=== PATIENT | male | born 1935 | race Hispanic/Latino ===

== ENCOUNTER → 2017-08-08 | Day surgery (SDC) | payer MEDICARE ==
[2017-08-07 17:55] LABS: BASOPHILS # (AUTO) 0.1 (0.0-0.1); EOSINOPHILS # (AUTO) 0.1 (0.0-0.4); EOSINOPHILS % 2.4 % (0.0-6.0); HEMATOCRIT 35.9 % (38.2-49.6); LYMPHOCYTES # (AUTO) 1.1 (1.0-3.2); LYMPHOCYTES % 21.8 % (18.0-39.1); MEAN CORPUSCULAR HEMOGLOBIN 28.9 pg (28-32); MEAN CORPUSCULAR HGB CONC 30.6 g/dL (31-35); MEAN CORPUSCULAR VOLUME 94.5 fL (81-99); MONOCYTES # (AUTO) 0.4 (0.2-0.8); MONOCYTES % 8.2 % (4.4-11.3); NEUTROPHILS # (AUTO) 3.3 (2.1-6.9); NEUTROPHILS % 66.2 % (38.7-80.0); PLATELET COUNT 190 x10e3/uL (140-360); RED CELL DISTRIBUTION WIDTH 15.2 % (11.7-14.4)
[~2017-08-08] MED LIST: CEFAZOLIN SOD 1 GM VIAL ONE; DEXAMETHASONE SOD PHOS INJ 4 MG/ML VIAL ONE; ENBREL50 MG/1 ML SQ; FENTANYL CITRATE/PF 100MCG/2 ML INJ ONE; FERROUS SULFAT325 MG PO; FOLIC ACID1 MG PO; GLYCOPYRROLATE INJ 1MG/ 5 ML SYR ONE; LIDOCAINE HCL 2% LOCAL INJ 5 ML SDV VIAL INJ ONE; ONDANSETRON HCL INJ 2 MG/ML VIAL ONE; PREDNISONE5 M1 PO; PROPOFOL IV EMULSION 10 MG/ML 20 ML VIAL ONE; SEVOFLURANE INHAL SOLN 250 ML PEN BTL ONE; ULTRACET TABLE1 EACH PO; VITAMIN B-121000 MCG PO; VITAMIN D31000 UNIT PO
--- NOTE | 2017-08-08 08:57 | Diagnostic Imaging Report ---
PROCEDURE: Frontal and lateral views of the chest. COMPARISON: Patients [facility], , CHEST 2 VIEWS, 03/17/2010, 16:30. INDICATIONS: PRE OP THUMB SURGERY FINDINGS: Lines/tubes: None. Lungs: Patchy density in the lung bases suggestive of subsegmental atelectasis. And/or senescent fibrosis. There is no evidence of pneumonia or pulmonary edema. Pleura: There is no pleural effusion or pneumothorax. Blunting of the posterior sulci suggestive of pleural scarring. Heart and mediastinum: The cardiac silhouette is mildly enlarged. Tortuous thoracic aorta. Bones: No acute bony abnormality. Remote healed right sided rib fractures. Degenerative changes of the thoracic spine. IMPRESSION: 1. No acute cardiopulmonary disease. Bibasilar subsegmental atelectasis and/or scarring. Michael Ruelas M.D. Dictated by: Michael Ruelas M.D. on 08/07/2017 at 18:14 Electronically approved by: Michael Ruelas M.D. on 08/07/2017 at 18:14
--- NOTE | 2017-08-08 14:26 | Operative Report ---
DATE OF PROCEDURE: August 08, 2017 BEESWAX BLEACHER: Iftikhar Grant PA-C The patient was brought to the operating room for induction of anesthesia. Throughout this case, my PA's assistance was necessary for retraction of soft tissue and positioning of the extremity. This allows for efficient and technically successful execution of the operation and is considered medically necessary. PREOPERATIVE DIAGNOSIS: Right thumb bony mallet finger. POSTOPERATIVE DIAGNOSIS: Right thumb bony mallet finger. PROCEDURE: Closed reduction and percutaneous pinning, right thumb. INDICATIONS: The patient is an 82-year-old gentleman who injured his right thumb. He has a bony mallet finger with a large dorsal fragment of bone at the extensor attachment. The findings and options have been discussed. We have recommended closed reduction and percutaneous pin fixation. Alternatives of care have been discussed. The patient states he understands and wishes to proceed with pinning. The risks and benefits were explained. The importance of cleaning the pin site with hydrogen peroxide was explained. He stated he understood and wished to proceed. DESCRIPTION OF PROCEDURE: The patient was brought to the operating room. He was placed under a brief general anesthetic. His right upper extremity was prepped and draped in a sterile manner. A preoperative time out was performed. Using a C-arm image intensifier, a 0.062 K-wire was placed on the tip of the thumb through the distal phalanx and across the IP joint. A nice reduction was obtained. The pin was cut short and capped. A sterile bandage was applied. The patient was transported to the recovery room in stable condition. There was no blood loss, and all needle and sponge counts were correct. Job#: [id number]
== END | disposition home or self-care (01) ==
LOC: OR 07:48
PROVIDERS: ATTEND Specialist
DX: M20.011 Mallet finger of right finger(s) (principal); Z01.810 Encounter for preprocedural cardiovascular examination; Z01.812 Encounter for preprocedural laboratory examination; Z01.818 Encounter for other preprocedural examination; Z96.653 Presence of artificial knee joint, bilateral; I10 Essential (primary) hypertension
CPT/HCPCS: 26432; 36415; 71046; 76000; 85025; 93005; J0690; J1100; J2001; J2405

== ENCOUNTER → 2017-12-26 | Day surgery (SDC) | payer MEDICARE ==
[2017-12-25 14:15] LABS: BASOPHILS % 0.6 % (0.0-1.0); EOSINOPHILS # (AUTO) 0.2 (0.0-0.4); EOSINOPHILS % 2.4 % (0.0-6.0); HEMATOCRIT 33.4 % (38.2-49.6); HEMOGLOBIN 10.1 g/dL (14.0-18.0); LYMPHOCYTES # (AUTO) 1.1 (1.0-3.2); LYMPHOCYTES % 17.9 % (18.0-39.1); MEAN CORPUSCULAR HEMOGLOBIN 28.9 pg (28-32); MEAN CORPUSCULAR HGB CONC 30.2 g/dL (31-35); MEAN CORPUSCULAR VOLUME 95.7 fL (81-99); MONOCYTES # (AUTO) 0.5 (0.2-0.8); MONOCYTES % 8.1 % (4.4-11.3); NEUTROPHILS # (AUTO) 4.5 (2.1-6.9); NEUTROPHILS % 70.5 % (38.7-80.0); PLATELET COUNT 187 x10e3/uL (140-360); RED BLOOD COUNT 3.49 x10e6/uL (4.3-5.7); RED CELL DISTRIBUTION WIDTH 15.6 % (11.7-14.4)
--- NOTE | 2017-12-25 15:15 | Diagnostic Imaging Report ---
EXAMINATION: PA and lateral views of the chest. COMPARISON: None CLINICAL HISTORY: Preadmission for urologic surgery DISCUSSION: Lines/tubes: None. Lungs: Atelectasis in the middle lobe and lingula. Lungs otherwise clear. Pleura: No pleural effusion or pneumothorax. Heart and mediastinum: The cardiomediastinal silhouette is normal. Bones and soft tissues: No acute bony abnormalities. Remote healed right-sided rib fractures. IMPRESSION: No acute cardiopulmonary abnormalities. Signed by: Dr. Braden Araujo M.D. on 12/25/2017 3:10 PM
[~2017-12-26] MED LIST changes: -DEXAMETHASONE SOD PHOS INJ 4 MG/ML VIAL ONE; +DOXAZOSIN MESYLA8 MG PO; +FLOMAX0.4 MG PO; -GLYCOPYRROLATE INJ 1MG/ 5 ML SYR ONE; +IOPAMIDOL 300MG/ML 50ML INFUS..BTL IV ONE; +LEVAQUIN500 MG PO; +MORPHINE SULFATE 2 MG/ML SYR ONE; +NITROFURANTOIN100 MG PO
[2017-12-26 15:00] VITALS: BP 131/74
--- NOTE | 2017-12-26 16:59 | Operative Report ---
DATE OF PROCEDURE: December 26, 2017 SERVICE: Urology. PREOPERATIVE DIAGNOSES 1. Benign prostatic hypertrophy with obstruction. 2. Urinary tract infection. 3. Microhematuria. POSTOPERATIVE DIAGNOSES 1. Benign prostatic hypertrophy with obstruction. 2. Urinary tract infection. 3. Microhematuria. OPERATIONS PERFORMED 1. Cystoscopy and bilateral retrograde pyelograms under fluoroscopic control. 2. Interpretation of x-ray, radiologist not present. 3. Supervision of fluoroscopy, radiologist not present. 4. Plasma surgery of the prostate. STONE OPERATOR: None. ANESTHESIA: General. CLINICAL INDICATION NOTE: This is an 82-year-old patient that has BPH with obstruction. He does have a Lamb catheter in place. He did fail several voiding trials. Patient was brought for cystoscopy, retrograde, and removal of the obstructing prostate. Procedure was discussed with him. Potential benefit and complication discussed, explained, and accepted. DESCRIPTION OF PROCEDURE AND FINDINGS: After the proper level of anesthesia was achieved, the patient was placed in lithotomy position, prepped and draped in usual sterile fashion. Urethra inspected is unremarkable, that is obstructed by large prostate composed of 3 lobes, a medial and 2 lateral. Bladder itself is significantly trabeculated. A cone-tip catheter was used and bilateral retrograde pyelograms were done. No intrinsic lesions were identified on both sides, no hydronephrosis, no stones. Following this, the scope was removed. A resectoscope was inserted and plasma treatment of the prostate was done. The mid lobe was treated first and then the 2 lateral lobes. Care was taken not to do distal to the verumontanum. After completing removal of the prostatic tissue, any visible bleeding points were coagulated. A 22-Mohawk, 30 mL, 3-way Lamb catheter was inserted. The patient tolerated the procedure well, was transferred in satisfactory condition to recovery room. Postop instruction given. Job#: [id number] YAEL
== END | disposition home or self-care (01) ==
LOC: OR 09:23
PROVIDERS: ATTEND Urology
DX: N40.1 Benign prostatic hyperplasia with lower urinary tract symptoms (principal); N13.8 Other obstructive and reflux uropathy; N39.0 Urinary tract infection, site not specified; N32.89 Other specified disorders of bladder; D64.9 Anemia, unspecified; M19.90 Unspecified osteoarthritis, unspecified site; Z01.810 Encounter for preprocedural cardiovascular examination; Z01.812 Encounter for preprocedural laboratory examination; Z01.818 Encounter for other preprocedural examination; Z87.891 Personal history of nicotine dependence
CPT/HCPCS: 36415; 52005; 52601; 71046; 74420; 85025; 93005; C1758; J0690; J2001; J2270; J2405; Q9967

== ENCOUNTER 2019-05-04 12:56 | Inpatient (IN) | payer MEDICARE ==
[~2019-05-04] VITALS: Ht 177.8 cm; Wt 104.0 kg
[~2019-05-04 12:56] MED LIST changes: +ASPIRIN EC81 MG PO; -CEFAZOLIN SOD 1 GM VIAL ONE; +COLACE100 MG/10 NG; +DIOVAN80 MG PO; +EFFIENT10 MG PO; +FAMOTIDINE20 MG PO; -FENTANYL CITRATE/PF 100MCG/2 ML INJ ONE; -IOPAMIDOL 300MG/ML 50ML INFUS..BTL IV ONE; -LIDOCAINE HCL 2% LOCAL INJ 5 ML SDV VIAL INJ ONE; +LIPITOR20 MG PO; +LOPRESSOR25 MG PO; -MORPHINE SULFATE 2 MG/ML SYR ONE; -ONDANSETRON HCL INJ 2 MG/ML VIAL ONE; -PROPOFOL IV EMULSION 10 MG/ML 20 ML VIAL ONE; -SEVOFLURANE INHAL SOLN 250 ML PEN BTL ONE
--- NOTE | 2019-05-04 14:35 | NUR ---
BLADDER SCAN PERFORMED RESULTS GREATER THAN 429 MD AWARE
--- NOTE | 2019-05-04 14:52 | NUR ---
BLADDER SCAN PERFORMED POST VOID OF 100 ML OF URINE RESULTS GREAT THAN 261
--- NOTE | 2019-05-04 14:53 | Diagnostic Imaging Report ---
EXAMINATION: CHEST SINGLE (PORTABLE) INDICATION: Shortness of breath. COMPARISON: 04/18/19. FINDINGS: AP view TUBES and LINES: None. LUNGS and pleura: Lungs are well inflated. There is mild prominence of the central pulmonary vasculature, consistent with pulmonary venous congestion. Bilateral small pleural effusions. No pneumothorax. HEART AND MEDIASTINUM: The cardiomediastinal silhouette is moderately enlarged. Enlarged tiki bilaterally suggestive of enlarged pulmonary arteries. BONES AND SOFT TISSUES: No acute osseous lesion. Old right-sided rib fracture deformities are again seen. Soft tissues are unremarkable. UPPER ABDOMEN: No free air under the diaphragm. IMPRESSION: Decompensated CHF with bilateral pulmonary venous congestion and interstitial edema. Signed by: Dr. Michael Ruelas M.D. on 05/04/2019 2:51 PM
[2019-05-04 15:14] LABS: BASOPHILS # (AUTO) 0.1 (0.0-0.1); BASOPHILS % 1.3 % (0.0-1.0); EOSINOPHILS # (AUTO) 0.8 (0.0-0.4); EOSINOPHILS % 14.6 % (0.0-6.0); HEMATOCRIT 24.8 % (38.2-49.6); HEMOGLOBIN 7.6 g/dL (14.0-18.0); LYMPHOCYTES # (AUTO) 0.9 (1.0-3.2); MEAN CORPUSCULAR HEMOGLOBIN 26.8 pg (28-32); MEAN CORPUSCULAR HGB CONC 30.6 g/dL (31-35); MEAN CORPUSCULAR VOLUME 87.3 fL (81-99); MONOCYTES # (AUTO) 0.5 (0.2-0.8); MONOCYTES % 9.5 % (4.4-11.3); NEUTROPHILS # (AUTO) 3.1 (2.1-6.9); NEUTROPHILS % 57.1 % (38.7-80.0); PLATELET COUNT 301 x10e3/uL (140-360); RED BLOOD COUNT 2.84 x10e6/uL (4.3-5.7); RED CELL DISTRIBUTION WIDTH 14.1 % (11.7-14.4)
[2019-05-04 15:19] LABS: INR 1.1; PROTHROMBIN TIME 14.7 seconds (11.9-14.5)
[2019-05-04 15:31] LABS: ALBUMIN 2.9 g/dL (3.5-5.0); ALBUMIN/GLOBULIN RATIO 0.7 (0.8-2.0); ANION GAP 14.9 mmol/L (8-16); CALCIUM 8.5 mg/dL (8.4-10.2); CREATININE, SERUM 2.13 mg/dL (0.72-1.25); MAGNESIUM 1.8 MG/DL (1.3-2.1); POTASSIUM 4.9 mmol/L (3.5-5.1)
--- NOTE | 2019-05-04 15:37 | NUR ---
coude catheter inserted with initial output of 200 mL
[2019-05-04 15:39] LABS: CREATINE KINASE MB 2.4 ng/mL (0-5.0)
[2019-05-04 15:56] LABS: CLARITY,URINE SL CLOUDY (CLEAR); COLOR,URINE YELLOW (YELLOW)
[2019-05-04 15:57] LABS: BILIRUBIN,URINE NEGATIVE (NEGATIVE); KETONES,URINE NEGATIVE (NEGATIVE); LEUKOCYTE ESTERASE ,URINE SMALL (NEGATIVE); NITRITE,URINE NEGATIVE (NEGATIVE); PROTEIN,URINE DIPSTICK NEGATIVE (NEGATIVE); URINE UROBILINOGEN 0.2 mg/dL (0.2 - 1)
[2019-05-04 15:58] LABS: BACTERIA,URINE RARE /HPF; EPITHELIAL CELLS,URINE FEW /LPF; RBC,URINE 0-5 /HPF (0-5)
[2019-05-04] MEDS: PANTOPRAZOLE 40 MG 10ML VIAL IV NR ×2 (15:59→16:43)
--- NOTE | 2019-05-04 16:15 | Diagnostic Imaging Report ---
Exam: Head CT without contrast History: Trauma, fall, unsteady gait Comparison studies: None Technique: Axial images were obtained from the skull base to the vertex. Coronal and sagittal images reconstructed from the axial data. Dose modulation, iterative reconstruction, and/or weight based adjustment of the mA/kV was utilized to reduce the radiation dose to as low as reasonably achievable. Radiation dose: Total DLP: 1275.77 mGy*cm. Estimated effective dose: DLP x 0.015 Intravenous contrast: None Findings: Scalp: No abnormalities. Bones: No fractures, blastic or lytic lesions. Brain sulci: Mildly prom. Ventricles: Mild compensatory dilatation. No hydrocephalus. Extra-axial spaces: No masses, no fluid collection. Parenchyma: No mass, acute hemorrhage or acute or chronic cortical insults. Ill-defined and mildly confluent hypodensities in the supratentorial white matter are nonspecific but are most compatible with chronic microvascular ischemic changes. Sellar/suprasellar region: No abnormalities. Craniocervical junction: Patent foramen magnum. No Chiari one malformation. Incidental findings: Atherosclerotic calcifications in the carotid siphons and intradural vertebral arteries. IMPRESSION: No acute abnormalities. Chronic findings: 1. Mild generalized brain volume loss. 2. Mild to moderate microvascular ischemic changes. Signed by: Dr. Lowell Lemus M.D. on 05/04/2019 4:13 PM
--- NOTE | 2019-05-04 16:24 | Diagnostic Imaging Report ---
History: Trauma, fall, unsteady gait Comparison studies: None Technique: Axial images were obtained through the cervical region. Coronal and sagittal images reconstructed from the axial data. Dose modulation, iterative reconstruction, and/or weight based adjustment of the mA/kV was utilized to reduce the radiation dose to as low as reasonably achievable. Intravenous contrast: None Findings: Atlantoaxial articulation: Intact. Alignment: Normal cervical lordotic curvature. Minimal anterolisthesis of C6 on C7 and C7 on T1 are most likely degenerative in etiology. Cervicomedullary junction: No abnormalities. The foramen magnum is patent. Soft tissues: No gross acute abnormalities. Vertebrae: No fracture, infection or neoplasm. Incidental congenital atlantooccipital assimilation. Degenerative changes: Multilevel disc degeneration, worse/moderate from C3 to C6. Prominent anterior marginal osteophytes indent the prevertebral soft tissues from C3 to T1. Disc osteophyte complexes at C3-C4 and C4-C5 result in at least moderate canal stenosis. Mild canal stenosis at C5-C6 due to disc osteophyte complex. Advanced multilevel facet arthrosis. Varying degrees of moderate to severe bilateral degenerative foraminal stenosis from C2 through C6. Incidental findings: Scattered calcified atherosclerosis. Anatomical variant retropharyngeal course of the right common carotid and proximal cervical internal carotid artery. IMPRESSION: 1. No cervical spine fracture or subluxation. 2. Advanced multilevel degenerative changes with at least moderate canal stenosis and multilevel moderate to severe foraminal stenosis. Cervical spine MRI may further evaluate as warranted. Ligament, spinal cord and or vascular abnormalities cannot be excluded on the basis of this examination Signed by: Dr. Lowell Lemus M.D. on 05/04/2019 4:22 PM
[2019-05-04] MEDS ORDERED: ONDANSETRON HCL INJ 2MG/ML 2ML 2 MG/ML VIAL IV PRN (17:00)
[2019-05-04 17:46] VITALS: BP 119/63
[2019-05-04 18:27] VITALS: BP 119/63
[2019-05-04 18:34] VITALS: BP 119/63
--- NOTE | 2019-05-04 19:33 | NUR ---
Received report from day nurse. patient is resting comfortably in the bed. bed is in the lowest position and call pinto is within reach. will continue to monitor patient
[2019-05-04 19:40] VITALS: BP 127/62
[2019-05-04] MEDS: MEROPENEM 500MG 500 MG in SODIUM CHLORIDE 0.9% 50ML 50 ML IV SCH (20:00)
[2019-05-04 20:30] VITALS: BP 127/62
[2019-05-04] MEDS ORDERED: MEROPENEM 500MG/ NS 50ML 100 ML ONE (20:52)
[2019-05-04] MEDS ORDERED: SODIUM CHLORIDE 0.9% 250ML 250 ML ONE (20:58)
[2019-05-05] VITALS (8 sets, daily range): BP systolic 104–139; BP diastolic 54–62
[2019-05-05 04:52] LABS: BASOPHILS # (AUTO) 0.1 (0.0-0.1); BASOPHILS % 1.1 % (0.0-1.0); EOSINOPHILS # (AUTO) 0.6 (0.0-0.4); EOSINOPHILS % 12.7 % (0.0-6.0); HEMATOCRIT 23.8 % (38.2-49.6); HEMOGLOBIN 7.3 g/dL (14.0-18.0); LYMPHOCYTES # (AUTO) 0.6 (1.0-3.2); MEAN CORPUSCULAR HEMOGLOBIN 26.5 pg (28-32); MEAN CORPUSCULAR HGB CONC 30.7 g/dL (31-35); MEAN CORPUSCULAR VOLUME 86.5 fL (81-99); MONOCYTES # (AUTO) 0.5 (0.2-0.8); NEUTROPHILS # (AUTO) 2.9 (2.1-6.9); NEUTROPHILS % 61.8 % (38.7-80.0); PLATELET COUNT 292 x10e3/uL (140-360); RED BLOOD COUNT 2.75 x10e6/uL (4.3-5.7); RED CELL DISTRIBUTION WIDTH 13.9 % (11.7-14.4)
[2019-05-05] MEDS: MEROPENEM 500MG 500 MG in SODIUM CHLORIDE 0.9% 50ML 50 ML IV SCH (05:00)
[2019-05-05 05:12] LABS: ALBUMIN 2.5 g/dL (3.5-5.0); ALBUMIN/GLOBULIN RATIO 0.7 (0.8-2.0); ANION GAP 14.5 mmol/L (8-16); CALCIUM 8.4 mg/dL (8.4-10.2); CHOL/HDL RATIO 3.8 (3.9-4.7); CREATININE, SERUM 1.77 mg/dL (0.72-1.25); POTASSIUM 4.5 mmol/L (3.5-5.1)
[2019-05-05 05:18] LABS: CREATINE KINASE MB 1.8 ng/mL (0-5.0)
--- NOTE | 2019-05-05 07:15 | NUR ---
report given to day nurse. patient is resting comfortably in bed. bed is in lowest position and call light is within reach.
--- NOTE | 2019-05-05 07:36 | NUR ---
H&P cc: chest pain HPI: 83yoM, PCP , developed urinary retention for 2 days. Lamb placed, urology consulted; PMH: RA, BPH, CKD3, peripheral edema, hearing deficits, STEMI 04/2019, hyponatremia, Bradyarrhythmia PShx: B/L TKR, hernia repair Allergies; see emr fh/SH; ; no cigs meds; see MAR ROS: no f/c/s/N/V/D/dizziness/skin rash/back pain/confusion/leg pain v/s; revd PE tired appearing anicteric ns1s2 mod bs soft nt nd Lamb in place no e/t; thickening and yellowing of toenails skin dry n. affect Reduced hearing labs/meds revd A/P 83yoM Urinary retention Hyponatremia UTI PRISCA in CKD3 Moderate anemia CAD with recent ACS and stent placed in 04/2019 BPH RA Onychomycosis of toenails HEaring deficits PLAN Lamb; IVF; urology eval; flomax Restatrt home meds SCD Qamar Olson MD, PhD.
[2019-05-05 08:55] LABS: FERRITIN 799.26 ng/mL (21.81-274.66)
[2019-05-05] MEDS ORDERED: DOCUSATE SODIUM LIQD 100 MG/10 ML UDC NG SCH (09:00)
[2019-05-05] MEDS ORDERED: ASPIRIN 81 MG ENTERIC COATED PO SCH (09:00)
[2019-05-05] MEDS: FERROUS SULFATE 325 MG TAB PO SCH ×2 (09:12→16:20)
[2019-05-05] MEDS: TAMSULOSIN HCL 0.4 MG CAP PO SCH (09:12)
[2019-05-05] MEDS: DOCUSATE SODIUM 100 MG CAP PO SCH ×2 (09:12→16:20)
[2019-05-05] MEDS: METOPROLOL TARTRATE 25 MG TAB PO SCH ×2 (09:12→20:03)
[2019-05-05] MEDS: TRAMADOL/APAP 37.5MG-325MG TAB PO PRN (09:12)
[2019-05-05] MEDS: FAMOTIDINE 20 MG TAB PO SCH ×2 (09:13→20:03)
[2019-05-05 10:38] LABS: EOSINOPHILS % (MANUAL) 10 % (0-7); LYMPHOCYTES % (MANUAL) 10 % (19-48); MONOCYTES % (MANUAL) 8 % (3.4-9.0); NEUTROPHILS % (MANUAL) 72 % (40-74)
[2019-05-05] MEDS: PRASUGREL 10 MG TAB PO SCH (11:23)
[2019-05-05 14:21] LABS: CREATINE KINASE MB 1.3 ng/mL (0-5.0)
[2019-05-05] MEDS: MEROPENEM 500MG/ NS 50ML 50 ML IV SCH (16:20)
[2019-05-05] MEDS: VALSARTAN 80 MG TAB PO SCH (16:20)
--- NOTE | 2019-05-05 19:05 | NUR ---
received report from day nurse. patient is resting comfortably in the bed. bed is in the lowest position and call pinto is within reach. will continue to monitor patient.
--- NOTE | 2019-05-05 19:20 | NUR ---
Report given to oncoming nurse of patient status. Resting in bed. No s/s of acute distress noted. Side rails upx2, Call light within reach, bed alarm on
[2019-05-05] MEDS: ATORVASTATIN 20 MG TAB PO SCH (20:03)
[2019-05-06] VITALS (7 sets, daily range): BP systolic 105–130; BP diastolic 44–67
[2019-05-06] MEDS: MEROPENEM 500MG/ NS 50ML 50 ML IV SCH ×2 (05:23→16:15)
[2019-05-06 05:26] LABS: BASOPHILS # (AUTO) 0.1 (0.0-0.1); BASOPHILS % 0.9 % (0.0-1.0); EOSINOPHILS # (AUTO) 0.8 (0.0-0.4); EOSINOPHILS % 13.4 % (0.0-6.0); HEMATOCRIT 25.9 % (38.2-49.6); HEMOGLOBIN 7.8 g/dL (14.0-18.0); LYMPHOCYTES # (AUTO) 1.1 (1.0-3.2); MEAN CORPUSCULAR HEMOGLOBIN 26.9 pg (28-32); MEAN CORPUSCULAR HGB CONC 30.1 g/dL (31-35); MEAN CORPUSCULAR VOLUME 89.3 fL (81-99); MONOCYTES # (AUTO) 0.5 (0.2-0.8); MONOCYTES % 9.1 % (4.4-11.3); NEUTROPHILS # (AUTO) 3.2 (2.1-6.9); NEUTROPHILS % 56.1 % (38.7-80.0); PLATELET COUNT 328 x10e3/uL (140-360)
[2019-05-06 05:39] LABS: ANION GAP 15.5 mmol/L (8-16); CALCIUM 8.6 mg/dL (8.4-10.2); CREATININE, SERUM 1.94 mg/dL (0.72-1.25); POTASSIUM 4.5 mmol/L (3.5-5.1)
--- NOTE | 2019-05-06 06:37 | NUR ---
IM- progress O/N see below ROS: no f/c/s/N/V/D/dizziness/skin rash/back pain/confusion/leg pain v/s; revd PE tired appearing anicteric ns1s2 mod bs soft nt nd Lamb in place no e/t; thickening and yellowing of toenails skin dry n. affect Reduced hearing labs/meds revd A/P 83yoM Urinary retention Hyponatremia UTI PRISCA in CKD3 Moderate anemia CAD with recent ACS and stent placed in 04/2019 BPH RA Onychomycosis of toenails HEaring deficits PLAN Lamb; IVF; urology eval; flomax Restatrt home meds SCD 1-27 Hyponatremia- use salt tabs; Metabolic acidosis- use bicarbs; cont IVF; f/u urine culture; AAA on U/S critical size- tranfer to med ctr; control BP with BB Qamar Olson MD, PhD.
--- NOTE | 2019-05-06 07:00 | NUR ---
BEDSIDE SHIFT REPORT RECEIVED FROM THE WALLPAPER HANGER HELPER RN. EDUCATED PT ABOUT FALL PRECAUTIONS. CALL LIGHT WITH IN EASY REACH. INSTRUCTED PT TO USE CALL LIGHT FOR ALL THE NEEDS. PT VERBALIZED UNDERSTANDING. BED IS LOW AND LOCKED. SIDE RAILS X2. BED ALARM IS ON. PT DENIES NEEDS AT THIS TIME.
--- NOTE | 2019-05-06 07:22 | NUR ---
report given to day nurse. patient is resting comfortably in bed. bed is in lowest position and call light is within reach.
[2019-05-06] MEDS: SODIUM BICARBONATE 650 MG TAB PO SCH ×2 (08:00→16:35)
[2019-05-06] MEDS: SODIUM CHLORIDE 1 GM TAB PO SCH ×3 (08:00→21:05)
[2019-05-06] MEDS: FAMOTIDINE 20 MG TAB PO SCH ×2 (08:39→21:05)
[2019-05-06] MEDS: TAMSULOSIN HCL 0.4 MG CAP PO SCH (08:39)
[2019-05-06] MEDS: FERROUS SULFATE 325 MG TAB PO SCH ×2 (08:39→16:35)
[2019-05-06] MEDS: DOCUSATE SODIUM 100 MG CAP PO SCH ×2 (08:39→16:35)
[2019-05-06] MEDS: PRASUGREL 10 MG TAB PO SCH (08:49)
[2019-05-06] MEDS: METOPROLOL TARTRATE 25 MG TAB PO SCH ×2 (08:49→21:00)
[2019-05-06] MEDS: VALSARTAN 80 MG TAB PO SCH (08:49)
--- NOTE | 2019-05-06 09:15 | NUR ---
CALL RECEIVED FROM LAB. ESBL IN URINE. PAGED DR. SAAVEDRA AND REPORTED THE SAME.
--- NOTE | 2019-05-06 10:53 | NUR ---
Left message for Dr. Olson regarding dc plan. Pt with ESBL in urine. PT to eval. SNF vs. home with HH and IV abx. Awaiting response.
--- NOTE | 2019-05-06 11:14 | NUR ---
DAUGHTER IS ANGEL [phone]
--- NOTE | 2019-05-06 11:14 | NUR ---
ATTEMPTED TO PREFORM DPA BUT UNABLE DUE TO PT BEING ASLEEP, WILL RETURN AT LATER TIME
[2019-05-06] MEDS ORDERED: ONDANSETRON HCL 4 MG ORAL DISINTEGRATING TAB PO PRN (12:00)
--- NOTE | 2019-05-06 15:00 | NUR ---
PT REFUSED TO WEAR IRVING HOSE.
--- NOTE | 2019-05-06 15:30 | NUR ---
SPOKE WITH PT AND WAS ABLE TO COMPLETE DPA ALSO SPOKE WITH HIM ABOUT THE SNF ORDER, HE DEFERRED ME TO HIS DAUGHTER ANGEL, STATES PT IS AT [facility]. SHE STATES SHE WILL CHECK WITH HER MOTHER TO SEE IF SHE WANTS HIM AT THE SAME BUILDING, AND HER SIBLINGS TO SEE IF ABLE TO GET HIM TO GO TO A FACILITY, EDUCATED HE WILL NEED [facility] ABX AND PT. GAVE ALL OPTIONS FOR SNFS IN AREA, SHE WILL CALL BACK AND LET ME KNOW WHAT THE FAMILY DECISION IS.
--- NOTE | 2019-05-06 16:00 | NUR ---
STAT CONSULT DR. DURANT CALLED PER DR. DELGADO AND DR. DELA CRUZ. CHARGE NURSE NOTIFIED. CASE MANAGEMENT NOTIFIED.
--- NOTE | 2019-05-06 16:03 | Diagnostic Imaging Report ---
EXAM: Renal Ultrasound INDICATION: ^lizzette COMPARISON: None TECHNIQUE: Transverse and longitudinal images of the kidneys and bladder were obtained. FINDINGS: Right Kidney: Length: 9.6 cm Appearance: Normal echogenicity. Collecting system: No hydronephrosis Stones: None Cyst/Mass: 5 mm simple anechoic exophytic cyst. Left Kidney: Length: 10.9 cm Appearance: Normal echogenicity. Collecting system: No hydronephrosis Stones: None Cyst/Mass: Multiple simple cysts, the largest measuring up to 2.3 cm. Bladder: Lamb catheter in the decompressed bladder. Incidental note is made of infrarenal abdominal aortic aneurysm measuring up to 6.3 cm maximum diameter. IMPRESSION: No renal calculi or hydronephrosis. Bilateral simple renal cysts as above. Infrarenal abdominal aortic aneurysm measuring up to 6.3 cm maximum diameter. RECOMMENDATIONS: Urgent vascular surgery consultation for management of large abdominal aortic aneurysm. The above findings were discussed with Dr. Guillaume on 05/06/2019 3:55 PM, who responded indicating that the communication was understood. Signed by: Louis Billings MD on 05/06/2019 4:00 PM
--- NOTE | 2019-05-06 16:07 | NUR ---
ADDENDUM- d/w ; Extra time spent- >35mins IM- progress O/N see below ROS: no f/c/s/N/V/D/dizziness/skin rash/back pain/confusion/leg pain v/s; revd PE tired appearing anicteric ns1s2 mod bs soft nt nd Lamb in place no e/t; thickening and yellowing of toenails skin dry n. 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 Qamar Olson MD, PhD.
--- NOTE | 2019-05-06 16:08 | NUR ---
D/C summary Principal Dx: Critical size AAA Urinary retention Hyponatremia ESBL E.coli UTI PRISCA in CKD3 Moderate anemia CAD with recent ACS and stent placed in 04/2019 BPH RA Onychomycosis of toenails HEaring deficits PLAN Lamb; IVF; urology eval; flomax Restatrt home meds SCD 05-06 Hyponatremia- use salt tabs; Metabolic acidosis- use bicarbs; cont IVF; f/u urine culture; AAA on U/S critical size- tranfer to med ctr; control BP with BB; D/W ; ESBL E.coli UTI- merrem. d/c to med ctr stable at this time d/c>35mins f/u medical team in med ctr. Qamar Olson MD, PhD.
--- NOTE | 2019-05-06 16:50 | NUR ---
Received order to transfer pt to [facility]. CM spoke to pt. He gave choice for 1. [facility] and 2. [facility]. Choice letter signed and placed in chart. Copy to pt. Pt asked that CM call his daughter Shakira to update her. CM called [facility] [phone] and spoke to Jaclyn to initiate transfer process. Facesheet and clinicals faxed to [phone]. CM called Shakira Clark [phone] and updated her on dc plan. She agrees with plan to transfer to [facility]. MOT initiated and given to health unit clerk to place with pt's packet for transfer.
[2019-05-06] MEDS: IRON SUCROSE 100 MG in SODIUM CHLORIDE 0.9% 100 ML 100 ML IV SCH (17:00)
--- NOTE | 2019-05-06 19:00 | NUR ---
BEDSIDE SHIFT REPORT GIVEN TO THE MARINE ENGINEERING CONSULTANT RN. PT DENIED FURTHER NEEDS.
--- NOTE | 2019-05-06 19:25 | NUR ---
received report from day nurse. patient is resting comfortably in the bed. bed is in the lowest position and call light is within reach. will continue to monitor patient.
[2019-05-06] MEDS: ATORVASTATIN 20 MG TAB PO SCH (21:05)
--- NOTE | 2019-05-06 21:44 | Consultation ---
DATE OF CONSULTATION: 05/06/2019 HISTORY OF PRESENT ILLNESS: This 83-year-old gentleman, poor historian, hard of hearing. I had a religion instructor with me has been admitted with urinary tract obstruction, acute kidney injury and renal has been consulted for before management of kidney failure. His most recent labs show sodium 126, potassium 4.5, bicarbonate 21, creatinine 1.9. His transferrin sat is 9 and his albumin level is 3.8. His CK is 111. He has been seen by Urology, Dr. Lamb has an indwelling Lamb catheter. Recent urinalysis shows specific gravity 1.010, pH 5.5 with a 0-5 RBC, 6-10 WBC. Hematology shows white count 5.6, hemoglobin 7.8. Chest x-ray please see official report, shows decompensated CHF with bilateral pulmonary venous congestion, interstitial edema. ALLERGIES: NO APPARENT DRUG ALLERGIES. CURRENT MEDICATIONS: The patient is on Flomax 0.4 mg daily. He is on valsartan 40 mg daily, which I am going to stop for the moment. He is on sodium chloride 2 g p.o. t.i.d., sodium bicarbonate tablet 1300 mg p.o. b.i.d., ferrous sulfate, atorvastatin, docusate, famotidine, metoprolol 12.5 p.o. b.i.d., Effient 10 mg daily, atorvastatin 20 mg at bedtime, meropenem 500 mg IV q.12 had urine culture positive ESBL. The patient currently comfortable resting, no apparent distress. He has a history of hypertension, bilateral knee replacement. He does not smoke or drink. History of inferior ST elevated myocardial infarction status post PCI and stenting right coronary artery. This was done recently on April 20, 2019. His serum creatinine has been ranging between 1.74-2.33, most recent 1.94. PHYSICAL EXAMINATION: GENERAL: Awake, alert, oriented x3, lying supine, in no apparent distress. VITAL SIGNS: Blood pressure 106/58, pulse 59, afebrile. HEAD AND NECK: Cornea clear. Oral mucosa moist. Neck veins flat. LUNGS: Occasional bibasilar rales. HEART: S1, S2 audible. Soft 2 to 3/6 ejection murmur heard over left sternal border. ABDOMEN: Otherwise soft, nontender. No apparent visceromegaly. LOWER EXTREMITY: No edema. IMPRESSION AND PLAN: Compensated CHF, acute on chronic kidney failure, iron deficiency anemia. Strongly recommend obtaining stool guaiacs. I will start IV Venofer. Hyponatremia appears multifactorial, underlying CKD three most likely until proven otherwise, evidence of distal renal tubular acidosis. Agree with bicarbonate tablets. Renal workup ordered. Clinic records have been requested. MD OSORIO Teixeira/MODL /[id number]
[2019-05-07] VITALS (7 sets, daily range): BP systolic 94–123; BP diastolic 41–63
[2019-05-07] MEDS: MEROPENEM 500MG/ NS 50ML 50 ML IV SCH ×3 (05:20→21:35)
[2019-05-07 05:37] LABS: ALBUMIN 2.5 g/dL (3.5-5.0); ALBUMIN/GLOBULIN RATIO 0.7 (0.8-2.0); ANION GAP 11.8 mmol/L (8-16); CALCIUM 8.4 mg/dL (8.4-10.2); CREATININE, SERUM 1.63 mg/dL (0.72-1.25); POTASSIUM 4.8 mmol/L (3.5-5.1)
--- NOTE | 2019-05-07 06:34 | NUR ---
IM- progress O/N see below ROS: no f/c/s/N/V/D/dizziness/skin rash/back pain/confusion/leg pain v/s; revd PE tired appearing anicteric ns1s2 mod bs soft nt nd Lamb in place no e/t; thickening and yellowing of toenails skin dry n. 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 05-07 d/c planning to med ctr for CV Sx mgmt of AAA. cont renal care and merrem. Surgical team notes that patient is a poor surgical candidate, but reque sted various consults, consultations made; Transfer to [facility] when accepted; d/w - PCP and - glass cut off tender; I also discussed with and updated daughter Shakira at [phone]. Continue medical tx. Qamar Olson MD, PhD.
--- NOTE | 2019-05-07 06:45 | NUR ---
patient is resting in bed. bed is in lowest position and call pinto is within reach.
--- NOTE | 2019-05-07 07:00 | NUR ---
BEDSIDE SHIFT REPORT RECEIVED FROM THE ARTIST SUSPECT RN. EDUCATED PT ABOUT FALL PRECAUTIONS. CALL LIGHT WITH IN EASY REACH. INSTRUCTED PT TO USE CALL LIGHT FOR ALL THE NEEDS. PT VERBALIZED UNDERSTANDING. BED IS LOW AND LOCKED. SIDE RAILS X2. BED ALARM IS ON. PT DENIES NEEDS AT THIS TIME.
--- NOTE | 2019-05-07 08:30 | NUR ---
DR. DURANT AT BEDSIDE.
--- NOTE | 2019-05-07 09:00 | NUR ---
DR. SAAVEDRA AT BEDSIDE. PER THE , PT NEED PICC LINE.
[2019-05-07] MEDS: DOCUSATE SODIUM 100 MG CAP PO SCH ×2 (09:08→17:53)
[2019-05-07] MEDS: SODIUM BICARBONATE 650 MG TAB PO SCH ×2 (09:08→17:53)
[2019-05-07] MEDS: FERROUS SULFATE 325 MG TAB PO SCH ×2 (09:08→17:53)
[2019-05-07] MEDS: SODIUM CHLORIDE 1 GM TAB PO SCH ×3 (09:08→21:35)
[2019-05-07] MEDS: FAMOTIDINE 20 MG TAB PO SCH ×2 (09:08→21:35)
[2019-05-07] MEDS: PRASUGREL 10 MG TAB PO SCH (09:08)
[2019-05-07] MEDS: METOPROLOL TARTRATE 25 MG TAB PO SCH ×2 (09:08→21:00)
[2019-05-07] MEDS: TAMSULOSIN HCL 0.4 MG CAP PO SCH (09:08)
--- NOTE | 2019-05-07 10:00 | NUR ---
PAGED DR. DELGADO AND UPDATED THE PROGRESS NOTES FROM DR. DURANT AND DR. SAAVEDRA. WAITING FOR THE CALL BACK.
--- NOTE | 2019-05-07 10:30 | NUR ---
CALL RECEIVED FROM DR. DELGADO. NEW ORDERS RECEIVED.
--- NOTE | 2019-05-07 10:30 | NUR ---
NEW ORDER CENTRAL LINE IJ TUNNELED PER DR. DELGADO
--- NOTE | 2019-05-07 11:30 | NUR ---
HOLD CENTRAL LINE TILL DR. RABAGO SEE THE PT PER DR. DELGADO. INFORMED THE SAME TO RADIOLOGY.
[2019-05-07] MEDS ORDERED: SODIUM CHLORIDE 0.9% 1000ML 1,000 ML IV ONE (12:30)
--- NOTE | 2019-05-07 14:32 | Diagnostic Imaging Report ---
EXAMINATION: CHEST 2 VIEWS INDICATION: Shortness of breath COMPARISON: Chest radiograph 05/04/2019 FINDINGS: LINES/TUBES:EKG leads overlie the chest. LUNGS:The lungs are mildly hyperinflated. There is perihilar fullness and indistinctness of the pulmonary vasculature. Mild bibasilar right greater than left opacities. PLEURA:No pleural effusion or pneumothorax. MEDIASTINUM:Cardiomediastinal silhouette is stably enlarged. Atherosclerotic calcifications of the thoracic aorta. BONES/SOFT TISSUES:Old healed right rib fractures. No acute osseous injury. Severe right glenohumeral joint degenerative changes. ABDOMEN:No free air under the diaphragm. IMPRESSION: Cardiomegaly and worsening pulmonary edema. Signed by: Louis Billings MD on 05/07/2019 2:29 PM
--- NOTE | 2019-05-07 16:12 | NUR ---
Spoke with Dr. Olson regarding transfer to [facility]. He states pt has a large aortic aneurysm that could spontaneously rupture at any time. Pt needs to transfer to the medical center as soon as possible. YONG spoke with Bunny at [facility] [phone]. States he will update the notes and they may have a bed for pt. Will call CM, nurses station, or household appliance installer once bed is available. DULCE MARIA Okeefe updated.
[2019-05-07] MEDS: IRON SUCROSE 100 MG in SODIUM CHLORIDE 0.9% 100 ML 100 ML IV SCH (17:00)
--- NOTE | 2019-05-07 17:15 | NUR ---
CALL RECEIVED FROM [facility] TRANSFER MEDORA. PER RACHEL, SHE CALLED DR. DURANT OFFICE REGARDING PT TRANSFER BUT PER DR. DURANT, PT IS NOT A CANDIDATE FOR SURGERY AT THIS TIME. SO UNABLE TO TRANSFER TO [facility] AT THIS TIME. MS. RAMOS REQUESTED TO CONTACT DR. DELGADO. PAGED DR. DELGADO AND INFORMED THE SAME.
--- NOTE | 2019-05-07 17:30 | NUR ---
PT OFF UNIT FOR PROCEDURE IN SAFE CONDITION.
--- NOTE | 2019-05-07 17:40 | NUR ---
CALL RECEIVED FROM DELL BALLESTEROS. PER THE CALLER, [facility] DECLINING THE TRANSFER DUE TO NO PHYSICIAN ACCEPTING THE PT. INFORMED THE SAME TO DR. DELGADO.
--- NOTE | 2019-05-07 17:50 | NUR ---
PT BACK TO UNIT AFTER PROCEDURE. DENIES NEEDS AT THIS TIME
[2019-05-07] MEDS ORDERED: SODIUM CHLORIDE 0.9% 250ML 250 ML IV NR (18:15)
[2019-05-07] MEDS ORDERED: FUROSEMIDE INJ 10 MG/ML 4 ML VIAL IV NR (18:30)
--- NOTE | 2019-05-07 18:41 | Diagnostic Imaging Report ---
Chest, Abdomen and Pelvis CTA WITH AND WITHOUT IV CONTRAST. INDICATION: Abdominal aortic aneurysm COMPARISON: Renal ultrasound of 05/06/2019 TECHNIQUE: The chest, abdomen and pelvis were scanned utilizing a multidetector helical scanner from the thoracic inlet to the pubic symphysis before and after administration of IV contrast. Coronal and sagittal reformations were obtained. 3D post-processing of the images was performed, and the post-processed images were used in interpretation. CTA protocol was performed. IV CONTRAST: 100mL of Isovue 370 ORAL CONTRAST: Water RADIATION DOSE: Total DLP: 1086.5 mGy*cm FINDINGS: VESSELS: There are moderate calcified and noncalcified atherosclerotic plaques in the aorta and its major branches. No aortic dissection. Infrarenal abdominal aortic aneurysm measures up to 6.5 x 6.4 cm at its widest point with mural thrombus. The common iliac arteries measure up to 1.5 cm on the left and 1.4 cm on the right. 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 The celiac artery, superior mesenteric artery, and inferior mesenteric artery are patent. There is a single right and and 2 left renal arteries, all of which are patent. NON-VASCULAR: LINES/ TUBES: None. LUNGS AND AIRWAYS: Small amount of dependent debris in the upper thoracic trachea. The central airways are otherwise patent. No focal consolidation or pulmonary edema. Mild subsegmental atelectasis at the dependent right lower lobe. Scattered 3 mm right upper and right middle lobe nodules. PLEURA: The pleural spaces are clear. HEART AND MEDIASTINUM: The thyroid gland is normal. No supraclavicular, mediastinal, or hilar lymphadenopathy. Prominent left axillary lymph node measures up to 1.3 cm short axis. Mild multichamber cardiomegaly. No pericardial effusion. Atherosclerotic calcifications involve the coronary arteries and proximal great vessels.. No central pulmonary embolism. The main pulmonary artery is enlarged, measuring up to 4.2 cm. HEPATOBILIARY: No focal hepatic lesions. No biliary ductal dilatation. The gallbladder appears unremarkable. SPLEEN: No splenomegaly. PANCREAS: No focal masses or ductal dilatation. ADRENALS: No adrenal nodules. KIDNEYS/URETERS: No hydronephrosis, stones, or solid mass lesions. Bilateral simple renal cysts. PELVIC ORGANS/BLADDER: Lamb catheter terminates in the decompressed bladder. PERITONEUM / RETROPERITONEUM: No free air or fluid. LYMPH NODES: No lymphadenopathy. GI TRACT: Severe sigmoid diverticulosis without CT evidence of diverticulitis. No abnormal bowel thickening. No bowel obstruction. Normal appendix. BONES AND SOFT TISSUES: No acute osseous injury. Old healed right and left rib fractures. Diffuse osteopenia. Moderate degenerative changes of the visualized spine. No suspicious lytic or blastic lesions. Severe right glenohumeral joint degenerative changes. IMPRESSION: Infrarenal abdominal aortic aneurysm measures up to 6.5 x 6.4 cm. Moderate calcified and noncalcified atherosclerosis. Recommend vascular surgical consult if not already obtained. 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 Severe sigmoid diverticulosis without CT evidence of diverticulitis. Scattered 3 mm right upper and middle lobe pulmonary nodules. If the patient is low risk, no further follow-up imaging is necessary. If the patient is high risk, follow-up chest CT is optional in 12 months. Signed by: Louis Billings MD on 05/08/2019 11:41 AM
[2019-05-07] MEDS ORDERED: SODIUM CHLORIDE 0.9% 100 ML ONE (18:42)
[2019-05-07] MEDS ORDERED: IOPAMIDOL 370 MG/ML 200 ML INFUS..BTL INJ ONE (18:43)
--- NOTE | 2019-05-07 19:00 | NUR ---
BEDSIDE SHIFT REPORT GIVEN TO THE DOORPERSON OR LUGGAGE PORTER RN. PT DENIED FURTHER NEEDS.
--- NOTE | 2019-05-07 20:44 | Consultation ---
DATE OF CONSULTATION: 05/07/2019 Pulmonary Consultation REASON FOR CONSULTATION: Pulmonary preop risk assessment optimization for possible infrarenal abdominal aortic aneurysm repair. HISTORY OF PRESENT ILLNESS: The patient is an 83-year-old Latin male, who has a past medical history of recent non ST-segment elevation AL back earlier this April with PCI and stent. He has a 40% to 45% systolic ejection fraction and chronic kidney disease. He presented to the ER secondary to generalized weakness following the urinary retention that has been going on for two days. He was found to have significant urinary retention, abnormal UA with ESBL E coli. During his workup, he was found to have infrarenal abdominal aortic aneurysm up to 6.3 cm in diameter. He denies any shortness of breath or chest pain at this time. He does have occasional cough. He does have occasional swelling of the lower extremities and dyspnea with exertion. He has no shortness of breath, cough, sputum, or chest pain currently. PAST MEDICAL HISTORY: Includes coronary artery disease, CHF, chronic kidney disease, BPH, hard of hearing, and rheumatoid arthritis. PAST SURGICAL HISTORY: Includes cardiac cath/PCI in April 2019, total knee replacement, and hernia repair. ALLERGIES: NONE. SOCIAL HISTORY: He smoked up until about 30 years ago or so, he was in his late 40s or 50s, he started as a teenager, so he probably smoked about 30 years. Denies alcohol or drugs. He is . REVIEW OF SYSTEMS: Otherwise unremarkable. MEDICATIONS: Current medications have been reviewed, including meropenem. PHYSICAL EXAMINATION: VITAL SIGNS: He is afebrile. Heart rate in the 50s. Blood pressure 112/51. Saturation is 96% to 97% on room air. GENERAL APPEARANCE: This is a pleasant, elderly man, who looks his stated age. He is awake, alert, conversant. HEENT: Head is normocephalic. Mucous membranes are moist. NECK: Supple. Trachea is midline. CHEST: Few scattered crackles clear. HEART: Regular rate and rhythm with soft systolic murmur. ABDOMEN: Soft, nontender. EXTREMITIES: Have no cyanosis or clubbing. There is some trace to 1+ edema. NEUROLOGIC: He is awake, alert, conversant. IMAGING DATA: Chest x-ray shows marked cardiomegaly with blunting of the costophrenic angles bilaterally, pulmonary vascular congestion, and CHF. LABORATORY DATA: White count 5, hemoglobin 7.8, hematocrit 26 with 328,000 platelets. He does have marked eosinophilia. Chemistry when he came in, sodium is 126 up to 130; creatinine is 1.9, is currently 1.6; and BUN is 26. Albumin is noted to be 2.5. He has a mildly prolonged Protime and PTT. Urinalysis shows cloudy urine with leukocyte esterase, white blood cells, rare bacteria. Influenza serology is negative, but that was back on April 18 and . ASSESSMENT: 1. Pulmonary edema. 2. History of tobacco use, 40 pack year. 3. Congestive heart failure. 4. Coronary artery disease with recent ST-segment elevation myocardial infarction. 5. Chronic kidney disease. 6. Abdominal aortic aneurysm, infrarenal 6.3 cm. 7. Urinary tract infection. With regard to pulmonary preop risk assessment, he is at high risk. His risk of perioperative pneumonia associated with noncardiac surgery is approximately 9%, which is well above average. For males, his risk of juliocesar/postoperative respiratory failure associated with noncardiac surgery is approximately 30%. RECOMMENDATIONS: We will get a two-view chest x-ray. Recommend that we will discuss with Renal, some gentle diuresis. He is currently on antibiotics and agree that he may be a better candidate for endovascular repair as well. Further recommendations pending clinical course, and also his Cardiology consultation given that he has had a recent AL. MD REILLY Curtis/BUSTER /[id number]
--- NOTE | 2019-05-07 20:54 | Consultation ---
DATE OF CONSULTATION: 05/07/2019 ID Consult REASON FOR CONSULTATION: ESBL in urine. Thank you, Dr. Olson, for asking me to see this patient. HISTORY OF PRESENT ILLNESS: The patient is an 83-year-old woman, who was referred for ESBL in the urine. He was admitted through the emergency department for urinary tract infection with cystitis. He presented to the emergency department on 05/04/2019 with generalized weakness, dysuria, frequency, and small volume urination, which progressed to dribbling. He has had chills, but denies fever, nausea, and vomiting. Also, he fell two days prior to arrival. In the emergency department, urinalysis was abnormal with pyuria. Urine culture later grew Escherichia coli, ESBL positive. Abdominal ultrasound showed no renal calculi or hydronephrosis, but there was 6.2 cm infrarenal abdominal aortic aneurysm. The patient has been evaluated by the Cardiovascular Service. PAST MEDICAL HISTORY: Hypertension, coronary artery disease, recent myocardial infarction status post stenting, coronary artery disease, BPH, and gout. PAST SURGICAL HISTORY: Hernia repair, transurethral resection of the prostate, and knee surgery. ALLERGIES: NO KNOWN DRUG ALLERGIES. CURRENT ANTIBIOTIC: Meropenem 500 mg IV piggyback q.12 hours. IMMUNIZATION: Influenza pneumococcal vaccination status cannot be verified at this time. FAMILY HISTORY: Significant for hypertension. SOCIAL HISTORY: No alcohol or tobacco use. REVIEW OF SYSTEMS: As per history of present illness. PHYSICAL EXAMINATION: VITAL SIGNS: T-max 99, pulse rate 65, respiratory rate 18, and blood pressure 120/60, and weight 236 pounds. GENERAL: There is no acute distress. HEENT: Normocephalic. There is no icterus or injection of conjunctiva. There is no ear or nasal discharge. Moist oral mucosa with poor dentition. No pharyngeal erythema or exudate. NECK: Supple. No meningismus. LUNGS: Good air entry bilaterally. HEART: With normal S1, S2. ABDOMEN: Soft, nontender. EXTREMITIES: Without edema, clubbing, or cyanosis. SKIN: Old ecchymoses and hyperpigmentation of the legs. CENTRAL NERVOUS SYSTEM: Awake, alert, oriented to person, place, and time. Nonfocal. LABORATORY AND DIAGNOSTICS: 05/06/2019, WBC 6690, hemoglobin 7.8, platelets 328,000, and neutrophils 56.1, lymphocytes 20, monocytes 9.1, eosinophils 13.4, and basophils 0.9. BUN 26 and creatinine 1.63. Blood culture, no growth. IMPRESSION: Urinary tract infection, cystitis due to Escherichia coli ESBL positive, urinary retention. PLAN: 1. Change meropenem to 500 mg IV piggyback q.8 hours for three more days. 2. Verify influenza and pneumococcal vaccination status. 3. Monitor closely for drug eruption in view of a rising eosinophils. MD JOVANY Raphael/MODL /[id number]
[2019-05-07] MEDS: ATORVASTATIN 20 MG TAB PO SCH (21:35)
--- NOTE | 2019-05-07 22:15 | NUR ---
Called physician to verify whether patient was to have Lasix before each unit of blood transfusion. Physician upset he was called to verify Lasix orders. Explained to physician there was no Lasix order on the patient profile. Physician continues to be belligerent on phone. Physician states do not call me back again and cuts the line. No orders given.
--- NOTE | 2019-05-07 22:45 | NUR ---
1 unit of blood is transfusing. no adverse reaction noted. vital signs are stable. will continue to monitor patient through transfusion process.
[2019-05-07] MEDS ORDERED: SODIUM CHLORIDE 0.9% 250ML 250 ML ONE (22:55)
[2019-05-08] VITALS (7 sets, daily range): BP systolic 110–126; BP diastolic 53–70
--- NOTE | 2019-05-08 00:29 | Consultation ---
DATE OF CONSULTATION: 05/07/2019 Cardiology Consult Note REASON FOR CONSULT: Abdominal aortic aneurysm. CHIEF COMPLAINT: Weakness. HISTORY OF PRESENT ILLNESS: The patient is an 83-year-old, who presented with urinary retention and ESBL UTI. Renal ultrasound was ordered, which showed abdominal aortic aneurysm measuring 6.3 cm. The patient reports some suprapubic abdominal discomfort, but denies any chest pain or shortness of breath otherwise. He reports some generalized fullness in the abdomen, but no severe pain or tearing sensation. Lower extremities show signs of chronic venous stasis and chronic PAD, otherwise warm without evidence of acute ischemia. PAST MEDICAL HISTORY: CAD status post IN, PAD, hypertension, hyperlipidemia, and CKD. SOCIAL HISTORY: Former smoker. Does not drink or abuse drugs. FAMILY HISTORY: Noncontributory. OUTPATIENT MEDICATIONS: Reviewed. ALLERGIES: REVIEWED. OBJECTIVE: VITAL SIGNS: Temperature afebrile, pulse 62, respiratory rate 20, blood pressure 121/63, and saturating 96% on room air. GENERAL: Well developed, well nourished, no acute distress. CARDIOVASCULAR: Regular rate and rhythm. No murmurs, rubs, or gallops. LUNGS: Clear to auscultation anteriorly. ABDOMEN: Obese, soft, nontender, nondistended. No rebound or guarding. NEUROLOGIC AND PSYCH: Oriented to person, place, and time. LOWER EXTREMITIES: Warm. The pulses are poor. 1+ edema to the sling. LABORATORY DATA: Reviewed. Sodium was 126, now improved to 130. Creatinine 1.9, improved to 1.6 and troponin negative. IMAGING DATA: Reviewed. Chest x-ray shows cardiomegaly with pulmonary edema. Abdominal ultrasound shows infrarenal abdominal aortic aneurysm measuring 6.3 cm. TELEMETRY DATA: Reviewed, shows normal sinus rhythm. ASSESSMENT AND PLAN: 1. Abdominal aortic aneurysm 6.3 cm in largest diameter on ultrasound. 2. Coronary artery disease status post myocardial infarction. 3. Acute on chronic systolic heart failure. PLAN: Recommend a CT angiogram of the chest, abdomen, pelvis to evaluate the aorta for any evidence of any acute pathology like infection or pseudoaneurysm or any signs of potential rupture. There is no acute evidence of vascular issues, the abdominal aortic aneurysm can be addressed. Once acute infectious issues are treated and urinary tract infection resolves, recommend consulting Vascular Surgery with Dr. Lim, who is following further recommendations once CTA chest, abdomen, pelvis is completed, otherwise stable from a cardiac standpoint currently. We will obtain an echocardiogram in case the patient needs prior urgent vascular surgery. Thank you for this consult. We will continue to follow. MD LATESHA Read/BUSTER /[id number]
[2019-05-08] MEDS ORDERED: SODIUM CHLORIDE 0.9% 250ML 250 ML ONE (02:45)
--- NOTE | 2019-05-08 02:50 | NUR ---
Second Unit of blood has begun to transfuse. No adverse reaction noted. patient is tolerating procedure well. will continue to monitor infusion process.
--- NOTE | 2019-05-08 05:10 | NUR ---
second unit of blood is done transfusing. no adverse reactions noted. patients vital signs are within normal limits.
--- NOTE | 2019-05-08 06:31 | NUR ---
IM- progress O/N see below ROS: no f/c/s/N/V/D/dizziness/skin rash/back pain/confusion/leg pain v/s; revd PE tired appearing anicteric ns1s2 mod bs soft nt nd Lamb in place no e/t; thickening and yellowing of toenails skin dry n. 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 05-07 d/c planning to med ctr for CV Sx mgmt of AAA. cont renal care and merrem. Surgical team notes that patient is a poor surgical candidate, but reque sted various consults, consultations made; Transfer to [facility] when accepted; d/w - PCP and - filemaker developer; I also discussed with and updated daughter Shakira at [phone]. Continue medical tx. 05/08 cont care; check labs; Infrarenal AAA on CTA = 6.9cm. Qamar Olson MD, PhD.
--- NOTE | 2019-05-08 06:31 | NUR ---
patient is resting in the bed, bed is in lowest position and call pinto is within reach.
[2019-05-08] MEDS: MEROPENEM 500MG/ NS 50ML 50 ML IV SCH ×3 (06:45→22:00)
--- NOTE | 2019-05-08 07:00 | NUR ---
BEDSIDE SHIFT REPORT RECEIVED FROM THE OCEANOGRAPHER PHYSICAL RN. EDUCATED PT ABOUT FALL PRECAUTIONS. CALL LIGHT WITH IN EASY REACH. INSTRUCTED PT TO USE CALL LIGHT FOR ALL THE NEEDS. PT VERBALIZED UNDERSTANDING. BED IS LOW AND LOCKED. SIDE RAILS X2. BED ALARM IS ON. PT DENIES NEEDS AT THIS TIME.
[2019-05-08 07:27] LABS: BASOPHILS # (AUTO) 0.1 (0.0-0.1); EOSINOPHILS # (AUTO) 0.5 (0.0-0.4); EOSINOPHILS % 9.4 % (0.0-6.0); HEMATOCRIT 27.6 % (38.2-49.6); HEMOGLOBIN 8.4 g/dL (14.0-18.0); LYMPHOCYTES # (AUTO) 0.8 (1.0-3.2); LYMPHOCYTES % 15.8 % (18.0-39.1); MEAN CORPUSCULAR HEMOGLOBIN 26.8 pg (28-32); MEAN CORPUSCULAR HGB CONC 30.4 g/dL (31-35); MEAN CORPUSCULAR VOLUME 88.2 fL (81-99); MONOCYTES # (AUTO) 0.5 (0.2-0.8); MONOCYTES % 10.4 % (4.4-11.3); NEUTROPHILS # (AUTO) 3.2 (2.1-6.9); PLATELET COUNT 279 x10e3/uL (140-360); RED BLOOD COUNT 3.13 x10e6/uL (4.3-5.7); RED CELL DISTRIBUTION WIDTH 14.4 % (11.7-14.4)
[2019-05-08 07:45] LABS: ANION GAP 12.8 mmol/L (8-16); CALCIUM 8.4 mg/dL (8.4-10.2); CREATININE, SERUM 1.5 mg/dL (0.72-1.25); POTASSIUM 4.8 mmol/L (3.5-5.1)
[2019-05-08] MEDS: METOPROLOL TARTRATE 25 MG TAB PO SCH ×2 (09:00→21:33)
[2019-05-08] MEDS: SODIUM CHLORIDE 1 GM TAB PO SCH ×3 (09:16→21:33)
[2019-05-08] MEDS: SODIUM BICARBONATE 650 MG TAB PO SCH ×2 (09:16→17:19)
[2019-05-08] MEDS: FERROUS SULFATE 325 MG TAB PO SCH ×2 (09:16→17:19)
[2019-05-08] MEDS: FAMOTIDINE 20 MG TAB PO SCH ×2 (09:16→21:33)
[2019-05-08] MEDS: PRASUGREL 10 MG TAB PO SCH (09:16)
[2019-05-08] MEDS: TAMSULOSIN HCL 0.4 MG CAP PO SCH (09:16)
[2019-05-08] MEDS: DOCUSATE SODIUM 100 MG CAP PO SCH ×2 (09:16→17:19)
[2019-05-08] MEDS: ALLOPURINOL 100 MG TAB PO SCH (09:16)
--- NOTE | 2019-05-08 11:21 | NUR ---
Left message for Dr. Olson regarding DC plan. [facility] declined since Dr. Lim is not accepting pt. Per nursing, pt will need 3 more days of IV abx. PT has discharged pt from their services. Awaiting response.
--- NOTE | 2019-05-08 13:57 | NUR ---
Per Dr. Olson, plan is "home soon". Gave order to set up home health.
--- NOTE | 2019-05-08 15:15 | NUR ---
Spoke to pt at bedside regarding home health. He asked that CM call his daughter Shakira Clark [phone]. CM placed call to Shakira. She states she spoke with MD last night. Was informed pt does not need surgery at this time, and transfer to [facility] was declined. Informed her on current POC. She is agreeable to home health. CM gave her list of in network companies - [facility], [facility], [employer], [facility]. She states that she's familiar with [facility] and would like for us to use them. Signed choice letter placed in front of chart. Copy to pt's bedside. Referral was faxed to [facility] at [phone] / P [phone].
[2019-05-08] MEDS: IRON SUCROSE 100 MG in SODIUM CHLORIDE 0.9% 100 ML 100 ML IV SCH (17:00)
--- NOTE | 2019-05-08 19:00 | NUR ---
BEDSIDE SHIFT REPORT GIVEN TO THE MS SQL DBA RN. PT DENIED FURTHER NEEDS.
--- NOTE | 2019-05-08 19:20 | NUR ---
Patient received lying in bed. AAO x 3. Patient had no complaints of pain. Respirations even and non-labored. Lamb catheter draining dark jacqui urine. Telemetry box in place. Fall precautions implemented. Patient instructed to call for assistance when needed. Call light within teach.
--- NOTE | 2019-05-08 21:19 | Progress Note ---
DATE: 05/08/2019 Cardiology Progress Note SUBJECTIVE: The patient denies chest pain or shortness of breath. OBJECTIVE: VITAL SIGNS: Temperature 98.3 degrees, pulse 80, respiratory rate 20, blood pressure 116/52, and oxygen saturation 98% on room air. GENERAL: Awake, alert, in no acute distress. LUNGS: Clear to auscultation bilaterally. No wheezes or crackles. CARDIOVASCULAR: Normal rate, regular rhythm. No murmur. Normal S1, S2. ABDOMEN: Soft, nontender. EXTREMITIES: No edema. CARDIAC MEDICATIONS: 1. Prasugrel 10 mg p.o. daily. 2. Metoprolol tartrate 12.5 mg p.o. q.12 hours. 3. Atorvastatin 20 mg p.o. at bedtime. LABORATORY DATA: WBC 5, hemoglobin 8.4, hematocrit 27.6, and platelets 279. Sodium 133, potassium 4.8, chloride 102, CO2 of 23, BUN 21, and creatinine 1.5. CTA of the abdomen and pelvis infrarenal abdominal aortic aneurysm, measured up to 6.5 x 6.4 cm. Moderate calcified and noncalcified atherosclerosis. Recommend vascular surgical consult if not already obtained. 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 Severe sigmoid diverticulosis without CT evidence of diverticulitis. Scattered 3 mm right upper and middle lobe pulmonary nodules. If the patient is at low risk, no further followup imaging is necessary. If the patient is at high-risk, followup CT chest is optional in 12 months. Telemetry was reviewed, interpreted, revealing normal sinus rhythm. IMPRESSION: 1. Abdominal aortic aneurysm, measuring 6.5 x 6.4 cm at its widest point with mural thrombus. 2. Coronary artery disease, status post myocardial infarction. 3. Zylle-ok-[id number] systolic heart failure. 4. Peripheral arterial disease. 5. Hypertension. 6. Hyperlipidemia. 7. Chronic kidney disease. RECOMMENDATIONS: Abdominal aortic aneurysm is noted. Vascular Surgery consultation with Dr. Lim has already been requested. Echocardiogram has been ordered and we will obtain echocardiogram in case the patient needs Vascular Surgery. Continue home cardiac medications. Monitor the patient closely on Telemetry. Antibiotics per Infectious Disease. Thank you for this consult. We will continue to follow. Hawa Mata MD ABS/MODL /[id number]
[2019-05-08] MEDS: ATORVASTATIN 20 MG TAB PO SCH (21:33)
[2019-05-09] VITALS (8 sets, daily range): BP systolic 117–136; BP diastolic 54–64
[2019-05-09] MEDS ORDERED: SODIUM CHLORIDE 0.9% 250ML 250 ML ONE (05:41)
[2019-05-09] MEDS: MEROPENEM 500MG/ NS 50ML 50 ML IV SCH ×3 (06:00→22:00)
--- NOTE | 2019-05-09 06:50 | NUR ---
IM- progress O/N see below ROS: no f/c/s/N/V/D/dizziness/skin rash/back pain/confusion/leg pain v/s; revd PE tired appearing anicteric ns1s2 mod bs soft nt nd Lamb in place no e/t; thickening and yellowing of toenails skin dry n. 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 05-07 d/c planning to med ctr for CV Sx mgmt of AAA. cont renal care and merrem. Surgical team notes that patient is a poor surgical candidate, but reque sted various consults, consultations made; Transfer to [facility] when accepted; d/w - PCP and - programming coordinator; I also discussed with and updated daughter Shakira at [phone]. Continue medical tx. 05/08 cont care; check labs; Infrarenal AAA on CTA = 6.9cm. 05/09 D/C planning; cont care; Qamar Olson MD, PhD.
--- NOTE | 2019-05-09 07:00 | NUR ---
Walking rounds/BSSR conducted.
--- NOTE | 2019-05-09 07:10 | NUR ---
RCD PT AT BED PT IS ALERT AND ORIENTED PT RESTING ON BED NO SIGNS OF ANY DISTRESS NOTED IV PATENT BY SALINE FLUSH WILKINSON DRAINING BY GRAVITY GOYO COLOR URINE BED LOW AND LOCKED CALL LIGHT IN REACH
[2019-05-09] MEDS: METOPROLOL TARTRATE 25 MG TAB PO SCH ×2 (09:00→21:57)
[2019-05-09] MEDS: FAMOTIDINE 20 MG TAB PO SCH ×2 (09:00→21:57)
[2019-05-09] MEDS: SODIUM BICARBONATE 650 MG TAB PO SCH ×2 (09:00→17:00)
[2019-05-09] MEDS: SODIUM CHLORIDE 1 GM TAB PO SCH ×3 (09:00→21:57)
[2019-05-09] MEDS: DOCUSATE SODIUM 100 MG CAP PO SCH ×2 (09:00→17:00)
[2019-05-09] MEDS: ALLOPURINOL 100 MG TAB PO SCH (09:00)
[2019-05-09] MEDS: TAMSULOSIN HCL 0.4 MG CAP PO SCH (09:00)
[2019-05-09] MEDS: PRASUGREL 10 MG TAB PO SCH (09:00)
[2019-05-09] MEDS: FERROUS SULFATE 325 MG TAB PO SCH ×2 (09:00→17:00)
--- NOTE | 2019-05-09 11:50 | NUR ---
Spoke with Joseline at [facility] They have received new referral. Joseline states they were on service on 04/24 and the rn came out and the patient refused services. Also refused PT on 04/25. Joseline states auth will not be a problem, they are network with insurance. Spoke to Amado, son at bedside, he would still like someone to come out to see his dad. Notified Joseline at [facility]. [phone]
--- NOTE | 2019-05-09 11:55 | NUR ---
Spoke with Chanel العراقي about need for IV abx. She pulls chart - Dr Molina documented on 05/08 2 more days of abx. So anticipated DC date is 05/10. Dr. Lamb's note states DC with ann and f/u for urodynamics. Nursing to ensure ann education and follow up with Dr. Lamb upon DC
--- NOTE | 2019-05-09 11:58 | NUR ---
HOME HEALTH DISCHARGE NOTE PATIENT ADDRESS WHERE SERV[facility] WILL BE RECEIVED[facility] [address] [facility] [address] PATIENT CONTACT NUMBER: [phone] NAME OF HOME HEALTH COMPANY: [facility] TELEPHONE/FAX NUMBER OF COMPANY: [phone] ADDRESS OF COMPANY: [id number], [facility] [address] SERVICES TO RECEIVE: [facility] ANTICIPATED DATE SERVICES WILL BEGIN: 05/13 Please call the company above if you have not received a call to schedule a home visit within 24 hours of discharge. Gave this to patient, chioied Joseline at [facility] patient will be d/cing with seth
--- NOTE | 2019-05-09 14:00 | NUR ---
TALKED ANGEL HIS DAUGHTER SHE SAID PT HAVE AN APPT WITH CARDIOLOGY ON THIS MONDAY THEN ONLY THEY WILL DECIDE THE SURGERY NOW HE NEED DISCHARGE FROM TO HOME
[2019-05-09] MEDS ORDERED: MONUROL3 GM PO (15:34)
[2019-05-09] MEDS: IRON SUCROSE 100 MG in SODIUM CHLORIDE 0.9% 100 ML 100 ML IV SCH (16:00)
--- NOTE | 2019-05-09 16:54 | Consultation ---
DATE OF CONSULTATION: 05/07/[address] Qamar Olson. HISTORY OF PRESENT ILLNESS: Mr. Clark is an 83-year-old male, who was referred to me for evaluation of anemia. No history of hematochezia, melena, hematuria, hematemesis, or hemoptysis. The patient had presented with abdominal pain, was found to have an aortic aneurysm Dr. James Lim, a cardiothoracic surgeon was consulted. SOCIAL HISTORY: Noncontributory. FAMILY HISTORY: Noncontributory. ALLERGIES: NONE. MEDICATIONS: At this time: 1. Iron sucrose. 2. Meropenem. 3. Sodium chloride. 4. Atorvastatin. 5. Docusate. 6. Pepcid. 7. Ferrous sulfate. 8. Metoprolol. 9. Prasugrel. 10. Flomax. 11. Tramadol. 12. Sodium bicarbonate. 13. Ondansetron. 14. Allopurinol. REVIEW OF SYSTEMS: HEENT: Normal. CARDIAC: History of hypertension, hyperlipidemia, and abdominal aortic aneurysm. RESPIRATORY: Normal. GI: Normal. : History of benign prostatic hypertrophy. MUSCULOSKELETAL: Normal. SKIN AND BREASTS: Normal. NEUROENDOCRINE: Essentially normal. PHYSICAL EXAMINATION: GENERAL: A rather large built male, very anemic. NECK: No adenopathy. HEART: Within normal limits. LUNGS: Clear. ABDOMEN: Soft, the pulsating aneurysm is felt. RECTAL: Deferred. CENTRAL NERVOUS SYSTEM: Essentially normal. EXTREMITIES: Essentially normal. LABORATORY DATA: Shows a hemoglobin of 7.8, hematocrit of 25.9, white count of 5690, platelets of 328,000. Sodium 130, potassium 4.8, chloride 100, CO2 23, BUN 26, creatinine 1.83. INR 1.1. Bilirubin 0.3, SGOT 16, SGPT 7, alkaline phosphatase 46. The CT scan of the abdomen is showing an abdominal aortic aneurysm of 6.13 cm, bilateral renal cysts, degenerative disk disease. A chest x-ray shows congestive heart failure. The patient's electrolytes also showed initially a sodium of 123. Albumin is also low at 2.9 with a globulin slightly high at 4.2. IMPRESSION: 1. Abdominal aortic aneurysm. 2. Renal cysts, bilateral. 3. Degenerative cervical disk disease. 4. Congestive heart failure by chest x-ray. 5. Iron deficiency anemia by the indices. 6. Hyponatremia. 7. Chronic renal failure. 8. Hypoalbuminemia. 9. Hyperglobulinemia. PLAN, COMMENTS AND SUGGESTIONS: I will confine myself to Hematology only. Dr. Guillaume has started the iron infusion. However, a fair kinetics is such that it will be 12 days before the patient will have any improvement in retic response if he is not losing blood. I also noted in Dr. Guillaume's note stool for occult blood is being done. I will give him blood transfusion 2 units of packed RBCs to bring the hemoglobin up at least above 9 g so that he could undergo any intervention as far as the aortic aneurysm is concerned. Renal cysts are of no concern, however, probably contributing to the chronic renal failure. Degenerative cervical disk again is of no concern at this time, I cannot force to receive any NSAID. Congestive heart failure is of concern. However, a bending shed worker is involved. However, I will use 40 mg of Lasix before each transfusion to make sure that I do not push the patient in pulmonary edema. The iron-deficiency anemia has been addressed by Dr. Guillaume by keeping the patient on the iron infusion. Hyponatremia also has been addressed by Dr. Guillaume. The sodium has come up from 123 to 130. The chronic renal failure is being addressed by Dr. Guillaume, the lung gun operator. Hypoalbuminemia of 2.9, definitely is of concern. Nutritional assessment should be done. Hyperglobulinemia of 4.2. At this age is of academic interest. Quantitation of immunoglobulins can be done. However, I will not intervene in an 83-year-old even if we find a remote possibility of multiple myeloma. The patient was transfused successfully without putting the patient in pulmonary edema with a hemoglobin today at the time of this dictation of 05/09/2019 is 8.4. I will be more than happy to follow this patient as outpatient if the attending would call and make an appointment for iron infusions as outpatient. Thank you very much for allowing me to participate in management of this patient. MD TATIANNA Wells/BUSTER /[id number] cc: MD Earl Deutsch MD Michael S Sweeney, MD Karan S Bhalla, MD Maurice E Akuchie, MD Vijay K Koka, MD
--- NOTE | 2019-05-09 18:35 | Progress Note ---
DATE: 05/09/2019 Cardiology Progress Note SUBJECTIVE: The patient denies chest pain or shortness of breath. OBJECTIVE: VITAL SIGNS: Temperature 97 degrees, pulse 69, respiratory rate 20, blood pressure 125/56, and oxygen saturation 95% on room air. GENERAL: Awake, alert, in no acute distress. LUNGS: Clear to auscultation bilaterally. No wheezes or crackles. CARDIOVASCULAR: Normal rate, regular rhythm. No murmur. Normal S1, S2. ABDOMEN: Soft, nontender. EXTREMITIES: No edema. CARDIAC MEDICATIONS: 1. Prasugrel 10 mg p.o. daily. 2. Atorvastatin 20 mg p.o. at bedtime. LABORATORY DATA: None today. Telemetry, was personally reviewed and interpreted as normal sinus rhythm. IMPRESSION: 1. Abdominal aortic aneurysm, measuring 6.5 x 6.4 cm at its widest point with mural thrombus. 2. Coronary artery disease, status post myocardial infarction. 3. Wrynl-os-hmejsva systolic heart failure. 4. Peripheral artery disease. 5. Hypertension. 6. Hyperlipidemia. 7. Chronic kidney disease. RECOMMENDATIONS: Vascular Surgery consultation with Dr. Lim has been requested. Echocardiogram was done on previous admission, which demonstrated mildly reduced systolic function with LVEF between 40% and 45%. Continue current cardiac medications including dual antiplatelet therapy. Continue statin, blood pressure control. Thank you for this consult. We will continue to follow. Hawa Mata MD ABS/MODL /[id number]
--- NOTE | 2019-05-09 18:39 | NUR ---
PT RESTING ON BED BED SIDE REPORT GIVEN TO ONCOMING NURSE
--- NOTE | 2019-05-09 19:15 | NUR ---
Patient received sitting up in bed. Family at bedside. AAO x 4. No acute distress noted. Bed alarm activated. Call light within reach.
[2019-05-09] MEDS: ATORVASTATIN 20 MG TAB PO SCH (21:56)
[2019-05-10] VITALS (9 sets, daily range): BP systolic 93–137; BP diastolic 50–76
--- NOTE | 2019-05-10 01:00 | NUR ---
Perineal care given. Lamb catheter draining dark jacqui clear urine. Lamb bag properly re-positione
[2019-05-10] MEDS: MEROPENEM 500MG/ NS 50ML 50 ML IV SCH ×3 (06:15→22:03)
--- NOTE | 2019-05-10 06:28 | NUR ---
Urine specimen sent to lab for analysis.
--- NOTE | 2019-05-10 07:00 | NUR ---
Patient resting comfortably. Walking rounds done. Bed-side report given to oncoming nurse regarding patient's status.
--- NOTE | 2019-05-10 07:10 | NUR ---
RCD PT AT BED PT IS ALERT AND ORIENTED PT RESTING ON BED NO SIGNS OF ANY DISTRESS NOTED IV PATENT BY SALINE FLUSH WILKINSON DRAINING BY GRAVITY BED LOW AND LOCKED CALL LIGHT IN REACH
--- NOTE | 2019-05-10 07:54 | NUR ---
IM- progress O/N see below ROS: no f/c/s/N/V/D/dizziness/skin rash/back pain/confusion/leg pain v/s; revd PE tired appearing anicteric ns1s2 mod bs soft nt nd Lamb in place no e/t; thickening and yellowing of toenails skin dry n. 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 05-07 d/c planning to med ctr for CV Sx mgmt of AAA. cont renal care and merrem. Surgical team notes that patient is a poor surgical candidate, but reque sted various consults, consultations made; Transfer to [facility] when [facility]; d/w - PCP and - superintendent local; I also discussed with and updated daughter Shakira at [phone]. Continue medical tx. 05/08 cont care; check labs; Infrarenal AAA on CTA = 6.9cm. 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 Continue current therapy; CV surgery and Cardiology on service; pt has appt outpt with Reliability Manager on Monday? I will keep pt under close monitoring until Monday am. He can then go directly to appt at that time if that is what family desire. Check labs this am. Qamar Olson MD, PhD.
[2019-05-10 08:15] LABS: BASOPHILS # (AUTO) 0.1 (0.0-0.1); BASOPHILS % 1.4 % (0.0-1.0); EOSINOPHILS # (AUTO) 0.7 (0.0-0.4); EOSINOPHILS % 11.4 % (0.0-6.0); HEMOGLOBIN 8.5 g/dL (14.0-18.0); LYMPHOCYTES # (AUTO) 0.9 (1.0-3.2); LYMPHOCYTES % 16.2 % (18.0-39.1); MEAN CORPUSCULAR HEMOGLOBIN 27.2 pg (28-32); MEAN CORPUSCULAR HGB CONC 30.4 g/dL (31-35); MEAN CORPUSCULAR VOLUME 89.7 fL (81-99); MONOCYTES # (AUTO) 0.6 (0.2-0.8); NEUTROPHILS # (AUTO) 3.5 (2.1-6.9); NEUTROPHILS % 60.5 % (38.7-80.0); PLATELET COUNT 271 x10e3/uL (140-360); RED BLOOD COUNT 3.12 x10e6/uL (4.3-5.7); RED CELL DISTRIBUTION WIDTH 14.4 % (11.7-14.4)
[2019-05-10 08:33] LABS: CREATININE,URINE RANDOM 57.95 mg/dL (63-166)
[2019-05-10 08:35] LABS: TOTAL PROTEIN, URINE < 6.8 mg/dL (1-14)
[2019-05-10 08:41] LABS: ANION GAP 13.7 mmol/L (8-16); CALCIUM 8.6 mg/dL (8.4-10.2); CREATININE, SERUM 1.38 mg/dL (0.72-1.25); POTASSIUM 4.7 mmol/L (3.5-5.1)
[2019-05-10 08:54] LABS: MAGNESIUM 1.9 MG/DL (1.3-2.1)
[2019-05-10] MEDS: PRASUGREL 10 MG TAB PO SCH (08:58)
[2019-05-10] MEDS: DOCUSATE SODIUM 100 MG CAP PO SCH ×2 (08:58→17:00)
[2019-05-10] MEDS: FERROUS SULFATE 325 MG TAB PO SCH ×2 (08:58→17:00)
[2019-05-10] MEDS: TAMSULOSIN HCL 0.4 MG CAP PO SCH (08:59)
[2019-05-10] MEDS: SODIUM BICARBONATE 650 MG TAB PO SCH ×2 (08:59→17:00)
[2019-05-10] MEDS: METOPROLOL TARTRATE 25 MG TAB PO SCH ×2 (08:59→22:04)
[2019-05-10] MEDS: FAMOTIDINE 20 MG TAB PO SCH ×2 (08:59→22:03)
[2019-05-10] MEDS: ALLOPURINOL 100 MG TAB PO SCH (09:00)
[2019-05-10] MEDS: SODIUM CHLORIDE 1 GM TAB PO SCH ×3 (09:00→22:03)
[2019-05-10] MEDS: IRON SUCROSE 100 MG in SODIUM CHLORIDE 0.9% 100 ML 100 ML IV SCH (16:00)
--- NOTE | 2019-05-10 16:44 | NUR ---
PTS DAUGHTER SAID HIS CARDIOLOGY APPT MONDAY AT 0900
--- NOTE | 2019-05-10 17:15 | NUR ---
Nutrition Screen Note RD Recommendation for Physician: -Recommend to continue cardiac diet Plan of Care: RD following, monitoring for tolerance and adequacy Nutrition reason for involvement: Length of stay Primary Diagnose(s): hyponatremia, urinary retention, UTI, and weakness PMH: RA, BPH, CKD stage 3, peripheral edema, hearing deficits, STEMI, hyponatremia, bradyarrhythmia Ht: 70 in Wt:229 lb BMI: 32.9 kg/m2 IBW:[address] Assessment: (05/10/2019) Chart reviewed. Labs and meds reviewed. Pt is an 83 year old male admitted with hyponatremia, urinary retention, UTI, and weakness. Pt was hard of hearing; therefore, information was mainly obtained from family member. Pt has been eating at least half of his meals per family member. It is documented that pt is eating 100% of meals. No N/V or chewing/swallowing issues. Weight status is unknown. Will continue to monitor. Current Diet: cardiac diet Malnutrition Evaluation (05/10/2019) The patient does not meet criteria for a specified degree of malnutrition at this time. Will re-evaluate at follow-up as appropriate. Diet Education Needs Assessment: Provided pt with diet education materials regarding heart healthy diet. Written materials were placed at the bedside since pt was not available when RD attempted to provide the education. Nutrition Care Level: low Signed: Jyotsna Covington, RD, LD
--- NOTE | 2019-05-10 19:19 | NUR ---
PT RESTING ON BED BED SIDE REPORT GIVEN TO ONCOMING NURSE
[2019-05-10] MEDS: ATORVASTATIN 20 MG TAB PO SCH (22:03)
--- NOTE | 2019-05-10 23:12 | Progress Note ---
DATE: 05/10/2019 Cardiology Progress Note SUBJECTIVE: The patient denies chest pain or shortness of breath. OBJECTIVE: VITAL SIGNS: Temperature is 97.9 degrees, pulse is 61, respiratory rate is 20, blood pressure is 93/51, and oxygen saturation is 98% on room air. GENERAL: Awake, alert, in no acute distress. LUNGS: Clear to auscultation bilaterally. No wheezes or crackles. CARDIOVASCULAR: Normal rate, regular rhythm. No murmur. Normal S1, S2. ABDOMEN: Soft, nontender. EXTREMITIES: No edema. CARDIAC MEDICATIONS: Metoprolol tartrate 12.5 mg p.o. q.12 hours, Prasugrel 10 mg p.o. daily, atorvastatin 20 mg p.o. at bedtime. LABORATORY DATA: WBC 5.8, hemoglobin 8.5, hematocrit 28, platelets 271. Sodium 139, potassium 4.7, chloride 106, CO2 of 24, BUN 20, creatinine 1.38. TELEMETRY: Atrial fibrillation. IMPRESSION: 1. Abdominal aortic aneurysm measuring 6.5 x 6.4 cm at its widest point with mural thrombus. 2. Coronary artery disease status post myocardial infarction. 3. Ellci-aa-loufmjl systolic heart failure. 4. Peripheral arterial disease. 5. Hypertension. 6. Hyperlipidemia. 7. Chronic kidney disease. RECOMMENDATIONS: Vascular consultation with Dr. Lim has been requested. Echocardiogram was done during prior admission, which demonstrated mildly reduced systolic function with LVEF between 40% and 45%. Continue current cardiac medications including dual antiplatelet therapy. Continue statin. Monitor blood pressure closely. Currently for the most part acceptable. Thank you for this consult. We will continue to follow. Hawa Mata MD ABS/MODL /[id number]
[2019-05-11] VITALS (8 sets, daily range): BP systolic 103–140; BP diastolic 54–72
--- NOTE | 2019-05-11 02:26 | NUR ---
IM- progress O/N see below ROS: no f/c/s/N/V/D/dizziness/skin rash/back pain/confusion/leg pain v/s; revd PE tired appearing anicteric ns1s2 mod bs soft nt nd Lamb in place no e/t; thickening and yellowing of toenails skin dry n. 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 05-07 d/c planning to med ctr for CV Sx mgmt of AAA. cont renal care and merrem. Surgical team notes that patient is a poor surgical candidate, but reque sted various consults, consultations made; [facility]; d/w - PCP and - dry chain puller; I also discussed with and updated daughter Shakira at [phone]. Continue medical tx. 05/08 cont care; check labs; Infrarenal AAA on CTA = 6.9cm. 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 Continue current therapy; CV surgery and Cardiology on service; pt has appt outpt with Plastics And Composites Inspector on Monday? I will keep pt under close monitoring until Monday am. He can then go directly to appt at that time if that is what family desire. Check labs this am. 05/11 labs revd from yesterday. Qamar Olson MD, PhD.
[2019-05-11] MEDS: MEROPENEM 500MG/ NS 50ML 50 ML IV SCH ×3 (05:09→20:58)
--- NOTE | 2019-05-11 07:18 | NUR ---
report given to day nurse. patient is resting comfortably in bed. bed is in lowest position and call pinto is within reach.
[2019-05-11] MEDS: SODIUM CHLORIDE 1 GM TAB PO SCH ×3 (09:00→20:58)
[2019-05-11] MEDS: ALLOPURINOL 100 MG TAB PO SCH (09:00)
[2019-05-11] MEDS: FAMOTIDINE 20 MG TAB PO SCH ×2 (09:00→20:58)
[2019-05-11] MEDS: METOPROLOL TARTRATE 25 MG TAB PO SCH ×2 (09:00→21:42)
[2019-05-11] MEDS: DOCUSATE SODIUM 100 MG CAP PO SCH ×2 (09:00→17:00)
[2019-05-11] MEDS: PRASUGREL 10 MG TAB PO SCH (09:00)
[2019-05-11] MEDS: FERROUS SULFATE 325 MG TAB PO SCH ×2 (09:00→17:00)
[2019-05-11] MEDS: TAMSULOSIN HCL 0.4 MG CAP PO SCH (09:00)
[2019-05-11] MEDS: SODIUM BICARBONATE 650 MG TAB PO SCH ×2 (09:00→17:00)
--- NOTE | 2019-05-11 12:58 | Progress Note ---
DATE: 05/11/2019 Cardiology Progress Note SUBJECTIVE: The patient states he feels fine. His abdominal discomfort has improved. Denies any chest pain or shortness of breath. He is quite hard of hearing. OBJECTIVE: VITAL SIGNS: Temperature 98.4, pulse 64, respiratory rate 18, blood pressure 133/72, oxygen saturation 97% on room air. GENERAL: Alert and oriented x3. Resting comfortably in bed. NECK: Supple. No JVD noted. LUNGS: Clear to auscultation. No wheezing. No rhonchi. CARDIOVASCULAR: Normal rate and rhythm. No murmurs. Normal S1, S2. ABDOMEN: Soft, nontender. EXTREMITIES: Lower extremity discoloration noted, trace edema, and abnormal pedal pulses. CARDIOVASCULAR MEDICATIONS: Effient 10 mg p.o. daily, metoprolol 12.5 mg p.o. q.12 hours, atorvastatin 20 p.o. at bedtime. LABORATORY DATA: No new labs today. TELEMETRY: Normal sinus rhythm. IMPRESSION: 1. Abdominal aortic aneurysm measuring 6.5 x 6.4 cm with a mural thrombus. 2. Coronary artery disease, status post myocardial infarction. 3. Qazsn-lr-xejlgwh systolic heart failure. 4. Peripheral arterial disease. 5. Hypertension. 6. Hyperlipidemia. 7. Chronic kidney disease. RECOMMENDATIONS: Vascular consultation has been done by Dr. Lim. The patient reports the surgery scheduled for Monday. Echocardiogram was done during a prior admission, which demonstrated mildly reduced systolic function with left ventricular ejection fraction of 40% to 45%. Continue the above-listed cardiac medications. Continue to monitor patient closely. Maintain on telemetry at all times. Dictated by Hayley Easley NP MD BRIAN GuidoV/MODL /[id number]
--- NOTE | 2019-05-11 15:45 | NUR ---
Called pt's daughter Shakira Clark [phone] to update her on dc plan for Monday. She states that pt has an appointment at 9:15am Monday with vascular surgeon. Her brother Amado Clark [phone] will be here Monday to take pt to his appointment. IMM letter discussed. She verbalized understanding. Signed copy placed in chart. Copy to pt's transition of care folder. Informed Dr. Olson of appointment time. States he will dc pt on Monday at 6am. He asked that pt get copy of CT scan to take to his appointment. YONG called radiology and requested that images be put on CD for pt. They will take CD up to pt's chart once completed. YONG called pt's daughter Shakira back and informed her that radiology images were being burned to a disk and to make sure she or her brother take that with them for appt. She states she will pick it up tomorrow when she gets to the hospital. DULCE MARIA Buchanan was also updated.
[2019-05-11] MEDS: IRON SUCROSE 100 MG in SODIUM CHLORIDE 0.9% 100 ML 100 ML IV SCH (16:00)
--- NOTE | 2019-05-11 16:05 | NUR ---
YONG called [facility] and spoke to Carine. Informed her that pt will be discharging Monday. Gave her pt's daughter Shakira's information for them to call to schedule time/date for admit.
--- NOTE | 2019-05-11 18:53 | NUR ---
PT RESTING ON BED BED SIDE REPORT GIVEN TO ONCOMING NURSE
--- NOTE | 2019-05-11 19:04 | NUR ---
CD AND REPORTS FROM THE RADIOLOGY FOR THE PATIENT KEPT IT ON THE CHART AND HANDED OVER TO THE NIGHT NURSE
[2019-05-11] MEDS: ATORVASTATIN 20 MG TAB PO SCH (20:58)
[2019-05-12] VITALS (11 sets, daily range): BP systolic 103–138; BP diastolic 53–81
[2019-05-12] MEDS: TRAMADOL/APAP 37.5MG-325MG TAB PO PRN (02:32)
[2019-05-12] MEDS: MEROPENEM 500MG/ NS 50ML 50 ML IV SCH ×3 (05:33→21:16)
--- NOTE | 2019-05-12 06:33 | NUR ---
patient is resting comfortably in bed, bed is in lowest position and call pinto is within reach.
--- NOTE | 2019-05-12 08:07 | NUR ---
IM- progress O/N see below ROS: no f/c/s/N/V/D/dizziness/skin rash/back pain/confusion/leg pain v/s; revd PE tired appearing anicteric ns1s2 mod bs soft nt nd Lamb in place no e/t; thickening and yellowing of toenails skin dry n. 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 05-07 d/c planning to med ctr for CV Sx mgmt of AAA. cont renal care and merrem. Surgical team notes that patient is a poor surgical candidate, but reque sted various consults, consultations made; Transfer to [facility] when accepted; d/w - PCP and - emissions inspector; I also discussed with and updated daughter Shakira at [phone]. Continue medical tx. 05/08 cont care; check labs; Infrarenal AAA on CTA = 6.9cm. 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 Continue current therapy; CV surgery and Cardiology on service; pt has appt outpt with Sap Mobility Architect on Monday? I will keep pt under close monitoring until Monday am. He can then go directly to appt at that time if that is what family desire. Check labs this am. 05/11 labs revd from yesterday. 05/12 check labs; plan for d/c at 6am on Monday; appt is for 9am. Family will take CD with images to appt. Qamar Olson MD, PhD.
[2019-05-12] MEDS: TAMSULOSIN HCL 0.4 MG CAP PO SCH (08:42)
[2019-05-12] MEDS: FERROUS SULFATE 325 MG TAB PO SCH ×2 (08:42→16:39)
[2019-05-12] MEDS: DOCUSATE SODIUM 100 MG CAP PO SCH ×2 (08:42→16:39)
[2019-05-12] MEDS: PRASUGREL 10 MG TAB PO SCH (08:42)
[2019-05-12] MEDS: SODIUM BICARBONATE 650 MG TAB PO SCH ×2 (08:43→16:39)
[2019-05-12] MEDS: METOPROLOL TARTRATE 25 MG TAB PO SCH ×2 (08:43→21:16)
[2019-05-12] MEDS: FAMOTIDINE 20 MG TAB PO SCH ×2 (08:43→21:16)
[2019-05-12] MEDS: ALLOPURINOL 100 MG TAB PO SCH (08:44)
[2019-05-12] MEDS: SODIUM CHLORIDE 1 GM TAB PO SCH ×3 (08:44→21:16)
[2019-05-12 09:19] LABS: BASOPHILS # (AUTO) 0.1 (0.0-0.1); BASOPHILS % 1.2 % (0.0-1.0); EOSINOPHILS # (AUTO) 0.8 (0.0-0.4); EOSINOPHILS % 11.7 % (0.0-6.0); HEMATOCRIT 29.8 % (38.2-49.6); HEMOGLOBIN 8.8 g/dL (14.0-18.0); LYMPHOCYTES % 15.6 % (18.0-39.1); MEAN CORPUSCULAR HEMOGLOBIN 26.8 pg (28-32); MEAN CORPUSCULAR HGB CONC 29.5 g/dL (31-35); MEAN CORPUSCULAR VOLUME 90.9 fL (81-99); MONOCYTES # (AUTO) 0.6 (0.2-0.8); MONOCYTES % 8.5 % (4.4-11.3); NEUTROPHILS # (AUTO) 4.1 (2.1-6.9); NEUTROPHILS % 62.5 % (38.7-80.0); PLATELET COUNT 329 x10e3/uL (140-360); RED BLOOD COUNT 3.28 x10e6/uL (4.3-5.7); RED CELL DISTRIBUTION WIDTH 14.3 % (11.7-14.4)
--- NOTE | 2019-05-12 09:27 | NUR ---
ADDENDUM- Systolic CHF LVEF 40-45%; chr IM- progress O/N see below ROS: no f/c/s/N/V/D/dizziness/skin rash/back pain/confusion/leg pain v/s; revd PE tired appearing anicteric ns1s2 mod bs soft nt nd Lamb in place no e/t; thickening and yellowing of toenails skin dry n. affect Reduced hearing labs/meds revd A/P 83yoM Urinary retention Hyponatremia UTI PRISCA in CKD3 Chr Systolic CHF LVEF 40-45% Moderate anemia CAD with recent ACS and stent placed in 04/2019 BPH RA Onychomycosis of toenails HEaring deficits PLAN Lamb; IVF; urology eval; flomax Restatrt home meds SCD 05-06 Hyponatremia- use salt tabs; Metabolic acidosis- use bicarbs; cont IVF; f/u urine culture; AAA on U/S critical size- tranfer to med ctr; control BP with BB; D/W ; ESBL E.coli UTI- merrem. 05-07 d/c planning to med ctr for CV Sx mgmt of AAA. cont renal care and merrem. Surgical team notes that patient is a poor surgical candidate, but reque sted various consults, consultations made; [facility] to [facility] when [facility]; d/w - PCP and - parliamentary archivist; I also discussed with and updated daughter Shakira at [phone]. Continue medical tx. 05/08 cont care; check labs; Infrarenal AAA on CTA = 6.9cm. 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 Continue current therapy; CV surgery and Cardiology on service; pt has appt outpt with Nail Making Machine Setter on Monday? I will keep pt under close monitoring until Monday am. He can then go directly to appt at that time if that is what family desire. Check labs this am. 05/11 labs revd from yesterday. 05/12 check labs; plan for d/c at 6am on Monday; appt is for 9am. Family will take CD with images to appt. Qamar Olson MD, PhD.
[2019-05-12 09:41] LABS: ANION GAP 15.3 mmol/L (8-16); CALCIUM 8.8 mg/dL (8.4-10.2); CREATININE, SERUM 1.48 mg/dL (0.72-1.25); POTASSIUM 4.3 mmol/L (3.5-5.1)
[2019-05-12 10:01] LABS: MAGNESIUM 1.8 MG/DL (1.3-2.1); PHOSPHORUS 3.7 MG/DL (2.3-4.7)
--- NOTE | 2019-05-12 12:37 | Progress Note ---
DATE: 05/12/2019 Cardiology Progress Note SUBJECTIVE: The patient reports some pain surrounding on old IV site on the right arm. Otherwise, he has no any other complaints. He denies any chest pain or shortness of breath. OBJECTIVE: VITAL SIGNS: Temperature 98.1, pulse 62, respiratory rate 18, blood pressure 116/68, and oxygen saturation 95% on room air. CARDIOVASCULAR MEDICATIONS: 1. Metoprolol 12.5 mg p.o. q.12 hours. 2. Effient 10 mg p.o. daily. 3. Atorvastatin 20 p.o. at bedtime. LABORATORY DATA: WBC 6.59, hemoglobin 8.8, hematocrit 29.9, and platelets 329. Sodium 136, potassium 4.3, BUN 20, and creatinine 1.48. TELEMETRY: Sinus rhythm. PHYSICAL EXAMINATION: GENERAL: Alert and oriented x3, resting comfortably in bed. Hard of hearing. NECK: Supple. No JVD noted. LUNGS: Clear to auscultation throughout. No wheezing. No rhonchi or crackles. CARDIOVASCULAR: Normal rate and rhythm. No murmurs. Normal S1 and S2. ABDOMEN: Soft and nontender. EXTREMITIES: Lower extremity, discoloration noted. EXTREMITIES: Trace edema bilaterally. Absent pedal pulses. IMPRESSION: 1. Abdominal aortic aneurysm measuring 6.5 x 6.4 cm with a mural thrombus. 2. Coronary artery disease, status post myocardial infarction. 3. Acute on chronic systolic heart failure. 4. Peripheral arterial disease. 5. Hypertension. 6. Hyperlipidemia. 7. Chronic kidney disease. RECOMMENDATIONS: Continue with medical therapy and management of the above. Vascular consultation has been done by Dr. Lim and the patient reports surgery supposed to be tomorrow. Echocardiogram was done on a prior admission, which demonstrated mild reduced systolic function with left ventricular ejection fraction 40%-45%. Maintain this patient on telemetry at all times. Dictated by Hayley Easley, MASHA MD BRIAN GuidoV/RUBYL /[id number]
[2019-05-12] MEDS: IRON SUCROSE 100 MG in SODIUM CHLORIDE 0.9% 100 ML 100 ML IV SCH (16:38)
--- NOTE | 2019-05-12 17:38 | Progress Note ---
DATE: 05/12/[address] Quinones reporting the progress note on behalf of Dr. Mayo. SUBJECTIVE: The patient is feeling better less complaint more stable. OBJECTIVE: VITAL SIGNS: He is afebrile, 162, blood pressure 116/68, oxygen saturation 95%, and respiratory rate 18. HEENT: Atraumatic. NECK: No tenderness. LUNGS: Clear. CARDIAC: No heart murmurs. ABDOMEN: Soft. EXTREMITIES: Some pedal edema. LABORATORY DATA: Sodium 139, potassium 4.7, chloride 106, CO2 24, BUN 20, and creatinine 1.38. Sugar 89. WBC 6.59, hemoglobin 8.8, and platelets 329. Total bilirubin 0.3. AST 16 and ALT 7. Alkaline phosphatase 46. ASSESSMENT AND PLAN: Urinary tract infection due to E coli extended spectrum beta-lactamase AAA chronically maybe since coronary artery disease. The recommendations are to continue with current medications. He is on meropenem IV q.8 besides that he is on Flomax 0.4 daily, allopurinol 200 a day, atorvastatin 20 at bedtime and metoprolol 12.5 q.12 hours and his among other medication. Look out for any additional recommendation. MD YOMAIRA Toribio/BUSTER /[id number]
--- NOTE | 2019-05-12 20:14 | Progress Note ---
DATE: 05/12/2019 Hematology/Oncology progress note This covers for Dr. Dulce Stevenson. SUBJECTIVE: Mr. Clark was seen and examined at bedside. He is on room air FiO2. Receiving another dose of IV iron. Cardiovascular arrangements have tentatively been made. His aortic aneurysm will be outsourced to clinical specialist in [facility]. The patient is otherwise feeling okay and eating well. REVIEW OF SYSTEMS: No bleeding, no double vision. OBJECTIVE: VITAL SIGNS: Afebrile, vital signs noted and reviewed per the chart record. GENERAL: In no acute distress. Alert and calm in bed. HEENT: Normocephalic, atraumatic. NECK: Supple. Throat midline. LUNGS: Bilateral air entry is clear, no wheezes. CARDIOVASCULAR: S1, S2. No murmurs, rubs, or gallops. ABDOMEN: Soft nontender. EXTREMITIES: No clubbing. No cyanosis. There is trace edema. INTEGUMENT: No rash. No purpura. LABORATORY DATA: 7 white count, 8.8 hemoglobin, 29.8 hematocrit, and platelets 229. BUN 20, creatinine 1.48. Previous indices from May 05 include iron 16, TIBC 125, 9% iron saturation, ferritin 799. MCV 91 currently, RDW 14, MCHC was 29.5, slightly low. IMPRESSION AND PLAN: 1. Anemia, multifactorial. 2. Iron deficiency. 3. Admit with urinary retention. 4. Admit with hyponatremia, metabolic acidosis. 5. Extended-spectrum beta-lactamases urinary tract infection, Escherichia coli. 6. 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 7. Rheumatoid arthritis. 8. Chronic kidney disease, stage 3. Finish iron infusion. The patient possibly for discharge tomorrow and coordination with [facility] Vascular specialist. No acute indication for blood transfusion now. Recent coagulation x2, mostly acceptable. Of note, currently patient is on prasugrel which can be continued. MD KEILY Granados/MODL /[id number]
--- NOTE | 2019-05-12 20:17 | NUR ---
received report from day nurse. bedside rounding complete. patient is resting in bed. bed is in lowest position and call pinto is within reach. will continue to monitor patient.
[2019-05-12] MEDS: ATORVASTATIN 20 MG TAB PO SCH (21:16)
--- NOTE | 2019-05-12 22:00 | NUR ---
Spoke with Dr Lamb. Patient is to be discharged home with Lamb Catheter.
[2019-05-13] VITALS: BP 129/56
[2019-05-13 04:00] VITALS: BP 132/60
[2019-05-13] MEDS: MEROPENEM 500MG/ NS 50ML 50 ML IV SCH (05:03)
[2019-05-13] MEDS ORDERED: SODIUM BICARBO650 MG PO (06:00)
[2019-05-13] MEDS ORDERED: SODIUM CHLORIDE1 GM PO (06:00)
[2019-05-13] MEDS ORDERED: ALLOPURINOL100 MG PO (06:00)
--- NOTE | 2019-05-13 06:04 | NUR ---
D/C summary Principal Dx: Urinary retention Hyponatremia ESBL E.coli UTI PRISCA in CKD3 Chr Systolic CHF LVEF 40-45% Onychomycosis of toenails Moderate anemia CAD with recent ACS and stent placed in 04/2019 BPH RA HEaring deficits PLAN Lamb; IVF; urology eval; flomax Restatrt home meds SCD 05-06 Hyponatremia- use salt tabs; Metabolic acidosis- use bicarbs; cont IVF; f/u urine culture; AAA on U/S critical size- tranfer to med ctr; control BP with BB; D/W ; ESBL E.coli UTI- merrem. 05-07 d/c planning to med ctr for CV Sx mgmt of AAA. cont renal care and merrem. Surgical team notes that patient is a poor surgical candidate, but reque sted various consults, consultations made; Transfer to [facility] ctr when accepted; d/w - PCP and - netezza architect; I also discussed with and updated daughter Shakira at [phone]. Continue medical tx. 05/08 cont care; check labs; Infrarenal AAA on CTA = 6.9cm. 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 Continue current therapy; CV surgery and Cardiology on service; pt has appt outpt with Brake Press Operator on Monday? I will keep pt under close monitoring until Monday am. He can then go directly to appt at that time if that is what family desire. Check labs this am. 05/11 labs revd from yesterday. 05/12 check labs; plan for d/c at 6am on Monday; appt is for 9am. Family will take CD with images to appt. d/c directly to appt with security systems specialist at 9am appt F/U PCP 2 days, nephrology 1 week, cardiology as directed, cardiovascular surgery 1 week Stable at this time d/c>35mins Qamar Olson MD, PhD.
--- NOTE | 2019-05-13 07:09 | NUR ---
report given to day nurse. patient is resting comfortably in bed. bed is in lowest position and call pinto is within reach.
[2019-05-13 07:54] VITALS: BP 148/76
[2019-05-13 08:25] VITALS: BP 148/76
--- NOTE | 2019-05-13 08:26 | Progress Note ---
DATE: 05/11/2019 SUBJECTIVE: The patient is an 83-year-old male status post postoperative respiratory failure from which he recovered, coronary artery disease, ESBL urinary tract infection, AAA, and chronic kidney disease. OBJECTIVE: VITAL SIGNS: He is afebrile, pulse 58, blood pressure 153/72, O2 saturation 97%, respiratory rate 16. HEENT: Atraumatic. NECK: No tenderness. LUNGS: Some rhonchi. HEART: No murmurs. ABDOMEN: Soft. EXTREMITIES: No pedal edema. LABORATORY DATA: BUN 20, creatinine 1.38, rest of the chemistry was unremarkable. Hemoglobin 8.5, the rest of the CBC was unremarkable. IMPRESSION: 1. Extended-spectrum beta-lactamases urinary tract infection. 2. Cerebrovascular accident. 3. Coronary artery disease. 4. Chronic kidney disease. The patient is currently on the Pepcid 20 mg q.12 hours and Flomax 0.4 daily, atorvastatin 20 mg at bedtime, metoprolol 12.5 q.12. My recommendation is to continue with the same medication and continue with been given. MD YOMAIRA Toribio/BUSTER /[id number]
== END 2019-05-13 08:23 | disposition home or self-care (01) | DRG 682 ==
LOC: ER 12:56 → ERHOLD 17:10 → MED/SURG2 17:55
PROVIDERS: ADMIT Internal Medicine; ATTEND Internal Medicine
PROC: 30233N1 Transfusion of Nonautologous Red Blood Cells into Peripheral Vein, Percutaneous Approach (ICD-10-PCS; principal; 2019-05-07)
DX: N17.9 Acute kidney failure, unspecified (principal); I50.23 Acute on chronic systolic (congestive) heart failure; I13.0 Hypertensive heart and chronic kidney disease with heart failure and stage 1 through stage 4 chronic kidney disease, or unspecified chronic kidney disease; Z16.12 Extended spectrum beta lactamase (ESBL) resistance; E87.1 Hypo-osmolality and hyponatremia; E87.2 Acidosis; D68.9 Coagulation defect, unspecified; N40.1 Benign prostatic hyperplasia with lower urinary tract symptoms; N30.90 Cystitis, unspecified without hematuria; R33.9 Retention of urine, unspecified; N18.3 Chronic kidney disease, stage 3 (moderate); B35.1 Tinea unguium; B96.20 Unspecified Escherichia coli [E. coli] as the cause of diseases classified elsewhere; H91.90 Unspecified hearing loss, unspecified ear; I25.10 Atherosclerotic heart disease of native coronary artery without angina pectoris; Z95.5 Presence of coronary angioplasty implant and graft; M06.9 Rheumatoid arthritis, unspecified; I71.4 Abdominal aortic aneurysm, without rupture; R33.8 Other retention of urine; D64.9 Anemia, unspecified; N28.1 Cyst of kidney, acquired; E88.09 Other disorders of plasma-protein metabolism, not elsewhere classified; M50.30 Other cervical disc degeneration, unspecified cervical region; D50.9 Iron deficiency anemia, unspecified; Z87.891 Personal history of nicotine dependence; I25.2 Old myocardial infarction; I73.9 Peripheral vascular disease, unspecified
CPT/HCPCS: 36415; 70450; 71045; 71046; 71275; 72125; 74174; 76770; 80048; 80053; 80061; 81001; 82550; 82553; 82570; 82728; 83540; 83735; 83880; 84100; 84156; 84466; 84484; 84550; 85025; 85610; 85730; 86850; 86900; 86920; 87040; 87086; 87186; 93005; 99284; J1756; J2185; J7030; J7050; P9016; Q9967

== ENCOUNTER 2019-08-21 04:50 | Inpatient (IN) | payer MEDICARE, OTHER ==
[~2019-08-21] VITALS: Ht 177.8 cm; Wt 103.9 kg
[~2019-08-21 04:50] MED LIST changes: +ALLOPURINOL100 MG PO; +MONUROL3 GM PO; +SODIUM BICARBO650 MG PO; +SODIUM CHLORIDE1 GM PO
--- OUTSIDE RECORDS SUMMARY | 2019-08-21 04:55 | XMS REPORT ---
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
--- OUTSIDE RECORDS SUMMARY | 2019-08-21 04:55 | XMS REPORT ---
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
--- OUTSIDE RECORDS SUMMARY | 2019-08-21 04:55 | XMS REPORT | Summary of Care ---
Author Organization Unknown Address Unknown Phone Unavailable Encounter HQ Yadirar_whitney([facility]) [id number] Date(s): 05/01/14 - 05/01/14 [facility] [address] Outpatient Imaging [address] [address]- [place] Discharge Disposition: Home Physician Attending: Guerrero Berman MD Reason for Visit 786.5 - CHEST PAIN Problem List No data available for this section Allergies, Adverse Reactions, Alerts No data available for this section Medications No data available for this section Medications Administered During Your Visit No data available for this section Immunizations No data available for this section
--- OUTSIDE RECORDS SUMMARY | 2019-08-21 04:55 | XMS REPORT | Summary of Care ---
Author Author [facility] - [facility] Organization [facility] Address Unknown Phone Unavailable Encounter HQ Encntr_alias(FIN) [id number] Date(s): 02/25/15 - 02/25/15 [facility] Outpatient Imaging - [address] [address] [phone] Discharge Disposition: Home Attending Physician: Guerrero Berman MD Vital Signs No data available for this section Problem List No data available for this section Allergies, Adverse Reactions, Alerts No data available for this section Medications No data available for this section Results No data available for this section Immunizations No data available for this section Procedures No data available for this section Social History No data available for this section Assessment and Plan No data available for this section
--- OUTSIDE RECORDS SUMMARY | 2019-08-21 04:55 | XMS REPORT | Summary of Care ---
Author Author [facility] Outpatient Imaging - [facility] Organization [facility] Outpatient Imaging - [facility] Address Unknown Phone Unavailable Encounter HQ Encntr_alias(FIN) [id number] Date(s): 09/15/16 - 09/15/16 [facility] Outpatient Imaging - [place] [address] [place] [phone] Discharge Disposition: Home or Self Care Attending Physician: Calixto Berger MD Vital Signs No data available for [...]
--- OUTSIDE RECORDS SUMMARY | 2019-08-21 04:55 | XMS REPORT ---
Author Author AG Arora Organization [employer] Address Unknown Phone Unavailable Care Team Providers Care Orthopedic Radiologic Technologist Name Role Phone Ayo Arora CP Unavailable [...] Instructions Start Date End Date Status Dosage Hydroxychloroquine Sulfate [facility] [id number] 200 MG Orally bid Feb 06, 2017 Active 1 tablet with food or milk Results No Known Results Summary Purpose [employer] Submission
--- OUTSIDE RECORDS SUMMARY | 2019-08-21 04:55 | XMS REPORT | Summary of Care ---
Author Author [facility] Outpatient Imaging - [facility] Organization [facility] Outpatient Imaging - [facility] Address Unknown Phone Unavailable Encounter HQ Encntr_alias(FIN) [id number] Date(s): 03/21/16 - 03/21/16 [facility] Outpatient Imaging - [place] [address] [place] [phone] Discharge Disposition: Home or Self Care Attending [...]
--- OUTSIDE RECORDS SUMMARY | 2019-08-21 04:55 | XMS REPORT | Summary of Care ---
Author Author [facility] ospital Organization [facility] Address Unknown Phone Unavailable Encounter RM Chinchilla(TIM) [id number] Date(s): 05/22/19 - 05/23/19 [facility] [address] [place] [address]- [phone] Encounter Diagnosis Abdominal aortic aneurysm, without rupture (Final) - Discharge Disposition: Home or Self Care Vital Signs 1 2 3 Most recent to oldest [Reference Range]: 177.8 cm (05/22/19 2:08 PM) 177.8 cm (05/20/19 9:02 AM) Height 114.4 kg (05/23/19 5:19 AM) Current Weight 97.4 DegF (05/20/19 9:49 AM) Temperature Oral [96.4-99.1 DegF] 125/59 mmHg (05/23/19 4:00 PM) 111/52 mmHg (05/23/19 3:00 PM) 119/57 mmHg (05/23/19 2:00 PM) Blood Pressure [90-140/60-90 mmHg] 0 BRMIN *LOW* (05/23/19 2:00 PM) 21 BRMIN *HI* (05/23/19 1:00 PM) 15 BRMIN (05/23/19 12:00 PM) Respiratory Rate [14-20 BRMIN] 58 bpm *LOW* (05/22/19 8:09 AM) 55 bpm *LOW* (05/20/19 9:49 AM) Peripheral Pulse Rate [60-100 bpm] 107.27 kg (05/22/19 2:08 PM) 107.273 kg (05/20/19 9:02 AM) Weight 33.93 m2 (05/22/19 2:08 PM) 33.93 m2 (05/20/19 9:02 AM) Body Mass Index Problem List Condition Effective Dates Status Health Status Informan t BPH (benign Active prostatic hyperplasia)(Confirm ed) Constipation(Confirm Active ed) [place] (hard of Active hearing)(Confirmed) HTN Active (hypertension)(Confi rmed) Mobility Active impaired(Confirmed)1 [place] (myocardial Resolved infarction)(Confirme d)2 Weakness of both Active lower extremities(Confirme d) Poor circulation of Active extremity(Confirmed) 3 RA (rheumatoid Active arthritis)(Confirmed ) Stented coronary Active artery(Confirmed)4 Lamb catheter Active present(Confirmed) 1uses walker 2Jan 2019 3RLE 4x 1 after [place] 04/2019 Allergies, Adverse Reactions, Alerts No Known Allergies Medications acetylcysteine oral solution (mg) 1,200 mg, 6 mL, Route: PO, Drug form: SOLN, BID, kg, Start date: 05/22/19 6:00:0 0 WAFER SLICER, Duration: 30 day, Stop date: 06/20/19 17:00:00 CDT, 0 Notes: TUBE TO PRE-OP STATTUBE TO PRE-OP STATTUBE TO PRE-OP STAT* Start Date: 05/22/19 Stop Date: 05/23/19 Status: Discontinued allopurinol 200 mg, 2 tab, Route: PO, Drug form: TAB, Daily, Dosing Weight 107.273, kg, Star t date: 05/23/19 9:00:00 WAFER SLICER, Duration: 30 day, Stop date: 06/21/19 9:00:00 CDT, 0 Notes: (Same as: Zyloprim) Start Date: 05/23/19 Stop Date: 05/23/19 Status: Discontinued allopurinol 100 mg oral tablet 200 mg = 2 tab, PO, Daily, # 90 tab, 1 Refill(s) Start Date: 05/20/19 Status: Ordered aspirin 81 mg tablet, enteric coated 81 mg, 1 tab, Route: PO, Drug form: ECTAB, Daily, Dosing Weight 107.273, kg, Sta rt date: 05/23/19 9:00:00 WAFER SLICER, Duration: 30 day, Stop date: 06/21/19 9:00:00 CDT , 0 Notes: Do not crush or chew.(Same As: Ecotrin) Start Date: 05/23/19 Stop Date: 05/23/19 Status: Discontinued aspirin 81 mg tablet, enteric coated 81 mg = 1 tab, PO, Daily, # 90 tab, 3 Refill(s) Start Date: 05/20/19 Status: Ordered atorvastatin 20 mg, 2 tab, Route: PO, Drug form: TAB, Bedtime, Dosing Weight 107.273, kg, Sta rt date: 05/22/19 21:00:00 WAFER SLICER, Duration: 30 day, Stop date: 06/20/19 21:00:00 C DT, 0 Notes: (Same As: Lipitor) Start Date: 05/22/19 Stop Date: 05/23/19 Status: Discontinued atorvastatin 20 mg oral tablet 20 mg = 1 tab, PO, Bedtime, # 90 tab, 1 Refill(s) Start Date: 05/20/19 Status: Ordered ceFAZolin 2 gm, Route: IVP, ONCALL, Dosing Weight 107.273, kg, (Patients weighing < 120 kg), Start date: 05/22/19 9:00:00 WAFER SLICER, Duration: 1 doses or times, ABX Dayami cation: Surgical Prophylaxis Start Date: 05/22/19 Stop Date: 05/22/19 Status: Discontinued ceFAZolin (ANES) Route: IV, Drug form: INJ, ONCE, Stop date: 05/22/19 9:46:00 WAFER SLICER Start Date: 05/22/19 Stop Date: 05/22/19 Status: Completed ceFAZolin (SCIP) + sterile water 10 mL 1 gm, Route: IVP, Q8H, Dosing Weight 107.273, kg, Start date: 05/22/19 17:00:00 WAFER SLICER, Duration: 3 doses or times, Stop date: 05/23/19 9:00:00 WAFER SLICER, ABX Indication : Surgical Prophylaxis, 0 Notes: (Same As: Angélica Taylor) MEDICATION WASTE Product Size: 1000 mgP roduct Wasted: ___ mg Start Date: 05/22/19 Stop Date: 05/23/19 Status: Completed clopidogrel 37.5 mg, 0.5 tab, Route: PO, Drug form: TAB, Daily, Dosing Weight 107.273, kg, S tart date: 05/23/19 9:00:00 WAFER SLICER, Duration: 30 day, Stop date: 06/21/19 9:00:00 C DT Start Date: 05/23/19 Stop Date: 05/22/19 Status: Canceled clopidogrel 75 mg oral tablet 37.5 mg = 0.5 tab, PO, Daily, # 90 tab, 3 Refill(s) Start Date: 05/20/19 Status: Ordered dexamethasone (ANES) Route: IV, Drug form: INJ, ONCE, Stop date: 05/22/19 10:26:00 WAFER SLICER Start Date: 05/22/19 Stop Date: 05/22/19 Status: Completed docusate sodium 100 mg oral capsule 100 mg, 1 cap, Route: PO, Drug form: CAP, BID, Dosing Weight 107.273, kg, Start date: 05/22/19 17:00:00 WAFER SLICER, Duration: 30 day, Stop date: 06/21/19 9:00:00 CDT, 0 Notes: (Same as: Colace) (Do Not Crush) Start Date: 05/22/19 Stop Date: 05/23/19 Status: Discontinued docusate sodium 100 mg oral capsule 100 mg = 1 cap, PO, BID, # 60 cap, 3 Refill(s) Start Date: 05/20/19 Status: Ordered famotidine 20 mg oral tablet 20 mg, 1 tab, Route: PO, Drug form: TAB, Daily, Dosing Weight 107.273, kg, Start date: 05/22/19 17:00:00 WAFER SLICER, Duration: 30 day, Stop date: 06/20/19 17:00:00 CDT, 0 Notes: (Same as: Pepcid) Start Date: 05/22/19 Stop Date: 05/23/19 Status: Discontinued famotidine 20 mg oral tablet 20 mg = 1 tab, PO, BID, # 180 tab, 0 Refill(s) Start Date: 05/20/19 Status: Ordered fentaNYL (ANES) Route: IV, Drug form: INJ, ONCE, Stop date: 05/22/19 9:51:00 WAFER SLICER Start Date: 05/22/19 Stop Date: 05/22/19 Status: Completed ferrous sulfate 325 mg, 1 tab, Route: PO, Drug form: ECTAB, BID, Dosing Weight 107.273, kg, Star t date: 05/22/19 17:00:00 WAFER SLICER, Duration: 30 day, Stop date: 06/21/19 9:00:00 CDT , 0 Notes: Give with food. "Do Not Crush" Start Date: 05/22/19 Stop Date: 05/23/19 Status: Discontinued ferrous sulfate 325 mg oral enteric coated tablet 325 mg = 1 tab, PO, BID, # 90 tab, 0 Refill(s) Start Date: 05/20/19 Status: Ordered glycopyrrolate (ANES) Route: IV, Drug form: INJ, ONCE, Stop date: 05/22/19 10:27:00 WAFER SLICER Start Date: 05/22/19 Stop Date: 05/22/19 Status: Completed heparin (ANES) Route: IV, Drug form: INJ, ONCE, Stop date: 05/22/19 10:11:00 WAFER SLICER Start Date: 05/22/19 Stop Date: 05/22/19 Status: Completed hydrALAZINE 20 mg, 1 mL, Route: IVP, Drug form: INJ, Q4H, Dosing Weight 107.273, kg, PRN, St art date: 05/22/19 12:54:00 WAFER SLICER, Duration: 30 day, Stop date: 06/21/19 12:53:00 CDT, SBP > 150, 0 Notes: (Same as: Apresoline)Push over 5 minutes Start Date: 05/22/19 Stop Date: 05/23/19 Status: Discontinued hydroxychloroquine sulfate 200 mg oral tablet 200 mg, 1 tab, Route: PO, Drug form: TAB, Daily, Dosing Weight 107.273, kg, Star t date: 05/23/19 9:00:00 WAFER SLICER, Duration: 30 day, Stop date: 06/21/19 9:00:00 CDT, 0 Notes: (Same as: Plaquenil)Hydroxychloroquine sulfate 200 mg = 155 mg hydroxychl oroquine base. If treating malaria, verify dose as salt vs. base per CDC guideli ne Start Date: 05/23/19 Stop Date: 05/23/19 Status: Discontinued hydroxychloroquine sulfate 200 mg oral tablet 200 mg = 1 tab, PO, Daily, # 180 tab, 0 Refill(s) Start Date: 05/20/19 Status: Ordered Lactated Ringers Injection IV (ANES) 1000 mL Route: IV, Total Volume: 1,000, Start date: 05/22/19 9:17:00 WAFER SLICER, Stop date: 03/29 10:17:00 WAFER SLICER Start Date: 05/22/19 Stop Date: 05/22/19 Status: Completed Lasix 40 mg, 4 mL, Route: IV, Drug form: INJ, After Transfusion, Dosing Weight 107.273 , kg, PRN, Start date: 05/22/19 13:02:00 WAFER SLICER, Duration: 1 day, Stop date: 13:01:00 WAFER SLICER, once, 0 Notes: (Same as: Lasix) MEDICATION WASTE Product Size: 40 mgProduct Was mejia: ___ mg Start Date: 05/22/19 Stop Date: 05/23/19 Status: Completed lidocaine (ANES) Route: IV, Drug form: INJ, ONCE, Stop date: 05/22/19 9:51:00 WAFER SLICER Start Date: 05/22/19 Stop Date: 05/22/19 Status: Completed metoprolol tartrate 12.5 mg, 0.5 tab, Route: PO, Drug form: TAB, BID, Dosing Weight 107.273, kg, Sta rt date: 05/22/19 17:00:00 WAFER SLICER, Duration: 30 day, Stop date: 06/21/19 9:00:00 CD T, 0 Notes: (Same as: Lopressor) Start Date: 05/22/19 Stop Date: 05/23/19 Status: Discontinued metoprolol tartrate 25 mg oral tablet 12.5 mg = 0.5 tab, PO, BID, # 60 tab, 0 Refill(s) Start Date: 05/20/19 Status: Ordered morphine Sulfate 2 mg, Route: IVP, ONCE, Dosing Weight 107.273, kg, Start date: 05/22/19 12:20:00 WAFER SLICER, Stop date: 05/22/19 12:20:00 WAFER SLICER Start Date: 05/22/19 Stop Date: 05/22/19 Status: Completed morphine Sulfate 2 mg, 1 mL, Route: IVP, Drug form: INJ, Q2H, Dosing Weight 107.273, kg, PRN, Sta rt date: 05/22/19 12:20:00 WAFER SLICER, Duration: 30 day, Stop date: 06/21/19 12:19:00 C DT, pain 1-5, 0 Notes: (Same as:MORPhine Sulfate) Start Date: 05/22/19 Stop Date: 05/23/19 Status: Discontinued morphine Sulfate 4 mg, 1 mL, Route: IVP, Drug form: SOLN, Q4H, Dosing Weight 107.273, kg, PRN, St art date: 05/22/19 12:20:00 WAFER SLICER, Duration: 30 day, Stop date: 06/21/19 12:19:00 CDT, pain 6-10, 0 Notes: (Same as:MORPhine Sulfate) Start Date: 05/22/19 Stop Date: 05/23/19 Status: Discontinued neostigmine (ANES) Route: IV, Drug form: INJ, ONCE, Stop date: 05/22/19 11:33:00 WAFER SLICER Start Date: 05/22/19 Stop Date: 05/22/19 Status: Completed [place] 5/325 oral tablet 1 tab, Route: PO, Drug Form: TAB, Dosing Weight 107.27, kg, Q4H, PRN Pain Score 1-3, Start date: 05/22/19 17:58:00 WAFER SLICER, Duration: 30 day, Stop date: 06/21/19 17 :57:00 CDT, 0 Notes: (Same as: [place] 325/5) Do not exceed 4gm/day of acetaminophen. Start Date: 05/22/19 Stop Date: 05/23/19 Status: Discontinued [place] 5/325 oral tablet 2 tab, Route: PO, Drug Form: TAB, Dosing Weight 107.27, kg, Q4H, PRN Pain Score 4-6, Start date: 05/22/19 17:58:00 WAFER SLICER, Duration: 30 day, Stop date: 06/21/19 17 :57:00 CDT, 0 Notes: (Same as: [place] 325/5) Do not exceed 4gm/day of acetaminophen. Start Date: 05/22/19 Stop Date: 05/23/19 Status: Discontinued ondansetron (ANES) Route: IV, Drug form: INJ, ONCE, Stop date: 05/22/19 10:26:00 WAFER SLICER Start Date: 05/22/19 Stop Date: 05/22/19 Status: Completed phenylephrine (ANES) Route: IV, Drug form: INJ, ONCE, Stop date: 05/22/19 10:27:00 WAFER SLICER Start Date: 05/22/19 Stop Date: 05/22/19 Status: Completed Plavix 75 mg, 1 tab, Route: PO, Drug form: TAB, Daily, Dosing Weight 107.273, kg, Start date: 05/23/19 9:50:00 WAFER SLICER, Duration: 30 day, Stop date: 06/22/19 9:00:00 CDT, 0 Notes: (Same As: Plavix) Start Date: 05/23/19 Stop Date: 05/23/19 Status: Discontinued propofol (ANES) Route: IV, Drug form: INJ, ONCE, Stop date: 05/22/19 9:51:00 WAFER SLICER Start Date: 05/22/19 Stop Date: 05/22/19 Status: Completed protamine (ANES) Route: IV, Drug form: INJ, ONCE, Stop date: 05/22/19 11:33:00 WAFER SLICER Start Date: 05/22/19 Stop Date: 05/22/19 Status: Completed rocuronium (ANES) Route: IV, Drug form: INJ, ONCE, Stop date: 05/22/19 9:51:00 WAFER SLICER Start Date: 05/22/19 Stop Date: 05/22/19 Status: Completed sodium bicarbonate 650 mg oral tablet 1,300 mg, 2 tab, Route: PO, Drug form: TAB, Daily, Dosing Weight 107.273, kg, St art date: 05/23/19 9:00:00 WAFER SLICER, Duration: 30 day, Stop date: 06/21/19 9:00:00 CD T, 0 Notes: "Dissolve tablet in a glass of water prior to oral administration. STOMA CH WARNING: To avoid serious injury, do not take until tablet is completely diss olved. It is very important not to take this product when overly full from food or drink." Start Date: 05/23/19 Stop Date: 05/23/19 Status: Discontinued sodium bicarbonate 650 mg oral tablet 1,300 mg = 2 tab, PO, Daily, 0 Refill(s) Start Date: 05/20/19 Status: Ordered sodium bicarbonate 8.4% additive 100 mEq + 1/2 NS 1,000 mL 1,000 mL, Rate: 100 ml/hr, Infuse over: 11 hr, Route: IV, Total Volume: 1,100, S tart date: 05/22/19 6:00:00 WAFER SLICER, Duration: 30 day, Stop date: 06/21/19 5:59:00 C DT, 0 Notes: TUBE TO PRE-OP STATTUBE TO PRE-OP STATTUBE TO PRE-OP STAT* Start Date: 05/22/19 Stop Date: 05/23/19 Status: Discontinued Sodium Chloride 0.9% (titrate) 250 mL 250 mL, Rate: To prime line and flush remaining blood products., Dosing Weight 1 07.273, kg, Route: IV, Total Volume: 250, Start Date: 05/22/19 11:53:00 WAFER SLICER, Dur ation: 1 day, Stop date: 05/23/19 11:52:00 WAFER SLICER, Replace Every: 24 hr, 0 Start Date: 05/22/19 Stop Date: 05/23/19 Status: Completed Sodium Chloride 0.9% IV (ANES) 1000 mL Route: IV, Total Volume: 1,000, Start date: 05/22/19 9:17:00 WAFER SLICER, Stop date: 03/29 10:17:00 WAFER SLICER Start Date: 05/22/19 Stop Date: 05/22/19 Status: Completed tamsulosin 0.4 mg, 1 cap, Route: PO, Drug form: CAP, Daily, Dosing Weight 107.273, kg, Star t date: 05/23/19 9:00:00 WAFER SLICER, Duration: 30 day, Stop date: 06/21/19 9:00:00 CDT, 0 Notes: (Same As: Flomax) "Do Not Crush" Start Date: 05/23/19 Stop Date: 05/23/19 Status: Discontinued tamsulosin 0.4 mg oral capsule 0.4 mg = 1 cap, PO, Daily, # 90 cap, 0 Refill(s) Start Date: 05/20/19 Status: Ordered Results 1 2 3 Most recent to oldest [Reference Range]: 3.0 K/CMM (05/20/19 10:28 AM) Neutrophils # [1.5-8.1 K/CMM] 1.0 K/CMM (05/20/19 10:28 AM) Lymphocytes # [1.0-5.5 K/CMM] 0.4 K/CMM (05/20/19 10:28 AM) Monocytes # [0.0-0.8 K/CMM] 0.5 K/CMM (05/20/19 10:28 AM) Eosinophils # [0.0-0.5 K/CMM] 0.1 K/CMM (05/20/19 10:28 AM) Basophils # [0.0-0.2 K/CMM] 46 mL/min/1.73m2 1 *NA* (05/23/19 4:55 AM) 47 mL/min/1.73m2 2 *NA* (05/22/19 11:10 AM) 41 mL/min/1.73m2 3 *NA* (05/20/19 10:28 AM) eGFR Product available 4 (05/22/19 11:53 AM) Product available (05/20/19 9:42 AM) RBC product A POS *Unknown* (05/20/19 10:28 AM) ABO/Rh Negative (05/20/19 10:28 AM) Antibody Scrn 11.1 mEq/L (05/23/19 4:55 AM) 10.2 mEq/L (05/22/19 11:10 AM) 11.2 mEq/L (05/20/19 10:28 AM) AGAP [10.0-20.0 mEq/L] 2.4 % *HI* (05/20/19 10:28 AM) Basophils [0.0-1.0 %] 17 mg/dL (05/23/19 4:55 AM) 15 mg/dL (05/22/19 11:10 AM) 19 mg/dL (05/20/19 10:28 AM) BUN [7-22 mg/dL] 8.0 mg/dL *LOW* (05/23/19 4:55 AM) 7.7 mg/dL *LOW* (05/22/19 11:10 AM) 8.7 mg/dL (05/20/19 10:28 AM) Calcium Lvl [8.5-10.5 mg/dL] 104 mEq/L (05/23/19 4:55 AM) 105 mEq/L (05/22/19 11:10 AM) 103 mEq/L (05/20/19 10:28 AM) Chloride Lvl [95-109 mEq/L] 28 mEq/L (05/23/19 4:55 AM) 27 mEq/L (05/22/19 11:10 AM) 25 mEq/L (05/20/19 10:28 AM) CO2 [24-32 mEq/L] 1.41 mg/dL *HI* (05/23/19 4:55 AM) 1.40 mg/dL (05/22/19 11:10 AM) 1.55 mg/dL *HI* (05/20/19 10:28 AM) Creatinine Lvl [0.50-1.40 mg/dL] 10.2 % *HI* (05/20/19 10:28 AM) Eosinophils [0.0-4.0 %] 83 mg/dL (05/23/19 4:55 AM) 90 mg/dL (05/22/19 11:10 AM) 69 mg/dL *LOW* (05/20/19 10:28 AM) Glucose Lvl [70-99 mg/dL] 27.8 % *LOW* (05/23/19 4:55 AM) 21.7 % *LOW* (05/22/19 11:10 AM) 27.7 % *LOW* (05/20/19 10:28 AM) Hct [42.0-54.0 %] 9.0 g/dL *LOW* (05/23/19 4:55 AM) 7.0 g/dL 5 *CRIT* (05/22/19 11:10 AM) 8.9 g/dL *LOW* (05/20/19 10:28 AM) Hgb [14.0-18.0 g/dL] 5.5 % (05/20/19 10:28 AM) Hgb A1C [<=5.6 %] 1.17 (05/20/19 10:28 AM) INR [0.85-1.17] 4.1 mEq/L (05/23/19 4:55 AM) 4.2 mEq/L (05/22/19 11:10 AM) 4.2 mEq/L (05/20/19 10:28 AM) Potassium Lvl [3.5-5.1 mEq/L] 19.3 % *LOW* (05/20/19 10:28 AM) Lymphocytes [20.0-40.0 %] 28.4 pg (05/23/19 4:55 AM) 27.9 pg (05/22/19 11:10 AM) 28.1 pg (05/20/19 10:28 AM) MCH [27.0-31.0 pg] 32.4 g/dL (05/23/19 4:55 AM) 32.3 g/dL (05/22/19 11:10 AM) 32.0 g/dL (05/20/19 10:28 AM) MCHC [32.0-36.0 g/dL] 87.6 fL (05/23/19 4:55 AM) 86.5 fL (05/22/19 11:10 AM) 87.9 fL (05/20/19 10:28 AM) MCV [80.0-94.0 fL] 1.7 mg/dL *LOW* (05/22/19 11:10 AM) Magnesium Lvl [1.8-2.4 mg/dL] 7.1 % (05/20/19 10:28 AM) Monocytes [2.0-12.0 %] 7.5 fL (05/23/19 4:55 AM) 7.4 fL (05/22/19 11:10 AM) 7.8 fL (05/20/19 10:28 AM) MPV [7.4-10.4 fL] 139 mEq/L (05/23/19 4:55 AM) 138 mEq/L (05/22/19 11:10 AM) 135 mEq/L (05/20/19:28 AM) Sodium Lvl [135-145 mEq/L] 299 K/CMM (05/23/19 4:55 AM) 206 K/CMM (05/22/19 11:10 AM) 281 K/CMM (05/20/19:28 AM) Platelet [133-450 K/CMM] 61.0 % (05/20/19 10:28 AM) Segs [45.0-75.0 %] 15.0 seconds *HI* (05/20/19 10:28 AM) PT [12.0-14.7 seconds] 40.0 seconds *HI* (05/20/19 10:28 AM) PTT [22.9-35.8 seconds] 3.17 M/CMM *LOW* (05/23/19 4:55 AM) 2.51 M/CMM *LOW* (05/22/19 11:10 AM) 3.16 M/CMM *LOW* (05/20/19 10:28 AM) RBC [4.70-6.10 M/CMM] 16.2 % *HI* (05/23/19 4:55 AM) 15.7 % *HI* (05/22/19 11:10 AM) 16.1 % *HI* (05/20/19 10:28 AM) RDW [11.5-14.5 %] Occasional /HPF *NA* (05/20/19 10:28 AM) UA Bacteria [None Seen /HPF] Negative *NA* (05/20/19: AM) UA Bili [Negative] Moderate *ABN* (05/20/19:28 AM) UA Blood [Negative] Ltyellow *NA* (05/20/19:28 AM) UA Color Negative mg/dL *NA* (05/20/19: AM) UA Glucose [Negative mg/dL] Trace mg/dL *ABN* (05/20/19 10:28 AM) UA Ketones [Negative mg/dL] Negative (05/20/19 10:28 AM) UA Leuk Est [Negative] Negative (05/20/19: AM) UA Nitrite [Negative] 6.0 (05/20/19 10:28 AM) UA pH [5.0-8.0] Negative mg/dL (05/20/19 10:28 AM) UA Protein [Negative mg/dL] 1 /HPF (05/20/19:28 AM) UA RBC [0-2 /HPF] 1.004 (05/20/19 10:28 AM) UA Spec Grav [<=1.030] None Seen *NA* (05/20/19 10:28 AM) UA Sq Epi Clear (05/20/19: AM) UA Turbidity [Clear] <=1.0 mg/dL *NA* (05/20/19 10:28 AM) UA Urobilinogen [0.1-1.0 mg/dL] <1 /HPF (05/20/19 10:28 AM) UA WBC [0-5 /HPF] 5.0 K/CMM (05/23/19 4:55 AM) 3.3 K/CMM *LOW* (05/22/19 11:10 AM) 4.9 K/CMM (05/20/19 10:28 AM) WBC [3.7-10.4 K/CMM] 1Result Comment: The eGFR is calculated using the CKD-EPI formula. In most young, healthy individuals the eGFR will be >90 mL/min/1.73m2. The eGFR declines with age. An eGFR of 60-89 may be normal in some populations, particularly the elderly, for whom the CKD-EPI formula has not been extensively validated. Use of the eGFR is not recommended in the following populations: Individuals with unstable creatinine concentrations, including patients and those with serious co-morbid conditions. Patients with extremes in muscle mass or diet. The data above are obtained from the National Kidney Disease Education Program ( NKDEP) which additionally recommends that when the eGFR is used in patients with extremes of body mass index for purposes of drug dosing, the eGFR should be mul tiplied by the estimated BMI. 2Result Comment: The eGFR is calculated using the CKD-EPI formula. In most young, healthy individuals the eGFR will be >90 mL/min/1.73m2. The eGFR declines with age. An eGFR of 60-89 may be normal in some populations, particularly the elderly, for whom the CKD-EPI formula has not been extensively validated. Use of the eGFR is not recommended in the following populations: Individuals with unstable creatinine concentrations, including patients and those with serious co-morbid conditions. Patients with extremes in muscle mass or diet. The data above are obtained from the National Kidney Disease Education Program ( NKDEP) which additionally recommends that when the eGFR is used in patients with extremes of body mass index for purposes of drug dosing, the eGFR should be mul tiplied by the estimated BMI. 3Result Comment: The eGFR is calculated using the CKD-EPI formula. In most young, healthy individuals the eGFR will be >90 mL/min/1.73m2. The eGFR declines with age. An eGFR of 60-89 may be normal in some populations, particularly the elderly, for whom the CKD-EPI formula has not been extensively validated. Use of the eGFR is not recommended in the following populations: Individuals with unstable creatinine concentrations, including patients and those with serious co-morbid conditions. Patients with extremes in muscle mass or diet. The data above are obtained from the National Kidney Disease Education Program ( NKDEP) which additionally recommends that when the eGFR is used in patients with extremes of body mass index for purposes of drug dosing, the eGFR should be mul tiplied by the estimated BMI. 4Result Comment: 05/22/2019 12:06 [id number] KLS notified Haylie 05/22/2019 12:00 5Result Comment: Critical Result(s) called to Burton Puentes at 05/22/2019 11:49 by ALVARO. Read back OK. 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 He had no issues postoperatively. His creatinine appears to be baseline and he was discharged home with recommendation to follow-up in 2 weeks. Extracted from: Title: Clinical Document Author: Theodore Barker MD Date: 03/29 OPERATIVE REPORT Date: May 22, 2019 Surgeon: Theodore Barker MD Business Rules Analyst: Ze Shipley MD Preoperative diagnosis: Abdominal aortic aneurysm Postoperative diagnosis: Same Procedure: Percutaneous endovascular repair of an infrarenal abdominal aortic aneurysm with the [place] excluder device. Indication: Asymptomatic infrarenal abdominal aortic aneurysm In detail: The patient was taken the operating room and was given general anesthesia with endotracheal intubation. The abdomen and both groins were prepped and draped in usual sterile manner. Bilateral femoral access was achieved using micropuncture technique and ultrasound guidance and 5 [place] sheaths were inserted. Patient was systemically heparinized. 2 Proglides were partially deployed at 90 angles. An 16 [place] sheath was placed on the right and a 12 [place] sheath from the left. Abdominal angiogram was performed and the anatomy was noted. The main device [id number] was then advanced from the right side and positioned just distal to the left renal artery and partially deployed. We had difficulty cannulating the gate and the device had to be rotated. The gate was cannulated from the left side. After the device rotated that had migrated distally. The left limb PLC [id number] was then deployed landing just proximal to the left hypogastric artery. The right side was then completely deployed. A right bellybutton extension the PLC [id number] was then deployed. It appears to be about 1 cm short of the hypogastric. A 26 cuff was then deployed landing just distal to the left renal artery. LOGAN [id number]. All areas of the grafts were ballooned with a Q50 balloon. A completion angiogram was performed. 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 The sheaths were then removed and the pro glides were deployed. Additional manual pressure was needed on the left side to achieve hemostasis. Heparin was then reversed with protamine. Patient was then taken to the recovery room and stable condition. Please send a copy of this to Dr. Rey Sandy
--- OUTSIDE RECORDS SUMMARY | 2019-08-21 04:55 | XMS REPORT | Summary of Care ---
Author Author [facility] Outpatient Imaging - [facility] Outpatient Imaging - [facility] Address Unknown Phone Unavailable Encounter HQ Dione_whitney(FIN) [id number] Date(s): 08/07/17 - 08/07/17 [facility] Outpatient Imaging [facility] [address] [place] [phone] Encounter Diagnosis Pain in right finger(s) (Final) - History of falling (Final) - Displaced fracture of distal phalanx of right index finger, initial encounter fo r closed fracture (Final) - Discharge Disposition: Home or Self Care Attending [...]
--- OUTSIDE RECORDS SUMMARY | 2019-08-21 04:55 | XMS REPORT ---
Author Author AG Arora Organization [employer] Address Unknown Phone Unavailable Care Team Providers Care Acidizer Water Well Name Role Phone yAo Arora CP Unavailable Allergies No Known Allergies [...]
--- OUTSIDE RECORDS SUMMARY | 2019-08-21 04:55 | XMS REPORT ---
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 Assessment Long-term use of high-risk medication Z79.899 Active Assessment Bilateral hearing loss, unspecified hearing loss type H91.93 Active Problem Long-term use of high-risk medication Z79.899 Active Assessment Rheumatoid arthritis M06.9 Active Medications Medication Code System Code Instructions Start Date End Date Status Dosage Enbrel [facility] 31555509186 50 MG/ML Subcutaneous once a week Active 1 ml Leflunomide [facility] 42515145664 20 MG Orally Once a day Mar 30, 2017 July 28, 2017 Active 1 tablet Pantoprazole Sodium [facility] 50013794095 40 MG Orally Once a day Active 1 tablet Ferrous Sulfate [facility] 35941578776 325 (65 Fe) MG Orally Twice a day Active 1 tablet Hydroxychloroquine Sulfate [facility] 75948563891 200 MG Orally bid Feb 06, 2017 Active 1 tablet with food or milk Vitamin D (Ergocalciferol) [facility] 44104996852 00397 UNIT Ora lly Once a week Jan 09, 2017 Active 1 capsule Folic Acid ND 79438826330 1 MG Orally Once a day Ac tive 2 tablets PredniSONE ND 83765850113 5MG Orally bid Active ta ke 2 tablets by mouth daily Tamsulosin HCl ND 50336691238 0.4 MG Orally Once a day Active 1 capsule Alive Mens Energy [facility] 13814231412 Orally Active a s directed Doxazosin Mesylate ND 59948780800 4 MG Orally Once a day Active 1 tablet Vital Signs Date/Time: Mar 30, 2017 BMI 35.87 Index Weight 250 lbs Height 70 in Temperature 97.9 F Cardiac Monitoring Heart Rate 60 /min Blood Pressure Diastolic 70 mm Hg Blood Pressure Systolic 136 mm Hg Results No Known Results Summary Purpose [employer] Submission
--- OUTSIDE RECORDS SUMMARY | 2019-08-21 04:55 | XMS REPORT | Summary of Care ---
Author Author [facility] Organization [facility] Address Unknown Phone Unavailable Encounter HQ Encntr_whitney(FIN) [id number] Date(s): 04/24/17 - 04/24/17 [facility]patient [facility] [address] [place] [address] [phone] Encounter Diagnosis Pain in right ankle and joints of right foot (Final) - 04/27/17 Primary osteoarthritis, right ankle and foot (Final) - Discharge Disposition: Home or Self [...]
--- OUTSIDE RECORDS SUMMARY | 2019-08-21 04:55 | XMS REPORT | Summary of Care ---
Author Author [facility] Organization [facility] Address Unknown Phone Unavailable Encounter HQ Encntr_alias(FIN) [id number] Date(s): 08/24/16 - 08/24/16 [facility] Outpatient Imaging - [place] [address] [place] [address] [phone] Discharge Disposition: Home or Self Care Attending [...]
--- OUTSIDE RECORDS SUMMARY | 2019-08-21 04:55 | XMS REPORT | Summary of Care ---
Author Author [facility] Organization [facility] Address Unknown Phone Unavailable Encounter RM Chinchilla(TIM) [id number] Date(s): 06/06/19 - 06/06/19 [facility] [address] [place] [address]- [phone] Discharge Disposition: Home or Self Care Attending Physician: Theodore Barker MD Referring Physician: Theodore Barker MD Vital Signs No data available for this section Problem List Condition Effective Dates Status Health Status Informan t BPH (benign Active prostatic hyperplasia)(Confirm ed) Constipation(Confirm Active ed) [place] (hard of Active hearing)(Confirmed) HTN Active (hypertension)(Confi rmed) Mobility Active impaired(Confirmed)1 [place] (myocardial Resolved infarction)(Confirme d)2 Weakness of both Active lower extremities(Confirme d) Poor circulation of Active extremity(Confirmed) 3 RA (rheumatoid Active arthritis)(Confirmed ) Stented coronary Active artery(Confirmed)4 Lamb catheter Active present(Confirmed) 1uses walker 2Jan 2019 3RLE 4x 1 after [place] 04/2019 Allergies, Adverse Reactions, Alerts No Known Allergies Medications No data available for this section Results Most recent to 1 oldest [Reference Range]: eGFR 37 mL/min/1.73m2 1 *NA* (06/06/19 9:56 AM) POC Creatinine 1.7 mg/dL [0.5-1.4 mg/dL] *HI* (06/06/19 9:56 AM) 1Result Comment: The eGFR is calculated using [...] be mul tiplied by the estimated BMI. Immunizations No data available for this section [...] No entered on: 05/22/19 Assessment and Plan No data available for this section
--- OUTSIDE RECORDS SUMMARY | 2019-08-21 04:55 | XMS REPORT | Continuity of Care Document ---
Author Author [employer] [facility] [place] [employer] Address Unknown Phone Unavailable Care Team Providers Care News Production Supervisor Name Role Phone [facility] Explorer Information Exchange Unavailable Un available Problems Problem Status Onset Date Classification Date Reported Comments Source DX: I71.4=ABDOMINAL AORTIC ANEURYSM, WIT Active 05/27/2019 [facility] UNK Active 0 05/14/2019 [facility] I71.4/ABD AORTIC ANEURYSM W/O RUP Active 05/14/2019 [facility] Pain in right ankle 04/28/2017 07/31/2017 [facility] M25.579 - PAIN IN UNSPECIFIED ANKLE AND Active 02/25/2015 [facility] Primary osteoarthritis, right ankle and foot 07/31/2017 [facility] Pain in right finger(s) 08/16/2017 [facility] History of falling 08/16/2017 [facility] Displaced fracture of distal phalanx of right index finger, initial encounter for closed fracture 08/16/2017 [facility] Abdominal aortic aneurysm, without rupture 05/25/2019 [facility] Benign prostatic hyperplasia (disorder) Active Problem 06/08/2019 [facility] Constipation (disorder) Active Problem 06/08/2019 [facility] Hearing loss (finding) Active Problem 06/08/2019 [facility] Hypertensive disorder, systemic arterial (disorder) Active Problem 06/08/2019 [facility] Impaired mobility (finding) Ac tive Problem uses walker [facility] Myocardial infarction (disorder) Resolved Problem Apr 2019 [facility] Paraparesis (disorder) Active Problem 06/08/2019 [facility] Peripheral vascular disease (disorder) Active Problem RLE [facility] Rheumatoid arthritis (disorder) Active Problem [facility] Stented coronary artery (finding) Active Problem x 1 after DE 04/[address] [facility] [address] Urinary catheter in situ (finding) Active Problem [facility] Bilateral hearing loss, unspecified hearing loss type Active Problem 11/29/2017 [facility] Rheumatoid arthritis Active Problem 11/29/2017 R[facility] Ar[facility] Primary osteoarthritis involving multiple joints Active Problem 11/29/2017 R[facility] Arora Long-term use of high-risk medication Active Problem [facility] Ar[facility] ABDOMINAL AORTIC ANEURYSM, WITHOUT RUPTU Active [facility] Medications Medication Details Route Status Patient Instructions Ordering Provider Order Date Source Plavix Notes: (Same As: Plavix) Inactive 05/23/2019 [facility] Allopurinol Notes: (Same as: Z yloprim) Inactive 05/23/2019 [facility] Aspirin 81 MG Enteric Coated Tablet Notes: Do not crush or chew. (Same As: Ecotrin) Inactive 05/23/2019 [facility] clopidogrel 37.5 mg, 0.5 tab, Route: PO, Drug form: TAB, Daily, Dosing Weight 107.273, kg, Start date: 05/23/19 9:00:00 STONE SPREADER OPERATOR, Duration: 30 day, Stop date: 06/21/19 9:00:00 CDT No Longer Active 05/23/2019 [facility] Hydroxychloroquine Sulfate 200 MG Oral Tablet Notes: (Same as: Plaquenil) Hydroxychloroquine sulfate 200 mg = 155 mg hydroxychloroquine base. If treating malaria, verify dose as salt vs. base per CDC guideline Inactive 05/23/2019 [facility] Sodium Bicarbonate 650 MG Oral Tablet Notes: "Dissolve tablet in a glass of water prior to oral administration. STOMACH WARNING: To avoid serious injury, do not take until tablet is completely dissolved. It is very important not to take this product when overly full from food or drink." Inactive 05/23/2019 [facility] tamsulosin Notes: (Same As: Fl omax) "Do Not Crush" Inactive 05/23/2019 [facility] atorvastatin Notes: (Same As: Lipitor) No Longer Active 05/23/2019 [facility] Acetaminophen 325 MG / Hydrocodone [place] trate 5 MG Oral Tablet [Brisbin 5/325] Notes: (Same as: Brisbin 325/5) Do not ex ceed 4gm/day of acetaminophen. No Longer Activ e 05/22/2019 [facility] Docusate Sodium 100 MG Oral Capsule Notes: (Same as: Colace) (Do Not Crush) No Longer Active 05/22/2019 [facility] Famotidine 20 MG Oral Tablet N otes: (Same as: Pepcid) No Longer Active 05/22/2019 [facility] ferrous sulfate Notes: Give wi th food. "Do Not Crush" No Longer Active 05/22/2019 [facility] metoprolol tartrate Notes: (Sa me as: Lopressor) No Longer Active 05/22/2019 [facility] Cefazolin Notes: (Same As: Anc ef, Kefzol) MEDICATION WASTE Product Size: 1000 mg Product Wasted: ___ mg No Longer Active 05/22/2019 [facility] Lasix Notes: (Same as: Lasix) MEDICATION WASTE Product Size: 40 mg Product Wasted: ___ mg No Longer Active 05/22/2019 [facility] Hydralazine Notes: (Same as: A presoline) Push over 5 minutes No Longer Active 05/22/2019 [facility] Morphine 2 mg, Route: IVP, ONC E, Dosing Weight 107.273, kg, Start date: 05/22/19 12:20:00 STONE SPREADER OPERATOR, Stop date: 05/22/19 12:20:00 STONE SPREADER OPERATOR Inactive 05/22/2019 [facility] Sodium Chloride 0.9% (titrate) 250 mL 250 mL, Rate: To prime line and flush remaining blood products., Dosing Weight 107.273, kg, Route: IV, Total Volume: 250, Start Date: 05/22/19 11:53:00 STONE SPREADER OPERATOR, Duration: 1 day, Stop date: 05/23/19 11:52:00 STONE SPREADER OPERATOR, Replace Every: 24 hr, 0 No Longer Active 05/22/2019 [facility] neostigmine (ANES) Route: IV, Drug form: INJ, ONCE, Stop date: 05/22/19 11:33:00 STONE SPREADER OPERATOR Inactive 05/22/2019 [facility] protamine (ANES) Route: IV, Dr ug form: INJ, ONCE, Stop date: 05/22/19 11:33:00 STONE SPREADER OPERATOR Inactive 05/22/2019 [facility] glycopyrrolate (ANES) Route: I V, Drug form: INJ, ONCE, Stop date: 05/22/19 10:27:00 STONE SPREADER OPERATOR Inactive 05/22/2019 [facility] phenylephrine (ANES) Route: IV , Drug form: INJ, ONCE, Stop date: 05/22/19 10:27:00 STONE SPREADER OPERATOR Inactive 05/22/2019 [facility] ondansetron (ANES) Route: IV, Drug form: INJ, ONCE, Stop date: 05/22/19 10:26:00 STONE SPREADER OPERATOR Inactive 05/22/2019 [facility] dexamethasone (ANES) Route: IV , Drug form: INJ, ONCE, Stop date: 05/22/19 10:26:00 STONE SPREADER OPERATOR Inactive 05/22/2019 [facility] heparin (ANES) Route: IV, Drug form: INJ, ONCE, Stop date: 05/22/19 10:11:00 STONE SPREADER OPERATOR Inactive 05/22/2019 [facility] lidocaine (ANES) Route: IV, Dr ug form: INJ, ONCE, Stop date: 05/22/19 9:51:00 STONE SPREADER OPERATOR Inactive 05/22/2019 [facility] fentaNYL (ANES) Route: IV, Pranay g form: INJ, ONCE, Stop date: 05/22/19 9:51:00 STONE SPREADER OPERATOR Inactive 05/22/2019 [facility] propofol (ANES) Route: IV, Pranay g form: INJ, ONCE, Stop date: 05/22/19 9:51:00 STONE SPREADER OPERATOR Inactive 05/22/2019 [facility] rocuronium (ANES) Route: IV, D rug form: INJ, ONCE, Stop date: 05/22/19 9:51:00 STONE SPREADER OPERATOR Inactive 05/22/2019 [facility] ceFAZolin (ANES) Route: IV, Dr ug form: INJ, ONCE, Stop date: 05/22/19 9:46:00 STONE SPREADER OPERATOR Inactive 05/22/2019 [facility] Lactated Ringers Injection IV (ANES) 1000 mL Route: IV, Total Volume: 1,000, Start date: 05/22/19 9:17:00 STONE SPREADER OPERATOR, Stop date: 05/22/19 10:17:00 STONE SPREADER OPERATOR Inactive 05/22/2019 [facility] Sodium Chloride 0.9% IV (ANES) 1000 mL Route: IV, Total Volume: 1,000, Start date: 05/22/19 9:17:00 STONE SPREADER OPERATOR, Stop date: 05/22/19 10:17:00 STONE SPREADER OPERATOR Inactive 05/22/2019 [facility] Cefazolin 2 gm, Route: IVP, CAFE SITE ATTENDANT, Dosing Weight 107.273, kg, (Patients weighing < 120 kg), Start date: 05/22/19 9:00:00 STONE SPREADER OPERATOR, Duration: 1 doses or times, ABX Indication: Surgical Prophylaxis Inactive 05/22/2019 [facility] Acetylcysteine 200 MG/ML Inhalant Solution Notes: TUBE TO PRE-OP STAT TUBE TO PRE-OP STAT TUBE TO PRE-OP STAT No Longer Active 05/22/2019 [facility] sodium bicarbonate 8.4% additive 100 mEq + 1/2 NS 1,000 mL Notes: TUBE TO PRE-OP STAT TUBE TO PRE-OP STAT TUBE TO PRE-OP STAT No Longer Active 05/22/2019 [facility] Hydroxychloroquine Sulfate 200 MG Oral Tablet 200 mg = 1 tab, PO, Daily, # 180 tab, 0 Refill(s) Active 05/20/2019 [facility] allopurinol 100 mg oral tablet 200 mg = 2 tab, PO, Daily, # 90 tab, 1 Refill(s) Active 05/20/2019 [facility] Aspirin 81 MG Enteric Coated Tablet 81 mg = 1 tab, PO, Daily, # 90 tab, 3 Refill(s) Active 05/20/2019 [facility] clopidogrel 75 mg oral tablet 37.5 mg = 0.5 tab, PO, Daily, # 90 tab, 3 Refill(s) Active 05/20/2019 [facility] Famotidine 20 MG Oral Tablet 2 0 mg = 1 tab, PO, BID, # 180 tab, 0 Refill(s) Active 05/20/2019 [facility] Sodium Bicarbonate 650 MG Oral Tablet 1,300 mg = 2 tab, PO, Daily, 0 Refill(s) Active 05/20/2019 [facility] atorvastatin 20 mg oral tablet 20 mg = 1 tab, PO, Bedtime, # 90 tab, 1 Refill(s) Active 05/20/2019 [facility] tamsulosin 0.4 mg oral capsule 0.4 mg = 1 cap, PO, Daily, # 90 cap, 0 Refill(s) Active 05/20/2019 [facility] ferrous sulfate 325 mg oral enteric coated tablet 325 mg = 1 tab, PO, BID, # 90 tab, 0 Refill(s) Active 05/20/2019 [facility] metoprolol tartrate 25 mg oral tablet 12.5 mg = 0.5 tab, PO, BID, # 60 tab, 0 Refill(s) Active 05/20/2019 [facility] Docusate Sodium 100 MG Oral Capsule 100 mg = 1 cap, PO, BID, # 60 cap, 3 Refill(s) Active 05/20/2019 [facility] PredniSONE take 2 tablets by m outh daily Orally Active 5MG Orally bid [place] 04/05/2017 [facility] Leflunomide 1 tablet Orally Active 20 MG Orally Once a day [place] 03/30/2017 [facility] Ar[facility] Hydroxychloroquine Sulfate 1 t ablet with food or milk Orally Active 200 MG Orally bid [place] 02/06/2017 [facility] Ar[facility] Vitamin D (Ergocalciferol) 1 c apsule Orally Active 12500 UNIT Orally Once a week [place] 01/09/2017 Riaz Arora Vitamin D (Ergocalciferol) 1 c apsule Orally Active 21514 UNIT Orally Once a week [place] 01/09/2017 Riaz Ar[facility] Folic Acid 2 tablets Orally Active 1 MG Orally Once a day [place] Patrick Arora Doxazosin Mesylate 1 tablet Orally Active 4 MG Orally Once a day [place] Riaz Arora Alive [employer] Energy as directed Orally Active Orally [place] Patrick Arora Ferrous Sulfate 1 tablet Orally Active 325 (65 Fe) MG Orally Twice a day [place] Riaz Arora Pantoprazole Sodium 1 tablet Orally Active 40 MG Orally Once a day [place] Riaz Arora Tamsulosin HCl 1 capsule Orally Active 0.4 MG Orally Once a da y [place] Riaz Arora Vitamin D3 1 capsule Orally Active 1000 UNIT Orally Once a day [place] Riaz Arora Doxazosin Mesylate 1 tablet Orally Active 4 MG Orally Once a day [place] Riaz Arora Pantoprazole Sodium 1 tablet Orally Active 40 MG Orally Once a day [place] Riaz Arora Tamsulosin HCl 1 capsule Orally Active 0.4 MG Orally Once a da y [place] Riaz Arora Folic Acid 2 tablets Orally Active 1 MG Orally Once a day [place] Patrick Arora Enbrel 1 ml Subcutaneous Active 50 MG/ML Subcutaneous o nce a week [place] Riaz Arora PredniSONE take 2 tablets by m outh daily Orally Active 5MG Orally twice a day [place] Riaz Arora Ferrous Sulfate 1 tablet Orally Active 325 (65 Fe) MG Orally Twice a day [place] Riaz Arora [employer] as directed Orally Active Orally [place] Patrick Arora Allergies, Adverse Reactions, Alerts Substance Category Reaction Severity Reaction type Status Date Reported Comments Source Hydroxychloroquine Sulfate Adv erse Reaction dizziness/nausea Adverse Reaction Active 06/05/2017 [facility] Penicillin Adverse Reaction Info Not Available Adverse Reaction Active 06/05/2017 [facility] Immunizations No Data Provided for This Section Results Order Name Results Value Reference Range Date Interpretation Comments Source CHEM PANEL POC Creatinine 1.7 0.5 - 1.4 06/06/2019 [facility] CHEM PANEL eGFR 37 06/06/2019 Result Comment: The eGFR is calculated using the [...] from the National Kidney Disease Education Program (NKDEP) which additionally recommends that when the eGFR is used in patients with extremes of body mass index for purposes of drug dosing, the eGFR should be multiplied by the estimated BMI. [facility] CHEM PANEL Glucose Lvl 83 70 - 99 05/23/2019 [facility] CHEM PANEL BUN 17 7 - 22 05/23/2019 [facility] CHEM PANEL Creatinine Lvl 1.41 0.50 - 1.40 05/23/2019 [facility] CHEM PANEL Sodium Lvl 139 135 - 145 05/23/2019 [facility] CHEM PANEL Potassium Lvl 4.1 3.5 - 5.1 05/23/2019 [facility] CHEM PANEL Chloride Lvl 104 95 - 109 05/23/2019 [facility] CHEM PANEL CO2 28 24 - 32 05/23/2019 [facility] CHEM PANEL Calcium Lvl 8.0 8.5 - 10.5 05/23/2019 [facility] CHEM PANEL AGAP 11.1 10.0 - 20.0 05/23/2019 [facility] CHEM PANEL eGFR 46 05/23/2019 Result Comment: The eGFR is calculated using the [...] from the National Kidney Disease Education Program (NKDEP) which additionally recommends that when the eGFR is used in patients with extremes of body mass index for purposes of drug dosing, the eGFR should be multiplied by the estimated BMI. [facility] HEMATOLOGY WBC 5.0 3.7 - 10.4 05/23/2019 [facility] HEMATOLOGY RBC 3.17 4.70 - 6.10 05/23/2019 [facility] HEMATOLOGY Hgb 9.0 14.0 - 18.0 05/23/2019 [facility] HEMATOLOGY Hct 27.8 42.0 - 54.0 05/23/2019 [facility] MCV 87.6 80.0 - 94.0 05/23/2019 [facility] HEMATOLOGY MCH 28.4 27.0 - 31.0 05/23/2019 [facility] MCHC 32.4 32.0 - 36.0 05/23/2019 [facility] HEMATOLOGY RDW 16.2 11.5 - 14.5 05/23/2019 [facility] Platelet 299 133 - 450 05/23/2019 [facility] MPV 7.5 7.4 - 10.4 05/23/2019 [facility] BLOOD BANK RESULTS RBC product Product available 4 (05/22/19 11:53 AM) 05/22/2019 Result Comment: 05/22/2019 1 2:06 [id number]
KLS notified Haylie 05/22/2019 12:00 [facility] CHEM PANEL Glucose Lvl 90 70 - 99 05/22/2019 [facility] CHEM PANEL BUN 15 7 - 22 05/22/2019 [facility] CHEM PANEL Creatinine Lvl 1.40 0.50 - 1.40 05/22/2019 [facility] CHEM PANEL Sodium Lvl 138 135 - 145 05/22/2019 [facility] CHEM PANEL Potassium Lvl 4.2 3.5 - 5.1 05/22/2019 [facility] CHEM PANEL Chloride Lvl 105 95 - 109 05/22/2019 [facility] CHEM PANEL CO2 27 24 - 32 05/22/2019 [facility] CHEM PANEL Calcium Lvl 7.7 8.5 - 10.5 05/22/2019 [facility] CHEM PANEL AGAP 10.2 10.0 - 20.0 05/22/2019 [facility] CHEM PANEL eGFR 47 05/22/2019 Result Comment: The eGFR is calculated using the [...] from the National Kidney Disease Education Program (NKDEP) which additionally recommends that when the eGFR is used in patients with extremes of body mass index for purposes of drug dosing, the eGFR should be multiplied by the estimated BMI. [facility] CHEM PANEL Magnesium Lvl 1.7 1.8 - 2.4 05/22/2019 [facility] HEMATOLOGY WBC 3.3 3.7 - 10.4 05/22/2019 [facility] RBC 2.51 4.70 - 6.10 05/22/2019 [facility] Hgb 7.0 14.0 - 18.0 05/22/2019 Result Comment: Critical Result(s) [email or web address] Puentes at 05/22/2019 11:49 by ALVARO. Read back OK. [facility] HEMATOLOGY Hct 21.7 42.0 - 54.0 05/22/2019 [facility] MCV 86.5 80.0 - 94.0 05/22/2019 [facility] MCH 27.9 27.0 - 31.0 05/22/2019 [facility] MCHC 32.3 32.0 - 36.0 05/22/2019 [facility] RDW 15.7 11.5 - 14.5 05/22/2019 [facility] Platelet 206 133 - 450 05/22/2019 [facility] MPV 7.4 7.4 - 10.4 05/22/2019 [facility] BLOOD BANK RESULTS ABO/Rh A POS 05/20/2019 [facility] BLOOD BANK RESULTS Antibody Scrn Negative (05/20/19 10:28 AM) 05/20/2019 [facility] CHEM PANEL Glucose Lvl 69 70 - 99 05/20/2019 [facility] CHEM PANEL BUN 19 7 - 22 05/20/2019 [facility] CHEM PANEL Creatinine Lvl 1.55 0.50 - 1.40 05/20/2019 [facility] CHEM PANEL Sodium Lvl 135 135 - 145 05/20/2019 [facility] CHEM PANEL Potassium Lvl 4.2 3.5 - 5.1 05/20/2019 [facility] CHEM PANEL Chloride Lvl 103 95 - 109 05/20/2019 [facility] CHEM PANEL CO2 25 24 - 32 05/20/2019 [facility] CHEM PANEL Calcium Lvl 8.7 8.5 - 10.5 05/20/2019 [facility] CHEM PANEL AGAP 11.2 10.0 - 20.0 05/20/2019 [facility] CHEM PANEL eGFR 41 05/20/2019 Result Comment: The eGFR is calculated using the [...] from the National Kidney Disease Education Program (NKDEP) which additionally recommends that when the eGFR is used in patients with extremes of body mass index for purposes of drug dosing, the eGFR should be multiplied by the estimated BMI. [facility] HEMATOLOGY WBC 4.9 3.7 - 10.4 05/20/2019 [facility] HEMATOLOGY RBC 3.16 4.70 - 6.10 05/20/2019 [facility] HEMATOLOGY Hgb 8.9 14.0 - 18.0 05/20/2019 [facility] HEMATOLOGY Hct 27.7 42.0 - 54.0 05/20/2019 [facility] HEMATOLOGY MCV 87.9 80.0 - 94.0 05/20/2019 [facility] HEMATOLOGY MCH 28.1 27.0 - 31.0 05/20/2019 [facility] MCHC 32.0 32.0 - 36.0 05/20/2019 [facility] HEMATOLOGY RDW 16.1 11.5 - 14.5 05/20/2019 [facility] HEMATOLOGY Platelet 281 133 - 450 05/20/2019 [facility] HEMATOLOGY MPV 7.8 7.4 - 10.4 05/20/2019 [facility] HEMATOLOGY PT 15.0 12.0 - 14.7 05/20/2019 [facility] HEMATOLOGY INR 1.17 0.85 - 1.17 05/20/2019 [facility] HEMATOLOGY PTT 40.0 22.9 - 35.8 05/20/2019 [facility] HEMATOLOGY Segs 61.0 45.0 - 75.0 05/20/2019 [facility] HEMATOLOGY Lymphocytes 19.3 20.0 - 40.0 05/20/2019 [facility] HEMATOLOGY Monocytes 7.1 2.0 - 12.0 05/20/2019 [facility] HEMATOLOGY Eosinophils 10.2 0.0 - 4.0 05/20/2019 [facility] HEMATOLOGY Basophils 2.4 0.0 - 1.0 05/20/2019 [facility] HEMATOLOGY Neutrophils # 3.0 1.5 - 8.1 05/20/2019 [facility] HEMATOLOGY Lymphocytes # 1.0 1.0 - 5.5 05/20/2019 [facility] HEMATOLOGY Monocytes # 0.4 0.0 - 0.8 05/20/2019 [facility] HEMATOLOGY Eosinophils # 0.5 0.0 - 0.5 05/20/2019 [facility] HEMATOLOGY Basophils # 0.1 0.0 - 0.2 05/20/2019 [facility] SPECIAL CHEMISTRY Hgb A1C 5.5 <=5.6 % 05/20/2019 [facility] URINE AND STOOL UA Turbidity Clear (05/20/19 10:28 AM) Clear 05/20/2019 [facility] URINE AND STOOL UA Spec Grav 1.004 <=1.030 05/20/2019 [facility] URINE AND STOOL UA pH 6.0 5.0 - 8.0 05/20/2019 [facility] URINE AND STOOL UA Protein Negative mg/dL Negative mg/dL 05/20/[address] [facility] [address] URINE AND STOOL UA Glucose Negative mg/dL Negative mg/dL 05/20/[address] [facility] [address] URINE AND STOOL UA Ketones Trace mg/dL Negative mg/dL 05/20/2019 [facility] URINE AND STOOL UA Bili Negative *NA* (05/20/19 10:28 AM) Negative 05/20/2019 [facility] URINE AND STOOL UA Blood Moderate *ABN* (05/20/19 10:28 AM) Negative 05/20/2019 [facility] URINE AND STOOL UA Nitrite Negative (05/20/19 10:28 AM) Negative 05/20/2019 [facility] URINE AND STOOL UA Leuk Est Negative (05/20/19 10:28 AM) Negative 05/20/2019 [facility] URINE AND STOOL UA WBC <1 0 - 5 05/20/2019 [facility] URINE AND STOOL UA RBC 1 0 - 2 05/20/2019 [facility] URINE AND STOOL UA Bacteria Occasional /HPF None Seen /HPF 05/20/2019 [facility] URINE AND STOOL UA Sq Epi None Seen 05/20/2019 [facility] URINE AND STOOL UA Color Ltyellow 05/20/2019 [facility] URINE AND STOOL UA Urobilinogen <=1.0 mg/dL 0.1 - 1.0 05/20/2019 [facility] BLOOD BANK RESULTS RBC product Product available (05/20/19 9:42 AM) 05/20/2019 [facility] Pathology Reports No Data Provided for This Section Diagnostic Reports Report Value Date Source Abdomen/Pelvis CTA Radiation D ose CTDIVOL = 0 (mGy): DLP = 3207 (mGy-cm) PROCEDURE INFORMATION: Exam: CT Angiography Abdomen and Pelvis With Contrast Exam date and time: 06/06/2019 10:06 AM Age: 83 years old Clinical indication: Abdominal aortic aneurysm, without rupture; Additional info: /i71.4 TECHNIQUE: Imaging protocol: Computed tomographic angiography of the abdomen and pelvis with intravenous contrast material. 3D rendering: MIP and/or 3D reconstructe d images were created by the technologist. Total DLP: 3207 mGy-cm Radiation optimization: All CT scans at this facility use at least one of these dose optimization techniques: automated exposure control; mA and/or kV adjustment per patient size (includes targeted exams where dose is matched to clinical indication); or iterative reconstruction. Contrast material: OMNI; Contrast volume: 100 ml; Contrast route: IV; COMPARISON: No relevant prior studies available. FINDINGS: Tubes, catheters and devices: Lamb catheter decompresses the bladder. Aorta: Aorto bi-iliac stent grafts are patent; question of trace endoleak adjacent to the anterior margin of the aorta component of the right iliac stent, series 11, image [id number] and adjacent to the posterior margin of the aortic component of the left iliac stent, images [id number]. The infrarenal aneurysm measures approximately 6.8 cm AP x 6.2 cm transverse. Liver: Question mild cirrhotic change of the liver. Gallbladder and bile ducts: No calcified stones. No ductal dilation. Pancreas: Moderate atrophy of the pancreas. Spleen: Unremarkable. Adrenals: Unremarkable. Kidneys and ureters: Moderate scarring of the kidneys. Cysts in both kidneys. Question of a 0.9 cm enhancing lesion at the cortex of the right mid kidney, series 6, image 81. Stomach and bowel: No obstruction. Appendix: No evidence of appendicitis. Intraperitoneal space: No free air. No free fluid. Lymph nodes: Several retroperitoneal lymph nodes in the abdomen and pelvis, the largest node measures 2.6 cm greatest dimension. Bladder: Unremarkable as visualized. Reproductive: Unremarkable as visualized. Bones/joints: Spondylosis thoracic and lumbar spine. Soft tissues: Fat containing inguinal hernia on the right and predominantly fat containing inguinal hernia with trace fluid on the left. IMPRESSION: 1. 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 2. Aneurysm infrarenal aorta measures 6. 8 cm. 3. Question of a small enhancing lesion right kidney, renal cell carcinoma is not excluded. An MRI renal protocol is advised. 4. Possible mild liver cirrhosis. 5. Several mildly enlarged retroperitone al lymph nodes in the abdomen and pelvis are indeterminate for reactive nodes versus neoplasm. Follow-up CT in 12 months. 6. Partially loculated small pleural eff usion on the right. 7. Mild bronchiectasis, bronchial wall t hickening in the visualized lungs. Mild airspace disease may reflect interstitial pulmonary edema. 8. Mild cardiomegaly, coronary artery ca lcifications. Correlate for heart failure. Alex Goncalves MD On 06/06/2019 15:25:41; [id number] 06/06/2019 [facility] 1 v for Placement DX PRO CEDURE INFORMATION: Exam: XR Chest, 1 View Exam date and time: 05/22/2019 11:48 AM Age: 83 years old Clinical indication: Device placement; Additional info: S/P evar/on arrival TECHNIQUE: Imaging protocol: XR of the chest Views: 1 view. COMPARISON: CR CHEST 2 VIEWS DX 05/20/2019 10:57 AM FINDINGS: Lungs: Prominence of the central pulmonary vasculature. Pleural space: Stable right lateral pleural thickening. No pneumothorax. Heart/Mediastinum: The cardiac silhouette is mildly enlarged. Vasculature: Tortuous thoracic aorta with atherosclerotic calcifications. Bones/joints: Degenerative changes of the spine and shoulders. Multiple remote right-sided rib fractures. IMPRESSION: 1. Mild cardiomegaly with pulmonary veno us congestion. 2. Tortuous thoracic aorta with atherosc lerotic calcifications. Manuel Olmstead MD On 05/22/2019 12:33:40; [id number] 05/22/2019 [facility] Chest 2 views DX PROCEDURE INF ORMATION: Exam: XR Chest, 2 Views Exam date and time: 05/20/2019 10:44 AM Age: 83 years old Clinical indication: Pre-operative exam; Cardiovascular screening and respiratory screening exam; Additional info: Coughing/preop TECHNIQUE: Imaging protocol: XR of the chest Views: 2 views. PA and Lateral COMPARISON: CR CHEST 2 VIEWS DX 07/17/2015 3:36 PM FINDINGS: The lungs are clear. Pleural thickening is developed in the right costophrenic angle since prior study in 2015. The heart and mediastinal contours are stable. Mild degenerative disc disease lower thoracic spine IMPRESSION: No acute abnormality Jose Luis Carlton MD On 05/20/2019 11:00:35; [id number] 05/20/2019 [facility] Finger 3 views DX Exam: Finger 3 views DX, right Reason for Exam: - M79.644 Pain in right finger(s) Comparison Exam: X-ray 01/13/2012 Discussion: 3 views of the 1st digit of the right alvarez nd were submitted for interpretation. Chronic appearing subcentimeter foreign body is seen within the soft tissues at the level of the proximal phalanx. A comminuted slightly displaced fracture is seen within the base of the distal phalanx of the 1st digit. The fracture lines appear to extend into the articulating surface. No suspicious osteoblastic or osteolytic lesions seen to suggest pathologic involvement. Findings discussed with nurse practitioner Lance on 08/07/2017 at 1107 hours. Impression: 1. A comminuted slightly displaced frac ture is seen within the base of the distal phalanx of the 1st digit. The fracture lines appear to extend into the articulating surface. 08/07/2017 DOYLE Gagnon Ankle 3 views DX Exam: Right ankle x-ray, 3 views Reason for Exam: - right ankle pain Comparison Exam: X-ray 02/25/2015 Discussion: No acute fracture lines are identified. Moderate osteoarthritis seen within the ankle mortise. Soft tissue swelling seen overlying the lateral and medial malleoli. Moderate osteoarthritis also seen at the talonavicular joint. Impression: 1. Multifocal osteoarthritis as detailed above. If further characterization is warranted, consider dedicated MRI exam. 04/24/2017 CIARA Gagnon Ext Lower Arterial Doppler bilat US EXAM: US BILATERAL LOWER EXTREMITY ARTERIAL DOPPLER DATE: 09/15/2016 1:36 PM CDT INDICATION: - I73.9 Peripheral vascular disease, unspecified ADDITIONAL INFORMATION: None. COMPARISON: None. TECHNIQUE: Multiplanar grayscale, color Doppler and spectral Doppler ultrasound images of the bilateral lower extremity arteries. Segmental pressures were obtained and ankle/brachial indices were calculated. FINDINGS: There is scattered atherosclerotic plaque without focally elevated velocity to suggest hemodynamically significant stenosis. Right Extremity Waveforms: Common Femoral Artery: 152cm/s Triphasic Superficial Femoral Artery: 131cm/s Triphasic Popliteal Artery: 71cm/s Triphasic Posterior Tibialis Artery: 80cm/s Triphasic Anterior Tibialis Artery: 82cm/s . Monophasic Dorsalis Pedis Artery: 47cm/s . Monophasic Left Extremity Waveforms: Common Femoral Artery: 123cm/s Triphasic Superficial Femoral Artery: 127cm/s Triphasic Popliteal Artery: 60cm/s Triphasic Posterior Tibialis Artery: 100cm/s . Monophasic Anterior Tibialis Artery: 74cm/s . Monophasic Dorsalis Pedis Artery: 85cm/s . Monophasic Ankle Brachial Indices: Right GENNA: 1.1 Left GENNA: 1.0 IMPRESSION: Mild lower extremity peripheral vascular disease without hemodynamically significant stenosis identified. SL: [id number] 09/15/2016 DOYLE [place] Ext Lower Venous Doppler Unilat US Exam: Right lower extremity Doppler venous ultrasound. Reason for Exam: - R60.0 Localized edema Comparison Exam: Ultrasound 03/21/2016 Discussion: Real-time grayscale, color Doppler imaging, and spectral waveform analysis was performed of the right lower extremity deep venous system. There are no filling defects or lack of compressibility seen within the deep venous system to suggest DVT. The waveforms are within normal limits and respond appropriately to augmentation. Impression: 1. Negative right lower extremity Doppl er venous ultrasound for DVT. 08/24/2016 DOYLE Gagnon Knee 3 views DX EXAM: Knee 3 v iews DX HISTORY: M25.562 Pain in left knee COMPARISON: None 3 views of the left knee. There is a mod erate joint effusion. Tricompartmental arthroplasty components projecting at the position without evidence of loosening. No fracture is seen. Alignment is normal. There are small calcific densities projecting in the infrapatellar joint space. IMPRESSION: Effusion. Arthroplasty components project in expected positions. 03/21/2016 DOYLE Gagnon Ext Lower Venous Doppler Bilat US Nurse Estefania confirmed receipt of the report at 15:18 on 03/21/2016 EXAMINATION: Bilateral lower extremity ultrasound CLINICAL INDICATION: Localized edema COMPARISON: No comparison is available. COMMENT: There is partially occlusive heterogeneous thrombus in the left femoral vein midportion extending to the popliteal vein. 4.1 x 1.1 x 1.2 cm complex Salazar's cyst is noted in the left popliteal fossa. 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 Normal compressibility and flow and the absence of intraluminal echoes is exhibited within the right common femoral, s uperficial femoral, visualized profunda femoral and popliteal veins. IMPRESSION: Partially occlusive heterogeneous thrombus within the left femoral vein to popliteal vein. No right lower extremity deep thrombus. Complex left Salazar's cyst. A message was left for Dr. Berger at the time of this dictation. 03/21/2016 DOYLE Gagnon Chest 2 views DX Chest x-ray 2 views Comparison: [<None available.>] Findings: Cardiac silhouette is upper limits of normal in size with mild pulmonary vascular congestion. Stable bibasilar streaky opacities probably due to subsegmental atelectasis without matt consolidation, pleural effusion, or nodularity. There are old right-sided rib fractures. Diffuse idiopathic skeletal hyperostosis is noted in the upper to mid thoracic spine. No evidence of acute osseus pathology. Impression: Bibasilar subsegmental atelectasis stable. No acute abnormality. 07/17/2015 DOYLE Gagnon Foot series DX EXAM: Foot seri es HISTORY: pain COMPARISON: None Three views of the right foot. FINDINGS: There is advanced degenerative change at the great toe MTP joint with joint space narrowing and osteophyte formation. There is irregularity of the medial aspect of the distal great toe metatarsal with overlying soft tissue swelling. Small erosions suggest gout. Hammertoe deformity is noted throughout the right foot. No fracture is seen. Dorsal enthesophytes are noted at the midfoot. Small calcaneal enthesophytes are present as well. IMPRESSION: Degenerative change at the great toe MTP joint. Consider gout. 02/25/2015 DOYLE Gagnon Ankle 3 views DX EXAM: Ankle 3 views HISTORY: right ankle pain COMPARISON: None There is talonavicular and talocalcaneal osteophyte formation. Small calcaneal spur noted. Alignment is overall normal and no fracture is seen. There is mild circumferential soft tissue swelling. IMPRESSION: Degenerative change as above. 02/25/2015 DOYLE Gagnon Consultation Notes No Data Provided for This Section Discharge Summaries No Data Provided for This Section History and Physicals No Data Provided for This Section Vital Signs Vital Sign Value Date Comments Source Systolic (mm Hg) 125 05/23/2019 [facility] Diastolic (mm Hg) 59 05/23/2019 [facility] Systolic (mm Hg) 111 05/23/2019 [facility] Diastolic (mm Hg) 52 05/23/2019 [facility] Respitory Rate 0 05/23/2019 [facility] Systolic (mm Hg) 119 05/23/2019 [facility] Diastolic (mm Hg) 57 05/23/2019 [facility] Respitory Rate 21 05/23/2019 [facility] Respitory Rate 15 05/23/2019 [facility] Height 177.8 cm 05/22/2019 [facility] Weight 107.27 05/22/2019 [facility] BMI Calculated 33.93 05/22/2019 [facility] Heart Rate 58 05/22/2019 [facility] Temperature Oral (F) 97.4 F 05/20/2019 [facility] Heart Rate 55 05/20/2019 [facility] Height 177.8 cm 05/20/2019 [facility] Weight 107.273 05/20/2019 [facility] BMI Calculated 33.93 05/20/2019 [facility] Weight 244 06/05/2017 Riaz Arora Height 70 0 06/05/2017 Riaz Arora Temperature Oral (F) 97.2 F 06/05/2017 Riaz Arora Heart Rate 64 06/05/2017 Riaz Marinellier Diastolic (mm Hg) 70 06/05/2017 Riaz Marinellier Systolic (mm Hg) 124 06/05/2017 Riaz Arora Weight 250 03/30/2017 Riaz Arora Height 70 1 05/31/2016 Riaz Arora Temperature Oral (F) 97.9 F 03/30/2017 Riaz Arora Heart Rate 60 03/30/2017 Riaz Arora Diastolic (mm Hg) 70 03/30/2017 Riaz Arora Systolic (mm Hg) 136 03/30/2017 Riaz Arora Weight 245 01/05/2017 Riaz Arora Height 70 0 01/05/2017 Riaz Arora Temperature Oral (F) 97.0 F 01/05/2017 Riaz Arora Heart Rate 76 01/05/2017 Riaz Arora Diastolic (mm Hg) 78 01/05/2017 Riaz Arora Systolic (mm Hg) 132 01/05/2017 Riaz Arora Encounters Location Location Details Encounter Type Encounter Number Reason For Visit Attending Provider ADM Date DC Date Status Source [facility] [place] [facility] [id number] Guerrero Berman 05/01/2014 05/02/2014 MH [facility] [place] [facility] [place] [facility] [id number] Guerrero Berman 05/30/2014 05/31/2014 [facility] [place] [facility] [place] [facility] [id number] 07 Guerrero Berman 02/25/2015 02/26/2015 [facility] [place] [facility] [place] [facility] [id number] Eyad Salvady 07/17/2015 07/18/2015 [facility] [place] [facility] [place] [facility] [id number] 09 Calixto Orahood 03/21/2016 03/22/2016 [facility] [place] [facility] [place] [facility] [id number] 10 Calixto Orahood 08/24/2016 08/25/2016 MH [facility] [place] [facility] [place] [facility] [id number] 11 Calixto Orahood 09/15/2016 09/16/2016 MH [facility] [place] [facility] [place] [facility] [id number] 12 Calixto Orahood 04/24/2017 04/25/2017 MH [facility] [place] [facility] [place] [facility] [id number] 13 Calixto Orahood 08/07/2017 08/08/[address] [facility] Inpatient [id number] 05/22/2019 05/24/2019 [facility] Outpatient [id number] Theodore Barker 06/06/2019 06/07/2019 [facility] Procedures Procedure Code Date Perfomer Comments Source Cardiac catheterisation 137239 [facility] Hernia repair [id number] [address] TKR -Total prosthetic replacement of kne e joint using cement [id number] [facility] Assessment and Plan Assessment and Plan Date Source Extracted from:Title: Clinical Document Author: Theodore Barker MD Date: 05/23/19 83-year-old with multiple medical proble ms including cardiac and renal who underwent yesterday and uncomplicated percutaneous endovascular repair of fairly large abdominal aortic aneurysm. He had no issues postoperatively. His creatinine appears to be baseline and he was discharged home with recommendation to follow-up in 2 weeks. Extracted from:Title: Clinical Document Author: Theodore Barker MD Date: 05/22/19 OPERATIVE REPORT Date: May 22, 2019 Surgeon: Theodore Barker MD Japanese Professor: Ze Shipley MD Preoperative diagnosis: Abdominal aortic aneurysm Postoperative diagnosis: Same Procedure: Percutaneous endovascular repair of an infrarenal abdominal aortic aneurysm with the [place] excluder device. Indication: Asymptomatic infrarenal abdominal aortic [...] 2 Proglides were partially deployed at 90 angle s. An 16 Zimbabwean sheath was placed on the right and a 12 [place]an sheath from the left. Abdominal angiogram was performed and the anatomy was noted. The main device [id number] was then advanced from the right side and positioned just distal to the left renal artery and partially deployed. We had difficulty cannulating the gate and the device had to be rotated. The gate was cannulated from the left side. After the device rotated that had migrated distally. The left limb PLC [id number] was then deployed landing just proximal to the left hypogastric artery. The right side was then completely deployed. A right bellybutton extension the PLC [id number] was then deployed. It appears to be about 1 cm short of the hypogastric. A 26 cuff was then deployed landing just distal to the left renal artery. LOGAN [id number]. All areas of the grafts were ballooned [...] copy of this to Dr. Rey Sandy 05/24/2019 [facility] Plan of Care No Data Provided for This Section Social History Social History Date Source Social History TypeResponse Alcohol Past Smoking Status Former smoker; Ready to change: No; Concerns about tobacco use in household: No; Exposure to Tobacco Smoke None; Cigarette Smoking Last 365 Days No; Reg Smoking Cessation Counseling No entered on: 05/22/19 05/20/2019 [facility] No data available for this section 08/08/2017 DOYLE Gagnon Family History No Data Provided for This Section Advance Directives No Data Provided for This Section Functional Status No Data Provided for This Section
--- OUTSIDE RECORDS SUMMARY | 2019-08-21 04:55 | XMS REPORT ---
Author Author AG Arora Organization [employer] Address Unknown Phone Unavailable Care Team Providers Care Dielectric Testing Machine Operator Name Role Phone Ayo Arora CP Unavailable [...]
--- OUTSIDE RECORDS SUMMARY | 2019-08-21 04:55 | XMS REPORT | Summary of Care ---
Author Author [facility] Organization [facility] Address Unknown Phone Unavailable Encounter HQ Encntr_alias(FIN) [id number] Date(s): 07/17/15 - 07/17/15 [facility] [place] [address] [place] [id number] [phone] Discharge Disposition: Home Attending Physician: Eyad Klein MD Vital Signs No data available for [...]
--- OUTSIDE RECORDS SUMMARY | 2019-08-21 04:56 | XMS REPORT | Summary of Care ---
Author Author JOHNNIE Hairston, AG LARA Organization Unknown Address Unknown Phone Unavailable Care Team Providers Care Senior Director Of Strategy Name Role Phone [facility], DR BLAIR Unavailable Unavailable HOLLY FARLEY MD Unavailable Unavailable MIRA RICHARD, DERRICK Moya Unavailable Unavailable JOHNNIE RICHARD MI, JANE Unavailable Unavailable Unavailable Unavailable Functional Status Name Dates Details Functional status health issues are not documented Status: Name Dates Details Cognitive status health issues are not d ocumented Status: Problems Name Dates Details Chronic renal impairment, unspecified CK D stage (585.9, N18.9) Status: Active 3-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, I25.10) Status: Active History of endovascular stent graft for abdominal aortic aneurysm (V43.4, Z95.828) Status: Active Abdominal aortic aneurysm (AAA) (441.4, I71.4) Status: Active AAA (abdominal aortic aneurysm) without rupture (441.4, I71.4) Status: Active Medications Name Dates Details Lipitor 20 MG Oral Tablet Active Flomax 0.4 MG Oral Capsule * Refills: 0 Active Effient 10 MG Oral Tablet * Refills: 0 Active Lopressor TABS * Refills: 0 Active Pepcid 20 MG Oral Tablet * Refills: 0 Active Allopurinol 100 MG Oral Tablet * Refills: 0 Active Allergies and Adverse Reactions Name Dates Details No Known Allergies (Allergy) Status: Act rowan Procedures Procedure Dates Details Procedures not documented Immunization Name Dates Details Immunizations not documented Social History Name Dates Details - Status: Name Dates Details Ex-smoker (finding) Vital Signs Date Test Result Details :56 Weight 235 lb Status: Results Date Description Value Details :45 CTA Abdomen/Pelvis 01833 Abdomen/Pelvis CTA SEE NOTES Comments: Rad iation Dose CTDIVOL = 0 (mGy): DLP = 3207 (mGy-cm)PROCEDURE INFORMATION:Exam: CT Angiography Abdomen and Pelvis With ContrastExam date and time: 06/06/2019 10:06 AMAge: 83 years oldClinical indication: Abdominal aortic aneurysm, without rupture; Additionalinfo: /i71.4TECHNIQUE:Imaging protocol: Computed tomographic angiography of the abdomen and pelviswith intravenous contrast material.3D rendering: MIP and/or 3D reconstructed images were created by thetechnologist.Total DLP: 3207 mGy- cmRadiation optimization: All CT scans at this facility use at least one of thesedose optimization techniques: automated exposure control; mA and/or kVadjustment per patient size (includes targeted exams where dose is matched toclinical indication); or iterative reconstruction.Contrast material: OMNI; Contrast volume: 100 ml; Contrast route: IV; COMPARISON:No relevant prior studies available.FINDINGS:Tubes, catheters and devices: Lamb catheter decompresses the bladder.Aorta: Aorto bi-iliac stent grafts are patent; question of trace endoleakadjacent to the anterior margin of the aorta component of the right iliacstent, series 11, image 97-101 and adjacent to the posterior margin of theaortic component of the left iliac stent, images 114-117. The infrarenalaneurysm measures approximately 6.8 cm AP x 6.2 cm transverse.Liver: Question mild cirrhotic change of the liver.Gallbladder and bile ducts: No calcified stones. No ductal dilation.Pancreas: Moderate atrophy of the pancreas.Spleen: Unremarkable.Adrenals: Unremarkable. Kidneys and ureters: Moderate scarring of the kidneys. Cysts in both kidneys.Question of a 0.9 cm enhancing lesion at the cortex of the right mid kidney,series 6, image 81.Stomach and bowel: No obstruction. Appendix: No evidence of appendicitis.Intraperitoneal space: No free air. No free fluid.Lymph nodes: Several retroperitoneal lymph nodes in the abdomen and pelvis, thelargest node measures 2.6 cm greatest dimension.Bladder: Unremarkable as visualized.Reproductive: Unremarkable as visualized.Bones/joints: Spondylosis thoracic and lumbar spine.Soft tissues: Fat containing inguinal hernia on the right and predominantly fatcontaining inguinal hernia with trace fluid on the left.IMPRESSION:1. Endovascular repair of infrarenal aortic aneurysm with possible tinyendoleaks adjacent to the aortic component of the grafts.2. Aneurysm infrarenal aorta measures 6.8 cm.3. Question of a small enhancing lesion right kidney, renal cell carcinoma isnot excluded. An MRI renal protocol is advised.4. Possible mild liver cirrhosis.5. Several mildly enlarged retroperitoneal lymph nodes in the abdomen andpelvis are indeterminate for reactive nodes versus neoplasm. Follow-up CT in 12months.6. Partially loculated small pleural effusion on the right.7. Mild bronchiectasis, bronchial wall thickening in the visualized lungs. Mildairspace disease may reflect interstitial pulmonary edema.8. Mild cardiomegaly, coronary artery calcifications. Correlate for heartfailure.Alex Goncalves MD On 06/06/2019 15:25:41; [id number] by: Alex Goncalves MDDictated Date/time: 06/06/19 15:25Electronically Signed by: Alex Goncalves MD 06/06/2014:25FINAL REPORT 12-Jun-20197:15 [[facility]] BASIC METABOLIC PANEL W/EGFR Glucose Lvl 96 mg/dl Range: 70-99 Comments: Adult reference range values reflect the clinical guidelinesof the [place] [employer]. Blood Urea Nitrogen 17 mg/dl Range: 7-22 Creatinine Lvl 1.70 mg/dl (Above high threshol d) Range: 0.50-1.40 Sodium Level 133 {mEq/l} (Below low threshol d) Range: 135-145 Potassium Level 3.9 {mEq/l} Range: 3.5-5.1 Chloride Level 101 {mEq/l} Range: 95-109 Carbon Dioxide 27 {mEq/l} Range: 24-32 AGAP 8.9 {mEq/l} (Below low threshol d) Range: 10.0-20.0 Calcium Level Total 8.4 mg/dl (Below low thresh old) Range: 8.5-10.5 eGFR 37 {ML/MIN/1.7} Comments: The e GFR is calculated using the CKD-EPI formula. In most young, healthyindividuals the eGFR will be >90 mL/min/1.73m2. The eGFR declines with age. AneGFR of 60-89 may be normal in some populations, particularly the elderly, forwhom the CKD-EPI formula has not been extensively validated. Use of the eGFR isnot recommended in the following populations:Individuals with unstable creatinine concentrations, including patients and those with serious co-morbid conditions.Patients with extremes in muscle mass or diet.The data above are obtained from the National Kidney Disease Education Program(NKDEP) which additionally recommends that when the eGFR is used in patientswith extremes of body mass index for purposes of drug dosing, the eGFR shouldbe multiplied by the estimated BMI. Plan of Care Name Dates Details Planned Observations Planned Goals not documented Interventions Provided Labs/Procedures/Imaging* [[facility]] BASIC METABOLIC PANEL W/EGFR; Done: 12 Jun 2019 * CVRAD - Abdominal Duplex Comp - 35383; Done: 05 Jun 2019 Instructions Name Dates Details Instructions not documented Encounters Appointment; JANE BLAIR M.D. Encounter Diagnosis: Problem not documented On: 13-May-2019 11:45 Appointment; JANE BLAIR M.D. Encounter Diagnosis: Problem not documented On: 22-May-2019 6:30 [facility] En[facility] Diagnosis: Problem not documented On: 05-Jun-2019 8:00
--- OUTSIDE RECORDS SUMMARY | 2019-08-21 04:56 | XMS REPORT | Summary of Care ---
Author Author JOHNNIE Hairston, AG LARA Organization Unknown Address Unknown Phone Unavailable Care Team Providers Care Port Warden Name Role Phone JANE BLAIR M.D. 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 Blood Urea Nitrogen 22 mg/dl Range: 7-22 Creatinine Lvl 1.50 mg/dl (Above high threshol d) Range: 0.50-1.40 Sodium Level 137 {mEq/l} Range: 135-145 Potassium Level 4.9 {mEq/l} Range: 3.5-5.1 Chloride Level 102 {mEq/l} Range: 95-109 Carbon Dioxide 24 {mEq/l} Range: 24-32 AGAP 15.9 {mEq/l} Range: 10.0-20.0 Calcium Level Total 8.9 mg/dl Range: 8.5-1 0.5 eGFR 43 {ML/MIN/1.7} Comments: The e GFR is calculated [...] Details Planned Observations Planned Goals not documented Planned Encounters Appointment; JANE BLAIR M.D. On: 22-May-2019 5:30 Interventions Provided Labs/Procedures/Imaging* [[facility]] BASIC METABOLIC PANEL W/EGFR; Done: 13 May 2019 * Tobacco Use Screening; Done: 13 May 2019 Plan* We will proceed with an endovascular repair of his abdominal aortic aneurysm after checking his renal status and switching Effient to Plavix Instructions Name Dates Details Instructions not documented Encounters Appointment; JANE BLAIR M.D. Encounter Diagnosis: Problem not documented On: 13-May-2019 11:45
--- OUTSIDE RECORDS SUMMARY | 2019-08-21 04:56 | XMS REPORT ---
Author Author AG Arora [facility] [employer] Address Unknown Phone Unavailable Care Team Providers Care Global Analytics Head Name Role Phone Ayo Arora Unavailable Allergies, Adverse Reactions, Alerts Substance Reaction Event Type Hydroxychloroquine Sulfate dizziness/nausea Drug Allergy Penicillin Info Not Available Non Drug Allergy Problems Problem Type Condition Code Onset Dates Condition Statu s Problem Bilateral hearing loss, unspecified hearing loss type H91.93 Active Problem Rheumatoid arthritis M06.9 Active Problem Primary osteoarthritis involving multiple joints M15.0 Active Assessment Long-term use of high-risk medication Z79.899 Active Problem Long-term use of high-risk medication Z79.899 Active Assessment Rheumatoid arthritis M06.9 Active Medications Medication Code System Code Instructions Start Date End Date Status Dosage Doxazosin Mesylate ND 56789681480 4 MG Orally Once a day Active 1 tablet Pantoprazole Sodium ND 58353944085 40 MG Orally Once a day Active 1 tablet Hydroxychloroquine Sulfate ND 09591611668 200 MG Orally bid Feb 06, 2017 Active 1 tablet with food or milk Leflunomide ND 12226972471 20 MG Orally Once a day Mar 30, 2017 Active 1 tablet Tamsulosin HCl ND 14260657472 0.4 MG Orally Once a day Active 1 capsule Folic Acid ND 29757147061 1 MG Orally Once a day Ac tive 2 tablets Vitamin D (Ergocalciferol) ND 18811487477 54849 UNIT Ora lly Once a week Jan 09, 2017 Active 1 capsule Enbrel ND 46449950097 50 MG/ML Subcutaneous once a week Active 1 ml PredniSONE ND 25058785119 5MG Orally twice a day Ac tive take 2 tablets by mouth daily Ferrous Sulfate ND 92302572649 325 (65 Fe) MG Orally Twice a day Active 1 tablet Vital Signs Date/Time: Jun 05, 2017 BMI 35.01 Index Weight 244 lbs Height 70 in Temperature 97.2 F Cardiac Monitoring Heart Rate 64 /min Blood Pressure Diastolic 70 mm Hg Blood Pressure Systolic 124 mm Hg Results No Known Results Summary Purpose eClinicalWorks Submission
--- OUTSIDE RECORDS SUMMARY | 2019-08-21 04:56 | XMS REPORT | Summary of Care ---
Author Author AG LR APRN NICOLASA Organization Unknown Address Unknown Phone Unavailable Care Team Providers Care Security Intelligence Analyst Name Role Phone JOHNNIE Hairston, JANE Unavailable Unavailable HOLLY FARLEY MD Unavailable Unavailable MIRA RICHARD, DERRICK Moya Unavailable Unavailable JOHNNIE RICHARD [place], JANE Unavailable Unavailable Unavailable Unavailable Functional Status [...] aortic aneurysm (AAA) (441.4, I71.4) Status: Active Medications Name Dates [...] lb Status: Results Date Description Value Details :50 [[facility]] BASIC METABOLIC PANEL W/EGFR Glucose Lvl 88 mg/dl Range: 70-99 Comments: Adult reference range values reflect the clinical guidelinesof the [place] [employer]. Blood Urea Nitrogen 22 mg/dl [...] Details Planned Observations Planned Goals not documented Instructions Name Dates Details Instructions not documented Encounters Appointment; JANE BLAIR M.D. Encounter Diagnosis: Problem not documented On: 13-May-2019 11:45 Appointment; JANE BLAIR M.D. Encounter Diagnosis: Problem not documented On: 22-May-2019 6:30 [facility] Encounter Diagnosis: Problem not documented On: 05-Jun-2019 8:00 Appointment; JANE BLAIR M.D. Encounter Diagnosis: Problem not documented On: 10-Jun-2019 12:30
--- OUTSIDE RECORDS SUMMARY | 2019-08-21 04:56 | XMS REPORT | Summary of Care ---
Author Author RILEY TejedaAVIANO Krishan Organization Unknown Address Unknown Phone Unavailable Care Team Providers Care Public Affairs Specialist Name Role Phone [place], DR BLAIR Unavailable Unavailable MIGUELITO RICHARD, HOLLY NOGUERA Unavailable Unavailable DERRICK MEYERS MD Unavailable Unavailable JOHNNIE RICHARD [place], JANE Unavailable [...] Status: Act rowan Procedures Procedure Dates Details CTA Abdomen/Pelvis 52965 Date: 24-May-2019 Immunization Name Dates Details Immunizations not documented Social History Name Dates Details - Status: Name Dates Details Ex-smoker (finding) Vital Signs Date Test Result Details No Known Vitals to report Results Date Description Value Details [id number] [[facility]] BASIC METABOLIC PANEL W/EGFR Glucose Lvl 88 mg/dl Range: 70-99 Comments: Adult reference range values reflect the clinical guidelinesof the [place] [employer]. Blood Urea Nitrogen 22 mg/dl [...] Planned Goals not documented Planned Encounters Appointment; DR JOHNNIE CUMMINGS On: 05-Jun-2019 8:00 Appointment; JANE BLAIR M.D. On: 10-Jun-2019 10:00 Interventions Provided Labs/Procedures/Imaging* CVRAD - Abdominal Duplex Comp - 73963; Done: 05 Jun 2019 Instructions Name Dates Details Instructions not documented Encounters Appointment; JANE BLAIR M.D. Encounter Diagnosis: Problem not documented On: 13-May-2019 11:45 Appointment; JANE BLAIR M.D. Encounter Diagnosis: Problem not documented On: 22-May-2019 6:30 Appointment; DR JOHNNIE CUMMINGS Encounter Diagnosis: Problem not documented On: 05-Jun-2019 8:00
--- OUTSIDE RECORDS SUMMARY | 2019-08-21 04:56 | XMS REPORT | Summary of Care ---
Author Author SalinasAG Organization Unknown Address Unknown Phone Unavailable Care Team Providers Care Wall Taper Helper Name Role Phone Jyotsna Salinas Unavailable Unavailable MIGUELITO RICHARD, HOLLY NOGUERA Unavailable Unavailable MIRA RICHARD, DERRICK Moya Unavailable Unavailable JOHNNIE RICHARD [place], JANE Unavailable Unavailable Unavailable Unavailable Functional Status [...] rowan Procedures Procedure Dates Details CTA Abdomen/Pelvis 35806 Date: 24-May-2019 Immunization Name Dates Details Immunizations not documented Social History Name Dates Details - Status: Name Dates Details Former smoker Vital Signs Date Test Result Details No Known Vitals to report Results Date Description Value Details [id number] [[facility]] BASIC METABOLIC PANEL W/EGFR Glucose Lvl 88 mg/dl Range: 70-99 Comments: Adult reference range values reflect the clinical guidelinesof the [place] [employer]. Blood Urea Nitrogen 22 mg/dl [...] M.D. On: 10-Jun-2019 10:00 Interventions Provided Labs/Procedures/Imaging* CTA Abdomen/Pelvis 02895; To Be Done: 24 May 2019 Instructions Name Dates Details Instructions not documented Encounters Appointment; JANE BLAIR M.D. Encounter Diagnosis: Problem not documented On: 13-May-2019 11:45 Appointment; JANE BLAIR M.D. Encounter Diagnosis: Problem not documented On: 22-May-2019 6:30
--- OUTSIDE RECORDS SUMMARY | 2019-08-21 04:56 | XMS REPORT | Summary of Care ---
Author Author JOHNNIE Hairston, AG LARA Organization Unknown Address Unknown Phone Unavailable Care Team Providers Care Director Of Campus Recreation Name Role Phone JANE BLAIR M.D. Unavailable Unavailable HOLLY FARLEY MD Unavailable Unavailable MIRA RICHARD, DERRICK Moya Unavailable Unavailable Unavailable Unavailable Functional Status Name [...] Status: Act rowan Procedures Procedure Dates Details [[facility]] BASIC METABOLIC PANEL W/EGFR Date: 13-May-2019 Immunization Name Dates Details Immunizations not documented Social History Name Dates Details - Status: Name Dates Details Former smoker Vital Signs Date Test Result Details No Known Vitals to report Results Date Description Value Details Results not documented Plan of Care Name Dates Details Planned Observations Planned Goals not documented Interventions Provided Labs/Procedures/Imaging* [[facility]] BASIC METABOLIC PANEL W/EGFR; To Be Done: 13 May 2019 * Tobacco Use Screening; Done: 13 May 2019 Plan* We will proceed with an endovascular repair of his abdominal aortic aneurysm after checking his renal status and switching Effient to Plavix Instructions Name Dates Details Instructions not documented Encounters Appointment; JANE BLAIR M.D. Encounter Diagnosis: Problem not documented On: 13-May-2019 11:45
--- OUTSIDE RECORDS SUMMARY | 2019-08-21 04:56 | XMS REPORT | Summary of Care ---
Author Author SalinasAG Organization Unknown Address Unknown Phone Unavailable Care Team Providers Care Cider Maker Name Role Phone Jyotsna Salinas Unavailable Unavailable MIGUELITO RICHARD, HOLLY NOGUERA Unavailable Unavailable MIRA RICHARD, DERRICK Moya Unavailable Unavailable JOHNNIE RICHARD [place], JANE Unavailable Unavailable Unavailable Unavailable Functional Status [...] to report Results Date Description Value Details [id number] [facility] BASIC METABOLIC PANEL W/EGFR Glucose Lvl 88 mg/dl Range: 70-99 Comments: Adult reference range values reflect the clinical guidelinesof the [place] [employer]. Blood Urea Nitrogen 22 mg/dl [...] Planned Encounters Appointment; JANE BLAIR M.D. On: 10-Jun-2019 10:00 Instructions Name Dates Details Instructions not documented Encounters Appointment; JANE BLAIR M.D. Encounter Diagnosis: Problem not documented On: 13-May-2019 11:45 Appointment; JANE BLAIR M.D. Encounter Diagnosis: Problem not documented On: 22-May-2019 6:30 Appointment; DR JOHNNIE CUMMINGS Encounter Diagnosis: Problem not documented On: 05-Jun-2019 8:00
--- OUTSIDE RECORDS SUMMARY | 2019-08-21 04:56 | XMS REPORT | Summary of Care ---
Author Author JOHNNIE Hairston, AG LARA Organization Unknown Address Unknown Phone Unavailable Care Team Providers Care Logger Driving Horses Name Role Phone RitaJyotsna Unavailable Unavailable MIGUELITO RICHARD, HOLLY NOGUERA Unavailable Unavailable MIRA RICHARD, DERRICK Moya Unavailable Unavailable JOHNNIE SANCHEZ, JANE Unavailable Unavailable Unavailable Unavailable Functional Status [...] rowan Procedures Procedure Dates Details CTA Abdomen/Pelvis 29045 Date: 24-May-2019 Immunization Name Dates Details Immunizations not documented Social History Name Dates Details - Status: Name Dates Details Former smoker Vital Signs Date Test Result Details No Known Vitals to report Results Date Description Value Details [id number] [[facility]] BASIC METABOLIC PANEL W/EGFR Glucose Lvl 88 mg/dl Range: 70-99 Comments: Adult reference range values reflect the clinical guidelinesof the [place] [employer]. Blood Urea Nitrogen 22 mg/dl [...] 10-Jun-2019 10:00 Interventions Provided Labs/Procedures/Imaging* CTA Abdomen/Pelvis 55207; To Be Done: 24 May 2019 Instructions Name Dates Details Instructions not documented Encounters Appointment; JANE BLAIR M.D. Encounter Diagnosis: Problem not documented On: 13-May-2019 11:45 Appointment; JANE BLAIR M.D. Encounter Diagnosis: Problem not documented On: 22-May-2019 6:30
--- OUTSIDE RECORDS SUMMARY | 2019-08-21 04:56 | XMS REPORT ---
Author Author [facility] t Organization [facility] Address [address] [facility] [facility] [address] [place] [address] Phone Unavailable Care Team Providers Care Nuclear Officer Name Role Phone HOLLY BERGER MD PCP THEODORE BARKER M.D. Attphys Unavailable Theodore Barker Attphys [facility] BARKER Attphys Unavailable QAMAR DELGADO Attphys Unavailable KERI NEHEMDARLING Attphys Unavailable KATIE MOREAU Attphys Unavailable Zander Berger Attphys Eyad Klein Attphys Maulik Berman Attphys QAMAR DELGADO Admmikayla Unavailable Payers Payer Name Policy Type Policy Number Effective Date Expiration Date Griffin brandt [id number] 2019 00:00:00 [email or web address] [id number] 2019 00:00:00 [facility] Problems Condition Name Condition Details Condition Category Status Onset Date Resolution Date Last Treatment Date Treating Clinician Comments Source AAA (abdominal aortic aneurysm) without rupture AAA (a bdominal aortic aneurysm) without rupture Problem Active [facility] Chronic renal impairment, unspecified CKD stage Chroni c renal impairment, unspecified CKD stage Problem Active [facility] 3-vessel CAD 3-vessel CAD Problem Active [facility] History of endovascular stent graft for abdominal aort ic aneurysm History of endovascular stent graft for abdominal aortic aneurysm Problem Active [facility] Abdominal aortic aneurysm (AAA) Abdominal aortic aneurysm (AAA) Pro blem Active [facility] ex Physicians ST elevation myocardial infarction (STEMI) STEMI (ST e levation myocardial infarction) Problem Active [facility] Hyponatremia Hyponatremia Problem Active [facility] Urinary tract infection UTI (urinary tract infection) Problem Active [facility] Retention of urine Urinary retention Problem Active [facility] Weakness Weakness Problem Active [facility] Allergies, Adverse Reactions, Alerts This patient has no known allergies or adverse reactions. Social History Smoking Status Start Date Stop Date Source Ex-smoker (finding) [facility] Medications Ordered Medication Name Filled Medication Name Start Date Stop Da te Current Medication? Ordering Clinician Indication Dosage Frequency Signature (SIG) Comments Components Source Allopurinol 100 Mg Tablet Allopurinol 100 Mg Tablet 2019-05-13 00:00: 00 Yes Qamar Delgado Md 200 Daily [facility] Sodium Bicarbonate 650 Mg Tablet Sodium Bicarbonate 650 Mg T ablet 2019-05-13 00:00:00 Yes Qamar Delgado Md 1300 Twice A Day [facility] Sodium Chloride 1 Gm Tab Sodium Chloride 1 Gm Tab 2019-05-13 00:00:00 Yes Qamar Delgado Md 2 Three Times A Day [facility] Fosfomycin Tromethamine (Monurol) 3 Gm Packet Fosfomyc in Tromethamine (Monurol) 3 Gm Packet 2019-05-09 00:00:00 Yes Richard Molina Md 3 Once [facility] Atorvastatin Calcium (Lipitor) 20 Mg Tablet Atorvastat in Calcium (Lipitor) 20 Mg Tablet 2019-04-21 00:00:00 Yes Qamar Delgado Md 20 Bedtime [facility] Docusate Sodium (Colace) 100 Mg/10 Ml Liqd Docusate So dium (Colace) 100 Mg/10 Ml Liqd 2019-04-21 00:00:00 Yes Qamar Delgado Md 100 Every 12 Hours [facility] Famotidine 20 Mg Tab Famotidine 20 Mg Tab 2019-04-21 00:00:00 Yes Qamar Delgado Md 20 Every 12 Hours [facility] Metoprolol Tartrate (Lopressor) 25 Mg Tab Metoprolol T artrate (Lopressor) 25 Mg Tab 2019-04-21 00:00:00 Yes Qamar Delgado Md 12.5 Every 12 Hours [facility] Prasugrel Hcl (Effient) 10 Mg Tablet Prasugrel Hcl (Effient) 10 Mg Tablet 2019-04-21 00:00:00 Yes Qamar Delgado Md 10 Daily [facility] Aspirin (Aspirin Ec) 81 Mg Tablet., 81 Mg Oral Aspir in (Aspirin Ec) 81 Mg Tablet.dr, 81 Mg Oral 2019-04-21 00:00:00 2019-05-13 00:00:00 No Qamar Delgado Md 81 Every Morning [facility] Valsartan (Diovan) 80 Mg Tab, 20 Mg Oral Valsartan (Di ovan) 80 Mg Tab, 20 Mg Oral 2019-04-21 00:00:2019-05-13 00:00:00 No Qamar Delgado Md 20 Daily [facility] Lipitor 20 MG Oral Tablet Lipitor 20 MG Oral Tablet Yes [facility] Flomax 0.4 MG Oral Capsule Flomax 0.4 MG Oral Capsule Yes [facility] Effient 10 MG Oral Tablet Effient 10 MG Oral Tablet Yes [facility] Lopressor TABS Lopressor TABS Yes [facility] Pepcid 20 MG Oral Tablet Pepcid 20 MG Oral Tablet Yes [facility] Allopurinol 100 MG Oral Tablet Allopurinol 100 MG Oral Tablet Yes [facility] Physicia ns Cholecalciferol (Vitamin D3) (Vitamin D3) 1,000 Unit C apsule Cholecalciferol (Vitamin D3) (Vitamin D3) 1,000 Unit Capsule Yes 1000 Daily [facility] Cyanocobalamin (Vitamin B-12) 1,000 Mcg Tab Cyanocobal ramos (Vitamin B-12) 1,000 Mcg Tab Yes 1000 Daily [facility] Ferrous Sulfate 325 Mg Tablet Ferrous Sulfate 325 Mg Tablet Yes 325 Twice A Day [facility] Tamsulosin Hcl (Flomax*) 0.4 Mg Cap Tamsulosin Hcl (Flomax*) 0.4 Mg C ap Yes .4 Daily [facility] Folic Acid 1 Mg Tablet, 1 Mg Oral Folic Acid 1 Mg Tablet, 1 Mg O ral 2019-05-13 00:00:00 No 1 Daily [facility] Tramadol Hcl/Acetaminophen (Ultracet Tablet) 1 Each Ta blet, 1 Tab Oral Tramadol Hcl/Acetaminophen (Ultracet Tablet) 1 Each Tablet, 1 Tab Oral 2019-05-13 00:00:00 No 1 As Needed as needed for Pain [facility] Doxazosin Mesylate 8 Mg Tablet, 8 Mg Oral Doxazosin Me sylate 8 Mg Tablet, 8 Mg Oral 2019-04-21 00:00:00 No 8 Bedtime [facility] Levofloxacin (Levaquin) 500 Mg Tablet, 500 Mg Oral Lev ofloxacin (Levaquin) 500 Mg Tablet, 500 Mg Oral 2019-04-21 00:00:00 No 500 D aily [facility] Nitrofurantoin Macrocrystal (Nitrofurantoin) 100 Mg Ca psule, 100 Mg Oral Nitrofurantoin Macrocrystal (Nitrofurantoin) 100 Mg Capsule, 100 Mg Oral 2019-04-21 00:00:00 No 100 Twice A Day [facility] Prednisone 5 Mg Tab.ds.pk, 5 Mg Oral Prednisone 5 Mg Tab.ds.pk, 5 Mg Oral 2019-04-21 00:00:00 No 5 Twice A Day [facility] Etanercept (Enbrel) 50 Mg/1 Ml Disp.syrin, Unknown Dos e Sub-Q Etanercept (Enbrel) 50 Mg/1 Ml Disp.syrin, Unknown Dose Sub-Q 2017-12-25 00:0 0:00 No Weekly [facility] Vital Signs Vital Name Observation Time Observation Value Comments Source Weight 2019-06-10 12:56:00 235 [lb_av] [facility] Procedures Procedure Date / Time Performed Performing Clinician Sourc e [QL] BASIC METABOLIC PANEL W/EGFR 2019-06-10 00:00:00 [facility] CVRAD - Abdominal Duplex Comp - [id number] 2019-06-05 00:00:00 [facility] CTA Abdomen/Pelvis [id number] 2019-05-24 00:00:00 [facility] [[facility]] BASIC METABOLIC PANEL W/EGFR 2019-05-13 00:00:00 [facility] X-ray of chest, two views 2019-05-07 00:00:00 CHELSEA ROCK CH, I [facility] Computed tomography angiography of abdomen and pelvis without then withcontrast 2019-05-07 00:00:00 CONSTANTINE LR [facility] angiography of chest 2019-05-07 00:00:00 CONSTANTINE LR V [facility] Ultrasound, renal 2019-05-06 00:00:00 MARIPOSA GUILLAUME [facility] Computed tomography of brain without radiopaque contrast 00:00:00 MARTINA SKELTON [facility] Computed tomography of cervical spine without contrast 05-04 00:00:00 MARTINA SKELTON [facility] DILATION OF 1 COR ART WITH DRUG-ELUT INTRA, PERC APPROACH 20 29-04-07 00:00:00 [facility] DERRICK [facility] EXTIRPATION OF MATTER FROM 1 COR ART, PERC APPROACH 00:00:00 MIRA DERRICK [facility] INTRODUCE PLATELET INHIBITOR IN CORONARY ART, PERC 8 00:00:00 [facility] MEASURE OF CARDIAC SAMPL & PRESSURE, L HEART, PERC APPROACH 2019-04-17 00:00:00 DERRICK MEYERS [facility] FLUOROSCOPY OF MULT COR ART USING L OSM CONTRAST 2019-04-17 00:00:00 DERRICK MEYERS [facility] Plan of Care Planned Activity Planned Date Details Comments Source Future Scheduled Test [code = ] Encounters Start Date/Time End Date/Time Encounter Type Admission Type Attendi [facility] Care Department Encounter ID Source 2019-05-22 07:15:00 Inpatient MHSE MHSE [id number] SE 2019-06-10 12:30:00 2019-06-10 12:30:00 Appointment; THEODORE BARKER M.D. NAHAS, CESAR, M.D. [facility] Cardiothoracic & Vascular Surgery [facility] [id number] [facility] 2019-06-06 09:22:00 2019-06-06 23:59:00 Outpatient Theodore Barker MHSEH MHSEH [id number] [facility] 2019-06-06 09:22:00 2019-06-06 09:22:00 Outpatient MHSE MHSE [id number] [facility] 2019-06-05 08:00:00 2019-06-05 08:00:00 [facility] BARKER [facility] Cardiothoracic & Vascular Surgery [facility] [id number] [facility] 2019-05-22 07:15:00 2019-05-23 18:20:00 Outpatient MHSEH MHSEH [id number] [facility] 2019-05-22 06:30:00 2019-05-22 06:30:00 Appointment; THEODORE BARKER M.D. NAHAS, CESAR, M.D. [facility] [id number] [facility] 2019-05-13 11:45:00 2019-05-13 11:45:00 Appointment; THEODORE BARKER M.D. NAHAS, CESAR, M.D. [facility] Cardiothoracic & Vascular Surgery [facility] [id number] [facility] 2019-05-04 17:10:00 2019-05-13 08:23:00 Discharged Inpatient 1 QAMAR DELGADO [facility] [id number] [facility] 2019-04-17 18:31:00 2019-04-21 11:40:00 Discharged Inpatient 1 QAMAR DELGADO [facility] [id number] [facility] 2017-11-28 09:12:00 2017-11-28 09:12:00 Outpatient Ayo SHOEMAKER [id number] Ayo Arora MD 2017-08-07 10:17:00 2017-08-07 23:59:00 [id number] [place] 2017-08-07 10:17:00 2017-08-07 23:59:00 [facility] [id number] [facility] [place] 2017-06-05 10:15:00 2017-06-05 10:15:00 Outpatient Ayo Arora MD [place] [id number] Ayo Arora MD 2017-06-01 15:04:00 2017-06-01 15:04:00 Outpatient Ayo Arora MD [place] [id number] Ayo Arora MD 2017-05-11 16:32:00 2017-05-11 16:32:00 Outpatient Ayo Arora MD PA [id number] Ayo Arora MD 2017-05-11 09:18:00 2017-05-11 09:18:00 Outpatient Ayo Arora MD [place] [id number] Ayo Arora MD 2017-04-24 12:40:00 2017-04-24 23:59:00 Outpatient Holly Berger [facility] [id number] [facility] [place] 2017-03-30 14:45:00 2017-03-30 14:45:00 Outpatient Ayo Arora MD [place] [id number] Ayo Arora MD 2017-02-06 15:19:00 2017-02-06 15:19:00 Outpatient Ayo Arora MD [place] [id number] Ayo Arora MD 2017-01-09 08:15:00 2017-01-09 08:15:00 Outpatient Ayo Arora MD [place] [id number] Ayo Arora MD 2017-01-05 10:15:00 2017-01-05 10:15:00 Outpatient Ayo Arora MD PA [id number] Ayo Arora MD 2016-09-15 13:22:00 2016-09-15 23:59:00 Outpatient Holly Berger [facility] [id number] [facility] [place] 2016-08-24 11:54:00 2016-08-24 23:59:00 Outpatient Holly Berger [facility] [id number] [facility] [place] 2016-03-21 11:59:00 2016-03-21 23:59:00 Outpatient Holly Berger [facility] [id number] [facility] [place] 2015-07-17 15:27:00 2015-07-17 23:59:00 Outpatient Ernie Eyad [facility] [id number] [facility] [place] 2015-02-25 14:51:00 2015-02-25 23:59:00 Outpatient BermanCecilio [facility]IP HOIP [id number] [facility] [place] 2014-05-30 11:43:00 2014-05-30 23:59:00 Outpatient Cullen Guerrero Maulik IEALT IEALT [id number] 2014-05-01 12:16:00 2014-05-01 23:59:00 Outpatient BermanGuerrero IEALT IEALT [id number] Results Test Description Test Time Test Comments Results Result Comments Source [[facility]] BASIC METABOLIC PANEL W/EGFR 2019-06-12 07:15:01 Test Item Glucose Lvl (test code = 2345-7) 96 mg/dl 70-99 Adult reference range values reflect the clinical guidelinesof the [place] [employer]. Blood Urea Nitrogen (test code = 3094-0) 17 mg/dl 7-22 Creatinine Lvl; Above High Threshold (test code = 2160-0) 1.70 m g/dl 0.50-1.40 Sodium Level; Below Low Threshold (test code = 2951-2) 133 {mEq/l} 135-145 Potassium Level (test code = 2823-3) 3.9 {mEq/l} 3.5-5.1 Chloride Level (test code = 2075-0) 101 {mEq/l} 95-109 Carbon Dioxide (test code = 2027-9) 27 {mEq/l} 24-32 AGAP; Below Low Threshold (test code = 64627-9) 8.9 {mEq/l} 10.0-2 0.0 Calcium Level Total; Below Low Threshold (test code = 87971- 6) 8.4 mg/dl 8.5-10.5 eGFR (test code = 58661-0) 37 {ML/MIN/1.7} The eGFR is calculated using the CKD-EPI [...] eGFR shouldbe multiplied by the estimated BMI. [facility] Abdomen/Pelvis [id number] 09:45:00 Radiation Dose CTDIVOL = 0 (mGy): DLP = 3207 (mGy-cm)PROCEDURE INFORMATION:Exam: CT Angiography Abdomen and Pelvis With ContrastExam date and time: 06/06/2019 10 :06 AMAge: 83 years oldClinical indication: Abdominal aortic aneurysm, without r upture; Additionalinfo: /[id number]:Imaging protocol: Computed tomographic a ngiography of the abdomen and pelviswith intravenous contrast material.3D render ing: MIP and/or 3D reconstructed images were created by thetechnologist.Total DL P: 3207 mGy-cmRadiation optimization: All CT scans at this facility use at least one of thesedose optimization techniques: automated exposure control; mA and/or kVadjustment per patient size (includes targeted exams where dose is matched to clinical indication); or iterative reconstruction.Contrast material: OMNI; Contr ast volume: 100 ml; Contrast route: IV; COMPARISON:No relevant prior studies kyle ilable.FINDINGS:Tubes, catheters and devices: Lamb catheter decompresses the bl adder.Aorta: Aorto bi-iliac stent grafts are patent; question of trace endoleaka djacent to the anterior margin of the aorta component of the right iliacstent, s eries 11, image 97-101 and adjacent to the posterior margin of theaortic compone nt of the left iliac stent, images 114-117. The infrarenalaneurysm measures appr oximately 6.8 cm AP x 6.2 cm transverse.Liver: Question mild cirrhotic change of the liver.Gallbladder and bile ducts: No calcified stones. No ductal dilation.P ancreas: Moderate atrophy of the pancreas.Spleen: Unremarkable.Adrenals: Unremar kable. Kidneys and ureters: Moderate scarring of the kidneys. Cysts in both kidn eys.Question of a 0.9 cm enhancing lesion at the cortex of the right mid kidney, series 6, image 81.Stomach and bowel: No obstruction. Appendix: No evidence of appendicitis.Intraperitoneal space: No free air. No free fluid.Lymph nodes: Pamela ral retroperitoneal lymph nodes in the abdomen and pelvis, thelargest node measu res 2.6 cm greatest dimension.Bladder: Unremarkable as visualized.Reproductive: Unremarkable as visualized.Bones/joints: Spondylosis thoracic and lumbar spine.S oft tissues: Fat containing inguinal hernia on the right and predominantly fatco ntaining inguinal hernia with trace fluid on the left.IMPRESSION:1. Endovascular repair of infrarenal aortic aneurysm with possible tinyendoleaks adjacent to th e aortic component of the grafts.2. Aneurysm infrarenal aorta measures 6.8 cm.3. Question of a small enhancing lesion right kidney, renal cell carcinoma isnot e xcluded. An MRI renal protocol is advised.4. Possible mild liver cirrhosis.5. Se veral mildly enlarged retroperitoneal lymph nodes in the abdomen andpelvis are i ndeterminate for reactive nodes versus neoplasm. Follow-up CT in 12months.6. Par tially loculated small pleural effusion on the right.7. Mild bronchiectasis, bro nchial wall thickening in the visualized lungs. Mildairspace disease may reflect interstitial pulmonary edema.8. Mild cardiomegaly, coronary artery calcificatio ns. Correlate for heartfailure.Alex Goncalves MD On 06/06/2019 15:25:41; [id number]--Read by: Alex Goncalves MDDictated Date/time: 06/06/19 15:25Electronical ly Signed by: Alex Goncalves MD 06/06/2014:25FINAL [facility]PO [facility]] BASIC METABOLIC PANEL W/[id number] 13:50:01* Test Item Value Reference Range Interpretation Comments Glucose Lvl (test code = 2345-7) 88 mg/dl 70-99 Adult reference range values reflect the clinical guidelinesof the [place] [employer]. Blood Urea Nitrogen (test code = 3094-0) 22 mg/dl 7-22 Creatinine Lvl; Above High Threshold (test code = 2160-0) 1.50 m g/dl 0.50-1.40 Sodium Level (test code = 2951-2) 137 {mEq/l} 135-145 Potassium Level (test code = 2823-3) 4.9 {mEq/l} 3.5-5.1 Chloride Level (test code = 2075-0) 102 {mEq/l} 95-109 Carbon Dioxide (test code = 2027-9) 24 {mEq/l} 24-32 AGAP (test code = 30741-2) 15.9 {mEq/l} 10.0-20.0 Calcium Level Total (test code = 87928-5) 8.9 mg/dl 8.5-10.5 eGFR (test code = 68717-8) 43 {ML/MIN/1.7} The eGFR is calculated using the CKD-EPI [...] eGFR shouldbe multiplied by the estimated BMI. [facility] PhysiciansPhosphorus [id number] 10:03:00* Test Item Value Reference Range Interpretation Comments Phosphorus Level (test code = MNG2482) 3.7 2.3-4.7 [facility] [id number] 10:03:00* Test Item Value Reference Range Interpretation Comments Magnesium Level (test code = 35250-5) 1.8 1.3-2.1 [facility] [id number] 09:47:00* Test Item Value Reference Range Interpretation Comments Sodium Level (test code = 2951-2) 136 136-145 [facility]Potassium [id number] 09:47:00* Test Item Value Reference Range Interpretation Comments Potassium Level (test code = 2823-3) 4.3 3.5-5.1 [facility] HospitalChloride [id number] 09:47:00* Test Item Value Reference Range Interpretation Comments Chloride Level (test code = 2075-0) 103 98-107 [facility] HospitalCarbon Dioxide [id number] 09:47:00* Test Item Value Reference Range Interpretation Comments Carbon Dioxide Level (test code = 2028-9) 22 22-29 [facility] HospitalAnion [id number] 09:47:00* Test Item Value Reference Range Interpretation Comments Anion Gap (test code = 09843-4) 15.3 8-16 [facility] HospitalBlood Urea [id number] 09:47:00* Test Item Value Reference Range Interpretation Comments Blood Urea Nitrogen (test code = 3094-0) 20 7-26 [facility] HospitalCreatinine2020-02-02 09:47:00* Test Item Value Reference Range Interpretation Comments Creatinine (test code = 2160-0) 1.48 0.72-1.25 [facility] HospitalBUN/Creatinine [id number] 09:47:00* Test Item Value Reference Range Interpretation Comments BUN/Creatinine Ratio (test code = 3097-3) 14 6-25 [facility] HospitalEstimat Glomerular Filtration Rate 2019-05-12 09:47:00* Test Item Value Reference Range Interpretation Comments Estimat Glomerular Filtration Rate (test code = 629682599) 46 >60 Ranges were taken from the National Kidney Disease Education Program and the [facility] Foundation literature.Reference ranges:60 or greater: Yidhvc47-64 ( for 3 consecutive months): Chronic kidney disease 15 or less: Kidney failureKell West Regional HospitalGlucose [id number] 09:47:00* Test Item Value Reference Range Interpretation Comments Glucose Level (test code = VYL0709) 94 74-118 [facility] HospitalCalcium [id number] 09:47:00* Test Item Value Reference Range Interpretation Comments Calcium Level (test code = 25510-9) 8.8 8.4-10.2 [facility] HospitalWhite Blood [id number] 09:21:00* Test Item Value Reference Range Interpretation Comments White Blood Count (test code = 6690-2) 6.59 4.8-10.8 [facility] HospitalRed Blood [id number] 09:21:00* Test Item Value Reference Range Interpretation Comments Red Blood Count (test code = 789-8) 3.28 4.3-5.7 [facility] HospitalHemoglobin2020-02-02 09:21:00* Test Item Value Reference Range Interpretation Comments Hemoglobin (test code = 46346-8) 8.8 14.0-18.0 [facility] HospitalHematocrit2020-02-02 09:21:00* Test Item Value Reference Range Interpretation Comments Hematocrit (test code = 4544-3) 29.8 38.2-49.6 [facility] HospitalMean Corpuscular [id number] 09:21:00* Test Item Value Reference Range Interpretation Comments Mean Corpuscular Volume (test code = 787-2) 90.9 81-99 [facility] HospitalMean Corpuscular Wjljmxvocb8731-98-22 09:21:00* Test Item Value Reference Range Interpretation Comments Mean Corpuscular Hemoglobin (test code = 785-6) 26.8 28-32 [facility] HospitalMean Corpuscular Hemoglobin Concent 2019-05-12 09:21:00* Test Item Value Reference Range Interpretation Comments Mean Corpuscular Hemoglobin Concent (test code = 786-4) 29.5 31-35 [facility] HospitalRed Cell Distribution [id number] 09:21:00* Test Item Value Reference Range Interpretation Comments Red Cell Distribution Width (test code = 77629-5) 14.3 11.7 -14.4 [facility] HospitalPlatelet [id number] 09:21:00* Test Item Value Reference Range Interpretation Comments Platelet Count (test code = 777-3) 329 140-360 [facility] HospitalNeutrophils (%) (Auto)2019-05-12 09:21:00 * Test Item Value Reference Range Interpretation Comments Neutrophils (%) (Auto) (test code = 00146-7) 62.5 38.7-80.0 [facility] HospitalLymphocytes (%) (Auto)2019-05-12 09:21:00 * Test Item Value Reference Range Interpretation Comments Lymphocytes (%) (Auto) (test code = 736-9) 15.6 18.0-39.1 [facility] HospitalMonocytes (%) (Auto)2019-05-12 09:21:00* Test Item Value Reference Range Interpretation Comments Monocytes (%) (Auto) (test code = 5905-5) 8.5 4.4-11.3 [facility] HospitalEosinophils (%) (Auto)2019-05-12 09:21:00 * Test Item Value Reference Range Interpretation Comments Eosinophils (%) (Auto) (test code = 713-8) 11.7 0.0-6.0 [facility] HospitalBasophils (%) (Auto)2019-05-12 09:21:00* Test Item Value Reference Range Interpretation Comments Basophils (%) (Auto) (test code = 706-2) 1.2 0.0-1.0 [facility] HospitalIM GRANULOCYTES %2019-05-12 09:21:00* Test Item Value Reference Range Interpretation Comments IM GRANULOCYTES % (test code = IM GRANULOCYTES %) 0.5 0.0- 1.0 [facility] HospitalNeutrophils # (Auto)2019-05-12 09:21:00* Test Item Value Reference Range Interpretation Comments Neutrophils # (Auto) (test code = 751-8) 4.1 2.1-6.9 [facility] HospitalLymphocytes # (Auto)2019-05-12 09:21:00* Test Item Value Reference Range Interpretation Comments Lymphocytes # (Auto) (test code = 28424-7) 1.0 1.0-3.2 [facility] HospitalMonocytes # (Auto)2019-05-12 09:21:00* Test Item Value Reference Range Interpretation Comments Monocytes # (Auto) (test code = 742-7) 0.6 0.2-0.8 [facility] HospitalEosinophils # (Auto)2019-05-12 09:21:00* Test Item Value Reference Range Interpretation Comments Eosinophils # (Auto) (test code = 711-2) 0.8 0.0-0.4 [facility] HospitalBasophils # (Auto)2019-05-12 09:21:00* Test Item Value Reference Range Interpretation Comments Basophils # (Auto) (test code = 704-7) 0.1 0.0-0.1 [facility] Granul[facility] (auto 2019-05-12 09:21:00* Test Item Value Reference Range Interpretation Comments Absolute Immature Granulocyte (auto (rosario t code = Absolute Immature Granulocyte (auto) 0.03 0-0.1 [facility] Random Total Yugcfew5001-00-64 08:35:00* Test Item Value Reference Range Interpretation Comments Urine Random Total Protein (test code = 2888-6) < 6.8 1-14 [facility] Gfocsrajog4026-15-40 08:35:00* Test Item Value Reference Range Interpretation Comments Urine Creatinine (test code = 2161-8) 57.95 63-166 [facility] Protein/Creatinine Wbxbz1911-92-42 08:35:00* Test Item Value Reference Range Interpretation Comments Urine Protein/Creatinine Ratio (test code = 93167-0) 0.00 [facility]Blood Snmnjzu7932-94-64 15:07:00* Test Item Value Reference Range Interpretation Comments Blood Culture (test code = 63685809) NO GROWTH AFTER 5 DAYS, FINAL REPORT [facility] HospitalCT[facility] ABD/MVGIDZ2034-05-32 09:43:00 [place] [address] Patient Name: AG CATALAN MR #: [id number] : 1935 Age/Sex: 83/M Req #: [id number] Adm Physician: QAMAR DELGADO MD Ordered by: CONSTANTINE LR MD Report #: [id number] Location: [facility]/SURG Room/Bed: [facility] Procedure: [id number] CT/CTA ABD/PELVIS Exam Date: 05/07/19 Exam Time: 17 50 REPORT STATUS: Signed Chest, Abdomen and Pelvis CTA WITH AND WITHOUT IV CONTRAST. INDICATION: Abdomina l aortic aneurysm COMPARISON: Renal ultrasound of 05/06/2019 TECHNIQUE: The chest, abdomen and pelvis were scanned utilizing a multidetector helical scanner from the thoracic inlet to the pubic symphysis before and after admini stration of IV contrast. Coronal and sagittal reformations were obtained. 3D p ost-processing of the images was performed, and the post-processed images were used in interpretation. CTA protocol was performed. IV CONTRAST: 100 mL of Isovue 370 ORAL CONTRAST: Water RADIATION DOSE: Total DLP: 1086. 5 mGy*cm FINDINGS: VESSELS: There are moderate calcified and noncalc ified atherosclerotic plaques in the aorta and its major branches. No aortic dissection. Infrarenal abdominal aortic aneurysm measures up to 6.5 x 6.4 c m at its widest point with mural thrombus. The common iliac arteries measure u p to 1.5 cm on the left and 1.4 cm on the right. 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 Th e celiac artery, superior mesenteric artery, and inferior mesenteric artery ar e patent. There is a single right and and 2 left renal arteries, all of which are patent. NON-VASCULAR: LINES/ TUBES: None. LUNGS AND AIRWAYS: Small amount of dependent debris in the upper thoracic trachea. The central a irways are otherwise patent. No focal consolidation or pulmonary edema. Mild s ubsegmental atelectasis at the dependent right lower lobe. Scattered 3 mm rig ht upper and right middle lobe nodules. PLEURA: The pleural spaces are franklin r. HEART AND MEDIASTINUM: The thyroid gland is normal. No supraclavicular, mediastinal, or hilar lymphadenopathy. Prominent left axillary lymph node m easures up to 1.3 cm short axis. Mild multichamber cardiomegaly. No pericardi al effusion. Atherosclerotic calcifications involve the coronary arteries and proximal great vessels.. No central pulmonary embolism. The main pulmonary art arianna is enlarged, measuring up to 4.2 cm. HEPATOBILIARY: No focal hepatic le sions. No biliary ductal dilatation. The gallbladder appears unremarkable. SPLEEN: No splenomegaly. PANCREAS: No focal masses or ductal dilatation. ADRENALS: No adrenal nodules. KIDNEYS/URETERS: No hydronephrosis, stones , or solid mass lesions. Bilateral simple renal cysts. PELVIC ORGANS/BLADDER : Lamb catheter terminates in the decompressed bladder. PERITONEUM / RETRO PERITONEUM: No free air or fluid. LYMPH NODES: No lymphadenopathy. GI TRA CT: Severe sigmoid diverticulosis without CT evidence of diverticulitis. No ab normal bowel thickening. No bowel obstruction. Normal appendix. BONES AND S OFT TISSUES: No acute osseous injury. Old healed right and left rib fractures. Diffuse osteopenia. Moderate degenerative changes of the visualized spine. No suspicious lytic or blastic lesions. Severe right glenohumeral joint degenera tive changes. IMPRESSION: Infrarenal abdominal aortic aneurysm measures u p to 6.5 x 6.4 cm. Moderate calcified and noncalcified atherosclerosis. Recomm end vascular surgical consult if not already obtained. Small focal dissec tion of the right common iliac artery. Severe sigmoid diverticulosis withou t CT evidence of diverticulitis. Scattered 3 mm right upper and middle lobe pulmonary nodules. If the patient is low risk, no further follow-up imaging i s necessary. If the patient is high risk, follow-up chest CT is optional in 12 months. Signed by: Aaliyah Gonzales MD on 05/08/2019 11:41 AM Dictated By : AALIYAH GONZALES MD 1141 Trans cribed By: KAIT on 05/08/19 1141 COPY TO: CONSTANTINE LR MD CTA [id number] 09:43:00 [place] [address] Patient Name: AG CATALAN MR #: [id number] : 1935 Age/Sex: 83/M Req #: [id number] Adm Physician: QAMAR DELGADO MD Ordered by: CONSTANTINE LR MD Report #: [id number] Location: MED/SURG2 Room/Bed: [facility] Procedure: [id number] CT/CTA CHEST Exam Date: 05/07/19 Exam Time: 1750 REPORT STATUS: Signed Chest, Abdom en and Pelvis CTA WITH AND WITHOUT IV CONTRAST. INDICATION: Abdominal aor tic aneurysm COMPARISON: Renal ultrasound of 05/06/2019 TECHNIQUE: The chest, abdomen and pelvis were scanned utilizing a multidetector helical scann from the thoracic inlet to the pubic symphysis before and after administrat ion of IV contrast. Coronal and sagittal reformations were obtained. 3D post-p rocessing of the images was performed, and the post-processed images were used in interpretation. CTA protocol was performed. IV CONTRAST: 100mL of Isovue 370 ORAL CONTRAST: Water RADIATION DOSE: Total DLP: 1086.5 mGy *cm FINDINGS: VESSELS: There are moderate calcified and noncalcified atherosclerotic plaques in the aorta and its major branches. No aortic disse ction. Infrarenal abdominal aortic aneurysm measures up to 6.5 x 6.4 cm at its widest point with mural thrombus. The common iliac arteries measure up to 1.5 cm on the left and 1.4 cm on the right. 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 The trudy iac artery, superior mesenteric artery, and inferior mesenteric artery are pat ent. There is a single right and and 2 left renal arteries, all of which are p atent. NON-VASCULAR: LINES/ TUBES: None. LUNGS AND AIRWAYS: Smal l amount of dependent debris in the upper thoracic trachea. The central airway s are otherwise patent. No focal consolidation or pulmonary edema. Mild subseg mental atelectasis at the dependent right lower lobe. Scattered 3 mm right up per and right middle lobe nodules. PLEURA: The pleural spaces are clear. HEART AND MEDIASTINUM: The thyroid gland is normal. No supraclavicular, me diastinal, or hilar lymphadenopathy. Prominent left axillary lymph node measur es up to 1.3 cm short axis. Mild multichamber cardiomegaly. No pericardial ef fusion. Atherosclerotic calcifications involve the coronary arteries and proxi mal great vessels.. No central pulmonary embolism. The main pulmonary artery i s enlarged, measuring up to 4.2 cm. HEPATOBILIARY: No focal hepatic lesions . No biliary ductal dilatation. The gallbladder appears unremarkable. SP JOHNNA: No splenomegaly. PANCREAS: No focal masses or ductal dilatation. ADRENALS: No adrenal nodules. KIDNEYS/URETERS: No hydronephrosis, stones, or solid mass lesions. Bilateral simple renal cysts. PELVIC ORGANS/BLADDER: Fol ey catheter terminates in the decompressed bladder. PERITONEUM / RETROPERIT ONEUM: No free air or fluid. LYMPH NODES: No lymphadenopathy. GI TRACT: S evere sigmoid diverticulosis without CT evidence of diverticulitis. No abnorma l bowel thickening. No bowel obstruction. Normal appendix. BONES AND SOFT T ISSUES: No acute osseous injury. Old healed right and left rib fractures. Diff use osteopenia. Moderate degenerative changes of the visualized spine. No susp icious lytic or blastic lesions. Severe right glenohumeral joint degenerative changes. IMPRESSION: Infrarenal abdominal aortic aneurysm measures up to 6.5 x 6.4 cm. Moderate calcified and noncalcified atherosclerosis. Recommend v ascular surgical consult if not already obtained. 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 Severe sigmoid diverticulosis without CT evidence of diverticulitis. Scattered 3 mm right upper and middle lobe pulm onary nodules. If the patient is low risk, no further follow-up imaging is nec essary. If the patient is high risk, follow-up chest CT is optional in [address] [place] [address] hs. Signed by: Aaliyah Gonzales MD on 05/08/2019 11:41 AM Dictated By: DENNY GONZALES MD 1141 Transcribe d By: KAIT on 05/08/19 1141 COPY TO: CONSTANTINE LR MD CHEST 2 [id number] 14:28:00 [place] [address] Patient Name: AG CATALAN MR #: [id number] : 1935 Age/Sex: 83/M Req #: [id number] Adm Physician: QAMAR DELGADO MD Ordered by: CHELSEA ROCK MD Report #: [id number] Location: MED/SURG2 Room/Bed: [facility] Procedure: [id number] D X/CHEST 2 VIEWS Exam Date: 05/07/19 Exam Time: 1400 REPORT STATUS: Signed EXAMINATIO N: CHEST 2 VIEWS INDICATION: Shortness of breath COMPARISON: Ches t radiograph 05/04/2019 FINDINGS: LINES/TUBES:EKG leads overlie th e chest. LUNGS:The lungs are mildly hyperinflated. There is perihilar fulln ess and indistinctness of the pulmonary vasculature. Mild bibasilar right grea ter than left opacities. PLEURA:No pleural effusion or pneumothorax. MEDIASTINUM:Cardiomediastinal silhouette is stably enlarged. Atherosclerotic calcifications of the thoracic aorta. BONES/SOFT TISSUES:Old healed right rib fractures. No acute osseous injury. Severe right glenohumeral joint degene rative changes. ABDOMEN:No free air under the diaphragm. IMPRESSION : Cardiomegaly and worsening pulmonary edema. Signed by: Aaliyah Gonzales MD on 05/07/2019 2:29 PM Dictated By: AALIYAH GONZALES MD 1429 Transcribed By: AKIT on 05/07/19 1429 COPY TO: CHELSEA ROCK MD Total Ylgqcnnkd9944-63-55 05:38:00* Test Item Value Reference Range Interpretation Comments Total Bilirubin (test code = 1975-2) 0.3 0.2-1.2 [facility] HospitalAspartate Amino Transf (AST/SGOT) 2019-05-07 05:38:00* Test Item Value Reference Range Interpretation Comments Aspartate Amino Transf (AST/SGOT) (test code = Aspartate Amino Transf (AST/SGOT)) 16 5-34 [facility] HospitalAlanine Aminotransferase (ALT/SGPT) 2019-05-07 05:38:00* Test Item Value Reference Range Interpretation Comments Alanine Aminotransferase (ALT/SGPT) (test code = 1742-6) 7 0-55 [facility] HospitalTotal Bhwznez3050-76-34 05:38:00* Test Item Value Reference Range Interpretation Comments Total Protein (test code = 2885-2) 6.1 6.5-8.1 [facility] HospitalAlbumin2020-01-28 05:38:00* Test Item Value Reference Range Interpretation Comments Albumin (test code = 1751-7) 2.5 3.5-5.0 [facility] HospitalGlobulin2020-01-28 05:38:00* Test Item Value Reference Range Interpretation Comments Globulin (test code = 24959-6) 3.6 2.3-3.5 [facility] HospitalAlbumin/Globulin Rfccc1425-88-52 05:38:00 * Test Item Value Reference Range Interpretation Comments Albumin/Globulin Ratio (test code = 1759-0) 0.7 0.8-2.0 [facility] HospitalAlkaline Blziovohsdj1622-04-70 05:38:00* Test Item Value Reference Range Interpretation Comments Alkaline Phosphatase (test code = 6768-6) 46 40-150 [facility] HospitalUS RENAL RETROPERITONEAL [id number] 15:55:00 [facility] [address] [place] [address] Patient Name: AG CATALAN MR #: [id number] : 1935 Age/Sex: 83/M Req #: [id number] Adm Physician: QAMAR DELGADO MD Ordered by: LANIE RICHARD, MARIPOSA RICHARD Report #: [id number] Location: [facility] Room/Bed: [facility] Procedure: [id number] US/US RENAL RETROPERITONEAL COMP Exam Date: 05/06/19 Exam Time: 1459 REPORT STATUS: Sig randolph EXAM: Renal Ultrasound INDICATION: lizzette COMPARISON: None TECHNIQUE: Transverse and longitudinal images of the kidneys and bladder were obtained. FINDINGS: Right Kidney: Length: 9.6 cm Appear ance: Normal echogenicity. Collecting system: No hydronephrosis Stones: No ne Cyst/Mass: 5 mm simple anechoic exophytic cyst. Left Kidney: Length : 10.9 cm Appearance: Normal echogenicity. Collecting system: No hydroneph rosis Stones: None Cyst/Mass: Multiple simple cysts, the largest measuring u p to 2.3 cm. Bladder: Lamb catheter in the decompressed bladder. I ncidental note is made of infrarenal abdominal aortic aneurysm measuring up to 6.3 cm maximum diameter. IMPRESSION: No renal calculi or hydronephrosis. Bilateral simple renal cysts as above. Infrarenal abdominal aortic aneurys m measuring up to 6.3 cm maximum diameter. RECOMMENDATIONS: Urgent vascul ar surgery consultation for management of large abdominal aortic aneurysm. The above findings were discussed with Dr. Guillaume on 05/06/2019 3:55 PM, who re sponded indicating that the communication was understood. Signed by: Aristides Gonzales MD on 05/06/2019 4:00 PM Dictated By: AALIYAH GONZALES MD 1600 Transcribed By: KAIT on 05/06/19 1 600 COPY TO: MARIPOSA GUILLAUME B-Type Natriuretic Isonrso9670-96-64 15:27:00* Test Item Value Reference Range Interpretation Comments B-Type Natriuretic Peptide (test code = 46688-0) 507.9 0-100 [facility] HospitalUric Dnya2713-17-26 15:18:00* Test Item Value Reference Range Interpretation Comments Uric Acid (test code = 3084-1) 9.1 4.8-8.0 [facility] HospitalCreatine Buaavn2697-55-16 14:37:00* Test Item Value Reference Range Interpretation Comments Creatine Kinase (test code = 2157-6) 111 30-200 [facility] HospitalCreatine Kinase OO5743-02-10 14:37:00* Test Item Value Reference Range Interpretation Comments Creatine Kinase MB (test code = 52974-8) 1.30 0-5.0 [facility] HospitalTroponin X5597-08-23 14:37:00* Test Item Value Reference Range Interpretation Comments Troponin I (test code = IHM0863) 0.033 0-0.300 [facility] HospitalDifferential Total Cells Counted 2019-05-05 10:38:00* Test Item Value Reference Range Interpretation Comments Differential Total Cells Counted (test code = Luigi tial Total Cells Counted) 100 [facility] HospitalNeutrophils % (Manual)2019-05-05 10:38:00 * Test Item Value Reference Range Interpretation Comments Neutrophils % (Manual) (test code = 18546-9) 72 40-74 [facility] HospitalLymphocytes % (Manual)2019-05-05 10:38:00 * Test Item Value Reference Range Interpretation Comments Lymphocytes % (Manual) (test code = 737-7) 10 19-48 [facility] HospitalMonocytes % (Manual)2019-05-05 10:38:00* Test Item Value Reference Range Interpretation Comments Monocytes % (Manual) (test code = 744-3) 8 3.4-9.0 [facility] HospitalEosinophils % (Manual)2019-05-05 10:38:00 * Test Item Value Reference Range Interpretation Comments Eosinophils % (Manual) (test code = 714-6) 10 0-7 [facility] HospitalFerritin2020-01-26 09:33:00* Test Item Value Reference Range Interpretation Comments Ferritin (test code = 2276-4) 799.26 21.81-274.66 [facility] HospitalIron Wgdcg4383-31-63 08:39:00* Test Item Value Reference Range Interpretation Comments Iron Level (test code = 2498-4) 16 65-175 [facility] HospitalTotal Iron Binding Ysdwwudf4306-68-71 08:39:00* Test Item Value Reference Range Interpretation Comments Total Iron Binding Capacity (test code = 2500-7) 175 261-4 78 [facility] HospitalPercent Iron Byabkahwli4259-47-39 08:39:00* Test Item Value Reference Range Interpretation Comments Percent Iron Saturation (test code = 2502-3) 9 15-50 [facility] HospitalTransferrin2020-01-26 08:39:00* Test Item Value Reference Range Interpretation Comments Transferrin (test code = 3034-6) 125 174-364 [facility] HospitalTriglycerides Agcgd1054-52-47 05:29:00* Test Item Value Reference Range Interpretation Comments Triglycerides Level (test code = 2571-8) 63 0-149 [facility] HospitalCholesterol Qmzaw1588-83-69 05:29:00* Test Item Value Reference Range Interpretation Comments Cholesterol Level (test code = 2093-3) 99 0-199 Less than 200 mg/dL Low Tgbb242 - 239 mg/dL Borderline Osgc885 m g/dl and greater High Risk [facility] HospitalLDL Sbnvikrqrts3015-40-21 05:29:00* Test Item Value Reference Range Interpretation Comments LDL Cholesterol (test code = 2089-1) 60 60-130 [facility] HospitalHDL Fslbmdtvbmz1636-64-68 05:29:00* Test Item Value Reference Range Interpretation Comments HDL Cholesterol (test code = 2085-9) 26 40-60 [facility] HospitalCholesterol/HDL Fjljq2823-62-47 05:29:00 * Test Item Value Reference Range Interpretation Comments Cholesterol/HDL Ratio (test code = 9830-1) 3.8 3.9-4.7 [facility] HospitalCT CERVICAL SPINE SV1960-97-99 16:13:00 [facility] [address] [place] [address] Patient Name: AG CATALAN MR #: [id number] : 1935 Age/Sex: 83/M Req #: [id number] Adm Physician: Ordered by: MARTINA SKELTON MD Report #: [id number] Location: ER Room/Bed: Procedure: [id number] C T/CT CERVICAL SPINE WO Exam Date: Exam Time: REPORT STATUS: Signed History: Trauma , fall, unsteady gait Comparison studies: None Technique: Axial images were obtained through the cervical region. Coronal and sagittal images recons tructed from the axial data. Dose modulation, iterative reconstruction, and/or weight based adjustment of the mA/kV was utilized to reduce the radiation dos e to as low as reasonably achievable. Intravenous contrast: None Find ings: Atlantoaxial articulation: Intact. Alignment: Normal cervical lordo tic curvature. Minimal anterolisthesis of C6 on C7 and C7 on T1 are most likel y degenerative in etiology. Cervicomedullary junction: No abnormalities. Th e foramen magnum is patent. Soft tissues: No gross acute abnormalities. Vertebrae: No fracture, infection or neoplasm. Incidental congenital atlan tooccipital assimilation. Degenerative changes: Multilevel disc degenera tion, worse/moderate from C3 to C6. Prominent anterior marginal osteophytes in dent the prevertebral soft tissues from C3 to T1. Disc osteophyte complexes at C3-C4 and C4-C5 result in at least moderate canal stenosis. Mild canal stenos is at C5-C6 due to disc osteophyte complex. Advanced multilevel facet arthrosi s. Varying degrees of moderate to severe bilateral degenerative foraminal sten osis from C2 through C6. Incidental findings: Scattered calcified athero sclerosis. Anatomical variant retropharyngeal course of the right common matthews tid and proximal cervical internal carotid artery. IMPRESSION: 1. N o cervical spine fracture or subluxation. 2. Advanced multilevel degenerative changes with at least moderate canal stenosis and multilevel moderate to pamela re foraminal stenosis. Cervical spine MRI may further evaluate as warranted. Ligament, spinal cord and or vascular abnormalities cannot be excluded on the basis of this examination Signed by: César Howard on 05/04/2019 4:22 PM Dictated By: KATIE TAI MD Electronically Si gned By: KATIE TAI MD on 05/04/19 162 Transcribed By: KAIT on 0 1622 COPY TO: MARTINA SKELTON MD CT BRAIN [id number] 16:08:[facility] [address] [facility] Name: AG CATALAN MR #: [id number] : 1935 Age/Sex: 83/M Req #: [id number] Adm Physician: Ordered by: MARTINA SKELTON MD Report #: [id number] Location: ER Room/Bed: Procedure: [id number] C T/CT BRAIN WO Exam Date: Exam Time: REPORT STATUS: Signed Exam: Head CT without co ntrast History: Trauma, fall, unsteady gait Comparison studies: None Technique: Axial images were obtained from the skull base to the vertex. Cor onal and sagittal images reconstructed from the axial data. Dose modulation, iterative reconstruction, and/or weight based adjustment of the mA/kV was util ized to reduce the radiation dose to as low as reasonably achievable. R adiation dose: Total DLP: 1275.77 mGy*cm. Estimated effective dose: DLP x 0.015 Intravenous contrast: None Findings: Scalp: No abnormalities. Bones: No fractures, blastic or lytic lesions. Brain sulci: Mildly prom. Ventricles: Mild compensatory dilatation. No hydrocephalus. Extra-axial spa eliseo: No masses, no fluid collection. Parenchyma: No mass, acute hemorrh age or acute or chronic cortical insults. Ill-defined and mildly confluent hyp odensities in the supratentorial white matter are nonspecific but are most com patible with chronic microvascular ischemic changes. Sellar/suprasellar r egion: No abnormalities. Craniocervical junction: Patent foramen magnum. No Ch iari one malformation. Incidental findings: Atherosclerotic calcificatio ns in the carotid siphons and intradural vertebral arteries. IMPRESSION: No acute abnormalities. Chronic findings: 1. Mild generalized brai n volume loss. 2. Mild to moderate microvascular ischemic changes. Cristela d by: Dr. Katie Tai M.D. on 05/04/2019 4:13 PM Dictated By: KATIE DASILVA MD 12 Transc ribed By: KAIT on 05/04/191612 COPY TO: MARTINA SKELTON MD Urine Risci0725-01-84 15:58:00* Test Item Value Reference Range Interpretation Comments Urine Color (test code = 5778-6) YELLOW YELLOW [facility] HospitalUrine Uyhytpx9057-60-55 15:58:00* Test Item Value Reference Range Interpretation Comments Urine Clarity (test code = 72678-8) SL CLOUDY CLEAR [facility] HospitalUrine Specific Xepcypq9478-79-87 15:58:00 * Test Item Value Reference Range Interpretation Comments Urine Specific [place] (test code = 5811-5) 1.010 1.010-1.02 5 [facility] HospitalUrine nL1523-30-97 15:58:00* Test Item Value Reference Range Interpretation Comments Urine pH (test code = 72975-5) 5.5 5-7 [facility] HospitalU[facility] Leukocyte Ikruqjqc7851-31-33 15:58:00* Test Item Value Reference Range Interpretation Comments Urine Leukocyte Esterase (test code = 5799-2) SMALL NEGATIVE [facility] HospitalUrine Gmpwgos8814-54-03 15:58:00* Test Item Value Reference Range Interpretation Comments Urine Nitrite (test code = 58472-4) NEGATIVE NEGATIVE [facility] HospitalUrine Hlhuogh0100-11-34 15:58:00* Test Item Value Reference Range Interpretation Comments Urine Protein (test code = 5804-0) NEGATIVE NEGATIVE [facility] HospitalUrine Glucose (UA)2019-05-04 15:58:00* Test Item Value Reference Range Interpretation Comments Urine Glucose (UA) (test code = 2349-9) NEGATIVE NEGATIVE [facility] HospitalUrine Otidgtr3271-51-22 15:58:00* Test Item Value Reference Range Interpretation Comments Urine Ketones (test code = 29500-2) NEGATIVE NEGATIVE [facility] HospitalUrine Hzzwligjieka8607-59-85 15:58:00* Test Item Value Reference Range Interpretation Comments Urine Urobilinogen (test code = 97065-9) 0.2 0.2-1 [facility] HospitalU[facility] Ddtxshxvo8840-59-33 15:58:00* Test Item Value Reference Range Interpretation Comments Urine Bilirubin (test code = 1978-6) NEGATIVE NEGATIVE [facility] Kvmlu5959-36-18 15:58:00* Test Item Value Reference Range Interpretation Comments Urine Blood (test code = 38719-4) 1+ NEGATIVE [facility] HospitalU[facility] FPU4148-72-48 15:58:00* Test Item Value Reference Range Interpretation Comments Urine WBC (test code = 5821-4) 6-10 0-5 [facility] ZDJ8971-36-59 15:58:00* Test Item Value Reference Range Interpretation Comments Urine RBC (test code = 88773-0) 0-5 0-5 [facility] HospitalU[facility] Dckmjplz4285-28-89 15:58:00* Test Item Value Reference Range Interpretation Comments Urine Bacteria (test code = 11881-3) RARE NONE [facility] HospitalU[facility] Epithelial Btasz7984-98-78 15:58:00 * Test Item Value Reference Range Interpretation Comments Urine Epithelial Cells (test code = 70051-2) FEW NONE [facility] [id number] 15:26:00* Test Item Value Reference Range Interpretation Comments Prothrombin Time (test code = 5902-2) 14.7 11.9-14.5 [facility] International Ratio 2019-05-04 15:26:00* Test Item Value Reference Range Interpretation Comments Prothromb Time International Ratio (test code = 6301-6) 1.10 Oral Anticoagulant Therapy INR Values:1. Low Intensity Therapy 1.5 - 2.02 . Moderate Intensity Therapy 2.0 - 3.03. High Intensity Therapy(1) 2.5 - 3. 54. High Intensity Therapy(2) 3.0 - 4.05. Panic Value INR > 5.0 [facility] Thromboplast Time 2019-05-04 15:26:00* Test Item Value Reference Range Interpretation Comments Activated Partial Thromboplast Time (test code = 23544-9) 42.0 23.8-35.5 [facility] SINGLE (PORTABLE)2019-05-04 14:49:00 [facility] [address], [place] [address] Patient Name: AG CATALAN MR #: [id number] : 1935 Age/Sex: 83/M Req #: [id number] Adm Physician: Ordered by: MARTINA SKELTON MD Report #: [id number] Location: ER Room/Bed: Procedure: [id number] D X/CHEST SINGLE (PORTABLE) Exam Date: 05/04/19 Exam T mundo: 1410 REPORT STATUS: Signed EXAMINATION: CHEST SINGLE (PORTABLE) INDICATION: Shortness of breath. COMPARISON: 04/18/19. FINDINGS: AP view TUBES and LINES: None. LUNGS and pleura: Lungs are well inflated. There is mild prominenc e of the central pulmonary vasculature, consistent with pulmonary venous conge stion. Bilateral small pleural effusions. No pneumothorax. HEART AND MEDIASTINUM: The cardiomediastinal silhouette is moderately enlarged. Enlarge d tiki bilaterally suggestive of enlarged pulmonary arteries. BONES AND SOFT TISSUES: No acute osseous lesion. Old right-sided rib fracture deformit ies are again seen. Soft tissues are unremarkable. UPPER ABDOMEN: No free a ir under the diaphragm. IMPRESSION: Decompensated CHF with bilateral pulmonary venous congestion and interstitial edema. Signed by: Dr. Michael Meier M.D. on 05/04/2019 2:51 PM Dictated By: SUSIE PAYTON MD, MD 50 Transcribe d By: KAIT on 05/04/191450 COPY TO: MARTINA SKELTON MD Influenza Virus Types A,B [id number] 20:04:00* Test Item Value Reference Range Interpretation Comments Influenza Virus Types A,B Antigen (test code = 51107-5) NEGATIVE NEGATIVE [facility] SINGLE (PORTABLE)2019-04-18 06:37:00 [place] [address] Patient Name: AG CATALAN MR #: [id number] : 1935 Age/Sex: 83/M Req #: [id number] Adm Physician: QAMAR DELGADO MD Ordered by: GERARD CORTES MD Report #: [id number] Location: ICU Room/Bed: [place] [address] Procedure: [id number] D X/CHEST SINGLE (PORTABLE) Exam Date: Exam Time: REPORT STATUS: Signed Examination: Single AP view of the chest. COMPARISON: 04/17/2019 INDICATION: Pleural effusion DISCUSSION: See impression IMPRESSION: Stabl e enlargement of the cardiac silhouette with interval worsening interstitial e redd. No new consolidations. No acute osseous abnormality. 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 Signed by: Dr. Katie Alvarado M.D. on 04/18/2019 6:40 AM Dic tated By: KATIE ALVARADO MD 9 COPY TO: GERARD CORTES MD CHEST SINGLE (PORTABLE)2019-04-17 18:31:00 [place] [address] Patient Name: AG CATALAN MR #: [id number] : 1935 Age/Sex: 83/M Req #: [id number] Adm Physician: Ordered by: MARTINA SKELTON MD Report #: [id number] Location: ER Room/Bed: Procedure: [id number] D X/CHEST SINGLE (PORTABLE) Exam Date: 04/17/19 Exam T mundo: 182 REPORT STATUS: Signed EXAMINATION: CHEST SINGLE (PORTABLE) INDICATION: STEMI 202 [id number] 182 COMPARISON: 12/25/2017 FINDINGS: AP view T UBES and LINES: None. LUNGS and pleura: Lungs are well inflated. Pulmona ry vascular congestion on mild posterior ligament. Bibasilar segmental atelect asis and suspected trace pleural effusions. No pneumothorax. HEART AND ME DIASTINUM: The cardiomediastinal silhouette is enlarged. BONES AND SOF T TISSUES: No acute osseous lesion. Old right-sided rib fracture deformities are again seen. Soft tissues are unremarkable. UPPER ABDOMEN: No free air under the diaphragm. IMPRESSION: Enlarged cardiomediastinal silhouet te, mild central vascular congestion, and interstitial edema. Bibasilar atel ectasis and suspected trace pleural effusions. Underlying pneumonia cannot be excluded in the appropriate clinical context. Signed by: Dr. Edy moscoso MD on 04/17/2019 6:33 PM Dictated By: EDY JUAREZ MD 32 Transcribed By: KAIT on 0 1833 COPY TO: MARTINA SKELTON MD CHEST 2 [id number] 15:09:00 [place] [address] Patient Name: AG CATALAN MR #: [id number] : 1935 Age/Sex: 82/M Req #: [id number] Adm Physician: Ordered by: NORBERT SAAVEDRA MD Report #: [id number] Location: OR Room/Bed: Procedure: [id number] DX/CHEST 2 VIEWS Exam Date : 12/25/17 Exam Time: 1450 REPORT STATUS: Cristela d EXAMINATION: PA and lateral views of the chest. COMPARISON: None CLINICAL HISTORY: Preadmission for urologic surgery DISCUSSION: Lines/tubes: None. Lungs: Atelectasis in the middle lobe and lingula. Lungs otherwise clear. Pleura: No pleural effusion or pneumothorax. H eart and mediastinum: The cardiomediastinal silhouette is normal. Bones an d soft tissues: No acute bony abnormalities. Remote healed right-sided rib f ractures. IMPRESSION: No acute cardiopulmonary abnormalities. Signed by: Dr. Cee Whyte M.D. on 12/25/2017 3:10 PM Dictated By: CEE WHYTE MD 1510 COPY TO: VALERIA SAAVEDRA MD CHEST 2 VIEWS [place] [address] Patient Name: AG CATALAN MR #: [id number] : 1935 Age/Sex: 82/M Req #: [id number] Adm Physician: Ordered by: KATIE MOREAU MD Report #: [id number] Location: OR Room/Bed: Procedure: [id number] DX/CHEST 2 VIEWS Exam Date: 08/07/17 Exam Time: 1732 REPORT STATUS: Signed PROCEDURE: Frontal and lateral views of the chest. COMPARISON: [facility], DX, CHEST 2 VIEWS, 03/17/2010, 16:30. INDICATIONS: PRE OP THUMB SURGERY FINDINGS: Lines/tubes: None. Lungs: P atchy density in the lung bases suggestive of subsegmental atelectasis. And/o r senescent fibrosis. There is no evidence of pneumonia or pulmonary edema. Pleura: There is no pleural effusion or pneumothorax. Blunting of the p osterior sulci suggestive of pleural scarring. Heart and mediastinum: The cardiac silhouette is mildly enlarged. Tortuous thoracic aorta. Bones: No acute bony abnormality. Remote healed right sided rib fractures. Degener ative changes of the thoracic spine. IMPRESSION: 1. No acute cardi opulmonary disease. Bibasilar subsegmental atelectasis and/or scarring. Michael Payton M.D. Dictated by: Michael Payton M.D. on 08/07/2017 at 18:14 Electronically approved by: Edgar Moore on 08/07/2017 at 18:14 Dictated By: SUSIE PAYTON MD, MD El ectronically Signed By: SUSIE PAYTON MD, MD on 08/07/171813 Transcribed By: Shawn MCDANIELS on 08/07/171813 COPY TO: KATIE MOREAU MD
--- OUTSIDE RECORDS SUMMARY | 2019-08-21 04:56 | XMS REPORT ---
Author Author AG Arora Organization [employer] Address Unknown Phone Unavailable Care Team Providers Care Short Order Fry Cook Name Role Phone Ayo Arora CP Unavailable [...]
--- OUTSIDE RECORDS SUMMARY | 2019-08-21 04:56 | XMS REPORT | Summary of Care ---
Author Author AG Tejeda Krishan Organization Unknown Address Unknown Phone Unavailable Care Team Providers Care Professor Of Radiology Name Role Phone [facility], DR BLAIR Unavailable Unavailable MIGUELITO RICHARD, HOLLY NOGUERA Unavailable Unavailable DERRICK MEYERS MD Unavailable Unavailable JOHNNIE SANCHEZ, JANE Unavailable Unavailable [...] rowan Procedures Procedure Dates Details CTA Abdomen/Pelvis 34949 Date: 24-May-2019 CVRAD - Abdominal Duplex Comp - 41537 Date: 05-Jun-2019 Immunization Name Dates Details Immunizations not documented Social History Name Dates Details - Status: Name Dates Details Ex-smoker (finding) Vital Signs Date Test Result Details No Known Vitals to report Results Date Description Value Details 8-Mto-[id number]:50 [[facility]] BASIC METABOLIC PANEL W/EGFR Glucose Lvl 88 mg/dl Range: 70-99 Comments: Adult reference range values reflect the clinical guidelinesof the [place] [employer]. Blood Urea Nitrogen 22 mg/dl [...] Labs/Procedures/Imaging* CVRAD - Abdominal Duplex Comp - 60526; To Be Done: 05 Jun 2019 Instructions Name Dates Details Instructions not documented Encounters Appointment; JANE BLAIR M.D. Encounter Diagnosis: Problem not documented On: 13-May-2019 11:45 Appointment; JANE BLAIR M.D. Encounter Diagnosis: Problem not documented On: 22-May-2019 6:30 Appointment; DR JOHNNIE CUMMINGS Encounter Diagnosis: Problem not documented On: 05-Jun-2019 8:00
--- OUTSIDE RECORDS SUMMARY | 2019-08-21 04:56 | XMS REPORT | Summary of Care ---
Author Author JOHNNIE Hairston, AG LARA Organization Unknown Address Unknown Phone Unavailable Care Team Providers Care Salvage Cutter Name Role Phone JANE BLAIR M.D. Unavailable Unavailable HOLLY FARLEY MD Unavailable Unavailable DERRICK MEYERS MD Unavailable Unavailable JANE STAPLES MD Unavailable Unavailable Unavailable Unavailable Functional Status [...] Status: Act rowan Procedures Procedure Dates Details [QL] BASIC METABOLIC PANEL W/EGFR Date: 10-Jun-2019 Immunization Name Dates Details Immunizations not documented Social History Name Dates Details - Status: Name Dates Details Ex-smoker (finding) Vital Signs Date Test Result Details 9-Rva-[id number]:56 Weight 235 lb Status: Results Date Description Value Details 7-Nwa-346196:50 [[facility]] BASIC METABOLIC PANEL W/EGFR Glucose Lvl 88 mg/dl Range: 70-99 Comments: Adult reference range values reflect the clinical guidelinesof the [place] [employer]. Blood Urea Nitrogen 22 mg/dl [...] of Care Name Dates Details Planned Observations [[facility]H] BASIC METABOLIC PANEL W/EGFR On: 11-Jun-2019 Intent Planned Goals not documented Interventions Provided Plan* I will see him again in 6 months for repeat aortic ultrasound. Instructions Name Dates Details Instructions not documented Encounters Appointment; JANE BLAIR M.D. Encounter Diagnosis: Problem not documented On: 13-May-2019 11:45 Appointment; JANE BLAIR M.D. Encounter Diagnosis: Problem not documented On: 22-May-2019 6:30 Appointment; DR JOHNNIE CUMMINGS Encounter Diagnosis: Problem not documented On: 05-Jun-2019 8:00 Appointment; JANE BLAIR M.D. Encounter Diagnosis: Problem not documented On: 10-Jun-2019 12:30
[2019-08-21] MEDS ORDERED: SODIUM CHLORIDE 0.9% 1000ML 1,000 ML IV STA (05:00)
--- NOTE | 2019-08-21 05:10 | Emergency Department Note ---
History of Present Illnes History of Present Illness Chief Complaint: Abdominal Complaints Stated Complaint: FALL ABD PAIN History of Present Illness This is a 84 year old male who fell at 1500 the previous day with resultant abd pain. Patient with prior h/o of R inguinal surgical repair. . Historian: Patient History limited by: language barrier Butcher Fish Required: Yes Onset (how long ago): hour(s) (12) Radiation: non-radiation Onset quality: sudden Duration (how long): hour(s) (12) Timing of current episode: constant Progression: worsening Chronicity: new Relieving factors: none Exacerbating factors: none Associated symptoms: denies other symptoms Treatments prior to arrival: none Past Medical/Family History Physician Review I have reviewed the patient's past medical and family history. Any updates have been documented here. 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 OBESITY Past Surgical History: PCI, Knee Replacement, Hernia Repair Other Surgery: BILATERAL KNEE REPLACEMENT Social History Smoking Cessation: Never Smoker Alcohol Use: None Any Illegal Drug Use: No Other Last Tetanus: UNKNOWN Review of Systems Review of Systems Constitutional: no symptoms EENTM: no symptoms Cardiovascular: no symptoms Respiratory: no symptoms Gastrointestinal: abdominal pain Genitourinary: no symptoms Musculoskeletal: no symptoms Integumentary: no symptoms Neurological: no symptoms Psychological: no symptoms Endocrine: no symptoms Hematological/Lymphatic: no symptoms Review of other systems All other systems reviewed and negative. Physical Exam Related Data Allergies: Coded Allergies: No Known Allergies (Verified , 08/21/19) Physical Exam CONSTITUTIONAL Constitutional: cachectic HENT HENT: normocephalic, atraumatic, oropharynx clear/moist, nose normal HENT - Ear: left ext ear normal, right ext ear normal EYES Eyes: PERRL, conjunctivae normal NECK Neck: ROM normal PULMONARY Pulmonary: effort normal, breath sounds normal CARDIOVASCULAR Cardiovascular: regular rhythm, heart sounds normal, capillary refill normal, normal rate GASTROINTESTINAL Abdominal: tender, hernia (LLQ inguinal ) GENITOURINARY Genitourinary: exam deferred SKIN Skin: pale MUSCULOSKELETAL Musculoskeletal: ROM normal NEUROLOGICAL Neurological: alert, oriented x 3, no gross motor or sensory deficits PSYCHOLOGICAL Psychiatric/behavioral: mood/affect normal, judgement normal Results Laboratory Lab results reviewed: Yes [address] Imp[address], [place], [place] [address] Patient Name: AG CATALAN MR #: [id number] : 1935 Age/Sex: 84/M Req #: [id number] Adm Physician: RADHA DELGADO MD Ordered by: SENTHIL MCNAIR DO Report #: [id number] Location: [facility] Room/Bed: [place] [address] Procedure: [id number] CT/CT ABDOMEN/PELVIS WO Exam Date: 08/21/19 Exam Time: 0800 REPORT STATUS: Signed EXAM: CT Abdomen and Pelvis WITHOUT intravenous contrast INDICATION: Abdominal pain COMPARISON: CT abdomen and pelvis of 05/07/2019 TECHNIQUE: Abdomen and pelvis were scanned utilizing a multidetector helical scanner from the lung base to the pubic symphysis without administration of IV contrast. Coronal and sagittal reformations were obtained. IV CONTRAST: None ORAL CONTRAST: Gastrografin COMPLICATIONS: None RADIATION DOSE: Total DLP: 600 mGy*cm Dose modulation, iterative reconstruction, and/or weight based adjustment of the mA/kV was utilized to reduce the radiation dose to as low as reasonably achievable. FINDINGS: LOWER THORAX: Trace right pleural effusion. Mild bibasilar dependent subsegmental atelectasis. Mild interlobular septal thickening and bladder wall with mild interstitial pulmonary edema. HEPATOBILIARY: No focal liver lesion. Unremarkable gallbladder. SPLEEN: No splenomegaly. PANCREAS: No focal masses or ductal dilatation. ADRENALS: No adrenal nodules. KIDNEYS/URETERS: No hydronephrosis or renal calculi. Unchanged bilateral renal cysts. PELVIC ORGANS/BLADDER: Unremarkable. PERITONEUM / RETROPERITONEUM: No free air or fluid. LYMPH NODES: No lymphadenopathy. VESSELS: Status post interval stent graft repair of infrarenal abdominal aortic aneurysm. The aneurysm sac is essentially unchanged in size compared to 05/07/2019. GI TRACT: Multiple loops of fluid-filled distended small bowel in the mid and lower abdomen with transition point at an incarcerated loop of small bowel in the left inguinal hernia. Severe diverticulosis. No CT evidence of diverticulitis. Normal appendix. BONES AND SOFT TISSUES: Diffuse osteopenia. No acute osseous injury. No suspicious lytic or blastic lesions. IMPRESSION: Incarcerated small bowel loops associated with left internal hernia resulting in small bowel obstruction. Interval stent graft repair of infrarenal abdominal aortic aneurysm with unchanged aneurysm sac size compared to 05/07/2019. The above findings were discussed with Dr. To on 08/21/2019 9:40 AM, who responded indicating that the communication was understood. Signed by: Aaliyah Gonzales MD on 08/21/2019 10:06 AM Dictated By: AALIYAH GONZALES MD 100 Transcribed By: KAIT on 08/21/191005 COPY TO: SENTHIL MCNAIR DO~ Procedures 12 Lead ECG Interpretation Butcher Fish: Interpreted by ED physician Date: August 21, 2019 Time: 05:09 Prior STRIPPER COLOR tracings: reviewed Rhythm: sinus rhythm Rate: normal BMP: 66 QRS axis: normal ST Segments Normal: Yes T Wave Flattening: all Other findings: no other findings Clinical Impression: abnormal ECG Assessment & Plan Assessment & Plan Problems: (1) Incarcerated left inguinal hernia Assessment & Plan Patient with obvious Left inguinal hernia which is unable to be reduced at bedside. Case d/w with Dr To at 0700 who will see the patient as an in-patient Depart Disposition: ADMITTED Home Meds Reported Medications Tamsulosin Hcl* (FLOMAX*) 0.4 Mg Cap, 0.4 MG PO DAILY, #30 CAP 08/21/19 Aspirin (ASPIR 81) 81 Mg Tablet.dr 81 MG PO DAILY 08/21/19 Clopidogrel Bisulfate* (PLAVIX) 75 Mg Tablet, 75 MG PO DAILY, #30 TAB 08/21/19 Acetaminophen With Codeine (TYLENOL WITH CODEINE #3 TABLET) 1 Each Tablet, 300 M G PO BID PRN for Mild Pain (1-3) or Fever>100.8, TAB 08/21/19 Hydroxychloroquine Sulfate (PLAQUENIL) 200 Mg Tab, 200 MG PO DAILY, #30 TAB 08/21/19 Docusate Sodium (DOCUSATE SODIUM) 100 Mg Capsule, 100 MG PO BID PRN for CONSTIPATION, CAP 08/21/19 Lisinopril (LISINOPRIL) 10 Mg Tablet, 10 MG PO DAILY, #30 TAB 08/21/19 Ferrous Sulfate (FERROUS SULFATE) 325 Mg Tablet, 325 MG PO BID 08/08/17 Discontinued Reported Medications Tamsulosin Hcl* (FLOMAX*) 0.4 Mg Cap, 0.4 MG PO DAILY, #30 CAP 12/25/17 Cyanocobalamin (VITAMIN B-12) 1,000 Mcg Tab, 1000 MCG PO DAILY, #30 TAB 08/08/17 Cholecalciferol (Vitamin D3) (VITAMIN D3) 1,000 Unit Capsule, 1000 INTLU PO DAILY 08/08/17 Discontinued Scripts Sodium Bicarbonate (SODIUM BICARBONATE) 650 Mg Tablet, 1300 MG PO BID for 30 Days Prov:RADHA DELGADO MD 05/13/19 Sodium Chloride (SODIUM CHLORIDE) 1 Gm Tab, 2 GM PO TID for 5 Days, TAB Prov:RADHA DELGADO MD 05/13/19 Allopurinol (ALLOPURINOL) 100 Mg Tablet, 200 MG PO DAILY for 30 Days Prov:RADHA DELGADO MD 05/13/19 Fosfomycin Tromethamine (MONUROL) 3 Gm Packet, 3 GM PO ONCE for 1 Day Prov:AUSTIN RABAGO MD 05/09/19 Prasugrel Hcl (EFFIENT) 10 Mg Tablet, 10 MG PO DAILY for 30 Days Prov:RADHA DELGADO MD 04/21/19 Metoprolol Tartrate (LOPRESSOR) 25 Mg Tab, 12.5 MG PO Q12HR for 30 Days, TAB Prov:RADHA DELGADO MD 04/21/19 Famotidine (FAMOTIDINE) 20 Mg Tab, 20 MG PO Q12HR for 30 Days, TAB Prov:RADHA DELGADO MD 04/21/19 Docusate Sodium (COLACE) 100 Mg/10 Ml Liqd, 100 MG NG Q12HR for 30 Days Prov:RADHA DELGADO MD 04/21/19 Atorvastatin Calcium (LIPITOR) 20 Mg Tablet, 20 MG PO HS for 30 Days Prov:RADHA DELGADO MD 04/21/19 Medications in the ED Sodium Chloride 1,000 ml @ 0 mls/hr Q0M STAT IV ; Start 08/21/19 at 05:00; Stop 08/21/19 at 05:01 SENTHIL MCNAIR DO August 21, 2019 05:10
[2019-08-21] MEDS ORDERED: MORPHINE SULFATE INJ 4 MG/ML INJ 1ML IV STA (05:26)
[2019-08-21 05:29] LABS: BASOPHILS # (AUTO) 0.1 (0.0-0.1); BASOPHILS % 1.1 % (0.0-1.0); EOSINOPHILS # (AUTO) 0.1 (0.0-0.4); EOSINOPHILS % 1.8 % (0.0-6.0); HEMATOCRIT 34.6 % (38.2-49.6); HEMOGLOBIN 10.3 g/dL (14.0-18.0); LYMPHOCYTES # (AUTO) 1.1 (1.0-3.2); MEAN CORPUSCULAR HGB CONC 29.8 g/dL (31-35); MEAN CORPUSCULAR VOLUME 97.5 fL (81-99); MONOCYTES # (AUTO) 0.4 (0.2-0.8); MONOCYTES % 7.7 % (4.4-11.3); NEUTROPHILS # (AUTO) 3.9 (2.1-6.9); PLATELET COUNT 213 x10e3/uL (140-360); RED BLOOD COUNT 3.55 x10e6/uL (4.3-5.7); RED CELL DISTRIBUTION WIDTH 15.4 % (11.7-14.4)
[2019-08-21 05:45] LABS: ALBUMIN 3.4 g/dL (3.5-5.0); ALBUMIN/GLOBULIN RATIO 0.7 (0.8-2.0); CALCIUM 8.7 mg/dL (8.4-10.2); CLARITY,URINE CLEAR (CLEAR); COLOR,URINE YELLOW (YELLOW); CREATININE, SERUM 1.92 mg/dL (0.72-1.25); LEUKOCYTE ESTERASE ,URINE NEGATIVE (NEGATIVE); NITRITE,URINE NEGATIVE (NEGATIVE); PROTEIN,URINE DIPSTICK TRACE (NEGATIVE)
[2019-08-21 05:46] LABS: BILIRUBIN,URINE NEGATIVE (NEGATIVE); KETONES,URINE NEGATIVE (NEGATIVE); URINE UROBILINOGEN 0.2 mg/dL (0.2 - 1)
[2019-08-21 05:50] LABS: BACTERIA,URINE RARE /HPF; EPITHELIAL CELLS,URINE RARE /LPF; RBC,URINE 0-5 /HPF (0-5); WBC,URINE (MAN) 0-5 /HPF (0-5)
[2019-08-21] MEDS ORDERED: DIATRIZOATE MEGL/DIATRIZOA SOD 30 ML BTL PO ONE (06:27)
--- OUTSIDE RECORDS SUMMARY | 2019-08-21 07:02 | XMS REPORT | Continuity of Care Document ---
Author Author [employer]andy [employer] [facility] [place] [employer] Address Unknown Phone Unavailable Care Team Providers Care Window Display Designer Name Role Phone [facility] [employer] Information [employer] Unavailable Un available Problems Problem Status Onset Date Classification Date Reported Comments Source DX: I71.4=ABDOMINAL AORTIC ANEURYSM, WIT Active 05/27/2019 [facility] UNK Active 0 05/14/2019 [facility] I71.4/ABD AORTIC ANEURYSM W/O RUP Active 05/14/2019 [facility] Pain in right ankle 04/28/2017 07/31/2017 [facility] [place] M25.579 - PAIN IN UNSPECIFIED ANKLE AND Active 02/25/2015 [facility] [place] Primary osteoarthritis, right ankle and foot 07/31/2017 [facility] [place] Pain in right finger(s) 08/16/2017 [facility] [place] History of falling 08/16/2017 [facility] [place] Displaced fracture of distal phalanx of right index finger, initial encounter for closed fracture 08/16/2017 [facility] [place] Abdominal aortic aneurysm, without rupture 05/25/2019 [facility] Benign prostatic hyperplasia (disorder) Active Problem 06/08/2019 [facility] Constipation (disorder) Active Problem 06/08/2019 [facility] Hearing loss (finding) Active Problem 06/08/2019 [facility] Hypertensive disorder, systemic arterial (disorder) Active Problem 06/08/2019 [facility] Impaired mobility (finding) Ac tive Problem uses walker [facility] Myocardial infarction (disorder) Resolved Problem Apr 2019 [facility] Paraparesis (disorder) Active Problem 06/08/2019 [facility] Peripheral vascular disease (disorder) Active Problem RLE [facility] Rheumatoid arthritis (disorder) Active Problem [facility] Stented coronary artery (finding) Active Problem x 1 after DC 04/2019 [facility] Urinary catheter in situ (finding) Active Problem [facility] Bilateral hearing loss, unspecified hearing loss type Active Problem 11/29/2017 [facility] Rheumatoid arthritis Active Problem 11/29/2017 [facility] Primary osteoarthritis involving multiple joints Active Problem 11/29/2017 [facility] Long-term use of high-risk medication Active Problem [facility] ABDOMINAL AORTIC ANEURYSM, WITHOUT RUPTU Active [facility] Medications Medication Details Route Status Patient Instructions Ordering Provider Order Date Source Plavix Notes: (Same As: Plavix) Inactive 05/23/2019 [facility] Allopurinol Notes: (Same as: Z yloprim) Inactive 05/23/2019 [facility] Aspirin 81 MG Enteric Coated Tablet Notes: Do not crush or chew. (Same As: Ecotrin) Inactive 05/23/2019 [facility] clopidogrel 37.5 mg, 0.5 tab, Route: PO, Drug form: TAB, Daily, Dosing Weight 107.273, kg, Start date: 05/23/19 9:00:00 ENVELOPE CUTTER, Duration: 30 day, Stop date: 06/21/19 9:00:00 CDT No Longer Active 05/23/2019 [facility] Hydroxychloroquine Sulfate 200 MG Oral Tablet Notes: (Same as: Plaquenil) Hydroxychloroquine sulfate 200 mg = 155 mg hydroxychloroquine base. If treating malaria, verify dose as salt vs. base per CDC guideline Inactive 05/23/2019 [facility] Sodium Bicarbonate 650 MG Oral Tablet Notes: "Dissolve tablet in a glass of water prior to oral administration. STOMACH WARNING: To avoid serious injury, do not take until tablet is completely dissolved. It is very important not to take this product when overly full from food or drink." Inactive 05/23/2019 [facility] tamsulosin Notes: (Same As: Fl omax) "Do Not Crush" Inactive 05/23/2019 [facility] atorvastatin Notes: (Same As: Lipitor) No Longer Active 05/23/2019 [facility] Acetaminophen 325 MG / Hydrocodone [place] trate 5 MG Oral Tablet [[place] 5/325] Notes: (Same as: [place] 325/5) Do not ex ceed 4gm/day of acetaminophen. No Longer Activ e 05/22/2019 [facility] Docusate Sodium 100 MG Oral Capsule Notes: (Same as: Colace) (Do Not Crush) No Longer Active 05/22/2019 [facility] Famotidine 20 MG Oral Tablet N otes: (Same as: Pepcid) No Longer Active 05/22/2019 [facility] ferrous sulfate Notes: Give wi th food. "Do Not Crush" No Longer Active 05/22/2019 [facility] metoprolol tartrate Notes: (Sa me as: Lopressor) No Longer Active 05/22/2019 [facility] Cefazolin Notes: (Same As: Anc ef, Kefzol) MEDICATION WASTE Product Size: 1000 mg Product Wasted: ___ mg No Longer Active 05/22/2019 [facility] Lasix Notes: (Same as: Lasix) MEDICATION WASTE Product Size: 40 mg Product Wasted: ___ mg No Longer Active 05/22/2019 [facility] Hydralazine Notes: (Same as: A presoline) Push over 5 minutes No Longer Active 05/22/2019 [facility] Morphine 2 mg, Route: IVP, ONC E, Dosing Weight 107.273, kg, Start date: 05/22/19 12:20:00 ENVELOPE CUTTER, Stop date: 05/22/19 12:20:00 ENVELOPE CUTTER Inactive 05/22/2019 [facility] Sodium Chloride 0.9% (titrate) 250 mL 250 mL, Rate: To prime line and flush remaining blood products., Dosing Weight 107.273, kg, Route: IV, Total Volume: 250, Start Date: 05/22/19 11:53:00 ENVELOPE CUTTER, Duration: 1 day, Stop date: 05/23/19 11:52:00 ENVELOPE CUTTER, Replace Every: 24 hr, 0 No Longer Active 05/22/2019 [facility] neostigmine (ANES) Route: IV, Drug form: INJ, ONCE, Stop date: 05/22/19 11:33:00 ENVELOPE CUTTER Inactive 05/22/2019 [facility] protamine (ANES) Route: IV, Dr ug form: INJ, ONCE, Stop date: 05/22/19 11:33:00 ENVELOPE CUTTER Inactive 05/22/2019 [facility] glycopyrrolate (ANES) Route: I V, Drug form: INJ, ONCE, Stop date: 05/22/19 10:27:00 ENVELOPE CUTTER Inactive 05/22/2019 [facility] phenylephrine (ANES) Route: IV , Drug form: INJ, ONCE, Stop date: 05/22/19 10:27:00 ENVELOPE CUTTER Inactive 05/22/2019 [facility] ondansetron (ANES) Route: IV, Drug form: INJ, ONCE, Stop date: 05/22/19 10:26:00 ENVELOPE CUTTER Inactive 05/22/2019 [facility] dexamethasone (ANES) Route: IV , Drug form: INJ, ONCE, Stop date: 05/22/19 10:26:00 ENVELOPE CUTTER Inactive 05/22/2019 [facility] heparin (ANES) Route: IV, Drug form: INJ, ONCE, Stop date: 05/22/19 10:11:00 ENVELOPE CUTTER Inactive 05/22/2019 [facility] lidocaine (ANES) Route: IV, Dr ug form: INJ, ONCE, Stop date: 05/22/19 9:51:00 ENVELOPE CUTTER Inactive 05/22/2019 [facility] fentaNYL (ANES) Route: IV, Pranay g form: INJ, ONCE, Stop date: 05/22/19 9:51:00 ENVELOPE CUTTER Inactive 05/22/2019 [facility] propofol (ANES) Route: IV, Pranay g form: INJ, ONCE, Stop date: 05/22/19 9:51:00 ENVELOPE CUTTER Inactive 05/22/2019 [facility] rocuronium (ANES) Route: IV, D rug form: INJ, ONCE, Stop date: 05/22/19 9:51:00 ENVELOPE CUTTER Inactive 05/22/2019 [facility] ceFAZolin (ANES) Route: IV, Dr ug form: INJ, ONCE, Stop date: 05/22/19 9:46:00 ENVELOPE CUTTER Inactive 05/22/2019 [facility] Lactated Ringers Injection IV (ANES) 1000 mL Route: IV, Total Volume: 1,000, Start date: 05/22/19 9:17:00 ENVELOPE CUTTER, Stop date: 05/22/19 10:17:00 ENVELOPE CUTTER Inactive 05/22/2019 [facility] Sodium Chloride 0.9% IV (ANES) 1000 mL Route: IV, Total Volume: 1,000, Start date: 05/22/19 9:17:00 ENVELOPE CUTTER, Stop date: 05/22/19 10:17:00 ENVELOPE CUTTER Inactive 05/22/2019 [facility] Cefazolin 2 gm, Route: IVP, [employer] ANALYST, Dosing Weight 107.273, kg, (Patients weighing < 120 kg), Start date: 05/22/19 9:00:00 ENVELOPE CUTTER, Duration: 1 doses or times, ABX Indication: Surgical Prophylaxis Inactive 05/22/2019 [facility] Acetylcysteine 200 MG/ML Inhalant Solution Notes: TUBE TO PRE-OP STAT TUBE TO PRE-OP STAT TUBE TO PRE-OP STAT No Longer Active 05/22/2019 [facility] sodium bicarbonate 8.4% additive 100 mEq + 1/2 NS 1,000 mL Notes: TUBE TO PRE-OP STAT TUBE TO PRE-OP STAT TUBE TO PRE-OP STAT No Longer Active 05/22/2019 [facility] Hydroxychloroquine Sulfate 200 MG Oral Tablet 200 mg = 1 tab, PO, Daily, # 180 tab, 0 Refill(s) Active 05/20/2019 [facility] allopurinol 100 mg oral tablet 200 mg = 2 tab, PO, Daily, # 90 tab, 1 Refill(s) Active 05/20/2019 [facility] Aspirin 81 MG Enteric Coated Tablet 81 mg = 1 tab, PO, Daily, # 90 tab, 3 Refill(s) Active 05/20/2019 [facility] clopidogrel 75 mg oral tablet 37.5 mg = 0.5 tab, PO, Daily, # 90 tab, 3 Refill(s) Active 05/20/2019 [facility] Famotidine 20 MG Oral Tablet 2 0 mg = 1 tab, PO, BID, # 180 tab, 0 Refill(s) Active 05/20/2019 [facility] Sodium Bicarbonate 650 MG Oral Tablet 1,300 mg = 2 tab, PO, Daily, 0 Refill(s) Active 05/20/2019 [facility] atorvastatin 20 mg oral tablet 20 mg = 1 tab, PO, Bedtime, # 90 tab, 1 Refill(s) Active 05/20/2019 [facility] tamsulosin 0.4 mg oral capsule 0.4 mg = 1 cap, PO, Daily, # 90 cap, 0 Refill(s) Active 05/20/2019 [facility] ferrous sulfate 325 mg oral enteric coated tablet 325 mg = 1 tab, PO, BID, # 90 tab, 0 Refill(s) Active 05/20/2019 [facility] metoprolol tartrate 25 mg oral tablet 12.5 mg = 0.5 tab, PO, BID, # 60 tab, 0 Refill(s) Active 05/20/2019 [facility] Docusate Sodium 100 MG Oral Capsule 100 mg = 1 cap, PO, BID, # 60 cap, 3 Refill(s) Active 05/20/2019 [facility] PredniSONE take 2 tablets by m outh daily Orally Active 5MG Orally bid [place] 04/05/2017 [facility] Leflunomide 1 tablet Orally Active 20 MG Orally Once a day [place] 03/30/2017 [facility] Hydroxychloroquine Sulfate 1 t ablet with food or milk Orally Active 200 MG Orally bid [place] 02/06/2017 [facility] Vitamin D (Ergocalciferol) 1 c apsule Orally Active 42894 UNIT Orally Once a week [place] 01/09/2017 [facility] Ar[facility] Vitamin D (Ergocalciferol) 1 c apsule Orally Active 03080 UNIT Orally Once a week [place] 01/09/2017 [facility] Folic Acid 2 tablets Orally Active 1 MG Orally Once a day [place] Patrick Arora Doxazosin Mesylate 1 tablet Orally Active 4 MG Orally Once a day [place] Riaz Arora [employer] as directed Orally Active Orally [place] Patrick Arora Ferrous Sulfate 1 tablet Orally Active 325 (65 Fe) MG Orally Twice a day [place] Riaz Arora Pantoprazole Sodium 1 tablet Orally Active 40 MG Orally Once a day [place] Riaz Arora Tamsulosin HCl 1 capsule Orally Active 0.4 MG Orally Once a da y [place] Riaz Arora Vitamin D3 1 capsule Orally Active 1000 UNIT Orally Once a day [place] Riaz Arora Doxazosin Mesylate 1 tablet Orally Active 4 MG Orally Once a day [place] Riaz Arora Pantoprazole Sodium 1 tablet Orally Active 40 MG Orally Once a day [place] Riaz Arora Tamsulosin HCl 1 capsule Orally Active 0.4 MG Orally Once a da y [place] Riaz Arora Folic Acid 2 tablets Orally Active 1 MG Orally Once a day [place] Patrick Arora Enbrel 1 ml Subcutaneous Active 50 MG/ML Subcutaneous o nce a week [place] Riaz Arora PredniSONE take 2 tablets by m outh daily Orally Active 5MG Orally twice a day [place] Riaz Arora Ferrous Sulfate 1 tablet Orally Active 325 (65 Fe) MG Orally Twice a day [place] Riaz Arora [employer] as directed [...] POC Creatinine 1.7 0.5 - 1.4 06/06/2019 [facility] CHEM PANEL eGFR 37 06/06/2019 Result Comment: [...] should be multiplied by the estimated BMI. [facility] CHEM PANEL Glucose Lvl 83 70 - 99 05/23/2019 [facility] CHEM PANEL BUN 17 7 - 22 05/23/2019 [facility] CHEM PANEL Creatinine Lvl 1.41 0.50 - 1.40 05/23/2019 [facility] CHEM PANEL Sodium Lvl 139 135 - 145 05/23/2019 [facility] CHEM PANEL Potassium Lvl 4.1 3.5 - 5.1 05/23/2019 [facility] CHEM PANEL Chloride Lvl 104 95 - 109 05/23/2019 [facility] CHEM PANEL CO2 28 24 - 32 05/23/2019 [facility] CHEM PANEL Calcium Lvl 8.0 8.5 - 10.5 05/23/2019 [facility] CHEM PANEL AGAP 11.1 10.0 - 20.0 05/23/2019 [facility] CHEM PANEL eGFR 46 05/23/2019 Result Comment: [...] should be multiplied by the estimated BMI. [facility] HEMATOLOGY WBC 5.0 3.7 - 10.4 05/23/2019 [facility] HEMATOLOGY RBC 3.17 4.70 - 6.10 05/23/2019 [facility] HEMATOLOGY Hgb 9.0 14.0 - 18.0 05/23/2019 [facility] HEMATOLOGY Hct 27.8 42.0 - 54.0 05/23/2019 [facility] MCV 87.6 80.0 - 94.0 05/23/2019 [facility] HEMATOLOGY MCH 28.4 27.0 - 31.0 05/23/2019 [facility] MCHC 32.4 32.0 - 36.0 05/23/2019 [facility] HEMATOLOGY RDW 16.2 11.5 - 14.5 05/23/2019 [facility] Platelet 299 133 - 450 05/23/2019 [facility] MPV 7.5 7.4 - 10.4 05/23/2019 [facility] BLOOD BANK RESULTS RBC product Product available 4 (05/22/19 11:53 AM) 05/22/2019 Result Comment: 05/22/2019 1 2:06 [id number]
KLS notified Haylie 05/22/2019 12:00 [facility] CHEM PANEL Glucose Lvl 90 70 - 99 05/22/2019 [facility] CHEM PANEL BUN 15 7 - 22 05/22/2019 [facility] CHEM PANEL Creatinine Lvl 1.40 0.50 - 1.40 05/22/2019 [facility] CHEM PANEL Sodium Lvl 138 135 - 145 05/22/2019 [facility] CHEM PANEL Potassium Lvl 4.2 3.5 - 5.1 05/22/2019 [facility] CHEM PANEL Chloride Lvl 105 95 - 109 05/22/2019 [facility] CHEM PANEL CO2 27 24 - 32 05/22/2019 [facility] CHEM PANEL Calcium Lvl 7.7 8.5 - 10.5 05/22/2019 [facility] CHEM PANEL AGAP 10.2 10.0 - 20.0 05/22/2019 [facility] CHEM PANEL eGFR 47 05/22/2019 Result Comment: [...] should be multiplied by the estimated BMI. [facility] CHEM PANEL Magnesium Lvl 1.7 1.8 - 2.4 05/22/2019 [facility] HEMATOLOGY WBC 3.3 3.7 - 10.4 05/22/2019 [facility] RBC 2.51 4.70 - 6.10 05/22/2019 [facility] Hgb 7.0 14.0 - 18.0 05/22/2019 Result Comment: Critical Result(s) [email or web address] Puentes at 05/22/2019 11:49 by ALVARO. Read back OK. [facility] HEMATOLOGY Hct 21.7 42.0 - 54.0 05/22/2019 [facility] MCV 86.5 80.0 - 94.0 05/22/2019 [facility] MCH 27.9 27.0 - 31.0 05/22/2019 [facility] MCHC 32.3 32.0 - 36.0 05/22/2019 [facility] RDW 15.7 11.5 - 14.5 05/22/2019 [facility] Platelet 206 133 - 450 05/22/2019 [facility] MPV 7.4 7.4 - 10.4 05/22/2019 [facility] BLOOD BANK RESULTS ABO/Rh A POS 05/20/2019 [facility] BLOOD BANK RESULTS Antibody Scrn Negative (05/20/19 10:28 AM) 05/20/2019 [facility] CHEM PANEL Glucose Lvl 69 70 - 99 05/20/2019 [facility] CHEM PANEL BUN 19 7 - 22 05/20/2019 [facility] CHEM PANEL Creatinine Lvl 1.55 0.50 - 1.40 05/20/2019 [facility] CHEM PANEL Sodium Lvl 135 135 - 145 05/20/2019 [facility] CHEM PANEL Potassium Lvl 4.2 3.5 - 5.1 05/20/2019 [facility] CHEM PANEL Chloride Lvl 103 95 - 109 05/20/2019 [facility] CHEM PANEL CO2 25 24 - 32 05/20/2019 [facility] CHEM PANEL Calcium Lvl 8.7 8.5 - 10.5 05/20/2019 [facility] CHEM PANEL AGAP 11.2 10.0 - 20.0 05/20/2019 [facility] CHEM PANEL eGFR 41 05/20/2019 Result Comment: [...] should be multiplied by the estimated BMI. [facility] HEMATOLOGY WBC 4.9 3.7 - 10.4 05/20/2019 [facility] HEMATOLOGY RBC 3.16 4.70 - 6.10 05/20/2019 [facility] HEMATOLOGY Hgb 8.9 14.0 - 18.0 05/20/2019 [facility] HEMATOLOGY Hct 27.7 42.0 - 54.0 05/20/2019 [facility] HEMATOLOGY MCV 87.9 80.0 - 94.0 05/20/2019 [facility] HEMATOLOGY MCH 28.1 27.0 - 31.0 05/20/2019 [facility] MCHC 32.0 32.0 - 36.0 05/20/2019 [facility] HEMATOLOGY RDW 16.1 11.5 - 14.5 05/20/2019 [facility] HEMATOLOGY Platelet 281 133 - 450 05/20/2019 [facility] HEMATOLOGY MPV 7.8 7.4 - 10.4 05/20/2019 [facility] HEMATOLOGY PT 15.0 12.0 - 14.7 05/20/2019 [facility] HEMATOLOGY INR 1.17 0.85 - 1.17 05/20/2019 [facility] HEMATOLOGY PTT 40.0 22.9 - 35.8 05/20/2019 [facility] HEMATOLOGY Segs 61.0 45.0 - 75.0 05/20/2019 [facility] HEMATOLOGY Lymphocytes 19.3 20.0 - 40.0 05/20/2019 [facility] HEMATOLOGY Monocytes 7.1 2.0 - 12.0 05/20/2019 [facility] HEMATOLOGY Eosinophils 10.2 0.0 - 4.0 05/20/2019 [facility] HEMATOLOGY Basophils 2.4 0.0 - 1.0 05/20/2019 [facility] HEMATOLOGY Neutrophils # 3.0 1.5 - 8.1 05/20/2019 [facility] HEMATOLOGY Lymphocytes # 1.0 1.0 - 5.5 05/20/2019 [facility] HEMATOLOGY Monocytes # 0.4 0.0 - 0.8 05/20/2019 [facility] HEMATOLOGY Eosinophils # 0.5 0.0 - 0.5 05/20/2019 [facility] HEMATOLOGY Basophils # 0.1 0.0 - 0.2 05/20/2019 [facility] SPECIAL CHEMISTRY Hgb A1C 5.5 <=5.6 % 05/20/2019 [facility] URINE AND STOOL UA Turbidity Clear (05/20/19 10:28 AM) Clear 05/20/2019 [facility] URINE AND STOOL UA Spec Grav 1.004 <=1.030 05/20/2019 [facility] URINE AND STOOL UA pH 6.0 5.0 - 8.0 05/20/2019 [facility] URINE AND STOOL UA Protein Negative mg/dL Negative mg/dL 05/20/2019 [facility] URINE AND STOOL UA Glucose Negative mg/dL Negative mg/dL 05/20/2019 [facility] URINE AND STOOL UA Ketones Trace mg/dL Negative mg/dL 05/20/2019 [facility] URINE AND STOOL UA Bili Negative *NA* (05/20/19 10:28 AM) Negative 05/20/2019 [facility] URINE AND STOOL UA Blood Moderate *ABN* (05/20/19 10:28 AM) Negative 05/20/2019 [facility] URINE AND STOOL UA Nitrite Negative (05/20/19 10:28 AM) Negative 05/20/2019 [facility] URINE AND STOOL UA Leuk Est Negative (05/20/19 10:28 AM) Negative 05/20/2019 [facility] URINE AND STOOL UA WBC <1 0 - 5 05/20/2019 [facility] URINE AND STOOL UA RBC 1 0 - 2 05/20/2019 [facility] URINE AND STOOL UA Bacteria Occasional /HPF None Seen /HPF 05/20/2019 [facility] URINE AND STOOL UA Sq Epi None Seen 05/20/2019 [facility] URINE AND STOOL UA Color Ltyellow 05/20/2019 [facility] URINE AND STOOL UA Urobilinogen <=1.0 mg/dL 0.1 - 1.0 05/20/2019 [facility] BLOOD BANK RESULTS RBC product Product available (05/20/19 9:42 AM) 05/20/2019 [facility] Pathology Reports No Data Provided for This [...] failure. Alex Goncalves MD On 06/06/2019 15:25:41; [id number] 06/06/2019 [facility] Chest 1 v for Placement [...] calcifications. Manuel Olmstead MD On 05/22/2019 12:33:40; [id number] 05/22/2019 [facility] Chest 2 views DX PROCEDURE INF ORMATION: [...] Jose Luis Carlton MD On 05/20/2019 11:00:35; [id number] 05/20/2019 [facility] Finger 3 views DX Exam: Finger 3 [...] disease without hemodynamically significant stenosis identified. SL: [id number] 09/15/2016 [facility] [place] Ext Lower Venous Doppler [...] Comments Source Systolic (mm Hg) 125 05/23/2019 [facility] Diastolic (mm Hg) 59 05/23/2019 [facility] Systolic (mm Hg) 111 05/23/2019 [facility] Diastolic (mm Hg) 52 05/23/2019 [facility] Respitory Rate 0 05/23/2019 [facility] Systolic (mm Hg) 119 05/23/2019 [facility] Diastolic (mm Hg) 57 05/23/2019 [facility] Respitory Rate 21 05/23/2019 [facility] Respitory Rate 15 05/23/2019 [facility] Height 177.8 cm 05/22/2019 [facility] Weight 107.27 05/22/2019 [facility] BMI Calculated 33.93 05/22/2019 [facility] Heart Rate 58 05/22/2019 [facility] Temperature Oral (F) 97.4 F 05/20/2019 [facility] Heart Rate 55 05/20/2019 [facility] Height 177.8 cm 05/20/2019 [facility] Weight 107.273 05/20/2019 [facility] BMI Calculated 33.93 05/20/2019 [facility] Weight 244 06/05/2017 [facility] Height 70 0 06/05/2017 [facility] Temperature Oral (F) 97.2 F 06/05/2017 [facility] Heart Rate 64 06/05/2017 [facility] [place] Diastolic (mm Hg) 70 06/05/2017 [facility] [place] Systolic (mm Hg) 124 06/05/2017 Riza Ar[facility] Weight 250 03/30/2017 [facility] Ar[facility] Height [...] Provider ADM Date DC Date Status Source [facility] [place] [facility] [id number] Guerrero Berman 05/01/2014 05/02/2014 [facility] [place] [facility] [place] [facility] [id number] Guerrero Berman 05/30/2014 05/31/2014 [facility] [place] [facility] [place] [facility] [id number] 07 Guerrero Berman 02/25/2015 02/26/2015 [facility] [place] [facility] [place] [facility] [id number] 08 Eyad Salvady 07/17/2015 07/18/2015 [facility] [place] [facility] [place] [facility] [id number] 09 Calixto Orahood 03/21/2016 03/22/2016 [facility] [place] [facility] [place] [facility] [id number] 10 Calixto Orahood 08/24/2016 08/25/2016 [facility] [place] [facility] [place] [facility] [id number] 11 Calixto Orahood 09/15/2016 09/16/2016 [facility] [place] [facility] [place] [facility] [id number] 12 Calixto Orahood 04/24/2017 04/25/2017 [facility] [place] [facility] [place] [facility] [id number] 13 Calixto Orahood 08/07/2017 08/08/2017 DO[facility] Inpatient [id number] 05/22/2019 05/24/2019 [facility] Outpatient [id number] Theodore Barker 06/06/2019 06/07/2019 [facility] Procedures Procedure Code Date Perfomer Comments Source Cardiac catheterisation [id number] [facility] Hernia repair [id number] [place] [facility] TKR -Total prosthetic replacement of kne e joint using cement [id number] [facility] Assessment and Plan Assessment and Plan Date [...] May 22, 2019 Surgeon: Theodore Barker MD Double Needle Stitcher: Ze Shipley MD Preoperative diagnosis: Abdominal aortic aneurysm Postoperative diagnosis: Same Procedure: Percutaneous endovascular repair of an infrarenal abdominal aortic aneurysm with the [place] excluder device. Indication: Asymptomatic infrarenal abdominal aortic aneurysm In detail: The patient was taken the operating room and was given general anesthesia with endotracheal intubation. The abdomen and both groins were prepped and draped in usual sterile manner. Bilateral femoral access was achieved using micropuncture technique and ultrasound guidance and 5 [place] sheaths were inserted. Patient was systemically heparinized. 2 Proglides were partially deployed at 90 angle s. An 16 [place] sheath was placed on the right and a 12 [place] sheath from the left. Abdominal angiogram was performed and the anatomy was noted. The main device [id number] was then advanced from the right side and positioned just distal to the left renal artery and partially deployed. We had difficulty cannulating the gate and the device had to be rotated. The gate was cannulated from the left side. After the device rotated that had migrated distally. The left limb PLC [id number] was then deployed landing just proximal to the left hypogastric artery. The right side was then completely deployed. A right bellybutton extension the PLC [id number] was then deployed. It appears to be about 1 cm short of the hypogastric. A 26 cuff was then deployed landing just distal to the left renal artery. LOGAN [id number]. All areas of the grafts were ballooned [...] of this to Dr. Rey Sandy 05/24/2019 [facility] Plan of Care No Data Provided for This Section Social History Social History Date Source Social History TypeResponse Alcohol Past Smoking Status Former smoker; Ready to change: No; Concerns about tobacco use in household: No; Exposure to Tobacco Smoke None; Cigarette Smoking Last 365 Days No; Reg Smoking Cessation Counseling No entered on: 05/22/19 05/20/2019 [facility] No data available for this section 08/08/2017 DOYLE Gagnon Family History No Data Provided for This Section Advance Directives No Data Provided for This Section Functional Status No Data Provided for This Section
--- OUTSIDE RECORDS SUMMARY | 2019-08-21 07:02 | XMS REPORT ---
Author Author [facility] t Organization [facility] Address [address] [facility] 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 Attphys Unavailable Theodore Barker Attphys [facility] BARKER Attphys Unavailable QAMAR DELGADO Attphys Unavailable KERI NEHEMDARLING Attphys Unavailable KATIE MOREAU Attphys Unavailable Zander Berger Attphys Eyad Klein Attphys Maulik Berman Attphys QAMAR DELGADO Admmikayla Unavailable Payers Payer Name Policy Type Policy Number Effective Date Expiration Date [email or web address] [id number] 2019 00:00:00 [facility] [id number] 2019 00:00:00 [facility] Problems Condition Name Condition Details Condition Category Status Onset Date Resolution Date Last Treatment Date Treating Clinician Comments Source AAA (abdominal aortic aneurysm) without rupture AAA (a bdominal aortic aneurysm) without rupture Problem Active [facility] Chronic renal impairment, unspecified CKD stage Chroni c renal impairment, unspecified CKD stage Problem Active [facility] 3-vessel CAD 3-vessel CAD Problem Active [facility] History of endovascular stent graft for abdominal aort ic aneurysm History of endovascular stent graft for abdominal aortic aneurysm Problem Active [facility] Abdominal aortic aneurysm (AAA) Abdominal aortic aneurysm (AAA) Pro blem Active [facility] ex Physicians ST elevation myocardial infarction (STEMI) STEMI (ST e levation myocardial infarction) Problem Active [facility] Hyponatremia Hyponatremia Problem Active [facility] Urinary tract infection UTI (urinary tract infection) Problem Active [facility] Retention of urine Urinary retention Problem Active [facility] Weakness Weakness Problem Active [facility] Allergies, Adverse Reactions, Alerts This patient has no known allergies or adverse reactions. Social History Smoking Status Start Date Stop Date Source Ex-smoker (finding) [facility] Medications Ordered Medication Name Filled Medication Name Start Date Stop Da te Current Medication? Ordering Clinician Indication Dosage Frequency Signature (SIG) Comments Components Source Allopurinol 100 Mg Tablet Allopurinol 100 Mg Tablet 2019-05-13 00:00: 00 Yes Qamar Delgado Md 200 Daily [facility] Sodium Bicarbonate 650 Mg Tablet Sodium Bicarbonate 650 Mg T ablet 2019-05-13 00:00:00 Yes Qamar Delgado Md 1300 Twice A Day [facility] Sodium Chloride 1 Gm Tab Sodium Chloride 1 Gm Tab 2019-05-13 00:00:00 Yes Qamar Delgado Md 2 Three Times A Day [facility] Fosfomycin Tromethamine (Monurol) 3 Gm Packet Fosfomyc in Tromethamine (Monurol) 3 Gm Packet 2019-05-09 00:00:00 Yes Richard Molina Md 3 Once [facility] Atorvastatin Calcium (Lipitor) 20 Mg Tablet Atorvastat in Calcium (Lipitor) 20 Mg Tablet 2019-04-21 00:00:00 Yes Qamar Delgado Md 20 Bedtime [facility] Docusate Sodium (Colace) 100 Mg/10 Ml Liqd Docusate So dium (Colace) 100 Mg/10 Ml Liqd 2019-04-21 00:00:00 Yes Qamar Delgado Md 100 Every 12 Hours [facility] Famotidine 20 Mg Tab Famotidine 20 Mg Tab 2019-04-21 00:00:00 Yes Qamar Delgado Md 20 Every 12 Hours [facility] Metoprolol Tartrate (Lopressor) 25 Mg Tab Metoprolol T artrate (Lopressor) 25 Mg Tab 2019-04-21 00:00:00 Yes Qamar Delgado Md 12.5 Every 12 Hours [facility] Prasugrel Hcl (Effient) 10 Mg Tablet Prasugrel Hcl (Effient) 10 Mg Tablet 2019-04-21 00:00:00 Yes Qamar Delgado Md 10 Daily [facility] Aspirin (Aspirin Ec) 81 Mg Tablet., 81 Mg Oral Aspir in (Aspirin Ec) 81 Mg Tablet.dr, 81 Mg Oral 2019-04-21 00:00:00 2019-05-13 00:00:00 No Qamar Delgado Md 81 Every Morning [facility] Valsartan (Diovan) 80 Mg Tab, 20 Mg Oral Valsartan (Di ovan) 80 Mg Tab, 20 Mg Oral 2019-04-21 00:00:2019-05-13 00:00:00 No Qamar Delgado Md 20 Daily [facility] Lipitor 20 MG Oral Tablet Lipitor 20 MG Oral Tablet Yes [facility] Flomax 0.4 MG Oral Capsule Flomax 0.4 MG Oral Capsule Yes [facility] Effient 10 MG Oral Tablet Effient 10 MG Oral Tablet Yes [facility] Lopressor TABS Lopressor TABS Yes [facility] Pepcid 20 MG Oral Tablet Pepcid 20 MG Oral Tablet Yes [facility] Allopurinol 100 MG Oral Tablet Allopurinol 100 MG Oral Tablet Yes [facility] Physicia ns Cholecalciferol (Vitamin D3) (Vitamin D3) 1,000 Unit C apsule Cholecalciferol (Vitamin D3) (Vitamin D3) 1,000 Unit Capsule Yes 1000 Daily [facility] Cyanocobalamin (Vitamin B-12) 1,000 Mcg Tab Cyanocobal ramos (Vitamin B-12) 1,000 Mcg Tab Yes 1000 Daily [facility] Ferrous Sulfate 325 Mg Tablet Ferrous Sulfate 325 Mg Tablet Yes 325 Twice A Day [facility] Tamsulosin Hcl (Flomax*) 0.4 Mg Cap Tamsulosin Hcl (Flomax*) 0.4 Mg C ap Yes .4 Daily [facility] Folic Acid 1 Mg Tablet, 1 Mg Oral Folic Acid 1 Mg Tablet, 1 Mg O ral 2019-05-13 00:00:00 No 1 Daily [facility] Tramadol Hcl/Acetaminophen (Ultracet Tablet) 1 Each Ta blet, 1 Tab Oral Tramadol Hcl/Acetaminophen (Ultracet Tablet) 1 Each Tablet, 1 Tab Oral 2019-05-13 00:00:00 No 1 As Needed as needed for Pain [facility] Doxazosin Mesylate 8 Mg Tablet, 8 Mg Oral Doxazosin Me sylate 8 Mg Tablet, 8 Mg Oral 2019-04-21 00:00:00 No 8 Bedtime [facility] Levofloxacin (Levaquin) 500 Mg Tablet, 500 Mg Oral Lev ofloxacin (Levaquin) 500 Mg Tablet, 500 Mg Oral 2019-04-21 00:00:00 No 500 D aily [facility] Nitrofurantoin Macrocrystal (Nitrofurantoin) 100 Mg Ca psule, 100 Mg Oral Nitrofurantoin Macrocrystal (Nitrofurantoin) 100 Mg Capsule, 100 Mg Oral 2019-04-21 00:00:00 No 100 Twice A Day [facility] Prednisone 5 Mg Tab.ds.pk, 5 Mg Oral Prednisone 5 Mg Tab.ds.pk, 5 Mg Oral 2019-04-21 00:00:00 No 5 Twice A Day [facility] Etanercept (Enbrel) 50 Mg/1 Ml Disp.syrin, Unknown Dos e Sub-Q Etanercept (Enbrel) 50 Mg/1 Ml Disp.syrin, Unknown Dose Sub-Q 2017-12-25 00:0 0:00 No Weekly [facility] Vital Signs Vital Name Observation Time Observation Value Comments Source Weight 2019-06-10 12:56:00 235 [lb_av] [facility] Procedures Procedure Date / Time Performed Performing Clinician Sourc e [QL] BASIC METABOLIC PANEL W/EGFR 2019-06-10 00:00:00 [facility] CVRAD - Abdominal Duplex Comp - [id number] 2019-06-05 00:00:00 [facility] CTA Abdomen/Pelvis [id number] 2019-05-24 00:00:00 [facility] [[facility]] BASIC METABOLIC PANEL W/EGFR 2019-05-13 00:00:00 [facility] X-ray of chest, two views 2019-05-07 00:00:00 CHELSEA ROCK CH, I [facility] Computed tomography angiography of abdomen and pelvis without then withcontrast 2019-05-07 00:00:00 CONSTANTINE LR V [facility] CT angiography of chest 2019-05-07 00:00:00 CONSTANTINE LR V [facility] Ultrasound, renal 2019-05-06 00:00:00 MARIPOSA GUILLAUME [facility] Computed tomography of brain without radiopaque contrast 00:00:00 MARTINA SKELTON [facility] Computed tomography of cervical spine without contrast 05-04 00:00:00 MARTINA SKELTON [facility] DILATION OF 1 COR ART WITH DRUG-ELUT INTRA, PERC APPROACH 20 29-04-07 00:00:00 [facility] DERRICK [facility] EXTIRPATION OF MATTER FROM 1 COR ART, PERC APPROACH 00:00:00 MIRA DERRICK [facility] INTRODUCE PLATELET INHIBITOR IN CORONARY ART, PERC 8 00:00:00 [facility] MEASURE OF CARDIAC SAMPL & PRESSURE, L HEART, PERC APPROACH 2019-04-17 00:00:00 DERRICK MEYERS [facility] FLUOROSCOPY OF MULT COR ART USING L OSM CONTRAST 2019-04-17 00:00:00 DERRICK MEYERS [facility] Plan of Care Planned Activity Planned Date Details Comments Source Future Scheduled Test [code = ] Encounters Start Date/Time End Date/Time Encounter Type Admission Type Attendi [facility] Care Department Encounter ID Source 2019-05-22 07:15:00 Inpatient MHSE MHSE [id number] SE 2019-06-10 12:30:00 2019-06-10 12:30:00 Appointment; THEODORE BARKER M.D. NAHAS, CESAR, M.D. [facility] Cardiothoracic & Vascular Surgery [facility] [id number] [facility] 2019-06-06 09:22:00 2019-06-06 23:59:00 Outpatient Theodore Barker MHSEH MHSEH [id number] [facility] 2019-06-06 09:22:00 2019-06-06 09:22:00 Outpatient MHSE MHSE [id number] [facility] 2019-06-05 08:00:00 2019-06-05 08:00:00 [facility] DR BARKER [facility] Cardiothoracic & Vascular Surgery [facility] [id number] [facility] 2019-05-22 07:15:00 2019-05-23 18:20:00 Outpatient MHSEH MHSEH [id number] [facility] 2019-05-22 06:30:00 2019-05-22 06:30:00 Appointment; THEODORE BARKER M.D. NAHAS, CESAR, M.D. [facility] [id number] [facility] 2019-05-13 11:45:00 2019-05-13 11:45:00 Appointment; THEODORE BARKER M.D. NAHAS, CESAR, M.D. [facility] Cardiothoracic & Vascular Surgery [facility] [id number] [facility] 2019-05-04 17:10:00 2019-05-13 08:23:00 Discharged Inpatient [address] [facility] [id number] [facility] 2019-04-17 18:31:00 2019-04-21 11:40:00 Discharged Inpatient [address] [facility] [id number] [facility] 2017-11-28 09:12:00 2017-11-28 09:12:00 Outpatient Ayo SHOEMAKER [id number] Ayo Arora MD 2017-08-07 10:17:00 2017-08-07 23:59:00 [id number] Out patient Imaging [place] 2017-08-07 10:17:00 2017-08-07 23:59:00 [facility] [id number] [facility] Out patient Imaging - [place] 2017-06-05 10:15:00 2017-06-05 10:15:00 Outpatient Ayo Arora MD [place] [id number] Ayo Arora MD 2017-06-01 15:04:00 2017-06-01 15:04:00 Outpatient Ayo Arora MD [place] [id number] Ayo Arora MD 2017-05-11 16:32:00 2017-05-11 16:32:00 Outpatient Ayo Arora MD [place] [id number] Ayo Arora MD 2017-05-11 09:18:00 2017-05-11 09:18:00 Outpatient Ayo Arora MD [place] [id number] Ayo Arora MD 2017-04-24 12:40:00 2017-04-24 23:59:00 Outpatient Holly Berger [facility] [id number] [facility] Out patient Imaging - [place] 2017-03-30 14:45:00 2017-03-30 14:45:00 Outpatient Ayo Arora MD [place] [id number] Ayo Arora MD 2017-02-06 15:19:00 2017-02-06 15:19:00 Outpatient Ayo Arora MD PA [id number] Aoy Arora MD 2017-01-09 08:15:00 2017-01-09 08:15:00 Outpatient Ayo Arora MD PA [id number] Ayo Arora MD 2017-01-05 10:15:00 2017-01-05 10:15:00 Outpatient Ayo Arora MD [place] [id number] Ayo Arora MD 2016-09-15 13:22:00 2016-09-15 23:59:00 Outpatient Holly Berger [facility] [id number] [facility] [place] 2016-08-24 11:54:00 2016-08-24 23:59:00 Outpatient Holly Berger HOIP HOIP [id number] [facility] [place] 2016-03-21 11:59:00 2016-03-21 23:59:00 Outpatient Holly Berger HOIP HOIP [id number] [facility] Out [facility] Imaging - [place] 2015-07-17 15:27:00 2015-07-17 23:59:00 Outpatient Ernie Eyad HOIP HOIP [id number] [facility] Outpatient Imaging - [place] 2015-02-25 14:51:00 2015-02-25 23:59:00 Outpatient BermanCecilio HOIP HOIP [id number] [facility] Outpatient Imaging - [place] 2014-05-30 11:43:00 2014-05-30 23:59:00 Outpatient Cullen Guerrero Maulik IEALT IEALT [id number] 2014-05-01 12:16:00 2014-05-01 23:59:00 Outpatient BermanGuerrero IEALT IEALT [id number] Results Test Description Test Time Test Comments Results Result Comments Source [[facility]] BASIC METABOLIC PANEL W/EGFR 2019-06-12 07:15:01 Test Item Glucose Lvl (test code = 2345-7) 96 mg/dl 70-99 Adult reference range values reflect the clinical guidelinesof the [place] Diabetes [employer]. Blood Urea Nitrogen (test code [...] AGAP; Below Low Threshold (test code = 55450-4) 8.9 {mEq/l} 10.0-2 0.0 Calcium Level Total; Below Low Threshold (test code = 44826- 6) 8.4 mg/dl 8.5-10.5 eGFR (test code = 21400-5) 37 {ML/MIN/1.7} The eGFR is calculated using [...] eGFR shouldbe multiplied by the estimated BMI. [facility] Abdomen/Pelvis [id number] 09:45:00 Radiation Dose CTDIVOL = 0 (mGy): [...] for heartfailure.Alex Goncalves MD On 06/06/2019 15:25:41; [id number]--Read by: Alex Goncalves MDDictated Date/time: 06/06/19 15:25Electronical ly Signed by: Alex Goncalves MD 06/06/2014:25FINAL REPO [facility]] BASIC METABOLIC PANEL W/[id number] 13:50:01* Test Item Value Reference Range Interpretation Comments Glucose Lvl (test code = 2345-7) 88 mg/dl 70-99 Adult reference range values reflect the clinical guidelinesof the [place] Diabetes [employer]. Blood Urea Nitrogen (test code [...] 24 {mEq/l} 24-32 AGAP (test code = 14700-8) 15.9 {mEq/l} 10.0-20.0 Calcium Level Total (test code = 91497-6) 8.9 mg/dl 8.5-10.5 eGFR (test code = 32917-8) 43 {ML/MIN/1.7} The eGFR is calculated using [...] eGFR shouldbe multiplied by the estimated BMI. [facility] PhysiciansPhosphorus Zbyis9199-26-19 10:03:00* Test Item Value Reference Range Interpretation Comments Phosphorus Level (test code = ZEK7752) 3.7 2.3-4.7 [facility] Myqpr6652-12-29 10:03:00* Test Item Value Reference Range Interpretation Comments Magnesium Level (test code = 55687-5) 1.8 1.3-2.1 [facility] Stnry5860-76-95 09:47:00* Test Item Value Reference Range Interpretation Comments Sodium Level (test code = 2951-2) 136 136-145 [facility]assium Zrtpe7269-84-37 09:47:00* Test Item Value Reference Range Interpretation Comments Potassium Level (test code = 2823-3) 4.3 3.5-5.1 [facility]loride Szbvp4922-20-19 09:47:00* Test Item Value Reference Range Interpretation Comments Chloride Level (test code = 2075-0) 103 98-107 [facility] MarshallCarbon Dioxide Dpssj5047-03-47 09:47:00* Test Item Value Reference Range Interpretation Comments Carbon Dioxide Level (test code = 2028-9) 22 22-29 [facility] MarshallAnion Hjk8951-36-06 09:47:00* Test Item Value Reference Range Interpretation Comments Anion Gap (test code = 85072-2) 15.3 8-16 [facility] Urea Rlwgrovb2433-58-37 09:47:00* Test Item Value Reference Range Interpretation Comments Blood Urea Nitrogen (test code = 3094-0) 20 7-26 [facility] Marshall[facility]inine2020-02-02 09:47:00* Test Item Value Reference Range Interpretation Comments Creatinine (test code = 2160-0) 1.48 0.72-1.25 [facility] Marshall[facility]UN/Creatinine Peasb1133-04-51 09:47:00* Test Item Value Reference Range Interpretation Comments BUN/Creatinine Ratio (test code = 3097-3) 14 6-25 [facility] MarshallEstimat Glomerular Filtration Rate 2019-05-12 09:47:00* Test Item Value Reference Range Interpretation Comments Estimat Glomerular Filtration Rate (test code = 631077356) 46 >60 Ranges were taken from the National Kidney Disease Education Program and the [facility] literature.Reference ranges:60 or greater: Uzgetd89-16 ( for 3 consecutive months): Chronic kidney disease 15 or less: Kidney failureCHRISTUS Good Shepherd Medical Center – MarshallGlucose Gpbfl1924-28-06 09:47:00* Test Item Value Reference Range Interpretation Comments Glucose Level (test code = BCY8412) 94 74-118 [facility] MarshallCalcium Ntybe9967-35-37 09:47:00* Test Item Value Reference Range Interpretation Comments Calcium Level (test code = 04035-4) 8.8 8.4-10.2 [facility] Marshall[facility] Blood Qwjda7307-82-35 09:21:00* Test Item Value Reference Range Interpretation Comments White Blood Count (test code = 6690-2) 6.59 4.8-10.8 [facility] Marshall[facility] Blood Dlfux0269-50-70 09:21:00* Test Item Value Reference Range Interpretation Comments Red Blood Count (test code = 789-8) 3.28 4.3-5.7 [facility] Marshall[facility]emoglobin2020-02-02 09:21:00* Test Item Value Reference Range Interpretation Comments Hemoglobin (test code = 06435-3) 8.8 14.0-18.0 [facility] MarshallHematocrit2020-02-02 09:21:00* Test Item Value Reference Range Interpretation Comments Hematocrit (test code = 4544-3) 29.8 38.2-49.6 [facility] MarshallMean Corpuscular Btsxyv2628-88-70 09:21:00* Test Item Value Reference Range Interpretation Comments Mean Corpuscular Volume (test code = 787-2) 90.9 81-99 [facility] MarshallMean Corpuscular Mzapwriopo1170-39-28 09:21:00* Test Item Value Reference Range Interpretation Comments Mean Corpuscular Hemoglobin (test code = 785-6) 26.8 28-32 [facility] MarshallMean Corpuscular Hemoglobin Concent 2019-05-12 09:21:00* Test Item Value Reference Range Interpretation Comments Mean Corpuscular Hemoglobin Concent (test code = 786-4) 29.5 31-35 [facility] Marshall[facility] Cell Distribution Evart7340-70-06 09:21:00* Test Item Value Reference Range Interpretation Comments Red Cell Distribution Width (test code = 18261-9) 14.3 11.7 -14.4 [facility] MarshallPlatelet Ayeqr1047-07-33 09:21:00* Test Item Value Reference Range Interpretation Comments Platelet Count (test code = 777-3) 329 140-360 [facility] MarshallNeutrophils (%) (Auto)2019-05-12 09:21:00 * Test Item Value Reference Range Interpretation Comments Neutrophils (%) (Auto) (test code = 48667-5) 62.5 38.7-80.0 [facility] MarshallLymphocytes (%) (Auto)2019-05-12 09:21:00 * Test Item Value Reference Range Interpretation Comments Lymphocytes (%) (Auto) (test code = 736-9) 15.6 18.0-39.1 [facility] Marshall[facility]ocytes (%) (Auto)2019-05-12 09:21:00* Test Item Value Reference Range Interpretation Comments Monocytes (%) (Auto) (test code = 5905-5) 8.5 4.4-11.3 [facility] Marshall[facility]osinophils (%) (Auto)2019-05-12 09:21:00 * Test Item Value Reference Range Interpretation Comments Eosinophils (%) (Auto) (test code = 713-8) 11.7 0.0-6.0 [facility]ophils (%) (Auto)2019-05-12 09:21:00* Test Item Value Reference Range Interpretation Comments Basophils (%) (Auto) (test code = 706-2) 1.2 0.0-1.0 [facility] MarshallIM GRANULOCYTES %2019-05-12 09:21:00* Test Item Value Reference Range Interpretation Comments IM GRANULOCYTES % (test code = IM GRANULOCYTES %) 0.5 0.0- 1.0 [facility] MarshallNeutrophils # (Auto)2019-05-12 09:21:00* Test Item Value Reference Range Interpretation Comments Neutrophils # (Auto) (test code = 751-8) 4.1 2.1-6.9 [facility] MarshallLymphocytes # (Auto)2019-05-12 09:21:00* Test Item Value Reference Range Interpretation Comments Lymphocytes # (Auto) (test code = 74269-5) 1.0 1.0-3.2 [facility] Marshall[facility]ocytes # (Auto)2019-05-12 09:21:00* Test Item Value Reference Range Interpretation Comments Monocytes # (Auto) (test code = 742-7) 0.6 0.2-0.8 [facility] Marshall[facility]osinophils # (Auto)2019-05-12 09:21:00* Test Item Value Reference Range Interpretation Comments Eosinophils # (Auto) (test code = 711-2) 0.8 0.0-0.4 [facility] Marshall[facility]ophils # (Auto)2019-05-12 09:21:00* Test Item Value Reference Range Interpretation Comments Basophils # (Auto) (test code = 704-7) 0.1 0.0-0.1 [facility] MarshallAbsolute Immature Granulocyte (auto 2019-05-12 09:21:00* Test Item Value Reference Range Interpretation Comments Absolute Immature Granulocyte (auto (rosario t code = Absolute Immature Granulocyte (auto) 0.03 0-0.1 [facility] MarshallUrine Random Total Lrztykz3621-03-04 08:35:00* Test Item Value Reference Range Interpretation Comments Urine Random Total Protein (test code = 2888-6) < 6.8 1-14 [facility] MarshallUrine Npxpvuzvkj6802-45-22 08:35:00* Test Item Value Reference Range Interpretation Comments Urine Creatinine (test code = 2161-8) 57.95 63-166 [facility] MarshallUrine Protein/Creatinine Pmkhn7428-71-12 08:35:00* Test Item Value Reference Range Interpretation Comments Urine Protein/Creatinine Ratio (test code = 43881-3) 0.00 [facility] MarshallBlood Fgjtdpi8425-29-05 15:07:00* Test Item Value Reference Range Interpretation Comments Blood Culture (test code = 10180983) NO GROWTH AFTER 5 DAYS, FINAL REPORT [facility] MarshallCTA ABD/QXDTUX2247-30-90 09:43:00 [place] [address] Patient Name: AG CATALAN MR #: [id number] : 1935 Age/Sex: 83/M Req #: [id number] Adm Physician: QAMAR DELGADO MD Ordered by: CONSTANTINE LR MD Report #: [id number] [facility] Room/Bed: [facility] Procedure: [id number] CT/CTA ABD/PELVIS Exam Date: 05/07/19 Exam Time: [...] 1141 COPY TO: CONSTANTINE LR MD CTA IOLEE2447-66-33 09:43:00 [place] [address] Patient Name: AG CATALAN MR #: [id number] : 1935 Age/Sex: 83/M Req #: [id number] Adm Physician: QAMAR DELGADO MD Ordered by: CONSTANTINE LR MD Report #: [id number] Location: MED/SURG2 Room/Bed: [facility] Procedure: [id number] CT/CTA CHEST Exam Date: 05/07/19 Exam Time: [...] risk, follow-up chest CT is optional in [address] [place] [address] hs. Signed by: Aaliyah Gonzales MD on 05/08/2019 11:41 AM Dictated By: DENNY GONZALES MD 1141 Transcribe d By: KAIT on 05/08/19 1141 COPY TO: CONSTANTINE LR MD CHEST 2 [id number] 14:28:00 [place] [address] Patient Name: AG CATALAN MR #: [id number] : 1935 Age/Sex: 83/M Req #: [id number] Adm Physician: QAMAR DELGADO MD Ordered by: CHELSEA ROCK MD Report #: [id number] Location: MED/SURG2 Room/Bed: [facility] Procedure: [id number] D X/CHEST 2 VIEWS Exam Date: 05/07/19 [...] By: AALIYAH GONZALES MD 1429 Transcribed By: KAIT on 05/07/19 1429 COPY TO: CHELSEA ROCK MD Total Pidanmpwz7872-46-39 05:38:00* Test Item Value Reference Range Interpretation Comments Total Bilirubin (test code = 1975-2) 0.3 0.2-1.2 [facility] Amino Transf (AST/SGOT) 2019-05-07 05:38:00* Test Item Value Reference Range Interpretation Comments Aspartate Amino Transf (AST/SGOT) (test code = Aspartate Amino Transf (AST/SGOT)) 16 5-34 [facility] MarshallAlanine Aminotransferase (ALT/SGPT) 2019-05-07 05:38:00* Test Item Value Reference Range Interpretation Comments Alanine Aminotransferase (ALT/SGPT) (test code = 1742-6) 7 0-55 [facility] MarshallTotal Jsqfkhl8767-35-88 05:38:00* Test Item Value Reference Range Interpretation Comments Total Protein (test code = 2885-2) 6.1 6.5-8.1 [facility] MarshallAlbumin2020-01-28 05:38:00* Test Item Value Reference Range Interpretation Comments Albumin (test code = 1751-7) 2.5 3.5-5.0 [facility] MarshallGlobulin2020-01-28 05:38:00* Test Item Value Reference Range Interpretation Comments Globulin (test code = 20392-6) 3.6 2.3-3.5 [facility] MarshallAlbumin/Globulin Rmbiv8993-10-86 05:38:00 * Test Item Value Reference Range Interpretation Comments Albumin/Globulin Ratio (test code = 1759-0) 0.7 0.8-2.0 [facility] MarshallAlkaline Xulkbjznxil7305-15-65 05:38:00* Test Item Value Reference Range Interpretation Comments Alkaline Phosphatase (test code = 6768-6) 46 40-150 [facility] MarshallUS RENAL RETROPERITONEAL BVJK5409-67-40 15:55:00 [facility] [address] [place] [address] Patient Name: AG CATALAN MR #: [id number] : 1935 Age/Sex: 83/M Req #: [id number] Adm Physician: QAMAR DELGADO MD Ordered by: LANIE RICHARD, MARIPOSA RICHARD Report #: [id number] [facility]: [facility] Room/Bed: [facility] Procedure: [id number] US/US RENAL RETROPERITONEAL COMP Exam Date: 05/06/19 [...] 600 COPY TO: MARIPOSA GUILLAUME B-Type Natriuretic Bklqrpy9424-84-58 15:27:00* Test Item Value Reference Range Interpretation Comments B-Type Natriuretic Peptide (test code = 89391-9) 507.9 0-100 [facility] MarshallUric Niex5333-61-99 15:18:00* Test Item Value Reference Range Interpretation Comments Uric Acid (test code = 3084-1) 9.1 4.8-8.0 [facility] MarshallCreatine Gikbmz0819-00-18 14:37:00* Test Item Value Reference Range Interpretation Comments Creatine Kinase (test code = 2157-6) 111 30-200 [facility] MarshallCreatine Kinase SD4404-22-89 14:37:00* Test Item Value Reference Range Interpretation Comments Creatine Kinase MB (test code = 20009-8) 1.30 0-5.0 [facility] MarshallTroponin B9645-60-30 14:37:00* Test Item Value Reference Range Interpretation Comments Troponin I (test code = DMF2615) 0.033 0-0.300 [facility] MarshallDifferential Total Cells Counted 2019-05-05 10:38:00* Test Item Value Reference Range Interpretation Comments Differential Total Cells Counted (test code = Luigi tial Total Cells Counted) 100 [facility] MarshallNeutrophils % (Manual)2019-05-05 10:38:00 * Test Item Value Reference Range Interpretation Comments Neutrophils % (Manual) (test code = 21404-9) 72 40-74 [facility] MarshallLymphocytes % (Manual)2019-05-05 10:38:00 * Test Item Value Reference Range Interpretation Comments Lymphocytes % (Manual) (test code = 737-7) 10 19-48 [facility] MarshallMonocytes % (Manual)2019-05-05 10:38:00* Test Item Value Reference Range Interpretation Comments Monocytes % (Manual) (test code = 744-3) 8 3.4-9.0 [facility] MarshallEosinophils % (Manual)2019-05-05 10:38:00 * Test Item Value Reference Range Interpretation Comments Eosinophils % (Manual) (test code = 714-6) 10 0-7 [facility] MarshallFerritin2020-01-26 09:33:00* Test Item Value Reference Range Interpretation Comments Ferritin (test code = 2276-4) 799.26 21.81-274.66 [facility] MarshallIron Gpkbk7874-54-62 08:39:00* Test Item Value Reference Range Interpretation Comments Iron Level (test code = 2498-4) 16 65-175 [facility] MarshallTotal Iron Binding Tgxzyhak3367-01-63 08:39:00* Test Item Value Reference Range Interpretation Comments Total Iron Binding Capacity (test code = 2500-7) 175 261-4 78 [facility] MarshallPercent Iron Pivxirtzni7979-40-78 08:39:00* Test Item Value Reference Range Interpretation Comments Percent Iron Saturation (test code = 2502-3) 9 15-50 [facility] MarshallTransferrin2020-01-26 08:39:00* Test Item Value Reference Range Interpretation Comments Transferrin (test code = 3034-6) 125 174-364 [facility] MarshallTriglycerides Qhtcy5071-32-23 05:29:00* Test Item Value Reference Range Interpretation Comments Triglycerides Level (test code = 2571-8) 63 0-149 [facility] MarshallCholesterol Wenat1633-73-23 05:29:00* Test Item Value Reference Range Interpretation Comments Cholesterol Level (test code = 2093-3) 99 0-199 Less than 200 mg/dL Low Slsa939 - 239 mg/dL Borderline Kqve243 m g/dl and greater High Risk [facility] MarshallLDL Znswectxdio9725-46-41 05:29:00* Test Item Value Reference Range Interpretation Comments LDL Cholesterol (test code = 2089-1) 60 60-130 [facility] MarshallHDL Nlnvibphfhb4061-46-06 05:29:00* Test Item Value Reference Range Interpretation Comments HDL Cholesterol (test code = 2085-9) 26 40-60 [facility] MarshallCholesterol/HDL Qaiva3922-00-07 05:29:00 * Test Item Value Reference Range Interpretation Comments Cholesterol/HDL Ratio (test code = 9830-1) 3.8 3.9-4.7 [facility] MarshallCT CERVICAL SPINE RY8882-71-15 16:13:00 [facility] [address] [place] [address] Patient Name: AG CATALAN MR #: [id number] : 1935 Age/Sex: 83/M Req #: [id number] Adm Physician: Ordered by: MARTINA SKELTON MD Report #: [id number] Location: ER Room/Bed: Procedure: [id number] C T/CT CERVICAL SPINE WO Exam Date: [...] COPY TO: MARTINA SKELTON MD CT BRAIN ND4235-17-84 16:08:[facility] [place] [address] [place] Name: AG CATALAN MR #: [id number] : 1935 Age/Sex: 83/M Req #: [id number] Adm Physician: Ordered by: MARTINA SKELTON MD Report #: [id number] Location: ER Room/Bed: Procedure: [id number] C T/CT BRAIN WO Exam Date: Exam [...] 05/04/191612 COPY TO: MARTINA SKELTON MD Urine Lohck6227-45-62 15:58:00* Test Item Value Reference Range Interpretation Comments Urine Color (test code = 5778-6) YELLOW YELLOW [facility] MarshallUrine Kbrrmcf0913-38-53 15:58:00* Test Item Value Reference Range Interpretation Comments Urine Clarity (test code = 39594-9) SL CLOUDY CLEAR [facility] MarshallUrine Specific Zpjapzv1356-14-60 15:58:00 * Test Item Value Reference Range Interpretation Comments Urine Specific [place] (test code = 5811-5) 1.010 1.010-1.02 5 [facility] MarshallUrine fT5124-30-02 15:58:00* Test Item Value Reference Range Interpretation Comments Urine pH (test code = 93851-6) 5.5 5-7 [facility] MarshallU[facility] Leukocyte Nrivroyf3880-76-66 15:58:00* Test Item Value Reference Range Interpretation Comments Urine Leukocyte Esterase (test code = 5799-2) SMALL NEGATIVE [facility] MarshallUrine Dtxizmt0821-60-23 15:58:00* Test Item Value Reference Range Interpretation Comments Urine Nitrite (test code = 37768-7) NEGATIVE NEGATIVE [facility] MarshallUrine Bgrolqt0920-94-27 15:58:00* Test Item Value Reference Range Interpretation Comments Urine Protein (test code = 5804-0) NEGATIVE NEGATIVE [facility] MarshallUrine Glucose (UA)2019-05-04 15:58:00* Test Item Value Reference Range Interpretation Comments Urine Glucose (UA) (test code = 2349-9) NEGATIVE NEGATIVE [facility] MarshallUrine Cwxlyuo5193-95-65 15:58:00* Test Item Value Reference Range Interpretation Comments Urine Ketones (test code = 45926-6) NEGATIVE NEGATIVE [facility] MarshallUrine Iowgemhdmcdr1986-18-71 15:58:00* Test Item Value Reference Range Interpretation Comments Urine Urobilinogen (test code = 92077-3) 0.2 0.2-1 [facility] MarshallU[facility] Kcntytpxz8875-29-05 15:58:00* Test Item Value Reference Range Interpretation Comments Urine Bilirubin (test code = 1978-6) NEGATIVE NEGATIVE [facility] Glmbe8261-78-12 15:58:00* Test Item Value Reference Range Interpretation Comments Urine Blood (test code = 26216-5) 1+ NEGATIVE [facility] MarshallU[facility] NXP4190-46-14 15:58:00* Test Item Value Reference Range Interpretation Comments Urine WBC (test code = 5821-4) 6-10 0-5 [facility] MarshallU[facility] QJG5069-98-34 15:58:00* Test Item Value Reference Range Interpretation Comments Urine RBC (test code = 06137-4) 0-5 0-5 [facility] MarshallU[facility] Kjcbtnyz2349-25-52 15:58:00* Test Item Value Reference Range Interpretation Comments Urine Bacteria (test code = 02740-2) RARE NONE [facility] MarshallU[facility] Epithelial Gkkhf1435-24-40 15:58:00 * Test Item Value Reference Range Interpretation Comments Urine Epithelial Cells (test code = 54723-4) FEW NONE [facility] MarshallProthrombin Nhzv3791-90-43 15:26:00* Test Item Value Reference Range Interpretation Comments Prothrombin Time (test code = 5902-2) 14.7 11.9-14.5 [facility] MarshallProthromb Time International Ratio 2019-05-04 15:26:00* Test Item Value Reference Range Interpretation Comments Prothromb Time International Ratio (test code = 6301-6) 1.10 Oral Anticoagulant Therapy INR Values:1. Low Intensity Therapy 1.5 - 2.02 . Moderate Intensity Therapy 2.0 - 3.03. High Intensity Therapy(1) 2.5 - 3. 54. High Intensity Therapy(2) 3.0 - 4.05. Panic Value INR > 5.0 [facility] MarshallActivated Partial Thromboplast Time 2019-05-04 15:26:00* Test Item Value Reference Range Interpretation Comments Activated Partial Thromboplast Time (test code = 81567-9) 42.0 23.8-35.5 [facility] SINGLE (PORTABLE)2019-05-04 14:49:00 [facility] [address] [place], [place] [address] Patient Name: AG CATALAN MR #: [id number] : 1935 Age/Sex: 83/M Req #: [id number] Adm Physician: Ordered by: MARTINA SKELTON MD Report #: [id number] Location: ER Room/Bed: Procedure: [id number] D X/CHEST SINGLE (PORTABLE) Exam Date: 05/04/19 [...] MARTINA SKELTON MD Influenza Virus Types A,B Rprmrsb4074-07-38 20:04:00* Test Item Value Reference Range Interpretation Comments Influenza Virus Types A,B Antigen (test code = 39103-0) NEGATIVE NEGATIVE [facility] SINGLE (PORTABLE)2019-04-18 06:37:00 [place] [address] Patient Name: AG CATALAN MR #: [id number] : 1935 Age/Sex: 83/M Req #: [id number] Adm Physician: QAMAR DELGADO MD Ordered by: GERARD CORTES MD Report #: [id number] Location: ICU Room/Bed: [place] [address] Procedure: [id number] D X/CHEST SINGLE (PORTABLE) Exam Date: Exam [...] GERARD CORTES MD CHEST SINGLE (PORTABLE)2019-04-17 18:31:00 [place] [address] Patient Name: AG CATALAN MR #: [id number] : 1935 Age/Sex: 83/M Req #: [id number] Adm Physician: Ordered by: MARTINA SKELTON MD Report #: [id number] Location: ER Room/Bed: Procedure: [id number] D X/CHEST SINGLE (PORTABLE) Exam Date: 04/17/19 Exam T mundo: 182 REPORT STATUS: Signed EXAMINATION: CHEST SINGLE (PORTABLE) INDICATION: STEMI 202 [id number] 182 COMPARISON: 12/25/2017 FINDINGS: AP view T [...] COPY TO: MARTINA SKELTON MD CHEST 2 LKWHZ9827-86-94 15:09:00 [place] [address] Patient Name: AG CATALAN MR #: [id number] : 1935 Age/Sex: 82/M Req #: [id number] Adm Physician: Ordered by: NORBERT SAAVEDRA MD Report #: [id number] Location: OR Room/Bed: Procedure: [id number] DX/CHEST 2 VIEWS Exam Date : 12/25/17 [...] TO: VALERIA SAAVEDRA MD CHEST 2 VIEWS [place] [address] Patient Name: AG CATALAN MR #: [id number] : 1935 Age/Sex: 82/M Req #: [id number] Adm Physician: Ordered by: KATIE MOREAU MD Report #: [id number] Location: OR Room/Bed: Procedure: [id number] DX/CHEST 2 VIEWS Exam Date: 08/07/17 Exam Time: 1732 REPORT STATUS: Signed PROCEDURE: Frontal and lateral views of the chest. COMPARISON: [facility], DX, CHEST 2 VIEWS, 03/17/2010, 16:30. INDICATIONS: [...]
[2019-08-21] MEDS: PIPER-TAZ 3.375 GM 50 ML IV SCH ×3 (07:35→16:28)
--- NOTE | 2019-08-21 07:52 | NUR ---
Pt to CT scan.
--- NOTE | 2019-08-21 10:08 | Consultation ---
DATE OF CONSULTATION: 08/21/2019 CHIEF COMPLAINT: Left inguinal hernia. HISTORY OF PRESENT ILLNESS: The patient is an 84-year-old male with several-day history of left inguinal bulge with discomfort and nausea and vomiting. The patient denies fever or chills. PAST MEDICAL HISTORY: Significant for coronary artery disease, heart failure, peripheral vascular disease, and chronic renal insufficiency. PAST SURGICAL HISTORY: Positive for endovascular AAA repair, right inguinal hernia repair, and knee replacement. ALLERGIES: HE HAS NO DRUG ALLERGIES. SOCIAL HABITS: The patient denies current smoking. No alcohol abuse. REVIEW OF SYSTEMS: No chest pain or shortness of breath. PHYSICAL EXAMINATION: VITAL SIGNS: Stable. He is afebrile. GENERAL: He is awake, alert, in moderate discomfort. HEENT: Sclerae nonicteric. NECK: Supple. LUNGS: Clear. HEART: Regular rate and rhythm. ABDOMEN: Soft. There is a left inguinal mass which is approximately 6 cm but nonreducible with some tenderness. EXTREMITIES: No cyanosis or edema. LABORATORY DATA: The current white cell count is 6, hemoglobin of 10, platelet count of 213, and creatinine of 1.9. CT scan showed incarcerated loop of small bowel and left inguinal hernia sac. ASSESSMENT: Incarcerated, possible strangulated left inguinal hernia. PLAN: Repair of left incarcerated inguinal hernia with possible bowel resection. Attendant risks discussed. Lowell To MD DNZaida/MODL /[id number]
--- NOTE | 2019-08-21 10:11 | Diagnostic Imaging Report ---
EXAM: CT Abdomen and Pelvis WITHOUT intravenous contrast INDICATION: Abdominal pain COMPARISON: CT abdomen and pelvis of 05/07/2019 TECHNIQUE: Abdomen and pelvis were scanned utilizing a multidetector helical scanner from the lung base to the pubic symphysis without administration of IV contrast. Coronal and sagittal reformations were obtained. IV CONTRAST: None ORAL CONTRAST: Gastrografin COMPLICATIONS: None RADIATION DOSE: Total DLP: 600 mGy*cm Dose modulation, iterative reconstruction, and/or weight based adjustment of the mA/kV was utilized to reduce the radiation dose to as low as reasonably achievable. FINDINGS: LOWER THORAX: Trace right pleural effusion. Mild bibasilar dependent subsegmental atelectasis. Mild interlobular septal thickening and bladder wall with mild interstitial pulmonary edema. HEPATOBILIARY: No focal liver lesion. Unremarkable gallbladder. SPLEEN: No splenomegaly. PANCREAS: No focal masses or ductal dilatation. ADRENALS: No adrenal nodules. KIDNEYS/URETERS: No hydronephrosis or renal calculi. Unchanged bilateral renal cysts. PELVIC ORGANS/BLADDER: Unremarkable. PERITONEUM / RETROPERITONEUM: No free air or fluid. LYMPH NODES: No lymphadenopathy. VESSELS: Status post interval stent graft repair of infrarenal abdominal aortic aneurysm. The aneurysm sac is essentially unchanged in size compared to 05/07/2019. GI TRACT: Multiple loops of fluid-filled distended small bowel in the mid and lower abdomen with transition point at an incarcerated loop of small bowel in the left inguinal hernia. Severe diverticulosis. No CT evidence of diverticulitis. Normal appendix. BONES AND SOFT TISSUES: Diffuse osteopenia. No acute osseous injury. No suspicious lytic or blastic lesions. IMPRESSION: Incarcerated small bowel loops associated with left internal hernia resulting in small bowel obstruction. Interval stent graft repair of infrarenal abdominal aortic aneurysm with unchanged aneurysm sac size compared to 05/07/2019. The above findings were discussed with Dr. To on 08/21/2019 9:40 AM, who responded indicating that the communication was understood. Signed by: Louis Billings MD on 08/21/2019 10:06 AM
[2019-08-21] MEDS ORDERED: SODIUM CHLORIDE 0.9% 250ML 250 ML ONE (11:39)
[2019-08-21] MEDS ORDERED: TYLENOL WITH C1 EACH PO (11:58)
[2019-08-21] MEDS ORDERED: PLAQUENIL200 MG PO (11:58)
[2019-08-21] MEDS ORDERED: ASPIR 8181 MG PO (11:58)
[2019-08-21] MEDS ORDERED: DOCUSATE SODIU100 MG PO (11:58)
[2019-08-21] MEDS ORDERED: PLAVIX75 MG PO (11:58)
[2019-08-21] MEDS ORDERED: LISINOPRIL10 MG PO (11:58)
[2019-08-21 12:35] VITALS: BP 168/91
--- NOTE | 2019-08-21 13:10 | NUR ---
Patient left the floor to go to the OR
[2019-08-21] MEDS ORDERED: BUPIVACAINE HCL 0.5% INJ 30 ML VIAL INJ ONE (13:47)
[2019-08-21] MEDS ORDERED: MORPHINE SULFATE 5 MG/ML VIAL IV PRN (15:15)
[2019-08-21 16:00] VITALS: BP 154/79
--- NOTE | 2019-08-21 16:00 | NUR ---
Patient arrived back to the floor from recovery. He is awake alert and oriented x3 . Dressing to midline lower abdomen is dry and intact. The patient has no complaints and denies needing anything at this time. Call light in reach, bed alarm on.
[2019-08-21] MEDS ORDERED: FLOMAX0.4 MG PO (16:22)
[2019-08-21] MEDS: LACTATED RINGER'S 1,000 ML INJ SCH (16:28)
[2019-08-21 17:25] VITALS: BP 158/81
[2019-08-21] MEDS ORDERED: ONDANSETRON HCL INJ 2MG/ML 2ML 2 MG/ML VIAL ONE (18:36)
[2019-08-21] MEDS ORDERED: GLYCOPYRROLATE INJ 0.2 MG/ML VIAL ONE (18:36)
[2019-08-21] MEDS ORDERED: SUCCINYLCHOLINE CHLORIDE 20 MG/ML 10ML VIAL ONE (18:36)
[2019-08-21] MEDS ORDERED: SEVOFLURANE INHAL SOLN 250 ML PEN BTL ONE (18:36)
[2019-08-21] MEDS ORDERED: NEOSTIGMINE 1 MG/ML 10ML VIAL ONE (18:36)
[2019-08-21] MEDS ORDERED: LIDOCAINE HCL 2% LOCAL INJ 5 ML SDV VIAL INJ ONE (18:36)
[2019-08-21] MEDS ORDERED: LIDOCAINE HCL 2% JELLY 5 ML TUBE ONE (18:36)
[2019-08-21] MEDS ORDERED: PROPOFOL IV EMULSION 10 MG/ML 20 ML VIAL ONE (18:36)
[2019-08-21] MEDS ORDERED: FENTANYL CITRATE/PF 100MCG/2 ML INJ ONE (18:59)
[2019-08-21 20:00] VITALS: BP 131/66
[2019-08-21 20:49] VITALS: BP 131/66
[2019-08-22] VITALS (7 sets, daily range): BP systolic 123–136; BP diastolic 53–67
[2019-08-22] MEDS: PIPER-TAZ 3.375 GM 50 ML IV SCH ×4 (00:34→17:58)
[2019-08-22] MEDS: LACTATED RINGER'S 1,000 ML INJ SCH ×3 (00:34→17:58)
[2019-08-22 05:00] LABS: BASOPHILS # (AUTO) 0.1 (0.0-0.1); BASOPHILS % 0.8 % (0.0-1.0); EOSINOPHILS % 0.6 % (0.0-6.0); HEMATOCRIT 29.1 % (38.2-49.6); HEMOGLOBIN 8.5 g/dL (14.0-18.0); LYMPHOCYTES # (AUTO) 1.1 (1.0-3.2); LYMPHOCYTES % 16.9 % (18.0-39.1); MEAN CORPUSCULAR HGB CONC 29.2 g/dL (31-35); MEAN CORPUSCULAR VOLUME 99.3 fL (81-99); MONOCYTES # (AUTO) 0.6 (0.2-0.8); MONOCYTES % 9.2 % (4.4-11.3); NEUTROPHILS # (AUTO) 4.5 (2.1-6.9); NEUTROPHILS % 72.2 % (38.7-80.0); PLATELET COUNT 173 x10e3/uL (140-360); RED BLOOD COUNT 2.93 x10e6/uL (4.3-5.7); RED CELL DISTRIBUTION WIDTH 15.5 % (11.7-14.4)
[2019-08-22 05:20] LABS: ALBUMIN 2.6 g/dL (3.5-5.0); ALBUMIN/GLOBULIN RATIO 0.7 (0.8-2.0); ANION GAP 9.8 mmol/L (8-16); CALCIUM 7.9 mg/dL (8.4-10.2); CREATININE, SERUM 1.78 mg/dL (0.72-1.25); POTASSIUM 4.8 mmol/L (3.5-5.1)
--- NOTE | 2019-08-22 06:30 | NUR ---
H&P cc: groin pain/swelling HPI: 84yoM, PCP , developed groin pain/swelling, found to have hernia, underwent surgical mgmt, now recovering; PMH: RA, BPH, CKD3, peripheral edema, hearing deficits, STEMI 04/2019, hyponatremia, Bradyarrhythmia, urinary retention, ESBL E.coli, Systolc CHF LVEF 40-45%, AAA PShx: B/L TKR, hernia repair Allergies; see emr fh/SH; ; no cigs meds; see MAR ROS: no f/c/s/N/V/D/dizziness/skin rash/back pain/confusion/leg pain v/s; revd PE tired appearing anicteric ns1s2 mod bs soft nt nd Lamb in place no e/t; thickening and yellowing of toenails skin dry n. affect Reduced hearing labs/meds revd A/P 83yoM Left inguinal hernia-s/p Sx; cardio eval; hold plavix/ASA; iv zosyn CKD3 due to HTN- at or near baseline Moderate anemia CAD with recent ACS and stent placed in 04/2019- cardioeval Hypertensive heart ds BPH- flomax RA- plaquenil Onychomycosis of toenails HEaring deficits Prop: scd dispo: Qamar Olson MD, PhD.
[2019-08-22] MEDS ORDERED: ONDANSETRON HCL INJ 2MG/ML 2ML 2 MG/ML VIAL IV PRN (06:45)
[2019-08-22] MEDS ORDERED: ACETAMINOPHEN 325 MG TAB PO PRN (06:45)
[2019-08-22] MEDS ORDERED: DOCUSATE SODIUM 100 MG CAP PO PRN (06:45)
[2019-08-22 07:39] LABS: ANISOCYTOSIS SLIGHT; HYPOCHROMASIA SLIGHT; PLATELET ESTIMATE ADEQUATE; PLATELET MORPHOLOGY COMMENT NORMAL; RBC MORPHOLOGY COMMENT NORMAL
[2019-08-22] MEDS ORDERED: ONDANSETRON HCL 4 MG ORAL DISINTEGRATING TAB PO PRN (10:00)
[2019-08-22] MEDS: HYDROXYCHLOROQUINE SULFATE 200 MG TAB PO SCH (11:38)
[2019-08-22] MEDS: TAMSULOSIN HCL 0.4 MG CAP PO SCH (11:38)
[2019-08-22] MEDS: LISINOPRIL 10 MG TAB PO SCH (11:38)
[2019-08-22] MEDS: FERROUS SULFATE 325 MG TAB PO SCH ×2 (11:38→17:58)
--- NOTE | 2019-08-22 14:40 | Operative Report ---
DATE OF PROCEDURE: 08/21/2019 SURGEON: Lowell To MD PREOPERATIVE DIAGNOSIS: Incarcerated left inguinal hernia. POSTOPERATIVE DIAGNOSIS: Strangulated left inguinal hernia. PROCEDURE: Repair of strangulated left inguinal hernia with bowel resection. ANESTHESIA: General. SUBGRADE TESTER Stefanie Barbour INDICATION: An 84-year-old male with history of left groin mass, which is an incarcerated left inguinal hernia. The patient consented for repair with possible bowel resection from strangulation. PROCEDURE FINDING: A 5 cm piece of small intestine which is nonviable, strangulated from herniation. DESCRIPTION OF PROCEDURE: The patient was brought to the OR intubated, abdomen then prepped and draped in sterile fashion. A left inguinal incision was made down to the fascia of the external oblique, which was then opened towards the external ring. The patient had prior left inguinal hernia repair with mesh. We proceeded to take down the neck of the hernia sac at the inguinal ligament, dividing the inguinal ligament with scissors. This freed up the neck of the hernia, allowing reduction of this large left indirect hernia sac which was then opened. The loops of small bowel were noted to be irreversibly ischemic and purple. A 5 cm piece of small intestine resected using the CLAYTON stapler and LigaSure instrument. We then performed an end to end stapled anastomosis using CLAYTON stapler and TL60 instrument. The loops of bowel were then reduced intraperitoneally and hernia sac is closed with a pursestring stitch of 2-0 Vicryl. We then proceeded to repair the inguinal hernia using an extended PHS Prolene mesh deployed into the preperitoneal space and anchored it medially to the Andrés ligament with a 2-0 Prolene stitch. Anteriorly, the mesh was anchored over the oblique and transversus abdominis muscle with interrupted 2-0 Vicryl. The inguinal ligament was repaired with 2-0 Prolene stitches and the external oblique fascia also closed with a running 2-0 Prolene stitch. The operative field was then irrigated. Hemostasis achieved. Subcutaneous tissue approximated with 3-0 Vicryl. Skin closed with jose. The patient tolerated the procedure well, was extubated and transferred to recovery room. BLOOD LOSS: 10 mL. Lowell To MD DNL/MODL /[id number]
--- NOTE | 2019-08-22 19:00 | NUR ---
RECEIVED PATIENT IN BEDSIDE SHIFT REPORT. PATIENT RESTING IN BED AT THIS TIME. PAIN REPORTED TO ABDOMEN 09/17. WILKINSON DRAINING CLEAR, YELLOW URINE TO GRAVITY, HANGING ON SIDE OF BED, OFF OF FLOOR. NO S&S OF DISTRESS NOTED. BED LOCKED IN LOWEST POSITION, SIDE RAILS UPX2, CALL LIGHT IN REACH.
[2019-08-22] MEDS: MORPHINE SULFATE INJ 10 MG/ML IV PRN (20:20)
[2019-08-22] MEDS ORDERED: ZOLPIDEM TARTRATE 5 MG TAB PO PRN (21:00)
[2019-08-23] VITALS (8 sets, daily range): BP systolic 126–148; BP diastolic 52–73
[2019-08-23] MEDS: PIPER-TAZ 3.375 GM 50 ML IV SCH ×4 (00:09→18:39)
[2019-08-23] MEDS: LACTATED RINGER'S 1,000 ML INJ SCH ×3 (04:32→13:03)
--- NOTE | 2019-08-23 06:45 | NUR ---
IM- progress note O/N see below ROS: no f/c/s/N/V/D/dizziness/skin rash/back pain/confusion/leg pain v/s; revd PE tired appearing anicteric ns1s2 mod bs soft nt nd Lamb in place no e/t; thickening and yellowing of toenails skin dry n. affect Reduced hearing labs/meds revd A/P 83yoM Left inguinal hernia-s/p Sx; cardio eval; hold plavix/ASA; iv zosyn CKD3 due to HTN- at or near baseline Moderate anemia CAD with recent ACS and stent placed in 04/2019- cardioeval Hypertensive heart ds BPH- flomax RA- plaquenil Onychomycosis of toenails HEaring deficits Prop: scd dispo: 5-15 cont care; f/u labs; Qamar Olson MD, PhD.
[2019-08-23] MEDS: TAMSULOSIN HCL 0.4 MG CAP PO SCH (08:46)
[2019-08-23] MEDS: LISINOPRIL 10 MG TAB PO SCH (08:46)
[2019-08-23] MEDS: FERROUS SULFATE 325 MG TAB PO SCH ×2 (08:46→18:39)
[2019-08-23] MEDS: HYDROXYCHLOROQUINE SULFATE 200 MG TAB PO SCH (08:46)
[2019-08-23] MEDS ORDERED: DIPHENHYDRAMINE HCL 25 MG CAP PO PRN (09:15)
[2019-08-24] VITALS (8 sets, daily range): BP systolic 126–156; BP diastolic 59–75
[2019-08-24] MEDS: PIPER-TAZ 3.375 GM 50 ML IV SCH ×4 (00:10→17:05)
[2019-08-24] MEDS: LACTATED RINGER'S 1,000 ML INJ SCH ×3 (00:15→17:04)
[2019-08-24] MEDS: MORPHINE SULFATE INJ 10 MG/ML IV PRN (04:46)
--- NOTE | 2019-08-24 05:04 | NUR ---
IM- progress note O/N see below ROS: no f/c/s/N/V/D/dizziness/skin rash/back pain/confusion/leg pain v/s; revd PE tired appearing anicteric ns1s2 mod bs soft nt nd Ann in place no e/t; thickening and yellowing of toenails skin dry n. affect Reduced hearing labs/meds revd A/P 83yoM Left inguinal hernia-s/p Sx; cardio eval; hold plavix/ASA; iv zosyn CKD3 due to HTN- at or near baseline Moderate anemia CAD with recent ACS and stent placed in 04/2019- cardioeval Hypertensive heart ds BPH- flomax RA- plaquenil Onychomycosis of toenails HEaring deficits Prop: scd dispo: 5-15 cont care; f/u labs; 5-16 check labs; Urinary retention- ann; f/u urology. Qamar Olson MD, PhD.
[2019-08-24 06:19] LABS: BASOPHILS # (AUTO) 0.1 (0.0-0.1); EOSINOPHILS # (AUTO) 0.2 (0.0-0.4); EOSINOPHILS % 3.7 % (0.0-6.0); HEMATOCRIT 26.5 % (38.2-49.6); HEMOGLOBIN 7.8 g/dL (14.0-18.0); LYMPHOCYTES % 20.1 % (18.0-39.1); MEAN CORPUSCULAR HEMOGLOBIN 29.2 pg (28-32); MEAN CORPUSCULAR HGB CONC 29.4 g/dL (31-35); MEAN CORPUSCULAR VOLUME 99.3 fL (81-99); MONOCYTES # (AUTO) 0.5 (0.2-0.8); MONOCYTES % 9.2 % (4.4-11.3); NEUTROPHILS # (AUTO) 3.2 (2.1-6.9); NEUTROPHILS % 65.8 % (38.7-80.0); PLATELET COUNT 145 x10e3/uL (140-360); RED BLOOD COUNT 2.67 x10e6/uL (4.3-5.7)
[2019-08-24 06:39] LABS: ANION GAP 14.7 mmol/L (8-16); CALCIUM 8.1 mg/dL (8.4-10.2); CREATININE, SERUM 1.4 mg/dL (0.72-1.25); POTASSIUM 4.7 mmol/L (3.5-5.1)
--- NOTE | 2019-08-24 07:00 | NUR ---
RECEIVED PATIENT AWAKE RESTING IN BED NO S/S OF DISTRESS. BED LOW, WHEELS LOCKED, SIDE RAILS X2. CALL LIGHT IN REACH WILL CONTINUE TO MONITOR PATIENT.
[2019-08-24] MEDS: LISINOPRIL 10 MG TAB PO SCH (09:04)
[2019-08-24] MEDS: FERROUS SULFATE 325 MG TAB PO SCH ×2 (09:04→17:04)
[2019-08-24] MEDS: TAMSULOSIN HCL 0.4 MG CAP PO SCH (09:04)
[2019-08-24] MEDS: HYDROXYCHLOROQUINE SULFATE 200 MG TAB PO SCH (09:04)
[2019-08-24 09:47] LABS: HYPOCHROMASIA SLIGHT; RBC MORPHOLOGY COMMENT ABNORMAL
--- NOTE | 2019-08-24 20:03 | NUR ---
RECEIVED PATIENT IN BEDSIDE AOX3 . DENIES PAIN . WILKINSON DRAINING CLEAR, YELLOW URINE, . RT AC 20 G INFUSING LR AT 125 CC/HR NO S&S OF DISTRESS NOTED. CALL LIGHT IN REACH.
[2019-08-25] VITALS: BP 162/76
[2019-08-25] MEDS: LACTATED RINGER'S 1,000 ML INJ SCH ×2 (01:38→07:58)
[2019-08-25 04:00] VITALS: BP 168/95
[2019-08-25] MEDS: PIPER-TAZ 3.375 GM 50 ML IV SCH ×3 (05:48→11:36)
--- NOTE | 2019-08-25 06:11 | NUR ---
PT RESTED DURING THE NIGHT .DENIES PAIN F/C DRAINING CLEAR YELLOW URINE .CALL LIGHT WITH IN REACH .CONTINUE TO MONITOR
--- NOTE | 2019-08-25 06:58 | NUR ---
BEDSIDE REPORT GIVEN TO THE ONCOMING NURSE.
--- NOTE | 2019-08-25 07:00 | NUR ---
RECEIVED PATIENT AWAKE RESTING IN BED NO S/S OF DISTRESS. BED LOW, WHEELS LOCKED, SIDE RAILS X2. CALL LIGHT IN REACH WILL CONTINUE TO MONITOR PATIENT.
[2019-08-25] MEDS: FERROUS SULFATE 325 MG TAB PO SCH (07:58)
[2019-08-25] MEDS: HYDROXYCHLOROQUINE SULFATE 200 MG TAB PO SCH (07:58)
[2019-08-25] MEDS: TAMSULOSIN HCL 0.4 MG CAP PO SCH (07:58)
[2019-08-25] MEDS: LISINOPRIL 10 MG TAB PO SCH (07:58)
[2019-08-25 07:59] VITALS: BP 156/63
[2019-08-25 09:02] VITALS: BP 156/63
--- NOTE | 2019-08-25 12:25 | NUR ---
D/C summary Pricipal Dx: Left inguinal hernia-s/p Sx; cardio eval; hold plavix/ASA; iv zosyn CKD3 due to HTN- at or near baseline Moderate anemia Secondary Dx: CAD with recent ACS and stent placed in 04/2019- cardioeval Hypertensive heart ds BPH- flomax RA- plaquenil Onychomycosis of toenails HEaring deficits Prop: scd dispo: 5-15 cont care; f/u labs; 5-16 check labs; Urinary retention- ann; f/u urology. 5-17 d/c planning; d/c home f/u pcp 1 week and surgeon as directed d/c>35mins stable Qamar Olson MD, PhD.
[2019-08-25] MEDS ORDERED: KEFLEX500 MG PO (12:28)
[2019-08-25] MEDS ORDERED: FLAGYL500 MG PO (12:28)
[2019-08-25 12:47] VITALS: BP 168/71
--- NOTE | 2019-08-25 14:39 | NUR ---
SPOKE WITH DR. BLAND. PATIENT OK TO GO HOME FROM SURGERY STANDPOINT AND NEEDS TO FOLLOW UP WITH DR. OSORIO IN ONE WEEK.
--- NOTE | 2019-08-25 15:07 | NUR ---
REMOVED PATIENTS IV. CATHETER TIP INTACT AND PRESSURE DRESSING APPLIED.
[2019-08-25 15:36] VITALS: BP 160/75
--- NOTE | 2019-08-25 16:07 | NUR ---
PATIENT DISCHARGED FROM FACILITY. PATIENT GATHERED ALL PERSONAL BELONGINGS, DISCHARGE INSTRUCTIONS, AND FOLLOW UP INFORMATION. PATIENT LEFT UNIT IN WHEELCHAIR AND WENT HOME VIA PRIVATE AUTO. EDUCATED PATIENT AND DAUGHTER ON [employer]. REFERRALS GIVEN TO PATIENT. NO S/S OF DISTRESS WHEN LEAVING FACILITY.
== END 2019-08-25 16:07 | disposition home or self-care (01) | DRG 330 ==
LOC: ER 04:50 → ERHOLD 06:53 → MED/SURG2 11:30
PROVIDERS: ADMIT Internal Medicine; ATTEND Internal Medicine
PROC: 0DB80ZZ Excision of Small Intestine, Open Approach (ICD-10-PCS; 2019-08-21)
PROC: 0YU60JZ Supplement Left Inguinal Region with Synthetic Substitute, Open Approach (ICD-10-PCS; principal; 2019-08-21 12:00)
DX: K40.30 Unilateral inguinal hernia, with obstruction, without gangrene, not specified as recurrent (principal); I13.0 Hypertensive heart and chronic kidney disease with heart failure and stage 1 through stage 4 chronic kidney disease, or unspecified chronic kidney disease; I50.22 Chronic systolic (congestive) heart failure; D62 Acute posthemorrhagic anemia; N40.0 Benign prostatic hyperplasia without lower urinary tract symptoms; N28.1 Cyst of kidney, acquired; I25.10 Atherosclerotic heart disease of native coronary artery without angina pectoris; I73.9 Peripheral vascular disease, unspecified; N18.3 Chronic kidney disease, stage 3 (moderate); D64.9 Anemia, unspecified; M06.9 Rheumatoid arthritis, unspecified; H91.90 Unspecified hearing loss, unspecified ear; I25.2 Old myocardial infarction; I11.0 Hypertensive heart disease with heart failure; B35.1 Tinea unguium; Z11.59 Encounter for screening for other viral diseases
CPT/HCPCS: 36415; 74176; 80048; 80053; 81001; 83690; 85025; 87635; 88305; 88307; 93005; 99284; C1781; J0330; J2001; J2270; J2405; J2543; J2710; J3010; J7030; J7050; J7121

== ENCOUNTER 2019-08-28 21:04 | Inpatient (IN) | payer MEDICARE, OTHER ==
[~2019-08-28] VITALS: Ht 177.8 cm; Wt 97.7 kg
[~2019-08-28 21:04] MED LIST changes: +ASPIR 8181 MG PO; +DOCUSATE SODIU100 MG PO; +FLAGYL500 MG PO; +KEFLEX500 MG PO; +LISINOPRIL10 MG PO; +PLAQUENIL200 MG PO; +PLAVIX75 MG PO; +TYLENOL WITH C1 EACH PO
[2019-08-28] MEDS ORDERED: SODIUM CHLORIDE 0.9% 1000ML 1,000 ML IV STA ×2 (21:08→21:19)
--- NOTE | 2019-08-28 21:10 | Emergency Department Note ---
History of Present Illnes History of Present Illness History of Present Illness This is a 84 year old male brought to the ED for gen weakness with BRBPR since this PM. S/P L inguinal hernia repair by Dr Rebecca To Historian: Patient Blow Torch Burner Required: No Onset (how long ago): day(s) (1) Location: rectal bleeding Radiation: abdomen Severity: moderate Onset quality: sudden Duration (how long): day(s) (1) Timing of current episode: constant Progression: worsening Chronicity: new Context: recent surgery Relieving factors: none Exacerbating factors: none Associated symptoms: weakness Treatments prior to arrival: none Past Medical/Family History Physician Review I have reviewed the patient's past medical and family history. Any updates have been documented here. Past Medical History Past Medical History: Hypertension, [place], CAD Other Medical History: GOUT RA OBESITY PVD Past Surgical History: PCI, Knee Replacement, Hernia Repair Other Surgery: BILATERAL KNEE REPLACEMENT Other Last Tetanus: UNKNOWN Review of Systems Review of Systems Review of other systems All other systems reviewed and negative. Physical Exam Related Data Allergies: Coded Allergies: No Known Allergies (Verified , 08/21/19) Triage Vital Signs Vital Signs Date Time Temp Pulse Resp B/P (MAP) Pulse Ox O2 Delivery O2 Flow Rate FiO2 08/28/19 21:10 98.5 86 20 101/62 100 08/29/19 01:40 Room Air 08/29/19 02:45 2.0 Vital signs reviewed: Yes Physical Exam CONSTITUTIONAL Constitutional: cachectic, distressed, ill appearing HENT HENT: other (pale conjunctiva b/l) HENT L/R: left ext ear normal, right ext ear normal EYES Eyes: PERRL NECK Neck: ROM normal PULMONARY Pulmonary: effort normal, breath sounds normal CARDIOVASCULAR Cardiovascular: regular rhythm, heart sounds normal, capillary refill normal, normal rate GASTROINTESTINAL Abdominal: soft, bowel sounds normal, tender (LLQ), other (active bright red blood per rectum) GENITOURINARY Genitourinary: exam deferred SKIN Skin: other (pallor) MUSCULOSKELETAL Musculoskeletal: ROM normal NEUROLOGICAL Neurological: alert, oriented x 3, no gross motor or sensory deficits PSYCHOLOGICAL Psychological: mood/affect normal, judgement normal Results Laboratory Laboratory Laboratory Tests Test 08/29/19 01:33 08/28/19 21:15 Urine Color Yellow (YELLOW) Urine Clarity Clear (CLEAR) Urine pH 6 (5 - 7) Urine Specific [place] 1.015 (1.010-1.025) Urine Protein Negative (NEGATIVE) Urine Glucose (UA) Negative (NEGATIVE) Urine Ketones Negative (NEGATIVE) Urine Blood Negative (NEGATIVE) Urine Nitrite Negative (NEGATIVE) Urine Bilirubin Negative (NEGATIVE) Urine Urobilinogen 0.2 mg/dL (0.2 - 1) Urine Leukocyte Esterase Negative (NEGATIVE) Urine RBC 0-5 /HPF (0-5) Urine WBC 0-5 /HPF (0-5) Urine Epithelial Cells Few /LPF (NONE) Urine Bacteria Few /HPF (NONE) White Blood Count 7.41 x10e3/uL (4.8-10.8) Red Blood Count 2.45 x10e6/uL (4.3-5.7) Hemoglobin 7.2 g/dL (14.0-18.0) Hematocrit 24.1 % (38.2-49.6) Mean Corpuscular Volume 98.4 fL (81-99) Mean Corpuscular Hemoglobin 29.4 pg (28-32) Mean Corpuscular Hemoglobin Concent 29.9 g/dL (31-35) Red Cell Distribution Width 14.9 % (11.7-14.4) Platelet Count 235 x10e3/uL (140-360) Neutrophils (%) (Auto) 71.5 % (38.7-80.0) Lymphocytes (%) (Auto) 19.6 % (18.0-39.1) Monocytes (%) (Auto) 5.8 % (4.4-11.3) Eosinophils (%) (Auto) 1.5 % (0.0-6.0) Basophils (%) (Auto) 0.8 % (0.0-1.0) Neutrophils # (Auto) 5.3 (2.1-6.9) Lymphocytes # (Auto) 1.5 (1.0-3.2) Monocytes # (Auto) 0.4 (0.2-0.8) Eosinophils # (Auto) 0.1 (0.0-0.4) Basophils # (Auto) 0.1 (0.0-0.1) Absolute Immature Granulocyte (auto 0.06 x10e3/uL (0-0.1) Sodium Level 136 mmol/L (136-145) Potassium Level 4.5 mmol/L (3.5-5.1) Chloride Level 104 mmol/L (98-107) Carbon Dioxide Level 22 mmol/L (22-29) Anion Gap 14.5 mmol/L (8-16) Blood Urea Nitrogen 24 mg/dL (7-26) Creatinine 1.89 mg/dL (0.72-1.25) Estimat Glomerular Filtration Rate 34 ML/MIN (60-) BUN/Creatinine Ratio 13 (6-25) Glucose Level 111 mg/dL (74-118) Calcium Level 8.5 mg/dL (8.4-10.2) Total Bilirubin 0.4 mg/dL (0.2-1.2) Aspartate Amino Transf (AST/SGOT) 23 IU/L (5-34) Alanine Aminotransferase (ALT/SGPT) 11 IU/L (0-55) Alkaline Phosphatase 50 IU/L (40-150) Creatine Kinase 44 IU/L (30-200) Creatine Kinase MB 1.60 ng/mL (0-5.0) Troponin I 0.012 ng/mL (0-0.300) Total Protein 6.8 g/dL (6.5-8.1) Albumin 2.9 g/dL (3.5-5.0) Globulin 3.9 g/dL (2.3-3.5) Albumin/Globulin Ratio 0.7 (0.8-2.0) Lab results reviewed: Yes Imaging Imaging results reviewed: Yes Impressions [place] [address] Patient Name: AG CATALAN MR #: [id number] : 1935 Age/Sex: 84/M Req #: [id number] Adm Physician: Ordered by: SENTHIL MCNAIR DO Report #: [id number] Location: ER Room/Bed: Procedure: [id number] CT/CT ABDOMEN/PELVIS WO Exam Date: 08/28/19 Exam Time: 2300 REPORT STATUS: Signed EXAM: CT Abdomen and Pelvis WITHOUT intravenous contrast INDICATION: Rectal bleeding. Hernia repair last week. COMPARISON: CT abdomen and pelvis 08/21/19. CTA chest 04/29/2019. TECHNIQUE: Abdomen and pelvis were scanned utilizing a multidetector helical scanner from the lung base to the pubic symphysis without administration of IV contrast. Coronal and sagittal reformations were obtained. IV CONTRAST: None ORAL CONTRAST: Gastrografin COMPLICATIONS: None RADIATION DOSE: Total DLP: 682 mGy*cm Dose modulation, iterative reconstruction, and/or weight based adjustment of the mA/kV was utilized to reduce the radiation dose to as low as reasonably achievable. FINDINGS: LOWER THORAX: Trace right pleural effusion. Mild bibasilar dependent subsegmental atelectasis. 2 to 3 mm pulmonary nodules in the right middle lobe are unchanged from CT on 05/07/2019. Coronary atherosclerosis. Mild cardiomegaly. There is hypoattenuation of the blood pole in relation to the myocardium, suggestive of anemia. HEPATOBILIARY: No evidence of mass. Unremarkable gallbladder. SPLEEN: No splenomegaly. PANCREAS: No evidence of focal masses or ductal dilatation. Fatty atrophy. ADRENALS: No adrenal nodules. KIDNEYS/URETERS: No hydronephrosis or renal calculi. Unchanged bilateral renal cysts. PELVIC ORGANS/BLADDER: Lamb catheter terminates in the bladder which appears circumferentially mildly thick-walled. PERITONEUM / RETROPERITONEUM: Punctate free air within the left inguinal canal. Please see soft tissue section below. LYMPH NODES: No lymphadenopathy. 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 Limited evaluation the absence of IV contrast. The aneurysm sac is smaller in size compared to prior CTA, measuring up to 6.1 cm, previously 6.9 cm. GI TRACT: There has been interval repair of left inguinal hernia with partial resection of the small bowel, there is a new small bowel anastomosis in the right lower abdomen. There are mildly dilated small bowel loops, measuring up to 3.8 cm which are fluid-filled. No definite transition point identified. There is fluid seen throughout the colon. The cecum is mildly prominent. Colonic diverticulosis without evidence of diverticulitis. Hyperdense contents measuring up to 49 HU in the terminal ileum on series 2, image 59. Mildly hyperdense contents within the cecum and ascending colon. No evidence of pneumatosis. Normal appendix. BONES AND SOFT TISSUES: Diffuse osteopenia. No acute osseous abnormality. No suspicious lytic or blastic lesions. Remote healed left lower rib fractures. Degenerative changes of the lumbar spine. There are postsurgical changes related to recent left inguinal hernia repair. There are punctate foci of free air within the left inguinal canal with surrounding smaller free fluid and stranding. There is a 6.3 x 1.7 x 4.6 cm fluid attenuation collection in the left lower anterior abdominal wall. Diffuse anasarca. IMPRESSION: 1. Postsurgical changes related to left inguinal hernia repair with partial small bowel resection. A 6.3 x 1.7 x 4.6 cm fluid collection in the left lower anterior abdominal wall, likely seroma in the recent postoperative setting. Surrounding inflammatory changes and punctate foci of air are likely expected postoperatively. 2. Mildly dilated small bowel loops without definite transition point, likely nonobstructive postoperative ileus rather than low-grade partial small bowel obstruction. 3. Fluid seen throughout the small bowel and colon, which may represent infectious process. Suggest clinical correlation for diarrhea. 4. Hyperdense contents within the distal ileum and proximal colon may represent enteric contents, partial mixing with oral contrast, or hemorrhagic products in the appropriate clinical setting. 5. 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 Limited evaluation in the absence of IV contrast. 6. Lamb catheter terminates in a partially decompressed bladder. Apparent wall thickening within the bladder may reflect decompression versus cystitis in the appropriate clinical setting. 7. Findings suggestive of anemia. 8. Trace right pleural effusion with dependent atelectatic changes. Small right middle lobe pulmonary nodules measuring up to 3 mm are unchanged compared to CT on 05/07/2019. In a low risk patient, no further follow-up is required. If the patient is high risk for malignancy, an optional follow-up chest CT may be considered per recommendation on CT report from 05/07/2019 Signed by: Dr. Susanna Begum MD on 08/29/2019 12:03 AM Dictated By: SUSANNA BEGUM MD 0003 Transcribed By: KAIT on 08/29/19 0003 COPY TO: SENTHIL MCNAIR DO~ Procedures 12 Lead ECG Interpretation Blow Torch Burner: Interpreted by ED physician Date: August 28, 2019 Time: 22:31 Prior DEHYDRATOR TENDER tracings: reviewed Rhythm: sinus rhythm Ectopy: infrequent PVC's Rate: normal BPM: 71 QRS axis: normal ST segments normal: Yes T waves flattening: all Clinical Impression: non-specific ECG Critical Care Time Total Critical Care Time (min): 31 Critcal care necessary due to: shock Critcal care time spent by me: discussion w consultants, discussion w primary provider, evaluation patient response to tx, examination of patient, obtaining hx from patient/surrogate, order/review laboratory studies, order/review radiographic studies, review of old charts Assessment & Plan Assessment & Plan Final Impression: (1) Rectal hemorrhage (2) Hemorrhagic shock Assessment & Plan Patient with active bleeding per rectum. HgB 7.2 but with active bleeding. Patient admitted to Dr Yudith Delgado with Dr Zaida Reed consulted for critical care. Transfusion of 2 U of blood ordered. Depart Disposition: ADMITTED Last Vital Signs Date Time Temp Pulse Resp B/P (MAP) Pulse Ox O2 Delivery O2 Flow Rate FiO2 08/29/19 04:00 57 16 128/47 (74) 100 Room Air 08/29/19 03:00 98.6 08/29/19 02:45 2.0 Home Meds Active Scripts Cephalexin Monohydrate (KEFLEX) 500 Mg Capsule, 500 MG PO Q12H, #10 Prov:RADHA DELGADO MD 08/25/19 Metronidazole (FLAGYL) 500 Mg Tablet, 500 MG PO TID for 5 Days Prov:RADHA DELGADO MD 08/25/19 Reported Medications Tamsulosin Hcl* (FLOMAX*) 0.4 Mg Cap, 0.4 MG PO DAILY, #30 CAP 08/21/19 Aspirin (ASPIR 81) 81 Mg Tablet.dr 81 MG PO DAILY 08/21/19 Clopidogrel Bisulfate* (PLAVIX) 75 Mg Tablet, 75 MG PO DAILY, #30 TAB 08/21/19 Acetaminophen With Codeine (TYLENOL WITH CODEINE #3 TABLET) 1 Each Tablet, 300 MG PO BID PRN for Mild Pain (1-3) or Fever>100.8, TAB 08/21/19 Hydroxychloroquine Sulfate (PLAQUENIL) 200 Mg Tab, 200 MG PO DAILY, #30 TAB 08/21/19 Docusate Sodium (DOCUSATE SODIUM) 100 Mg Capsule, 100 MG PO BID PRN for CONSTIPATION, CAP 08/21/19 Lisinopril (LISINOPRIL) 10 Mg Tablet, 10 MG PO DAILY, #30 TAB 08/21/19 Ferrous Sulfate (FERROUS SULFATE) 325 Mg Tablet, 325 MG PO BID 08/08/17 Medications in the ED Sodium Chloride 1,000 ml @ 0 mls/hr Q0M STAT IV Last administered on 08/28/19at 21:30; Admin Dose 999 MLS/HR; Start 08/28/19 at 21:08; Stop 08/28/19 at 21:10; Status DC Sodium Chloride 1,000 ml @ 0 mls/hr Q0M STAT IV Last administered on 08/28/19at 22:43; Admin Dose 999 MLS/HR; Start 08/28/19 at 21:19; Stop 08/28/19 at 21:20; Status DC Diatrizoate Meglum/ Diatrizoate Sod 30 ml STK-MED ONCE PO ; Start 08/28/19 at 21:50; Stop 08/28/19 at 21:45; Status DC SENTHIL MCNAIR DO August 28, 2019 21:10
[2019-08-28 21:27] LABS: BASOPHILS # (AUTO) 0.1 (0.0-0.1); BASOPHILS % 0.8 % (0.0-1.0); EOSINOPHILS # (AUTO) 0.1 (0.0-0.4); EOSINOPHILS % 1.5 % (0.0-6.0); HEMATOCRIT 24.1 % (38.2-49.6); HEMOGLOBIN 7.2 g/dL (14.0-18.0); LYMPHOCYTES # (AUTO) 1.5 (1.0-3.2); LYMPHOCYTES % 19.6 % (18.0-39.1); MEAN CORPUSCULAR HEMOGLOBIN 29.4 pg (28-32); MEAN CORPUSCULAR HGB CONC 29.9 g/dL (31-35); MEAN CORPUSCULAR VOLUME 98.4 fL (81-99); MONOCYTES # (AUTO) 0.4 (0.2-0.8); MONOCYTES % 5.8 % (4.4-11.3); NEUTROPHILS # (AUTO) 5.3 (2.1-6.9); NEUTROPHILS % 71.5 % (38.7-80.0); PLATELET COUNT 235 x10e3/uL (140-360); RED BLOOD COUNT 2.45 x10e6/uL (4.3-5.7); RED CELL DISTRIBUTION WIDTH 14.9 % (11.7-14.4)
[2019-08-28 21:47] LABS: ALBUMIN 2.9 g/dL (3.5-5.0); ALBUMIN/GLOBULIN RATIO 0.7 (0.8-2.0); ANION GAP 14.5 mmol/L (8-16); CALCIUM 8.5 mg/dL (8.4-10.2); CREATININE, SERUM 1.89 mg/dL (0.72-1.25); POTASSIUM 4.5 mmol/L (3.5-5.1)
[2019-08-28] MEDS ORDERED: DIATRIZOATE MEGL/DIATRIZOA SOD 30 ML BTL PO ONE (21:50)
[2019-08-28 21:56] LABS: CREATINE KINASE MB 1.6 ng/mL (0-5.0)
[2019-08-29] VITALS (21 sets, daily range): BP systolic 94–147; BP diastolic 42–102
--- NOTE | 2019-08-29 00:07 | Diagnostic Imaging Report ---
EXAM: CT Abdomen and Pelvis WITHOUT intravenous contrast INDICATION: Rectal bleeding. Hernia repair last week. COMPARISON: CT abdomen and pelvis 08/21/19. CTA chest 04/29/2019. TECHNIQUE: Abdomen and pelvis were scanned utilizing a multidetector helical scanner from the lung base to the pubic symphysis without administration of IV contrast. Coronal and sagittal reformations were obtained. IV CONTRAST: None ORAL CONTRAST: Gastrografin COMPLICATIONS: None RADIATION DOSE: Total DLP: 682 mGy*cm Dose modulation, iterative reconstruction, and/or weight based adjustment of the mA/kV was utilized to reduce the radiation dose to as low as reasonably achievable. FINDINGS: LOWER THORAX: Trace right pleural effusion. Mild bibasilar dependent subsegmental atelectasis. 2 to 3 mm pulmonary nodules in the right middle lobe are unchanged from CT on 05/07/2019. Coronary atherosclerosis. Mild cardiomegaly. There is hypoattenuation of the blood pole in relation to the myocardium, suggestive of anemia. HEPATOBILIARY: No evidence of mass. Unremarkable gallbladder. SPLEEN: No splenomegaly. PANCREAS: No evidence of focal masses or ductal dilatation. Fatty atrophy. ADRENALS: No adrenal nodules. KIDNEYS/URETERS: No hydronephrosis or renal calculi. Unchanged bilateral renal cysts. PELVIC ORGANS/BLADDER: Lamb catheter terminates in the bladder which appears circumferentially mildly thick-walled. PERITONEUM / RETROPERITONEUM: Punctate free air within the left inguinal canal. Please see soft tissue section below. LYMPH NODES: No lymphadenopathy. 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 Limited evaluation the absence of IV contrast. The aneurysm sac is smaller in size compared to prior CTA, measuring up to 6.1 cm, previously 6.9 cm. GI TRACT: There has been interval repair of left inguinal hernia with partial resection of the small bowel, there is a new small bowel anastomosis in the right lower abdomen. There are mildly dilated small bowel loops, measuring up to 3.8 cm which are fluid-filled. No definite transition point identified. There is fluid seen throughout the colon. The cecum is mildly prominent. Colonic diverticulosis without evidence of diverticulitis. Hyperdense contents measuring up to 49 HU in the terminal ileum on series 2, image 59. Mildly hyperdense contents within the cecum and ascending colon. No evidence of pneumatosis. Normal appendix. BONES AND SOFT TISSUES: Diffuse osteopenia. No acute osseous abnormality. No suspicious lytic or blastic lesions. Remote healed left lower rib fractures. Degenerative changes of the lumbar spine. There are postsurgical changes related to recent left inguinal hernia repair. There are punctate foci of free air within the left inguinal canal with surrounding smaller free fluid and stranding. There is a 6.3 x 1.7 x 4.6 cm fluid attenuation collection in the left lower anterior abdominal wall. Diffuse anasarca. IMPRESSION: 1. Postsurgical changes related to left inguinal hernia repair with partial small bowel resection. A 6.3 x 1.7 x 4.6 cm fluid collection in the left lower anterior abdominal wall, likely seroma in the recent postoperative setting. Surrounding inflammatory changes and punctate foci of air are likely expected postoperatively. 2. Mildly dilated small bowel loops without definite transition point, likely nonobstructive postoperative ileus rather than low-grade partial small bowel obstruction. 3. Fluid seen throughout the small bowel and colon, which may represent infectious process. Suggest clinical correlation for diarrhea. 4. Hyperdense contents within the distal ileum and proximal colon may represent enteric contents, partial mixing with oral contrast, or hemorrhagic products in the appropriate clinical setting. 5. 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 Limited evaluation in the absence of IV contrast. 6. Lamb catheter terminates in a partially decompressed bladder. Apparent wall thickening within the bladder may reflect decompression versus cystitis in the appropriate clinical setting. 7. Findings suggestive of anemia. 8. Trace right pleural effusion with dependent atelectatic changes. Small right middle lobe pulmonary nodules measuring up to 3 mm are unchanged compared to CT on 05/07/2019. In a low risk patient, no further follow-up is required. If the patient is high risk for malignancy, an optional follow-up chest CT may be considered per recommendation on CT report from 05/07/2019 Signed by: Dr. Major Parrish MD on 08/29/2019 12:03 AM
[2019-08-29] MEDS ORDERED: SODIUM CHLORIDE 0.9% 250ML 250 ML IV ONE ×3 (01:00→17:00)
[2019-08-29 02:17] LABS: BILIRUBIN,URINE NEGATIVE (NEGATIVE); CLARITY,URINE CLEAR (CLEAR); COLOR,URINE YELLOW (YELLOW); KETONES,URINE NEGATIVE (NEGATIVE); LEUKOCYTE ESTERASE ,URINE NEGATIVE (NEGATIVE); NITRITE,URINE NEGATIVE (NEGATIVE); PROTEIN,URINE DIPSTICK NEGATIVE (NEGATIVE); RBC,URINE 0-5 /HPF (0-5); URINE UROBILINOGEN 0.2 mg/dL (0.2 - 1); WBC,URINE (MAN) 0-5 /HPF (0-5)
[2019-08-29 02:18] LABS: BACTERIA,URINE FEW /HPF; EPITHELIAL CELLS,URINE FEW /LPF
--- NOTE | 2019-08-29 06:24 | NUR ---
H&P cc: bloody stool HPI: 84yoM, PCP , recently managed for hernia with surgical repair, now with bloody stool. Found to have left abdominal seroma after recent hernia repair; PMH: RA, BPH, CKD3, peripheral edema, hearing deficits, STEMI 04/2019, hyponatremia, Bradyarrhythmia, urinary retention, ESBL E.coli, Systolc CHF LVEF 40-45%, AAA PShx: B/L TKR, hernia repair Allergies; see emr fh/SH; ; no cigs meds; see MAR ROS: no f/c/s/N/V/D/dizziness/skin rash/back pain/confusion/leg pain v/s; revd PE tired appearing anicteric ns1s2 mod bs soft nt nd Lamb in place no e/t; thickening and yellowing of toenails skin dry n. affect Reduced hearing labs/meds revd A/P 83yoM LGIB- IV PPI; GI eval; hold plavix/ASA Left abdominal seroma- post surgical; sx consulted; Recent Left inguinal hernia surgical repair CKD3 due to HTN- at or near baseline Moderate anemia CAD with recent ACS and stent placed in 04/2019- cardioeval Hypertensive heart ds BPH- flomax RA- plaquenil Onychomycosis of toenails HEaring deficits Prop: scd dispo: f/u bleeding scan and consultations. monitor closely in ICU. Qamar Olson MD, PhD.
[2019-08-29] MEDS: PANTOPRAZOLE 40 MG 10ML VIAL IV SCH ×2 (08:03→16:23)
[2019-08-29 08:44] LABS: BASOPHILS % 0.7 % (0.0-1.0); EOSINOPHILS # (AUTO) 0.1 (0.0-0.4); EOSINOPHILS % 2.7 % (0.0-6.0); LYMPHOCYTES % 22.3 % (18.0-39.1); MEAN CORPUSCULAR HEMOGLOBIN 29.5 pg (28-32); MEAN CORPUSCULAR VOLUME 98.4 fL (81-99); MONOCYTES # (AUTO) 0.4 (0.2-0.8); MONOCYTES % 9.1 % (4.4-11.3); NEUTROPHILS # (AUTO) 2.9 (2.1-6.9); NEUTROPHILS % 64.5 % (38.7-80.0); PLATELET COUNT 183 x10e3/uL (140-360); RED BLOOD COUNT 1.93 x10e6/uL (4.3-5.7); RED CELL DISTRIBUTION WIDTH 15.4 % (11.7-14.4)
[2019-08-29 08:49] LABS: HEMOGLOBIN 5.7 g/dL (14.0-18.0)
[2019-08-29 08:58] LABS: CREATINE KINASE MB 1.6 ng/mL (0-5.0)
[2019-08-29] MEDS ORDERED: SODIUM CHLORIDE 0.9% 250ML 250 ML ONE (09:01)
--- OUTSIDE RECORDS SUMMARY | 2019-08-29 10:22 | XMS REPORT | Continuity of Care Document ---
Author Author [employer]andy [employer] [facility], [place] [employer] Information LocalCustomer Address Unknown Phone Unavailable Care Team Providers Care Personal Injury Attorney Name Role Phone [facility] [employer] Information Exchange Unavailable Un available Problems Problem Status Onset Date Classification Date Reported Comments Source DX: I71.4=ABDOMINAL AORTIC ANEURYSM, WIT Active 05/27/2019 [facility] UNK Active 0 05/14/2019 [facility] I71.4/ABD AORTIC ANEURYSM W/O RUP Active 05/14/2019 [facility] Pain in right ankle 04/28/2017 07/31/2017 [facility] M25.579 - PAIN IN UNSPECIFIED ANKLE AND Active 02/25/2015 [facility] Primary osteoarthritis, right ankle and foot 07/31/2017 [facility] Pain in right finger(s) 08/16/2017 [facility] History of falling 08/16/2017 [facility] Displaced fracture of distal phalanx of right index finger, initial encounter for closed fracture 08/16/2017 [facility] Abdominal aortic aneurysm, without rupture 05/25/2019 [facility] Benign prostatic hyperplasia (disorder) Active Problem 06/08/2019 [facility] Constipation (disorder) Active Problem 06/08/2019 [facility] Hearing loss (finding) Active Problem 06/08/2019 [facility] Hypertensive disorder, systemic arterial (disorder) Active Problem 06/08/2019 [facility] Impaired mobility (finding) Ac tive Problem uses walker [facility] Myocardial infarction (disorder) Resolved Problem Apr 2019 [facility] Paraparesis (disorder) Active Problem 06/08/2019 [facility] Peripheral vascular disease (disorder) Active Problem RLE [facility] Rheumatoid arthritis (disorder) Active Problem [facility] Stented coronary artery (finding) Active Problem x 1 after [place] 04/2019 [facility] st Urinary catheter in situ (finding) Active Problem [facility] Bilateral hearing loss, unspecified hearing loss type Active Problem 11/29/2017 [facility] Rheumatoid arthritis Active Problem 11/29/2017 [facility] Ar[facility] Primary osteoarthritis involving multiple joints Active Problem 11/29/2017 [facility] Long-term use of high-risk medication Active Problem [facility] ABDOMINAL AORTIC ANEURYSM, WITHOUT RUPTU Active [facility] Medications Medication Details Route Status Patient Instructions Ordering Provider Order Date Source Plavix Notes: (Same As: Plavix) Inactive 05/23/2019 [facility] Allopurinol Notes: (Same as: Z yloprim) Inactive 05/23/2019 [facility] Aspirin 81 MG Enteric Coated Tablet Notes: Do not crush or chew. (Same As: Ecotrin) Inactive 05/23/2019 [facility] clopidogrel 37.5 mg, 0.5 tab, Route: PO, Drug form: TAB, Daily, Dosing Weight 107.273, kg, Start date: 05/23/19 9:00:00 [employer]ERTY SITE [employer]NAGER, Duration: 30 day, Stop date: 06/21/19 9:00:00 CDT No Longer Active 05/23/2019 [facility] Hydroxychloroquine Sulfate 200 MG Oral Tablet Notes: (Same as: Plaquenil) Hydroxychloroquine sulfate 200 mg = 155 mg hydroxychloroquine base. If treating malaria, verify dose as salt vs. base per CDC guideline Inactive 05/23/2019 [facility] Sodium Bicarbonate 650 MG Oral Tablet Notes: "Dissolve tablet in a glass of water prior to oral administration. STOMACH WARNING: To avoid serious injury, do not take until tablet is completely dissolved. It is very important not to take this product when overly full from food or drink." Inactive 05/23/2019 [facility] tamsulosin Notes: (Same As: Fl omax) "Do Not Crush" Inactive 05/23/2019 [facility] atorvastatin Notes: (Same As: Lipitor) No Longer Active 05/23/2019 [facility] Acetaminophen 325 MG / Hydrocodone [place] trate 5 MG Oral Tablet [[place] 5/325] Notes: (Same as: [place] 325/5) Do not ex ceed 4gm/day of acetaminophen. No Longer Activ e 05/22/2019 [facility] Docusate Sodium 100 MG Oral Capsule Notes: (Same as: Colace) (Do Not Crush) No Longer Active 05/22/2019 [facility] Famotidine 20 MG Oral Tablet N otes: (Same as: Pepcid) No Longer Active 05/22/2019 [facility] ferrous sulfate Notes: Give wi th food. "Do Not Crush" No Longer Active 05/22/2019 [facility] metoprolol tartrate Notes: (Sa me as: Lopressor) No Longer Active 05/22/2019 [facility] Cefazolin Notes: (Same As: Anc ef, Kefzol) MEDICATION WASTE Product Size: 1000 mg Product Wasted: ___ mg No Longer Active 05/22/2019 [facility] Lasix Notes: (Same as: Lasix) MEDICATION WASTE Product Size: 40 mg Product Wasted: ___ mg No Longer Active 05/22/2019 [facility] Hydralazine Notes: (Same as: A presoline) Push over 5 minutes No Longer Active 05/22/2019 [facility] Morphine 2 mg, Route: IVP, ONC E, Dosing Weight 107.273, kg, Start date: 05/22/19 12:20:00 PROPERTY SITE MANAGER, Stop date: 05/22/19 12:20:00 PROPERTY SITE MANAGER Inactive 05/22/2019 [facility] Sodium Chloride 0.9% (titrate) 250 mL 250 mL, Rate: To prime line and flush remaining blood products., Dosing Weight 107.273, kg, Route: IV, Total Volume: 250, Start Date: 05/22/19 11:53:00 PROPERTY SITE MANAGER, Duration: 1 day, Stop date: 05/23/19 11:52:00 PROPERTY SITE MANAGER, Replace Every: 24 hr, 0 No Longer Active 05/22/2019 [facility] neostigmine (ANES) Route: IV, Drug form: INJ, ONCE, Stop date: 05/22/19 11:33:00 PROPERTY SITE MANAGER Inactive 05/22/2019 [facility] protamine (ANES) Route: IV, Dr ug form: INJ, ONCE, Stop date: 05/22/19 11:33:00 PROPERTY SITE MANAGER Inactive 05/22/2019 [facility] glycopyrrolate (ANES) Route: I V, Drug form: INJ, ONCE, Stop date: 05/22/19 10:27:00 PROPERTY SITE MANAGER Inactive 05/22/2019 [facility] phenylephrine (ANES) Route: IV , Drug form: INJ, ONCE, Stop date: 05/22/19 10:27:00 PROPERTY SITE MANAGER Inactive 05/22/2019 [facility] ondansetron (ANES) Route: IV, Drug form: INJ, ONCE, Stop date: 05/22/19 10:26:00 PROPERTY SITE MANAGER Inactive 05/22/2019 [facility] dexamethasone (ANES) Route: IV , Drug form: INJ, ONCE, Stop date: 05/22/19 10:26:00 PROPERTY SITE MANAGER Inactive 05/22/2019 [facility] heparin (ANES) Route: IV, Drug form: INJ, ONCE, Stop date: 05/22/19 10:11:00 PROPERTY SITE MANAGER Inactive 05/22/2019 [facility] lidocaine (ANES) Route: IV, Dr ug form: INJ, ONCE, Stop date: 05/22/19 9:51:00 PROPERTY SITE MANAGER Inactive 05/22/2019 [facility] fentaNYL (ANES) Route: IV, Pranay g form: INJ, ONCE, Stop date: 05/22/19 9:51:00 PROPERTY SITE MANAGER Inactive 05/22/2019 [facility] propofol (ANES) Route: IV, Pranay g form: INJ, ONCE, Stop date: 05/22/19 9:51:00 PROPERTY SITE MANAGER Inactive 05/22/2019 [facility] rocuronium (ANES) Route: IV, D rug form: INJ, ONCE, Stop date: 05/22/19 9:51:00 PROPERTY SITE MANAGER Inactive 05/22/2019 [facility] ceFAZolin (ANES) Route: IV, Dr ug form: INJ, ONCE, Stop date: 05/22/19 9:46:00 PROPERTY SITE MANAGER Inactive 05/22/2019 [facility] Lactated Ringers Injection IV (ANES) 1000 mL Route: IV, Total Volume: 1,000, Start date: 05/22/19 9:17:00 PROPERTY SITE MANAGER, Stop date: 05/22/19 10:17:00 PROPERTY SITE MANAGER Inactive 05/22/2019 [facility] Sodium Chloride 0.9% IV (ANES) 1000 mL Route: IV, Total Volume: 1,000, Start date: 05/22/19 9:17:00 PROPERTY SITE MANAGER, Stop date: 05/22/19 10:17:00 PROPERTY SITE MANAGER Inactive 05/22/2019 [facility] Cefazolin 2 gm, Route: IVP, AGENT BROKER, Dosing Weight 107.273, kg, (Patients weighing < 120 kg), Start date: 05/22/19 9:00:00 PROPERTY SITE MANAGER, Duration: 1 doses or times, ABX Indication: Surgical Prophylaxis Inactive 05/22/2019 [facility] Acetylcysteine 200 MG/ML Inhalant Solution Notes: TUBE TO PRE-OP STAT TUBE TO PRE-OP STAT TUBE TO PRE-OP STAT No Longer Active 05/22/2019 [facility] sodium bicarbonate 8.4% additive 100 mEq + 1/2 NS 1,000 mL Notes: TUBE TO PRE-OP STAT TUBE TO PRE-OP STAT TUBE TO PRE-OP STAT No Longer Active 05/22/2019 [facility] Hydroxychloroquine Sulfate 200 MG Oral Tablet 200 mg = 1 tab, PO, Daily, # 180 tab, 0 Refill(s) Active 05/20/2019 [facility] allopurinol 100 mg oral tablet 200 mg = 2 tab, PO, Daily, # 90 tab, 1 Refill(s) Active 05/20/2019 [facility] Aspirin 81 MG Enteric Coated Tablet 81 mg = 1 tab, PO, Daily, # 90 tab, 3 Refill(s) Active 05/20/2019 [facility] clopidogrel 75 mg oral tablet 37.5 mg = 0.5 tab, PO, Daily, # 90 tab, 3 Refill(s) Active 05/20/2019 [facility] Famotidine 20 MG Oral Tablet 2 0 mg = 1 tab, PO, BID, # 180 tab, 0 Refill(s) Active 05/20/2019 [facility] Sodium Bicarbonate 650 MG Oral Tablet 1,300 mg = 2 tab, PO, Daily, 0 Refill(s) Active 05/20/2019 [facility] atorvastatin 20 mg oral tablet 20 mg = 1 tab, PO, Bedtime, # 90 tab, 1 Refill(s) Active 05/20/2019 [facility] tamsulosin 0.4 mg oral capsule 0.4 mg = 1 cap, PO, Daily, # 90 cap, 0 Refill(s) Active 05/20/2019 [facility] ferrous sulfate 325 mg oral enteric coated tablet 325 mg = 1 tab, PO, BID, # 90 tab, 0 Refill(s) Active 05/20/2019 [facility] metoprolol tartrate 25 mg oral tablet 12.5 mg = 0.5 tab, PO, BID, # 60 tab, 0 Refill(s) Active 05/20/2019 [facility] Docusate Sodium 100 MG Oral Capsule 100 mg = 1 cap, PO, BID, # 60 cap, 3 Refill(s) Active 05/20/2019 [facility] PredniSONE take 2 tablets by m outh daily Orally Active 5MG Orally bid [place] 04/05/2017 [facility] Ar[facility] Leflunomide 1 tablet Orally Active 20 MG Orally Once a day [place] 03/30/2017 iRaz Arora Hydroxychloroquine Sulfate 1 t ablet with food or milk Orally Active 200 MG Orally bid [place] 02/06/2017 Riaz Arora Vitamin D (Ergocalciferol) 1 c apsule Orally Active 44411 UNIT Orally Once a week [place] 01/09/2017 Riaz Arora Vitamin D (Ergocalciferol) 1 c apsule Orally Active 03306 UNIT Orally Once a week [place] 01/09/2017 Riaz Arora Folic Acid 2 tablets Orally Active 1 MG Orally Once a day [place] Patrick Arora Doxazosin Mesylate 1 tablet Orally Active 4 MG Orally Once a day [place] Riaz Arora [employer] as directed Orally Active Orally [place] Patrick Arora Ferrous Sulfate 1 tablet Orally Active 325 (65 Fe) MG Orally Twice a day [place] Riaz Arora Pantoprazole Sodium 1 tablet Orally Active 40 MG Orally Once a day [place] Riaz Arora Tamsulosin HCl 1 capsule Orally Active 0.4 MG Orally Once a da y [place] Riaz Arora Vitamin D3 1 capsule Orally Active 1000 UNIT Orally Once a day [place] Riaz Arora Doxazosin Mesylate 1 tablet Orally Active 4 MG Orally Once a day [place] Riaz Arora Pantoprazole Sodium 1 tablet Orally Active 40 MG Orally Once a day [place] Riaz Arora Tamsulosin HCl 1 capsule Orally Active 0.4 MG Orally Once a da y [place] Riaz Arora Folic Acid 2 tablets Orally Active 1 MG Orally Once a day [place] Patrick Arora Enbrel 1 ml Subcutaneous Active 50 MG/ML Subcutaneous o nce a week [place] Riaz Arora PredniSONE take 2 tablets by m outh daily Orally Active 5MG Orally twice a day [place] Riaz Arora Ferrous Sulfate 1 tablet Orally Active 325 (65 Fe) MG Orally Twice a day [place] Riaz Arora [employer] as directed [...] POC Creatinine 1.7 0.5 - 1.4 06/06/2019 [facility] CHEM PANEL eGFR 37 06/06/2019 Result Comment: [...] should be multiplied by the estimated BMI. [facility] CHEM PANEL Glucose Lvl 83 70 - 99 05/23/2019 [facility] CHEM PANEL BUN 17 7 - 22 05/23/2019 [facility] CHEM PANEL Creatinine Lvl 1.41 0.50 - 1.40 05/23/2019 [facility] CHEM PANEL Sodium Lvl 139 135 - 145 05/23/2019 [facility] CHEM PANEL Potassium Lvl 4.1 3.5 - 5.1 05/23/2019 [facility] CHEM PANEL Chloride Lvl 104 95 - 109 05/23/2019 [facility] CHEM PANEL CO2 28 24 - 32 05/23/2019 [facility] CHEM PANEL Calcium Lvl 8.0 8.5 - 10.5 05/23/2019 [facility] CHEM PANEL AGAP 11.1 10.0 - 20.0 05/23/2019 [facility] CHEM PANEL eGFR 46 05/23/2019 Result Comment: [...] should be multiplied by the estimated BMI. [facility] HEMATOLOGY WBC 5.0 3.7 - 10.4 05/23/2019 [facility] HEMATOLOGY RBC 3.17 4.70 - 6.10 05/23/2019 [facility] HEMATOLOGY Hgb 9.0 14.0 - 18.0 05/23/2019 [facility] HEMATOLOGY Hct 27.8 42.0 - 54.0 05/23/2019 [facility] MCV 87.6 80.0 - 94.0 05/23/2019 [facility] HEMATOLOGY MCH 28.4 27.0 - 31.0 05/23/2019 [facility] MCHC 32.4 32.0 - 36.0 05/23/2019 [facility] HEMATOLOGY RDW 16.2 11.5 - 14.5 05/23/2019 [facility] Platelet 299 133 - 450 05/23/2019 [facility] MPV 7.5 7.4 - 10.4 05/23/2019 [facility] BLOOD BANK RESULTS RBC product Product available 4 (05/22/19 11:53 AM) 05/22/2019 Result Comment: 05/22/2019 1 2:06 [id number]
KLS notified Haylie 05/22/2019 12:00 [facility] CHEM PANEL Glucose Lvl 90 70 - 99 05/22/2019 [facility] CHEM PANEL BUN 15 7 - 22 05/22/2019 [facility] CHEM PANEL Creatinine Lvl 1.40 0.50 - 1.40 05/22/2019 [facility] CHEM PANEL Sodium Lvl 138 135 - 145 05/22/2019 [facility] CHEM PANEL Potassium Lvl 4.2 3.5 - 5.1 05/22/2019 [facility] CHEM PANEL Chloride Lvl 105 95 - 109 05/22/2019 [facility] CHEM PANEL CO2 27 24 - 32 05/22/2019 [facility] CHEM PANEL Calcium Lvl 7.7 8.5 - 10.5 05/22/2019 [facility] CHEM PANEL AGAP 10.2 10.0 - 20.0 05/22/2019 [facility] CHEM PANEL eGFR 47 05/22/2019 Result Comment: [...] should be multiplied by the estimated BMI. [facility] CHEM PANEL Magnesium Lvl 1.7 1.8 - 2.4 05/22/2019 [facility] HEMATOLOGY WBC 3.3 3.7 - 10.4 05/22/2019 [facility] RBC 2.51 4.70 - 6.10 05/22/2019 [facility] Hgb 7.0 14.0 - 18.0 05/22/2019 Result Comment: Critical Result(s) [email or web address] Puentes at 05/22/2019 11:49 by ALVARO. Read back OK. [facility] HEMATOLOGY Hct 21.7 42.0 - 54.0 05/22/2019 [facility] MCV 86.5 80.0 - 94.0 05/22/2019 [facility] MCH 27.9 27.0 - 31.0 05/22/2019 [facility] MCHC 32.3 32.0 - 36.0 05/22/2019 [facility] RDW 15.7 11.5 - 14.5 05/22/2019 [facility] Platelet 206 133 - 450 05/22/2019 [facility] MPV 7.4 7.4 - 10.4 05/22/2019 [facility] BLOOD BANK RESULTS ABO/Rh A POS 05/20/2019 [facility] BLOOD BANK RESULTS Antibody Scrn Negative (05/20/19 10:28 AM) 05/20/2019 [facility] CHEM PANEL Glucose Lvl 69 70 - 99 05/20/2019 [facility] CHEM PANEL BUN 19 7 - 22 05/20/2019 [facility] CHEM PANEL Creatinine Lvl 1.55 0.50 - 1.40 05/20/2019 [facility] CHEM PANEL Sodium Lvl 135 135 - 145 05/20/2019 [facility] CHEM PANEL Potassium Lvl 4.2 3.5 - 5.1 05/20/2019 [facility] CHEM PANEL Chloride Lvl 103 95 - 109 05/20/2019 [facility] CHEM PANEL CO2 25 24 - 32 05/20/2019 [facility] CHEM PANEL Calcium Lvl 8.7 8.5 - 10.5 05/20/2019 [facility] CHEM PANEL AGAP 11.2 10.0 - 20.0 05/20/2019 [facility] CHEM PANEL eGFR 41 05/20/2019 Result Comment: [...] should be multiplied by the estimated BMI. [facility] HEMATOLOGY WBC 4.9 3.7 - 10.4 05/20/2019 [facility] HEMATOLOGY RBC 3.16 4.70 - 6.10 05/20/2019 [facility] HEMATOLOGY Hgb 8.9 14.0 - 18.0 05/20/2019 [facility] HEMATOLOGY Hct 27.7 42.0 - 54.0 05/20/2019 [facility] HEMATOLOGY MCV 87.9 80.0 - 94.0 05/20/2019 [facility] HEMATOLOGY MCH 28.1 27.0 - 31.0 05/20/2019 [facility] MCHC 32.0 32.0 - 36.0 05/20/2019 [facility] HEMATOLOGY RDW 16.1 11.5 - 14.5 05/20/2019 [facility] HEMATOLOGY Platelet 281 133 - 450 05/20/2019 [facility] HEMATOLOGY MPV 7.8 7.4 - 10.4 05/20/2019 [facility] HEMATOLOGY PT 15.0 12.0 - 14.7 05/20/2019 [facility] HEMATOLOGY INR 1.17 0.85 - 1.17 05/20/2019 [facility] HEMATOLOGY PTT 40.0 22.9 - 35.8 05/20/2019 [facility] HEMATOLOGY Segs 61.0 45.0 - 75.0 05/20/2019 [facility] HEMATOLOGY Lymphocytes 19.3 20.0 - 40.0 05/20/2019 [facility] HEMATOLOGY Monocytes 7.1 2.0 - 12.0 05/20/2019 [facility] HEMATOLOGY Eosinophils 10.2 0.0 - 4.0 05/20/2019 [facility] HEMATOLOGY Basophils 2.4 0.0 - 1.0 05/20/2019 [facility] HEMATOLOGY Neutrophils # 3.0 1.5 - 8.1 05/20/2019 [facility] HEMATOLOGY Lymphocytes # 1.0 1.0 - 5.5 05/20/2019 [facility] HEMATOLOGY Monocytes # 0.4 0.0 - 0.8 05/20/2019 [facility] HEMATOLOGY Eosinophils # 0.5 0.0 - 0.5 05/20/2019 [facility] HEMATOLOGY Basophils # 0.1 0.0 - 0.2 05/20/2019 [facility] SPECIAL CHEMISTRY Hgb A1C 5.5 <=5.6 % 05/20/2019 [facility] URINE AND STOOL UA Turbidity Clear (05/20/19 10:28 AM) Clear 05/20/2019 [facility] URINE AND STOOL UA Spec Grav 1.004 <=1.030 05/20/2019 [facility] URINE AND STOOL UA pH 6.0 5.0 - 8.0 05/20/2019 [facility] URINE AND STOOL UA Protein Negative mg/dL Negative mg/dL 05/20/[address] [facility] [address] URINE AND STOOL UA Glucose Negative mg/dL Negative mg/dL 05/20/[address] [facility] [address] URINE AND STOOL UA Ketones Trace mg/dL Negative mg/dL 05/20/2019 [facility] URINE AND STOOL UA Bili Negative *NA* (05/20/19 10:28 AM) Negative 05/20/2019 [facility] URINE AND STOOL UA Blood Moderate *ABN* (05/20/19 10:28 AM) Negative 05/20/2019 [facility] URINE AND STOOL UA Nitrite Negative (05/20/19 10:28 AM) Negative 05/20/2019 [facility] URINE AND STOOL UA Leuk Est Negative (05/20/19 10:28 AM) Negative 05/20/2019 [facility] URINE AND STOOL UA WBC <1 0 - 5 05/20/2019 [facility] URINE AND STOOL UA RBC 1 0 - 2 05/20/2019 [facility] URINE AND STOOL UA Bacteria Occasional /HPF None Seen /HPF 05/20/2019 [facility] URINE AND STOOL UA Sq Epi None Seen 05/20/2019 [facility] URINE AND STOOL UA Color Ltyellow 05/20/2019 [facility] URINE AND STOOL UA Urobilinogen <=1.0 mg/dL 0.1 - 1.0 05/20/2019 [facility] BLOOD BANK RESULTS RBC product Product available (05/20/19 9:42 AM) 05/20/2019 [facility] Pathology Reports No Data Provided for This [...] failure. Alex Goncalves MD On 06/06/2019 15:25:41; [id number] 06/06/2019 [facility] Chest 1 v for Placement [...] calcifications. Manuel Olmstead MD On 05/22/2019 12:33:40; [id number] 05/22/2019 [facility] Chest 2 views DX PROCEDURE INF ORMATION: [...] Jose Luis Carlton MD On 05/20/2019 11:00:35; [id number] 05/20/2019 [facility] Finger 3 views DX Exam: Finger 3 [...] disease without hemodynamically significant stenosis identified. SL: [id number] 09/15/2016 [facility] [place] Ext Lower Venous Doppler [...] Comments Source Systolic (mm Hg) 125 05/23/2019 [facility] Diastolic (mm Hg) 59 05/23/2019 [facility] Systolic (mm Hg) 111 05/23/2019 [facility] Diastolic (mm Hg) 52 05/23/2019 [facility] Respitory Rate 0 05/23/2019 [facility] Systolic (mm Hg) 119 05/23/2019 [facility] Diastolic (mm Hg) 57 05/23/2019 [facility] Respitory Rate 21 05/23/2019 [facility] Respitory Rate 15 05/23/2019 [facility] Height 177.8 cm 05/22/2019 [facility] Weight 107.27 05/22/2019 [facility] BMI Calculated 33.93 05/22/2019 [facility] Heart Rate 58 05/22/2019 [facility] Temperature Oral (F) 97.4 F 05/20/2019 [facility] Heart Rate 55 05/20/2019 [facility] Height 177.8 cm 05/20/2019 [facility] Weight 107.273 05/20/2019 [facility] BMI Calculated 33.93 05/20/2019 [facility] Weight 244 06/05/2017 Riaz Arora Height 70 [...] Provider ADM Date DC Date Status Source [facility] [place] [facility] [id number] Guerrero Berman 05/01/2014 05/02/2014 [facility] [place] [facility] [place] [facility] [id number] 06 Guerrero Berman 05/30/2014 05/31/2014 [facility] [place] [facility] [place] [facility] [id number] 07 Guerrero Berman 02/25/2015 02/26/2015 [facility] [place] [facility] [place] [facility] [id number] 08 Eyad Salvady 07/17/2015 07/18/2015 [facility] [place] [facility] [place] [facility] [id number] 09 Calixto Orahood 03/21/2016 03/22/2016 [facility] [place] [facility] [place] [facility] [id number] 10 Calixto Orahood 08/24/2016 08/25/2016 [facility] [place] [facility] [place] [facility] [id number] 11 Calixto Orahood 09/15/2016 09/16/2016 [facility] [place] [facility] [place] [facility] Di[facility] [id number] 12 [place] Orahood 04/24/2017 04/25/2017 [facility] [place] [facility] [place] [facility] [id number] 13 [place] Orahood 08/07/2017 08/08/2017 DOYLE Gagnon [facility] Inpatient [id number] 05/22/2019 05/24/[address] [facility] Outpatient [id number] Theodore Barker 06/06/2019 06/07/2019 [facility] Procedures Procedure Code Date Perfomer Comments Source Cardiac catheterisation [id number] [facility] Hernia repair [id number] [address] TKR -Total prosthetic replacement of kne e joint using cement [id number] [facility] Assessment and Plan Assessment and Plan Date [...] May 22, 2019 Surgeon: Theodore Barker MD Inspector Welded Parts: Ze Shipley MD Preoperative diagnosis: Abdominal aortic aneurysm Postoperative diagnosis: Same Procedure: Percutaneous endovascular repair of an infrarenal abdominal aortic aneurysm with the [place] excluder device. Indication: Asymptomatic infrarenal abdominal aortic aneurysm In detail: The patient was taken the operating room and was given general anesthesia with endotracheal intubation. The abdomen and both groins were prepped and draped in usual sterile manner. Bilateral femoral access was achieved using micropuncture technique and ultrasound guidance and 5 [place] sheaths were inserted. Patient was systemically heparinized. 2 Proglides were partially deployed at 90 angle s. An 16 [place] sheath was placed on the right and a 12 [place] sheath from the left. Abdominal angiogram was performed and the anatomy was noted. The main device RTL [id number] was then advanced from the right side and positioned just distal to the left renal artery and partially deployed. We had difficulty cannulating the gate and the device had to be rotated. The gate was cannulated from the left side. After the device rotated that had migrated distally. The left limb PLC [id number] was then deployed landing just proximal to the left hypogastric artery. The right side was then completely deployed. A right bellybutton extension the PLC [id number] was then deployed. It appears to be about 1 cm short of the hypogastric. A 26 cuff was then deployed landing just distal to the left renal artery. LOGAN [id number]. All areas of the grafts were ballooned [...] of this to Dr. Rey Sandy 05/24/2019 [facility] Plan of Care No Data Provided for This Section Social History Social History Date Source Social History TypeResponse Alcohol Past Smoking Status Former smoker; Ready to change: No; Concerns about tobacco use in household: No; Exposure to Tobacco Smoke None; Cigarette Smoking Last 365 Days No; Reg Smoking Cessation Counseling No entered on: 05/22/19 05/20/2019 [facility] No data available for this section 08/08/2017 DOYLE Gagnon Family History No Data Provided for This Section Advance Directives No Data Provided for This Section Functional Status No Data Provided for This Section
--- OUTSIDE RECORDS SUMMARY | 2019-08-29 10:23 | XMS REPORT ---
Author Author [facility] t Organization [facility] Address [address] [facility]. [address] [place] [address] Phone Unavailable Care Team Providers Care Creative Writing Teacher Name Role Phone MIGUELITO RICHARD MD [facility] P[facility] SENTHIL MCNAIR Attphys Unavailable RADHA DELGADO Attphys Unavailable THEODORE BARKER M.D. Attphys Unavailable Theodore Barker Attphys DR JOHNNIE CUMMINGS Attphys Unavailable HAMPEL, NEHEMIA Attphys Unavailable KATIE MOREAU Attphys Unavailable Zander Berger Attphys Eyad Klein Attphys Maulik Berman Attphys RADHA DELGADO Admphys Unavailable Payers Payer Name Policy Type Policy Number Effective Date Expiration Date Griffin brandt [facility] [id number] 2019 00:00:00 [facility] [id number] 2019 00:00:00 [facility] Advance Directives Directive Decision Effective Date Termination Date Comments Sour ce Yes N/A [facility] Problems Condition Name Condition Details Condition Category Status Onset Date Resolution Date Last Treatment Date Treating Clinician Comments Source DX: I71.4=ABDOMINAL AORTIC ANEURYSM, WIT DX: 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 I71.4/ABD AORTIC ANEURYSM W/O RUP I71.4/ABD AORTIC ANEURYSM W/O RUP Active 05/14/2019 [facility] Diagnosis Active 2019-05-14 00:00:00 2019-05-30 08:58:00 [facility] M25.579 - PAIN IN UNSPECIFIED ANKLE AND M25.579 - PAIN IN UNSPECIFIED ANKLE AND Active 02/25/2015 [facility] Diagnosis Active 2015-02-25 00:01:00 2015-02-25 15:01:00 M [facility] AAA (abdominal aortic aneurysm) without rupture AAA (a bdominal aortic aneurysm) without rupture Problem Active [facility] Chronic renal impairment, unspecified CKD stage Chroni c renal impairment, unspecified CKD stage Problem Active [facility] 3-vessel CAD 3-vessel CAD Problem Active [facility] History of endovascular stent graft for abdominal aort ic aneurysm History of endovascular stent graft for abdominal aortic aneurysm Problem Active [facility] Abdominal aortic aneurysm (AAA) Abdominal aortic aneurysm (AAA) Pro blem Active [facility] Hyponatremia Hyponatremia Problem Active [facility] Urinary tract infection UTI (urinary tract infection) Problem Active [facility] Retention of urine Urinary retention Problem Active [facility] Weakness Weakness Problem Active [facility] ST elevation myocardial infarction (STEMI) Problem [facility] Incarcerated left inguinal hernia Problem [facility] Primary osteoarthritis, right ankle and foot Primary osteoarthritis, right ankle and foot 07/31/2017 [facility] Problem 2017-07-31 17:37:18 [facility] Pain in right finger(s) Pain in right finger(s) 08/16/2017 [facility] Problem 2017-08-16 21:00:37 [facility] History of falling Hist ory of falling 08/16/2017 [facility] Problem 2017-08-16 21:00:37 [facility] Displaced fracture of distal phalanx of right index finger, initial encounter for closed fracture Displaced fractu re of distal phalanx of right index finger, initial encounter for closed fracture 08/16/2017 [facility] Problem 2017-08-16 21:00:37 [facility] Abdominal aortic aneurysm, without rupture Abdominal aortic aneurysm, without rupture 05/25/2019 [facility] Problem 2019-05-25 23:25:07 [facility] Benign prostatic hyperplasia (disorder) Benign prostatic hyperplasia (disorder) Active Problem 06/08/2019 [facility] Problem Active 2019-06-08 23:47:33 [facility] Constipation (disorder) Cons tipation (disorder) Active Problem 06/08/2019 [facility] Problem Active 2019-06-08 23:47:3 3 [facility] Hearing loss (finding) Hear ing loss (finding) Active Problem 06/08/2019 [facility] Problem Active 2019-06-08 23:47:3 3 [facility] Hypertensive disorder, systemic arterial (disorder) Hypertensive disorder, systemic arterial (disorder) Active Problem 06/08/2019 [facility] Problem Active 2019-06-08 23:47:33 [facility] Impaired mobility (finding) Im paired mobility (finding) Active Problem 06/08/2019 uses walker [facility] Problem Active 2019-06-08 23:47:33 [facility] Paraparesis (disorder) Para paresis (disorder) Active Problem 06/08/2019 [facility] Problem Active 2019-06-08 23:47:3 3 [facility] Peripheral vascular disease (disorder) Peripheral vascular disease (disorder) Active Problem 06/08/2019 RLE [facility] Problem Active 2019-06-08 23:47:33 [facility] Rheumatoid arthritis (disorder) Rheumatoid arthritis (disorder) Active Problem 06/08/2019 [facility] Problem Active 2019-06-08 23:47:33 [facility] Stented coronary artery (finding) Stented coronary artery (finding) Active Problem 06/08/2019 x 1 after IN 04/2019 [facility] Problem Active 2019-06-08 23:47:33 [facility] Urinary catheter in situ (finding) Urinary catheter in situ (finding) Active Problem 06/08/2019 [facility] Problem Active 2019-06-08 23:47:33 [facility] Bilateral hearing loss, unspecified hearing loss type Bilateral hearing loss, unspecified hearing loss type Active Problem 11/29/2017 [facility] Problem Active 2017-11-29 02:45:48 [facility] Rheumatoid arthritis Rheu matoid arthritis Active Problem 11/29/2017 [facility] Problem Active 2017-11-29 02:45:48 [facility] 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 Active Problem 11/29/2017 [facility] Problem Active 2017-11-29 02:45:48 [facility] Long-term use of high-risk medication Long-term use of high-risk medication Active Problem 11/29/2017 [facility] Problem Active 2017-11-29 02:45:48 [facility] ABDOMINAL AORTIC ANEURYSM, WITHOUT RUPTU ABDOMINAL AORTIC ANEURYSM, WITHOUT RUPTU Active [facility] Diagnosis Active 2019-05-30 08:58:00 [facility] Pain in right ankle Pain in right ankle 04/28/2017 07/31/2017 [facility] Problem 2017-04-28 05:40:30 07-31 17:37:18 2017-07-31 17:37:18 [facility] Allergies, Adverse Reactions, Alerts Allergy Name Allergy Type Status Severity Reaction(s) Onset Date Inacti ve Date Treating Clinician Comments Source Hydroxychloroquine Sulfate Hydroxychloroquine Sulfate Active dizziness/nausea 2017-06-05 00:00:00 [facility] Penicillin Penicillin Active Info Not Available 2017-06-05 00:00:0 0 [facility] Social History Social Habit Start Date Stop Date Quantity Comments Source Social History 2017-08-08 04:59:00 2017-08-08 04:59:00 [facility] Sex Ass[birth year] At 1935 00:00:00 1935 00:00:00 Male [facility] Smoking Status Start Date Stop Date Source Ex-smoker (finding) [facility] Medications Ordered Medication Name Filled Medication Name Start Date Stop Da te Current Medication? Ordering Clinician Indication Dosage Frequency Signature (SIG) Comments Components Source Cephalexin Monohydrate (Keflex) 500 Mg CAPSULE Cephale gokul Monohydrate (Keflex) 500 Mg CAPSULE 2019-08-25 12:28:00 Yes 500 [facility] Metronidazole (Flagyl) 500 Mg TABLET Metronidazole (Flagyl) 500 Mg TABLET 2019-08-25 12:28:00 Yes 500 [facility] Plavix 2019-05-23 15:50:00 No Notes: (Same As: Plavix) [facility] Allopurinol 2019-05-23 15:00:00 No Notes: ( Same as: Zyloprim) [facility] Aspirin 81 MG Enteric Coated Tablet 2019-05-23 15:00:00 No Notes: Do not crush or chew. (Same As: Ecotrin) [facility] clopidogrel 2019-05-23 15:00:00 No 37.5 mg, 0.5 tab, Route: PO, Drug form: TAB, Daily, Dosing Weight 107.273, kg, Start date: 05/23/19 9:00:00 [employer] SUPER[employer]OR, Duration: 30 day, Stop date: 06/21/19 9:00:00 CDT [facility] Hydroxychloroquine Sulfate 200 MG Oral Tablet 2019-05-23 15:00:0 0 No Notes: (Same as: Plaquenil) Hydroxychlor oquine sulfate 200 mg = 155 mg hydroxychloroquine base. If treating malaria, verify dose as salt vs. base per CDC guideline [facility] Sodium Bicarbonate 650 MG Oral Tablet 2019-05-23 15:00:00 N o Notes: "Dissolve tablet in a glass of water prior to oral administration. STOMACH WARNING: To avoid serious injury, do not take until tablet is completely dissolved. It is very important not to take this product when overly full from food or drink." [facility] tamsulosin 2019-05-23 15:00:00 No Notes: (Same As: Flomax) "Do Not Crush" [facility] atorvastatin 2019-05-23 03:00:00 No Notes: (Same As: Lipitor) [facility] Acetaminophen 325 MG / Hydrocodone Bitartrate 5 MG Oral Tabl et [[place] 5/325] 2019-05-22 23:58:00 No Notes: (Same as: [place] 325/5) Do not exceed 4gm/day of acetaminophen. [facility] Docusate Sodium 100 MG Oral Capsule 2019-05-22 23:00:00 No Notes: (Same as: Colace) (Do Not Crush) [facility] Famotidine 20 MG Oral Tablet 2019-05-22 23:00:00 No Notes: (Same as: Pepcid) [facility] ferrous sulfate 2019-05-22 23:00:00 No Notes: Give with food. "Do Not Crush" [facility] metoprolol tartrate 2019-05-22 23:00:00 No Notes: (Same as: Lopressor) [facility] Cefazolin 2019-05-22 23:00:00 No Notes: (Same As: Ancef, Kefzol) MEDICATION WASTE Product Size: 1000 mg Product Wasted: ___ mg [facility] Lasix 2019-05-22 19:02:00 No Notes: (Same as: Lasix) MEDICATION WASTE Product Size: 40 mg Product Wasted: ___ mg [facility] Hydralazine 2019-05-22 18:54:00 No Notes: (Same as: Apresoline) Push over 5 minutes [facility] Morphine 2019-05-22 18:20:00 No 2 mg, Route: IVP, ONCE, Dosing Weight 107.273, kg, Start date: 05/22/19 12:20:00 [employer] SUPERVISOR, Stop date: 05/22/19 12:20:00 W[employer] SUPERVISOR [facility] Sodium Chloride 0.9% (titrate) 250 mL 2019-05-22 17:53:00 N o 250 mL, Rate: To prime line and flush remaining blood products., Dosing Weight 107.273, kg, Route: IV, Total Volume: 250, Start Date: 05/22/19 11:53:00 [employer]PER[employer]OR, Duration: 1 day, Stop date: 05/23/19 11:52:00 W[employer] SUPERVISOR, Replace Every: 24 hr, 0 [facility] neostigmine ([facility]) 2019-05-22 17:33:00 No Route: IV, Drug form: INJ, ONCE, Stop date: 05/22/19 11:33:00 W[employer] POUR SUPERVISOR [facility] protamine ([facility]) 2019-05-22 17:33:00 No Route: IV, Drug form: INJ, ONCE, Stop date: 05/22/19 11:33:00 W[employer] SUPER[employer] [facility] glycopyrrolate ([facility]) 2019-05-22 16:27:00 No Route: IV, Drug form: INJ, ONCE, Stop date: 05/22/19 10:27:00 W[employer] SUPER[employer] [facility] phenylephrine (ANES) 2019-05-22 16:27:00 No Route: IV, Drug form: INJ, ONCE, Stop date: 05/22/19 10:27:00 W[employer] SUPERVISOR [facility] ondansetron ([facility]) 2019-05-22 16:26:00 No Route: IV, Drug form: INJ, ONCE, Stop date: 05/22/19 10:26:00 W[employer] SUPERVIS[employer] [facility] dexamethasone ([facility]) 2019-05-22 16:26:00 No Route: IV, Drug form: INJ, ONCE, Stop date: 05/22/19 10:26:00 W[employer] P[employer] SUPERVISOR [facility] heparin ([facility]) 2019-05-22 16:11:00 No Route: IV, Drug form: INJ, ONCE, Stop date: 05/22/19 10:11:00 W[employer] SUPER[employer] [facility] lidocaine ([facility]) 2019-05-22 15:51:00 No Route: IV, Drug form: INJ, ONCE, Stop date: 05/22/19 9:51:00 W[employer] SUPER[employer]OR [facility] fentaNYL (ANES) 2019-05-22 15:51:00 No Route: IV, Drug form: INJ, ONCE, Stop date: 05/22/19 9:51:00 W[employer] P[employer] SUPERVISOR [facility] propofol ([facility]) 2019-05-22 15:51:00 No Route: IV, Drug form: INJ, ONCE, Stop date: 05/22/19 9:51:00 W[employer] P[employer] SUPERVISOR [facility] rocuronium ([facility]) 2019-05-22 15:51:00 No Route: IV, Drug form: INJ, ONCE, Stop date: 05/22/19 9:51:00 W[employer] SUPERVISOR [facility] ceFAZolin (ANES) 2019-05-22 15:46:00 No Route: IV, Drug form: INJ, ONCE, Stop date: 05/22/19 9:46:00 W[employer] SUPER[employer]OR [facility] Lactated Ringers Injection IV (ANES) 1000 mL 2019-05-22 15:17:00 No Route: IV, Total Volume: 1,000, Start date: 05/22/19 9:17:00 W[employer] P[employer] SUPERVISOR, Stop date: 05/22/19 10:17:00 WET POUR SUPERVISOR [facility] Sodium Chloride 0.9% IV (ANES) 1000 mL 2019-05-22 15:17:00 No Route: IV, Total Volume: 1,000, Start date: 05/22/19 9:17:00 W[employer] P[employer] SUPERVISOR, Stop date: 05/22/19 10:17:00 WET POUR SUPERVISOR [facility] Cefazolin 2019-05-22 15:00:00 No 2 gm, Route: IVP, ONCALL, Dosing Weight 107.273, kg, (Patients weighing < 120 kg), Start date: 05/22/19 9:00:00 [employer] SUPER[employer]OR, Duration: 1 doses or times, ABX Indication: Surgical Prophylaxis [facility] Acetylcysteine 200 MG/ML Inhalant Solution 2019-05-22 12:00:00 No Notes: TUBE TO PRE-OP STAT TUBE TO PRE-OP STAT TUBE TO PRE-OP STAT [facility] sodium bicarbonate 8.4% additive 100 mEq + 1/2 NS 1,000 mL 2019-05-22 12:00:00 No Notes: TUBE TO PRE-OP STAT TUBE TO PRE-OP STAT TUBE TO PRE-OP STAT [facility] Hydroxychloroquine Sulfate 200 MG Oral Tablet 2019-05-20 15:23:0 0 Yes 200 mg = 1 tab, PO, Daily, # 180 tab, 0 Refill(s) [facility] allopurinol 100 mg oral tablet 2019-05-20 15:22:00 Yes 200 mg = 2 tab, PO, Daily, # 90 tab, 1 Refill(s) [facility] Aspirin 81 MG Enteric Coated Tablet 2019-05-20 15:20:00 Yes 81 mg = 1 tab, PO, Daily, # 90 tab, 3 Refill(s) [facility] clopidogrel 75 mg oral tablet 2019-05-20 15:20:00 Yes 37.5 mg = 0.5 tab, PO, Daily, # 90 tab, 3 Refill(s) [facility] Famotidine 20 MG Oral Tablet 2019-05-20 15:18:00 Yes 20 mg = 1 tab, PO, BID, # 180 tab, 0 Refill(s) [facility] Sodium Bicarbonate 650 MG Oral Tablet 2019-05-20 15:16:00 Y es 1,300 mg = 2 tab, PO, Daily, 0 Refill(s) [facility] atorvastatin 20 mg oral tablet 2019-05-20 15:16:00 Yes 20 mg = 1 tab, PO, Bedtime, # 90 tab, 1 Refill(s) [facility] tamsulosin 0.4 mg oral capsule 2019-05-20 15:16:00 Yes 0.4 mg = 1 cap, PO, Daily, # 90 cap, 0 Refill(s) [facility] ferrous sulfate 325 mg oral enteric coated tablet 2019-05-20 15:15:00 Yes 325 mg = 1 tab, PO, BID, # 90 tab, 0 Refill(s) [facility] metoprolol tartrate 25 mg oral tablet 2019-05-20 15:14:00 Y es 12.5 mg = 0.5 tab, PO, BID, # 60 tab, 0 Refill(s) [facility] Docusate Sodium 100 MG Oral Capsule 2019-05-20 15:14:00 Yes 100 mg = 1 cap, PO, BID, # 60 cap, 3 Refill(s) [facility] Allopurinol Allopurinol 2019-05-13 05:00:00 2019-08-21 00:00:00 No 200 [facility] Sodium Bicarbonate Sodium Bicarbonate 2019-05-13 05:00:00 2019-08-09 3 00:00:00 No 1300 [facility] Sodium Chloride Sodium Chloride 2019-05-13 05:00:00 2019-08-21 00:00:00 No 2 [facility] Fosfomycin Tromethamine (Monurol) 3 Gm PACKET Fosfomyc in Tromethamine (Monurol) 3 Gm PACKET 2019-05-09 14:34:00 2019-08-21 00:00:00 No 3 [facility] Atorvastatin Calcium (Lipitor) 20 Mg TABLET Atorvastat in Calcium (Lipitor) 20 Mg TABLET 2019-04-21 02:24:2019-08-21 00:00:00 No 20 [facility] Docusate Sodium (Colace) 100 Mg/10 Ml LIQD Docusate So dium (Colace) 100 Mg/10 Ml LIQD 2019-04-21 02:24:2019-08-21 00:00:00 No 100 [facility] Famotidine Famotidine 2019-04-21 02:24:2019-08-21 00:00:00 No 20 [facility] Metoprolol Tartrate (Lopressor) 25 Mg TAB Metoprolol T artrate (Lopressor) 25 Mg TAB 2019-04-21 02:24:00 2019-08-21 00:00:00 No 12.5 [facility] Prasugrel Hcl (Effient) 10 Mg TABLET Prasugrel Hcl (Effient) 10 Mg TABLET 2019-04-21 02:24:2019-08-21 00:00:00 No 10 [facility] Aspirin (Aspirin Ec) 81 Mg TABLET. Aspirin (Aspirin Ec) 81 Mg TABLET. 2019-04-21 02:24:00 2019-05-13 00:00:00 No 81 [facility] Valsartan (Diovan) 80 Mg TAB Valsartan (Diovan) 80 Mg TAB 04-21 02:24:2019-05-13 00:00:00 No 20 [facility] Doxazosin Mesylate 2017-06-13 03:46:42 Yes Ayo Arora 1 tablet [facility] Pantoprazole Sodium 2017-06-13 03:46:42 Yes Ayo Arora 1 tablet [facility] Tamsulosin HCl 2017-06-13 03:46:42 Yes Ayo Arora 1 capsule [facility] Folic Acid 2017-06-13 03:46:42 Yes Ayo Arora 2 tablets [facility] Enbrel 2017-06-13 03:46:42 Yes Ayo Arora 1 ml [facility] PredniSONE 2017-06-13 03:46:42 Yes Ayo Arora take 2 tablets by mouth daily [facility] Ferrous Sulfate 2017-06-13 03:46:42 Yes Ayo Arora 1 tablet [facility] PredniSONE 2017-04-05 00:00:00 Yes Ayo Arora take 2 tablets by mouth daily [facility] [employer] 2017-04-01 03:46:35 Yes Latifa Fakoya as directed Riaztierra Arora Leflunomide 2017-03-30 00:00:00 Yes Ayotierra Marinellier 1 tablet [facility] Hydroxychloroquine Sulfate 2017-02-06 00:00:00 Yes Patrickmarni jomar Marinellier 1 tablet with food or milk [facility] Folic Acid 2017-01-12 02:46:38 Yes Ayotierra Arora 2 tablets [facility] Doxazosin Mesylate 2017-01-12 02:46:38 Yes Ayotierra Marinellier 1 tablet [facility] [employer] 2017-01-12 02:46:38 Yes Ayotierra Arora as directed Riaztierra Arora Ferrous Sulfate 2017-01-12 02:46:38 Yes Ayotierra Marinellier 1 tablet [facility] Pantoprazole Sodium 2017-01-12 02:46:38 Yes Ayotierra Marinellier 1 tablet [facility] Tamsulosin HCl 2017-01-12 02:46:38 Yes Ayotierra Marinellier 1 capsule [facility] Vitamin D3 2017-01-12 02:46:38 Yes Ayo Arora 1 capsule Riaztierra Arora Vitamin D (Ergocalciferol) 2017-01-09 00:00:00 Yes Patrickmarni jomar Marinellier 1 capsule Riaztierra Arora Vitamin D (Ergocalciferol) 2017-01-09 00:00:00 Yes Keren Marinellier 1 capsule [facility] Lipitor 20 MG Oral Tablet Lipitor 20 MG Oral Tablet Yes [facility] Flomax 0.4 MG Oral Capsule Flomax 0.4 MG Oral Capsule Yes [facility] Effient 10 MG Oral Tablet Effient 10 MG Oral Tablet Yes [facility] Lopressor TABS Lopressor TABS Yes [facility] Pepcid 20 MG Oral Tablet Pepcid 20 MG Oral Tablet Yes [facility] Allopurinol 100 MG Oral Tablet Allopurinol 100 MG Oral Tablet Yes [facility] Acetaminophen With Codeine (Tylenol With Codeine #3 Ta blet) 1 Each TABLET Acetaminophen With Codeine (Tylenol With Codeine #3 Tablet) 1 Each TABLET Yes 300 [facility] Aspirin (Aspir 81) 81 Mg TABLET. Aspirin (Aspir 81) 81 Mg TABLET. Yes 81 [facility] Clopidogrel Bisulfate (Plavix) 75 Mg TABLET Clopidogre l Bisulfate (Plavix) 75 Mg TABLET Yes 75 [facility] Docusate Sodium Docusate Sodium Yes 100 [facility] Ferrous Sulfate Ferrous Sulfate Yes 325 [facility] Hydroxychloroquine Sulfate (Plaquenil) 200 Mg TAB Hydr oxychloroquine Sulfate (Plaquenil) 200 Mg TAB Yes 200 [facility] Lisinopril Lisinopril Yes 10 [facility] Tamsulosin Hcl (Flomax*) 0.4 Mg CAP Tamsulosin Hcl (Flomax*) 0.4 Mg C AP Yes .4 [facility] Cholecalciferol (Vitamin D3) (Vitamin D3) 1,000 Unit C APSULE Cholecalciferol (Vitamin D3) (Vitamin D3) 1,000 Unit CAPSULE 2019-08-21 00:00:00 No 1000 [facility] Cyanocobalamin (Vitamin B-12) 1,000 Mcg TAB Cyanocobal ramos (Vitamin B-12) 1,000 Mcg TAB 2019-08-21 00:00:00 No 1000 [facility] Tamsulosin Hcl (Flomax*) 0.4 Mg CAP Tamsulosin Hcl (Flomax*) 0.4 Mg CAP 2019-08-21 00:00:00 No .4 [facility] Folic Acid Folic Acid 2019-05-13 00:00:00 No 1 [facility] Tramadol Hcl/Acetaminophen (Ultracet Tablet) 1 Each TA BLET Tramadol Hcl/Acetaminophen (Ultracet Tablet) 1 Each TABLET 2019-05-13 00:00:00 No 1 [facility] Doxazosin Mesylate Doxazosin Mesylate 2019-04-21 00:00:00 No 8 [facility] Levofloxacin (Levaquin) 500 Mg TABLET Levofloxacin (Levaquin) 50 0 Mg TABLET 2019-04-21 00:00:00 No 500 [facility] Nitrofurantoin Macrocrystal (Nitrofurantoin) 100 Mg CA PSULE Nitrofurantoin Macrocrystal (Nitrofurantoin) 100 Mg CAPSULE 2019-04-21 00:00:00 No 100 [facility] Prednisone Prednisone 2019-04-21 00:00:00 No 5 [facility] Etanercept (Enbrel) 50 Mg/1 Ml DISP.SYRIN Etanercept ( Enbrel) 50 Mg/1 Ml DISP.SYRIN 2017-12-25 00:00:00 No [facility] Vital Signs Vital Name Observation Time Observation Value Comments Source Body Temperature 2019-08-25 15:36:00 98.2 [degF] [facility] BMI (Body Mass Index) 2019-08-21 17:21:00 32.9 kg/m2 [facility] Weight 2019-08-21 05:03:00 229 [lb_av] [facility] Weight 2019-06-10 12:56:00 235 [lb_av] [facility] Systolic (mm Hg) 2019-05-23 22:00:00 [facility] Diastolic (mm Hg) 2019-05-23 22:00:00 [facility] Systolic (mm Hg) 2019-05-23 21:00:00 [facility] Diastolic (mm Hg) 2019-05-23 21:00:00 [facility] Respitory Rate 2019-05-23 20:00:00 [facility] Systolic (mm Hg) 2019-05-23 20:00:00 [facility] Diastolic (mm Hg) 2019-05-23 20:00:00 [facility] Respitory Rate 2019-05-23 19:00:00 [facility] Respitory Rate 2019-05-23 18:00:00 [facility] Height 2019-05-22 20:08:00 177.8 cm [facility] Weight 2019-05-22 20:08:00 [facility] BMI Calculated 2019-05-22 20:08:00 [facility] Heart Rate 2019-05-22 14:09:00 [facility] Temperature Oral (F) 2019-05-20 15:49:00 97.4 F [facility] Heart Rate 2019-05-20 15:49:00 [facility] Height 2019-05-20 15:02:00 177.8 cm [facility] Weight 2019-05-20 15:02:00 [facility] BMI Calculated 2019-05-20 15:02:00 [facility] Weight 2017-06-05 16:15:00 [facility] Height 2017-06-05 16:15:00 Riaz Arora Temperature Oral (F) 2017-06-05 16:15:00 97.2 F [facility] Heart Rate 2017-06-05 16:15:00 Riaz Arora Diastolic (mm Hg) 2017-06-05 16:15:00 Phi llip Arora Systolic (mm Hg) 2017-06-05 16:15:00 Patrick lip Arora Weight 2017-03-30 20:45:00 [facility]iaz Ar[facility] Height 2017-03-30 20:45:00 Riaz Arora Temperature Oral (F) 2017-03-30 20:45:00 97.9 F R[facility] Heart Rate 2017-03-30 20:45:00 Riaz Arora Diastolic (mm Hg) 2017-03-30 20:45:00 Phi llip Arora Systolic (mm Hg) 2017-03-30 20:45:00 Patrick lip Arora Weight 2017-01-05 15:15:00 Riaz Arora Height 2017-01-05 15:15:00 Riaz Arora Temperature Oral (F) 2017-01-05 15:15:00 97.0 F Riaz Ar[facility] Heart Rate 2017-01-05 15:15:00 Riaz Arora Diastolic (mm Hg) 2017-01-05 15:15:00 Phi llip Arora Systolic (mm Hg) 2017-01-05 15:15:00 Patrick lip Arora Procedures Procedure Date / Time Performed Performing Clinician Sourc e CT of abdomen and pelvis without contrast 2019-08-21 00:00:00 [facility] [[facility]] BASIC METABOLIC PANEL W/EGFR 2019-06-10 00:00:00 [facility] CVRAD - Abdominal Duplex Comp - [id number] 2019-06-05 00:00:00 [facility] CTA Abdomen/Pelvis [id number] 2019-05-24 00:00:00 [facility] BASIC METABOLIC PANEL W/EGFR 2019-05-13 00:00:00 [facility] X-ray of chest, two views 2019-05-07 00:00:00 [facility], [facility] Computed tomography angiography of abdom en and pelvis without then with contrast 2019-05-07 00:00:00 CONSTANTINE LR V [facility] CT angiography of chest 2019-05-07 00:00:00 CONSTANTINE LR V [facility] TRANSFUSE NONAUT RED BLOOD CELLS IN PERIPH VEIN, PERC 2019-05-07 00:00:00 [facility] Ultrasound, renal 2019-05-06 00:00:00 MARIPOSA GUILLAUME [facility] Computed tomography of brain without radiopaque contrast 00:00:00 MARTINA SKELTON [facility] Computed tomography of cervical spine without contrast 05-04 00:00:00 MARTINA SKELTON [facility] DILATION OF 1 COR ART WITH DRUG-ELUT INTRA, PERC APPROACH 108 00:00:00 [facility] EXTIRPATION OF MATTER FROM 1 COR ART, PERC APPROACH 2019-04-17 0 0:00:00 [facility] INTRODUCE PLATELET INHIBITOR IN CORONARY ART, PERC 2019-04-17 00 :00:00 [facility] MEASURE OF CARDIAC SAMPL & PRESSURE, L HEART, PERC APPROACH 2019-04-17 00:00:00 [facility] FLUOROSCOPY OF MULT COR ART USING L OSM CONTRAST 2019-04-17 00:0 0:00 [facility] Cardiac catheterisation [facility] Hernia repair [facility] TKR -Total prosthetic replacement of knee joint using cement [facility] Plan of Care Planned Activity Planned Date Details Comments Source Diagnostic Test Pending 2019-06-11 00:00:00 [QLH] BASIC META BOLIC PANEL W/EGFR [code = [QLH] BASIC METABOLIC PANEL W/EGFR] [facility] Goal Patient referral [code = 3511303 ] [facility] Goal Patient referral [code = 9743836 ] [facility] Goal Patient referral [code = 0200656 ] [facility] Goal Patient referral [code = 4234056 ] [facility] Goal Patient referral [code = 1820264 ] [facility] Instructions Post Operative Pain [facility] Encounters Start Date/Time End Date/Time Encounter Type Admission Type [facility] Care Department Encounter ID Source 2019-05-22 07:15:00 Inpatient MHSE MHSE [id number] [facility] 2019-08-21 06:53:00 2019-08-25 16:07:00 Discharged Inpatient 1 XIOMARA DELGADOVE [facility] [id number] [facility] 2019-06-10 12:30:00 2019-06-10 12:30:00 Appointment; THEODORE BARKER M.D. NAHAS, CESAR, M.D. [facility] Cardiothoracic & Vascular Surgery [facility] [id number] [facility] 2019-06-06 15:22:00 2019-06-07 05:59:00 Outpatient [facility] [id number] [facility] 2019-06-06 09:22:00 2019-06-06 23:59:00 Outpatient Theodore [facility] [id number] 2019-06-06 09:22:00 2019-06-06 09:22:00 Outpatient MHSE MHSE [id number] [facility] 2019-06-05 08:00:00 2019-06-05 08:00:00 Appointment; DR JOHNNIE CUMMINGS, DR BARKER [facility] Cardiothoracic & Vascular Surgery [facility] t [id number] [facility] 2019-05-22 13:15:00 2019-05-24 00:20:00 Inpatient [facility] [id number] [facility] 2019-05-22 07:15:00 2019-05-23 18:20:00 Outpatient [facility] [id number] 2019-05-22 06:30:00 2019-05-22 06:30:00 Appointment; THEODORE BARKER M.D. NAHAS, CESAR, M.D. [facility] UTP [id number] [facility] 2019-05-13 11:45:00 2019-05-13 11:45:00 Appointment; THEODORE BARKER M.D. NAHAS, CESAR, M.D. [facility] Cardiothoracic & Vascular Surgery [facility] [id number] [facility] 2019-05-04 16:10:00 2019-05-13 07:23:00 Discharged Inpatient 1 [facility] [id number] [facility] 2019-04-17 17:31:00 2019-04-21 10:40:00 Discharged Inpatient 1 [facility] [id number] [facility] 2017-11-28 09:12:00 2017-11-28 09:12:00 Outpatient Ayo Arora [place] [id number] Riaz Arora MD 2017-08-07 15:17:00 2017-08-08 04:59:00 Outpt Diag Services [facility] [place] [id number] [facility] [place] 2017-08-07 10:17:00 2017-08-07 23:59:00 Outpatient Holly Berger [facility] [id number] 2017-08-07 10:17:00 2017-08-07 23:59:00 Outpatient Holly Berger [facility] [id number] 2017-06-05 10:15:00 2017-06-05 10:15:00 Outpatient Ayo Arora MD [place] [id number] CIARA Arora MD 2017-06-01 15:04:00 2017-06-01 15:04:00 Outpatient Ayo Arora MD [place] [id number] MH Riaz Arora MD 2017-05-11 16:32:00 2017-05-11 16:32:00 Outpatient Ayo Arora MD [place] [id number] Riaz Arora MD 2017-05-11 09:18:00 2017-05-11 09:18:00 Outpatient Ayo SHOEMAKER [id number] Riaz Arora MD 2017-04-24 18:40:00 2017-04-25 05:59:00 Outpt Diag Services [facility] [place] [id number] [facility] [place] 2017-04-24 12:40:00 2017-04-24 23:59:00 Outpatient Holly Berger [facility] [id number] 2017-03-30 14:45:00 2017-03-30 14:45:00 Outpatient Ayo Arora MD [place] [id number] Riaz Arora MD 2017-02-06 15:19:00 2017-02-06 15:19:00 Outpatient Ayo Arora MD [place] [id number] Riaz Arora MD 2017-01-09 08:15:00 2017-01-09 08:15:00 Outpatient Ayo SHOEMAKER [id number] Riaz Arora MD 2017-01-05 10:15:00 2017-01-05 10:15:00 Outpatient Ayo Arora MD [place] [id number] Riaz Arora MD 2016-09-15 18:22:00 2016-09-16 04:59:00 Outpt Diag Services [facility] [place] [id number] [facility] [place] 2016-09-15 13:22:00 2016-09-15 23:59:00 Outpatient Holly Berger [facility] [id number] 2016-08-24 16:54:00 2016-08-25 04:59:00 Outpt Diag Services [facility] [place] [id number] [facility] [place] 2016-08-24 11:54:00 2016-08-24 23:59:00 Outpatient Holly Berger [facility] [id number] 2016-03-21 17:59:00 2016-03-22 05:59:00 Outpt Diag Services [facility] [place] [id number] [facility] [place] 2016-03-21 11:59:00 2016-03-21 23:59:00 Outpatient Holly Berger [facility] [id number] 2015-07-17 20:27:00 2015-07-18 04:59:00 Outpt Diag Services [facility] [place] [id number] [facility] [place] 2015-07-17 15:27:00 2015-07-17 23:59:00 Outpatient Geoffrey Kleina [facility] [id number] 2015-02-25 20:51:00 2015-02-26 05:59:00 Outpt Diag Services [facility] [place] [id number] [facility] [place] 2015-02-25 14:51:00 2015-02-25 23:59:00 Outpatient BermanCecilio Willingham [facility] [id number] 2014-05-30 17:43:00 2014-05-31 05:59:00 Outpt Diag Services [facility] [place] [id number] [facility] [place] 2014-05-30 11:43:00 2014-05-30 23:59:00 Outpatient Berman, Guerrero Willingham [facility] [id number] 2014-05-01 18:16:00 2014-05-02 05:59:00 Outpt Diag Services [facility] [place] [id number] [facility] [place] 2014-05-01 12:16:00 2014-05-01 23:59:00 Outpatient Berman, Guerrero Willingham [facility] [id number] Results Test Description Test Time Test Comments Results Result Comments Source CT ABDOMEN/PELVIS WO 2019-08-28 23:42:00 [facility] [address] [address] Patient Name: AG CATALAN MR #: [id number] : 1935 Age/Sex: 84/M Req #: [id number] Adm Physician: Ordered by: SENTHIL MCNAIR DO Report #: [id number] Location: ER Room/Bed: Procedure: [id number] CT/CT ABDOMEN/PELVIS WO Exam Date: 08/28/19 Exam Time: 2300 REPORT STATUS: Signed EXAM: CT Abdomen and Pelvis WITHOUT intravenous contrast INDICATION: Rectal bleeding. Hernia repair last week. COMPARISON: CT abdomen and pelvis 08/21/19. CTA chest 04/29/2019. TECHNIQUE: Abdomen and pelvis were scanned utilizing a multidetector helical scanner from the lung base to the pubic symphysis without administration of IV contrast. Coronal and sagittal reformations were obtained. IV CONTRAST: None ORAL CONTRAST: Gastrografin COMPLICATIONS: None RADIATION DOSE: Total DLP: 682 mGy*cm Dose modulation, iterative reconstruction, and/or weight based adjustment of the mA/kV was utilized to reduce the radiation dose to as low as reasonably achievable. FINDINGS: LOWER THORAX: Trace right pleural effusion. Mild bibasilar dependent subsegmental atelectasis. 2 to 3 mm pulmonary nodules in the right middle lobe are unchanged from CT on 05/07/2019. Coronary atherosclerosis. Mild cardiomegaly. There is hypoattenuation of the blood pole in relation to the myocardium, suggestive of anemia. HEPATOBILIARY: No evidence of mass. Unremarkable gallbladder. SPLEEN: No splenomegaly. PANCREAS: No evidence of focal masses or ductal dilatation. Fatty atrophy. ADRENALS: No adrenal nodules. KIDNEYS/URETERS: No hydronephrosis or renal calculi. Unchanged bilateral renal cysts. PELVIC ORGANS/BLADDER: Lamb catheter terminates in the bladder which appears circumferentially mildly thick-walled. PERITONEUM / RETROPERITONEUM: Punctate free air within the left inguinal canal. Please see soft tissue section below. LYMPH NODES: No lymphadenopathy. 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 Limited evaluation the absence of IV contrast. The aneurysm sac is smaller in size compared to prior CTA, measuring up to 6.1 cm, previously 6.9 cm. GI TRACT: There has been interval repair of left inguinal hernia with partial resection of the small bowel, there is a new small bowel anastomosis in the right lower abdomen. There are mildly dilated small bowel loops, measuring up to 3.8 cm which are fluid-filled. No definite transition point identified. There is fluid seen throughout the colon. The cecum is mildly prominent. Colonic diverticulosis without evidence of diverticulitis. Hyperdense contents measuring up to 49 HU in the terminal ileum on series 2, image 59. Mildly hyperdense contents within the cecum and ascending colon. No evidence of pneumatosis. Normal appendix. BONES AND SOFT TISSUES: Diffuse osteopenia. No acute osseous abnormality. No suspicious lytic or blastic lesions. Remote healed left lower rib fractures. Degenerative changes of the lumbar spine. There are postsurgical changes related to recent left inguinal hernia repair. There are punctate foci of free air within the left inguinal canal with surrounding smaller free fluid and stranding. There is a 6.3 x 1.7 x 4.6 cm fluid attenuation collection in the left lower anterior abdominal wall. Diffuse anasarca. IMPRESSION: 1. Postsurgical changes related to left inguinal hernia repair with partial small bowel resection. A 6.3 x 1.7 x 4.6 cm fluid collection in the left lower anterior abdominal wall, likely seroma in the recent postoperative setting. Surrounding inflammatory changes and punctate foci of air are likely expected postoperatively. 2. Mildly dilated small bowel loops without definite transition point, likely nonobstructive postoperative ileus rather than low- grade partial small bowel obstruction. 3. Fluid seen throughout the small bowel and colon, which may represent infectious process. Suggest clinical correlation for diarrhea. 4. Hyperdense contents within the distal ileum and proximal colon may represent enteric contents, partial mixing with oral contrast, or hemorrhagic products in the appropriate clinical setting. 5. 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 Limited evaluation in the absence of IV contrast. 6. Lamb catheter terminates in a partially decompressed bladder. Apparent wall thickening within the bladder may reflect decompression versus cystitis in the appropriate clinical setting. 7. Findings suggestive of anemia. 8. Trace right pleural effusion with dependent atelectatic changes. Small right middle lobe pulmonary nodules measuring up to 3 mm are unchanged compared to CT on 05/07/2019. In a low risk patient, no further follow-up is required. If the patient is high risk for malignancy, an optional follow-up chest CT may be considered per recommendation on CT report from 05/07/2019 Signed by: Dr. Susanna Begum MD on 08/29/2019 12:03 AM Dictated By: SUSANNA BEGUM MD 0003 Transcribed By: KAIT on 08/29/19 0003 COPY TO: SENTHIL MCNAIR DO Blood leukocytes automated count (number/volume) 2019-08-24 05:50:00 Test Item White Blood Count (test code = 6690-2) 4.88 [facility] (number/volume)2019-08-24 05:50:00* Test Item Value Reference Range Interpretation Comments Red Blood Count (test code = 789-8) 2.67 [facility] measurement (moles/volume)2019-08-24 05:50:00* Test Item Value Reference Range Interpretation Comments Hemoglobin (test code = 71077-0) 7.8 [facility] blood hematocrit (volume fraction)2019-08-24 05:50:00* Test Item Value Reference Range Interpretation Comments Hematocrit (test code = 4544-3) 26.5 [facility] erythrocyte mean corpuscular fjushq3858-66-45 05:50:00* Test Item Value Reference Range Interpretation Comments Mean Corpuscular Volume (test code = 787-2) 99.3 [facility] mean corpuscular hemoglobin (mass per erythrocyte)2019-08-24 05:50:00* Test Item Value Reference Range Interpretation Comments Mean Corpuscular Hemoglobin (test code = 785-6) 29.2 [facility] eryth[facility] mean corpuscular hemoglobin concentration measurement (mass/volume)2019-08-24 05:50:00* Test Item Value Reference Range Interpretation Comments Mean Corpuscular Hemoglobin Concent (test code = 786-4) 29.4 [facility] HospitalRDW MldGr-Nqe1046-27-16 05:50:00* Test Item Value Reference Range Interpretation Comments Red Cell Distribution Width (test code = 61051-6) 15.0 [facility] platelet count (count/volume)2019-08-24 05:50:00* Test Item Value Reference Range Interpretation Comments Platelet Count (test code = 777-3) 145 [facility] segmented neutrophil count as percentage of total zqcgutbeiq0034-90-26 05:50:00* Test Item Value Reference Range Interpretation Comments Neutrophils (%) (Auto) (test code = 94301-0) 65.8 [facility]Autom[facility] lymphocyte count as percentage ot total wntpnwxjjp5374-62-14 05:50:00* Test Item Value Reference Range Interpretation Comments Lymphocytes (%) (Auto) (test code = 736-9) 20.1 [facility] blood monocyte count as percentage of total uitwlubmjd5316-52-61 05:50:00* Test Item Value Reference Range Interpretation Comments Monocytes (%) (Auto) (test code = 5905-5) 9.2 [facility] eosinophil count as percentage of total mtyvunmhzr0731-50-93 05:50:00* Test Item Value Reference Range Interpretation Comments Eosinophils (%) (Auto) (test code = 713-8) 3.7 [facility]Autom[facility] blood basophil count as percentage of total qpozcqmbzv0128-86-18 05:50:00* Test Item Value Reference Range Interpretation Comments Basophils (%) (Auto) (test code = 706-2) 1.0 [facility] HospitalFluoroscopic procedure less than one hour ufuwfcna3714-73-95 05:50:00* Test Item Value Reference Range Interpretation Comments IM GRANULOCYTES % (test code = IM GRANULOCYTES %) 0.2 [facility] HospitalAutomated blood neutrophil count 2019-08-24 05:50:00* Test Item Value Reference Range Interpretation Comments Neutrophils # (Auto) (test code = 751-8) 3.2 [facility] lymphocytes count (number/volume) 2019-08-24 05:50:00* Test Item Value Reference Range Interpretation Comments Lymphocytes # (Auto) (test code = 90456-8) 1.0 [facility] monocytes automated count (number/volume)2019-08-24 05:50:00* Test Item Value Reference Range Interpretation Comments Monocytes # (Auto) (test code = 742-7) 0.5 [facility]Autom[facility] blood eosinophil count 2019-08-24 05:50:00* Test Item Value Reference Range Interpretation Comments Eosinophils # (Auto) (test code = 711-2) 0.2 [facility] HospitalAutomated blood basophil count (count/volume)2019-08-24 05:50:00* Test Item Value Reference Range Interpretation Comments Basophils # (Auto) (test code = 704-7) 0.1 [facility] HospitalFluoroscopic procedure less than one hour kmxdedrv6866-08-48 05:50:00* Test Item Value Reference Range Interpretation Comments Absolute Immature Granulocyte (auto (rosario t code = Absolute Immature Granulocyte (auto) 0.01 [facility] HospitalBlood hypochromia detection by light omytbcxldd4017-86-75 05:50:00* Test Item Value Reference Range Interpretation Comments Hypochromasia (test code = 728-6) SLIGHT [facility] HospitalRBC zhcypbbvsv9042-16-98 05:50:00* Test Item Value Reference Range Interpretation Comments Red Cell Morphology Comment (test code = 6742-1) ABNORMAL [facility] sodium measurement (moles/volume)2019-08-24 05:50:00* Test Item Value Reference Range Interpretation Comments Sodium Level (test code = 2951-2) 138 [facility] plasma potassium measurement (moles/volume)2019-08-24 05:50:00* Test Item Value Reference Range Interpretation Comments Potassium Level (test code = 2823-3) 4.7 [facility] chloride measurement (moles/volume)2019-08-24 05:50:00* Test Item Value Reference Range Interpretation Comments Chloride Level (test code = 2075-0) 109 [facility] plasma carbon dioxide, total measurement (moles/volume)2019-08-24 05:50:00* Test Item Value Reference Range Interpretation Comments Carbon Dioxide Level (test code = 2028-9) 19 [facility] or plasma anion rks8070-75-06 05:50:00* Test Item Value Reference Range Interpretation Comments Anion Gap (test code = 41243-7) 14.7 [facility] plasma urea nitrogen measurement (mass/volume)2019-08-24 05:50:00* Test Item Value Reference Range Interpretation Comments Blood Urea Nitrogen (test code = 3094-0) 20 [facility] plasma creatinine measurement (mass/volume)2019-08-24 05:50:00* Test Item Value Reference Range Interpretation Comments Creatinine (test code = 2160-0) 1.40 [facility] plasma urea nitrogen/creatinine mass hzmbj9885-47-45 05:50:00* Test Item Value Reference Range Interpretation Comments BUN/Creatinine Ratio (test code = 3097-3) 14 [facility] HospitalEstimated glomerular filtration rate (GFR) qzxejvnntknfl4792-46-22 05:50:00* Test Item Value Reference Range Interpretation Comments Estimat Glomerular Filtration Rate (test code = 647275614) 49 [facility] HospitalGlucose uqpqnhcpoui6105-99-32 05:50:00* Test Item Value Reference Range Interpretation Comments Glucose Level (test code = MBC9264) 66 [facility] plasma calcium measurement (mass/volume)2019-08-24 05:50:00* Test Item Value Reference Range Interpretation Comments Calcium Level (test code = 24471-8) 8.1 [facility]Blood platelets count by estimate (number/volume)2019-08-22 04:40:00* Test Item Value Reference Range Interpretation Comments Platelet Estimate (test code = 05047-7) ADEQUATE [facility] HospitalPlatelet quoisonqqf7970-57-05 04:40:00* Test Item Value Reference Range Interpretation Comments Platelet Morphology Comment (test code = 48922-4) NORMAL [facility] HospitalBlood anisocytosis detection by light vvaadooaix9095-74-27 04:40:00* Test Item Value Reference Range Interpretation Comments Anisocytosis (test code = 702-1) SLIGHT [facility] total bilirubin measurement (mass/volume)2019-08-22 04:40:00* Test Item Value Reference Range Interpretation Comments Total Bilirubin (test code = 1975-2) 0.6 [facility] HospitalFluoroscopic procedure less than one hour fpfltthu1802-05-81 04:40:00* Test Item Value Reference Range Interpretation Comments Aspartate Amino Transf (AST/SGOT) (test code = Aspartate Amino Transf (AST/SGOT)) 15 [facility] plasma alanine aminotransferase measurement (enzymatic activity/volume)2019-08-22 04:40:00* Test Item Value Reference Range Interpretation Comments Alanine Aminotransferase (ALT/SGPT) (test code = 1742-6) 13 [facility] plasma protein measurement (mass/volume)2019-08-22 04:40:00* Test Item Value Reference Range Interpretation Comments Total Protein (test code = 2885-2) 6.4 [facility] plasma albumin measurement (mass/volume)2019-08-22 04:40:00* Test Item Value Reference Range Interpretation Comments Albumin (test code = 1751-7) 2.6 [facility] HospitalPlasma globulin measurement (mass/volume) 2019-08-22 04:40:00* Test Item Value Reference Range Interpretation Comments Globulin (test code = 27282-2) 3.8 [facility] albumin/globulin mass szvtz2957-06-19 04:40:00* Test Item Value Reference Range Interpretation Comments Albumin/Globulin Ratio (test code = 1759-0) 0.7 [facility] plasma alkaline phosphatase measurement (enzymatic activity/volume)2019-08-22 04:40:00* Test Item Value Reference Range Interpretation Comments Alkaline Phosphatase (test code = 6768-6) 49 [facility] XP5100-03-59 09:58:00 [facility] [address] [address] Patient Name: AG CATALAN MR #: [id number] : 1935 Age/Sex: 84/M Req #: [id number] Adm Physician: RADHA DELGADO MD Ordered by: SENTHIL MCNAIR DO Report #: [id number] Location: [facility] Room/Bed: [address] [address] Procedure: [id number] CT/CT ABDOMEN /PELVIS WO Exam Date: 08/21/19 Exam Time: 0800 REPORT STATUS: Signed EXAM: CT Abdomen and Pelvis WITHOUT intravenous contrast INDICATION: Abdominal pain COMPARISON: CT abdomen and pelvis of 05/07/2019 TECHNIQUE: Abdomen and pelv is were scanned utilizing a multidetector helical scanner from the lung base t o the pubic symphysis without administration of IV contrast. Coronal and sagit ronni reformations were obtained. IV CONTRAST: None ORAL CONTRAST: Ga strografin COMPLICATIONS: None RADIATION DOSE: Total DLP : 600 mGy*cm Dose modulation, iterative reconstruction, and/or weight base d adjustment of the mA/kV was utilized to reduce the radiation dose to as low as reasonably achievable. FINDINGS: LOWER THORAX: Trace right pleural effusion. Mild bibasilar dependent subsegmental atelectasis. Mild interlobular septal thickening and bladder wall with mild interstitial pulmonary edema. HEPATOBILIARY: No focal liver lesion. Unremarkable gallbladder. SPLEEN: No splenomegaly. PANCREAS: No focal masses or ductal dilatation. ADREN ALS: No adrenal nodules. KIDNEYS/URETERS: No hydronephrosis or renal calculi. Unchanged bilateral renal cysts. PELVIC ORGANS/BLADDER: Unremarkable. P ERITONEUM / RETROPERITONEUM: No free air or fluid. LYMPH NODES: No lymphadenop athy. VESSELS: Status post interval stent graft repair of infrarenal abdominal aortic aneurysm. The aneurysm sac is essentially unchanged in size compared to 05/07/2019. GI TRACT: Multiple loops of fluid-filled distended small bowel in the mid and lower abdomen with transition point at an incarcerated loop of small bowel in the left inguinal hernia. Severe diverticulosis. No CT evidence of diverticulitis. Normal appendix. BONES AND SOFT TISSUES: Diffuse o steopenia. No acute osseous injury. No suspicious lytic or blastic lesions. IMPRESSION: Incarcerated small bowel loops associated with left internal h ernia resulting in small bowel obstruction. Interval stent graft repair o f infrarenal abdominal aortic aneurysm with unchanged aneurysm sac size compar ed to 05/07/2019. The above findings were discussed with Dr. To on 0 9:40 AM, who responded indicating that the communication was understood. Signed by: Aaliyah Gonzales MD on 08/21/2019 10:06 AM Dictated By: AALIYAH GONZALES MD 1006 Transcribed By: Yudith ESTEVEZ on 08/21/19 1006 COPY TO: SENTHIL MCNAIR DO Fluoroscopic procedure less than one hour wdayyuha2917-98-89 07:18:00* Test Item Value Reference Range Interpretation Comments Coronavirus (PCR) (test code = Coronavirus (PCR)) NOT DETECTED [facility] dowhlxucyrirv3984-55-59 05:15:00* Test Item Value Reference Range Interpretation Comments Urine Color (test code = 5778-6) YELLOW [facility] tnvnvzp1835-25-98 05:15:00* Test Item Value Reference Range Interpretation Comments Urine Clarity (test code = 83964-6) CLEAR [facility] Urine by Test strip 2019-08-21 05:15:00* Test Item Value Reference Range Interpretation Comments Urine Specific [place] (test code = 5811-5) 1.020 [facility] pH measurement by automated test qnosp5566-02-29 05:15:00* Test Item Value Reference Range Interpretation Comments Urine pH (test code = 31366-3) 6 [facility] leukocyte esterase detection by dqackbrf0849-03-38 05:15:00* Test Item Value Reference Range Interpretation Comments Urine Leukocyte Esterase (test code = 5799-2) NEGATIVE [facility] nitrite adamqbjpk0354-08-52 05:15:00* Test Item Value Reference Range Interpretation Comments Urine Nitrite (test code = 15403-1) NEGATIVE [facility] protein measurement by test strip (mass/volume)2019-08-21 05:15:00* Test Item Value Reference Range Interpretation Comments Urine Protein (test code = 5804-0) TRACE [facility] glucose jowaczatv2037-22-10 05:15:00* Test Item Value Reference Range Interpretation Comments Urine Glucose (UA) (test code = 2349-9) NEGATIVE [facility] ketones detection by automated test smoez1974-62-25 05:15:00* Test Item Value Reference Range Interpretation Comments Urine Ketones (test code = 48796-6) NEGATIVE [facility] urobilinogen measurement by test strip (mass/volume)2019-08-21 05:15:00* Test Item Value Reference Range Interpretation Comments Urine Urobilinogen (test code = 93741-4) 0.2 [facility] total bilirubin measurement (mass/volume)2019-08-21 05:15:00* Test Item Value Reference Range Interpretation Comments Urine Bilirubin (test code = 1978-6) NEGATIVE [facility] erythrocytes owfwuwrry7317-38-48 05:15:00* Test Item Value Reference Range Interpretation Comments Urine Blood (test code = 17876-9) NEGATIVE [facility] HospitalAutomated urine sediment leukocyte count by microscopy (number/high power field)2019-08-21 05:15:00* Test Item Value Reference Range Interpretation Comments Urine WBC (test code = 5821-4) 0-5 [facility] HospitalErythrocytes detection in urine sediment by light uypwapldzb0463-94-23 05:15:00* Test Item Value Reference Range Interpretation Comments Urine RBC (test code = 59509-4) 0-5 [facility]Bacteria detection in urine sediment by light lkppikfriq2774-07-77 05:15:00* Test Item Value Reference Range Interpretation Comments Urine Bacteria (test code = 87695-2) RARE [facility] HospitalEpithelial cells detection in urine sediment by light otgjwcgkze7395-75-99 05:15:00* Test Item Value Reference Range Interpretation Comments Urine Epithelial Cells (test code = 91930-6) RARE [facility] or plasma lipase measurement (enzymatic activity/volume)2019-08-21 05:15:00* Test Item Value Reference Range Interpretation Comments Lipase (test code = 3040-3) 12 [facility]] BASIC METABOLIC PANEL W/EGFR 2019-06-12 07:15:01* Test Item Value Reference Range Interpretation Comments Glucose Lvl (test code = 2345-7) 96 mg/dl 70-99 Adult reference range values reflect the clinical guidelinesof the [place] [employer]. Blood Urea Nitrogen (test code [...] AGAP; Below Low Threshold (test code = 52523-9) 8.9 {mEq/l} 10.0-2 0.0 Calcium Level Total; Below Low Threshold (test code = 78240- 6) 8.4 mg/dl 8.5-10.5 eGFR (test code = 08864-7) 37 {ML/MIN/1.7} The eGFR is calculated using [...] eGFR shouldbe multiplied by the estimated BMI. [facility] HIDRU6643-33-13 15:56:001.[address] [place] [address] XIJAM9426-37-74 15:56:0037[facility]Pelvis 564303431-05-60 09:45:00Radiation Dose CTDIVOL = 0 (mGy): DLP = 3207 (mGy-cm)PROCEDURE INFORMATION:Exam: CT Angiography Abdomen and Pelvis With ContrastExam date and time: 06/06/2019 10:06 AMAge: 83 years oldClinical indication: Abdominal aortic aneurysm, without rupture; Additionalinfo: /i71.4TECHNIQUE:Imaging protocol: Computed tomographic angiography of the abdomen and pelviswith intravenous contrast material.3D rendering: MIP and/or 3D reconstructed images were created by thetechnologist.Total DLP: 3207 mGy-cmRadiation optimization: All CT scans at [...] for heartfailure.Alex Goncalves MD On 06/06/2019 15:25:41; [id number] 019--Read by: Alex Goncalves MDDictated Date/time: 06/06/19 15:25Electronical ly Signed by: Alex Goncalves MD 06/06/2014:25FINAL REPO RTUnThe [facility] HospitalCHEM UDQXY8002-84-76 10:55:0083 [facility] HTNTF2234-43-42 10:55:0017 [facility] WRWDB3392-99-56 10:55:001.41MH [facility] XXGNG0137-45-10 10:55:16643HT [facility] PDTQE5787-88-99 10:55:004.1M [facility] PFTLX9959-64-25 10:55:56978GG [facility] PANEL 2019-05-23 10:55:0028 [facility] HLOUV9689-52-11 10:55:008.0 [facility] AKENF0990-91-57 10:55:0011.1M [facility] QTODA1526-48-22 10:55:0046 UbnokyxstRTEUTXVJKZ0193-44-95 10:55:005.0 OolclsktiIUSJSIPAQL7878-23-83 10:55:003.17 PzhxhobdiZTXDHJRGUP1773-63-57 10:55:009.0 [facility] 2019-05-23 10:55:0027.8 KybynkwclXMTSGULIOK5109-15-16 10:55:0087.6MH [facility] EAYNLUSRAH8330-81-59 10:55:00* Test Item Value Reference Range Interpretation Comments MCH (test code = MCH) 28.4 pg 27.0-31.0 IfuszgbmjMXJECLWGKF7071-19-64 10:55:0032.4 SywigdyzpLPSJBFCJHU9311-95-48 10:55:0016.2M NqcwbmcseZPVJBJNLRG1372-20-86 10:55:21509HB [facility] 2019-05-23 10:55:007.5[facility] GRSFDIC2141-31-82 17:53:00Product available 4(05/22/19 11:53 AM) [facility] ATZNB9541-08-43 17:10:0090 [facility] LWDFL1836-32-28 17:10:0015 [facility] STTRB9982-04-34 17:10:001.40 [facility] CTAWJ9385-07-21 17:10:58858PF [facility] PANEL 2019-05-22 17:10:004.2M [facility] QZAJT1379-68-18 17:10:21449FV [facility] SPVVQ8001-18-83 17:10:0027 [facility] RPVRJ2879-88-19 17:10:007.7 [facility] DPKXA3978-58-56 17:10:0010.2M [facility] DAIVS7482-34-36 17:10:0047 [facility] NVLUI7109-64-26 17:10:001.7 [facility] 2019-05-22 17:10:003.3M RbnleeqhsVJQDPGRGJY0078-46-54 17:10:002.51[facility] MXYEGSYPVJ2868-21-93 17:10:007.0 JnzreijnwRUXOGSGYGO6053-09-34 17:10:0021.7 NkiptgcqwMJZNKPKBLS3560-86-87 17:10:0086.5 LufwvvoehQZHANAMYXF2801-80-99 17:10:00* Test Item Value Reference Range Interpretation Comments MCH (test code = MCH) 27.9 pg 27.0-31.0 WwkeeltwlCIMMXLRXAY5892-19-97 17:10:0032.3M QnuiagublJEWVTXEKSK5823-28-02 17:10:0015.7 AkyozqqpqTUJHPOAEXO9063-03-77 17:10:85195AN [facility] 2019-05-22 17:10:007.4[facility] BANK XLMWXIK4579-55-83 16:28:00Negative (05/20/19 10:28 AM) [facility] AEAFA5550-81-63 16:28:0069 [facility] IBGVG1573-92-72 16:28:0019 [facility] DSJLY0294-66-16 16:28:001.55 [facility] NKKGF0670-51-04 16:28:82475PK [facility] BCOLK7787-98-48 16:28:004.2M [facility] DXMTG1222-92-72 16:28:99880YF [facility]CHE[facility] PANEL 2019-05-20 16:28:0025 [facility] EWJCP0923-47-91 16:28:008.7 [facility] NVSHZ1228-16-91 16:28:0011.2M [facility] ZZLIA2203-08-08 16:28:0041 DqygmhetbUHZUDIPVOB7880-08-71 16:28:004.9 BgjrzozmzYUDMNGRDDD6084-42-65 16:28:003.16 IsguvhorxMOPQZLUQLU8252-09-64 16:28:008.9 [facility] 2019-05-20 16:28:0027.7 VdjpbutrjKVNUUAXSQH2270-23-29 16:28:0087.9[facility] ANKUYDVTZC4247-29-38 16:28:00* Test Item Value Reference Range Interpretation Comments MCH (test code = MCH) 28.1 pg 27.0-31.0 TyeafhcbqUNJUEBSASI4880-06-42 16:28:0032.0 PbhpimiiyPGJNQOZFDP3254-80-48 16:28:0016.1M QbytnzykiZCUPNLCHOV0420-03-98 16:28:27707WY [facility]MAT[facility]Y 2019-05-20 16:28:007.8 KkshbbxtpJIVUNCYJXA5002-84-77 16:28:00* Test Item Value Reference Range Interpretation Comments PT (test code = PT) 15.0 s 12.0-14.7 JtlftandpFTUUAIGRBY3032-35-26 16:28:00* Test Item Value Reference Range Interpretation Comments INR (test code = INR) 1.17 1 0.85-1.17 YjmwkgowmTEAXAGTOFW1768-08-50 16:28:00* Test Item Value Reference Range Interpretation Comments PTT (test code = PTT) 40.0 s 22.9-35.8 EvhuyjqvfLCZVTWZELB9181-37-56 16:28:0061.0 XmuquedixMTFWXKVXAS1848-55-14 16:28:0019.3M GnfejquotZMFTUUEWXV7421-05-57 16:28:007.1M [facility] 2019-05-20 16:28:0010.2M MnaerdiuoLEQBYBMSHH5319-11-04 16:28:002.4 [facility] EFHQBBBLIY5910-18-11 16:28:003.0 ThweofqfkQFMQNPHAWW8483-56-25 16:28:001.0 QtszalnyxHWJNWXZNBZ0817-86-59 16:28:000.4 IyfgedkheFTUPTNADEC6828-96-85 16:28:000.5 XejgxjthlCQKFOHXMUY3868-97-00 16:28:000.1M SoutheastSPECIAL OEFYMOVAA4009-76-71 16:28:005.5 SoutheastURINE AND KNSUL4784-76-33 16:28:00 Clear (05/20/19 10:28 AM) [facility] OLSDK4790-57-09 16:28:00* Test Item Value Reference Range Interpretation Comments UA Spec Grav (test code = UA Spec Grav) 1.004 1 [facility] AND ECRPE4894-40-38 16:28:00* Test Item Value Reference Range Interpretation Comments UA pH (test code = UA pH) 6.0 1 5.0-8.0 [facility] AND IHTMU1545-64-80 16:28:00Negative *NA*(05/20/19 10:28 AM)[facility] AND PHKVA3449-55-83 16:28:00Moderate *ABN*(05/20/19 10:28 AM)[facility] AND ZQHPS9423-14-91 16:28:00Negative (05/20/19 10:28 AM)[facility] AND OAZDE1136-30-44 16:28:00Negative (05/20/19 10:28 AM)[facility] AND GXBYN9034-67-62 16:28:00<1MH [facility] AND STOOL 2019-05-20 16:28:001[facility] BANK EYQUNAR8137-41-09 15:42:00Product available (05/20/19 9:42 AM)[facility]] BASIC METABOLIC PANEL W/EGFR 2019-05-13 13:50:01* Test Item Value Reference Range Interpretation Comments Glucose Lvl (test code = 2345-7) 88 mg/dl 70-99 Adult reference range values reflect the clinical guidelinesof the [place] [employer]. Blood Urea Nitrogen (test code = 3094-0) 22 mg/dl 7-22 Creatinine Lvl; Above High Threshold (test code = 2160-0) 1.50 m g/dl 0.50-1.40 Sodium Level (test code = 2951-2) 137 {mEq/l} 135-145 Potassium Level (test code = 2823-3) 4.9 {mEq/l} 3.5-5.1 Chloride Level (test code = 2075-0) 102 {mEq/l} 95-109 Carbon Dioxide (test code = 8-9) 24 {mEq/l} 24-32 AGAP (test code = 63470-0) 15.9 {mEq/l} 10.0-20.0 Calcium Level Total (test code = 90119-4) 8.9 mg/dl 8.5-10.5 eGFR (test code = 43092-1) 43 {ML/MIN/1.7} The eGFR is calculated using [...] eGFR shouldbe multiplied by the estimated BMI. [facility] PhysiciansPhosphorus vtctptxrjmu7704-32-60 07:32:00* Test Item Value Reference Range Interpretation Comments Phosphorus Level (test code = XRJ6676) 3.7 [facility] or plasma magnesium measurement (mass/volume)2019-05-12 07:32:00* Test Item Value Reference Range Interpretation Comments Magnesium Level (test code = 88355-9) 1.8 [facility] protein measurement (mass/volume) 2019-05-10 05:15:00* Test Item Value Reference Range Interpretation Comments Urine Random Total Protein (test code = 2888-6) < 6.8 [facility] HospitalU[facility] creatinine measurement (mass/volume)2019-05-10 05:15:00* Test Item Value Reference Range Interpretation Comments Urine Creatinine (test code = 2161-8) 57.95 [facility] HospitalRandom urine protein/creatinine ratio 2019-05-10 05:15:00* Test Item Value Reference Range Interpretation Comments Urine Protein/Creatinine Ratio (test code = 23802-5) 0.00 [facility] HospitalCT[facility] ABD/KJHGDW3061-95-02 09:43:00 [facility] [address] [address] Patient Name: AG CATALAN MR #: [id number] : 1935 Age/Sex: 83/M Req #: [id number] Adm Physician: RADHA DELGADO MD Ordered by: CONSTANTINE LR MD Report #: [id number] Location: MED/SURG2 Room/Bed: 208-1 Procedure: [id number] CT/CTA ABD/PELVIS Exam Date: 05/07/19 Exam Time: [...] 1141 COPY TO: CONSTANTINE LR MD CTA SJEWR4199-42-76 09:43:00 [address] [address] Patient Name: AG CATALAN MR #: [id number] : 1935 Age/Sex: 83/M Req #: [id number] Adm Physician: RADHA DELGADO MD Ordered by: CONSTANTINE LR MD Report #: [id number] Location[facility] Room/Bed: [facility] Procedure: [id number] CT/CTA CHEST Exam Date: 05/07/19 Exam Time: 1750 REPORT STATUS: Signed Chest, Abdom en and Pelvis CTA WITH AND WITHOUT IV CONTRAST. INDICATION: Abdominal aor tic aneurysm COMPARISON: Renal ultrasound of 05/06/2019 TECHNIQUE: The chest, abdomen and pelvis were scanned utilizing a multidetector helical scann er from the thoracic inlet to the pubic [...] follow-up chest CT is optional in 12 [facility]. Signed by: Aaliyah Gonzales MD on 05/08/2019 11:41 AM Dictated By: DENNY GONZALES MD 1141 Transcribe d By: KAIT on 05/08/19 1141 COPY TO: CONSTANTINE LR MD CHEST 2 AYPRY2142-27-17 14:28:00 [address] [address] Patient Name: AG CATALAN MR #: [id number] : 1935 Age/Sex: 83/M Req #: [id number] Adm Physician: RADHA DELGADO MD Ordered by: CHELSEA ROCK MD Report #: [id number] Location: MED/SURG2 Room/Bed: [facility] Procedure: [id number] D X/CHEST 2 VIEWS Exam Date: 05/07/19 [...] 2:29 PM Dictated By: AALIYAH GONZALES MD 1427 Transcribed By: KAIT on 05/07/19 1429 COPY TO: CHELSEA ROCK MD RENAL RETROPERITONEAL PKFC2919-06-69 15:55:00 [address] [address] Patient Name: AG CATALAN MR #: [id number] : 1935 Age/Sex: 83/M Req #: [id number] Adm Physician: RADHA DELGADO MD Ordered by: LANIE RICHARD, MARIPOSA RICHARD Report #: [id number] Location: MED/SURG2 Room/Bed: [facility] Procedure: [id number] US/US RENAL RETROPERITONEAL COMP Exam Date: 05/06/19 [...] KAIT on 05/06/19 1 600 COPY TO: GUILLAUMEMIKELDONAVON Serum or plasma uric acid measurement (mass/volume)2019-05-06 03:47:00* Test Item Value Reference Range Interpretation Comments Uric Acid (test code = 3084-1) 9.1 [facility] Hospital[facility]NP Egp-sAqt8049-09-27 03:47:00* Test Item Value Reference Range Interpretation Comments B-Type Natriuretic Peptide (test code = 83610-3) 507.9 [facility] or plasma creatine kinase measurement (enzymatic activity/volume)2019-05-05 12:45:00* Test Item Value Reference Range Interpretation Comments Creatine Kinase (test code = 2157-6) 111 [facility] or plasma creatine kinase MB measurement (mass/volume)2019-05-05 12:45:00* Test Item Value Reference Range Interpretation Comments Creatine Kinase MB (test code = 31409-2) 1.30 [facility] HospitalTroponin I measurement by highly sensitive enzyme cvzaprxmqkr0340-01-72 12:45:00* Test Item Value Reference Range Interpretation Comments Troponin I (test code = 45754-8) 0.033 [facility] HospitalFluoroscopic procedure less than one hour kdbfupoa9141-45-18 03:38:00* Test Item Value Reference Range Interpretation Comments Differential Total Cells Counted (test code = Differen tial Total Cells Counted) 100 [facility] blood neutrophils/100 leukocytes 2019-05-05 03:38:00* Test Item Value Reference Range Interpretation Comments Neutrophils % (Manual) (test code = 73524-6) 72 [facility] blood lymphocytes/100 leukocytes 2019-05-05 03:38:00* Test Item Value Reference Range Interpretation Comments Lymphocytes % (Manual) (test code = 737-7) 10 [facility] blood monocytes/100 leukocytes 2019-05-05 03:38:00* Test Item Value Reference Range Interpretation Comments Monocytes % (Manual) (test code = 744-3) 8 [facility] HospitalManual blood eosinophil count as percentage of total xtvetkjscj0289-34-17 03:38:00* Test Item Value Reference Range Interpretation Comments Eosinophils % (Manual) (test code = 714-6) 10 [facility] or plasma iron measurement (mass/volume)2019-05-05 03:38:00* Test Item Value Reference Range Interpretation Comments Iron Level (test code = 2498-4) 16 [facility] or plasma iron binding capacity measurement (mass/volume)2019-05-05 03:38:00* Test Item Value Reference Range Interpretation Comments Total Iron Binding Capacity (test code = 2500-7) 175 [facility] or plasma iron saturation measurement (mass fraction)2019-05-05 03:38:00* Test Item Value Reference Range Interpretation Comments Percent Iron Saturation (test code = 2502-3) 9 [facility] or plasma transferrin measurement (mass/volume)2019-05-05 03:38:00* Test Item Value Reference Range Interpretation Comments Transferrin (test code = 3034-6) 125 [facility] or plasma ferritin measurement (mass/volume)2019-05-05 03:38:00* Test Item Value Reference Range Interpretation Comments Ferritin (test code = 2276-4) 799.26 [facility] or plasma triglyceride measurement (mass/volume)2019-05-05 03:38:00* Test Item Value Reference Range Interpretation Comments Triglycerides Level (test code = 2571-8) 63 [facility] or plasma cholesterol measurement (mass/volume)2019-05-05 03:38:00* Test Item Value Reference Range Interpretation Comments Cholesterol Level (test code = 2093-3) 99 [facility] or plasma cholesterol in LDL measurement (mass/volume)2019-05-05 03:38:00* Test Item Value Reference Range Interpretation Comments LDL Cholesterol (test code = 2089-1) 60 [facility] or plasma cholesterol in HDL measurement (mass/volume)2019-05-05 03:38:00* Test Item Value Reference Range Interpretation Comments HDL Cholesterol (test code = 2085-9) 26 [facility] or plasma total cholesterol/cholesterol in HDL mass varnv3966-60-98 03:38:00* Test Item Value Reference Range Interpretation Comments Cholesterol/HDL Ratio (test code = 9830-1) 3.8 [facility]CT [facility] SP[facility] YL5379-21-33 16:13:00 [facility] [address] [address] Patient Name: AG CATALAN MR #: [id number] : 1935 Age/Sex: 83/M Req #: [id number] Adm Physician: Ordered by: MARTINA SKELTON MD Report #: [id number] Location: ER Room/Bed: Procedure: [id number] C T/CT CERVICAL SPINE WO Exam Date: [...] gned By: KATIE TAI MD on 05/04/19 1622 Transcribed By: KAIT on 0 1622 COPY TO: MARTINA SKELTON MD CT BRAIN AV2024-09-39 16:08:[address] [address] Patient Name: AG CATALAN MR #: [id number] : 1935 Age/Sex: 83/M Req #: [id number] Adm Physician: Ordered by: MARTINA SKELTON MD Report #: [id number] Location: ER Room/Bed: Procedure: [id number] C T/CT BRAIN WO Exam Date: Exam [...] MD 12 Transc ribed By: KAIT on 05/04/19 161 COPY TO: MARTINA SKELTON MD CHEST SINGLE (PORTABLE)2019-05-04 14:49:00 [address] [address] Patient Name: AG CATALAN MR #: [id number] : 1935 Age/Sex: 83/M Req #: [id number] Adm Physician: Ordered by: MARTINA SKELTON MD Report #: [id number] Location: ER Room/Bed: Procedure: [id number] D X/CHEST SINGLE (PORTABLE) Exam Date: 05/04/19 [...] PM Dictated By: SUSIE PAYTON MD, MD 145 Transcribe d By: KAIT on 05/04/19 1451 COPY TO: MARTINA SKELTON MD Bacterial urine fiolzvf0879-62-07 14:14:00* Test Item Value Reference Range Interpretation Comments Urine Culture (test code = 630-4) ESCHERICHIA COLI-ESBL [facility] HospitalProthrombin time (PT) in platelet poor plasma by coagulation xhpwz4534-51-86 13:38:00* Test Item Value Reference Range Interpretation Comments Prothrombin Time (test code = 5902-2) 14.7 [facility] HospitalINR in Platelet poor plasma by Coagulation yvwqf1586-68-82 13:38:00* Test Item Value Reference Range Interpretation Comments Prothromb Time International Ratio (test code = 6301-6) 1.10 [facility] HospitalActivated partial thromboplastin time (aPTT) in platelet poor plasma by coagulation swrrr5707-50-92 13:38:00* Test Item Value Reference Range Interpretation Comments Activated Partial Thromboplast Time (test code = 43866-8) 42.0 [facility] HospitalBlood jwnnfvo9167-90-85 13:38:00* Test Item Value Reference Range Interpretation Comments Blood Culture (test code = 17441143) NO GROWTH AFTER 5 DAYS, FINAL REPORT [facility] HospitalInfluenza virus A and B antigen identification by lpswwrgmagzhhpmtnu9200-12-70 18:31:00* Test Item Value Reference Range Interpretation Comments Influenza Virus Types A,B Antigen (test code = 02926-9) NEGATIVE [facility] HospitalCHEST SINGLE (PORTABLE)2019-04-18 06:37:00 [address] [address] Patient Name: AG CATALAN MR #: [id number] : 1935 Age/Sex: 83/M Req #: [id number] Adm Physician: RADHA DELGADO MD Ordered by: GERARD CORTES MD Report #: [id number] Location: ICU Room/Bed: [address] [address] Procedure: [id number] D X/CHEST SINGLE (PORTABLE) Exam Date: Exam [...] GERARD CORTES MD CHEST SINGLE (PORTABLE)2019-04-17 18:31:00 [address] [address] Patient Name: AG CATALAN MR #: [id number] : 1935 Age/Sex: 83/M Req #: [id number] Adm Physician: Ordered by: MARTINA SKELTON MD Report #: [id number] Location: ER Room/Bed: Procedure: [id number] D X/CHEST SINGLE (PORTABLE) Exam Date: 04/17/19 Exam T mundo: 1820 REPORT STATUS: Signed EXAMINATION: CHEST SINGLE (PORTABLE) INDICATION: STEMI 202 [id number] 1820 COMPARISON: 12/25/2017 FINDINGS: AP view T UBES [...] JUAREZ MD 32 Transcribed By: KAIT on 1832 COPY TO: MARTINA SKELTON MD CHEST 2 QVVRO4481-03-97 15:09:00 [address] [address] Patient Name: AG CATALAN MR #: [id number] : 1935 Age/Sex: 82/M Req #: [id number] Adm Physician: Ordered by: NORBERT SAAVEDRA MD Report #: [id number] Location: OR Room/Bed: Procedure: [id number] DX/CHEST 2 VIEWS Exam Date : 12/25/17 [...] TO: VALERIA SAAVEDRA MD CHEST 2 VIEWS [facility] [address] [address] Patient Name: AG CATALAN MR #: [id number] : 1935 Age/Sex: 82/M Req #: [id number] Adm Physician: Ordered by: KATIE MOREAU MD Report #: [id number] Location: OR Room/Bed: Procedure: [id number] DX/CHEST 2 VIEWS Exam Date: 08/07/17 Exam Time: 1732 REPORT STATUS: Signed PROCEDURE: Frontal and lateral views of the chest. COMPARISON: [facility], DX, CHEST 2 VIEWS, 03/17/2010, 16:30. [...] PAYTON MD, MD on 08/07/171813 Transcribed By: Marni MCDANIELS on 08/07/171813 COPY TO: KATIE MOREAU MD
--- OUTSIDE RECORDS SUMMARY | 2019-08-29 10:24 | XMS REPORT | Continuity of Care Document ---
Author Author [employer] [facility] Information [employer]lines Address Unknown Phone Unavailable Care Team Providers Care Parcel Post Delivery Name Role Phone [facility] [employer] Information [employer] Unavailable Un available Problems Problem Status Onset Date Classification Date Reported Comments Source DX: I71.4=ABDOMINAL AORTIC ANEURYSM, WIT Active 05/27/2019 [facility] UNK Active 0 05/14/2019 [facility] I71.4/ABD AORTIC ANEURYSM W/O RUP Active 05/14/2019 [facility] Pain in right ankle 04/28/2017 07/31/2017 [facility] [place] [facility] M25.579 - PAIN IN UNSPECIFIED ANKLE AND Active 02/25/2015 [facility] [place] [facility] Primary osteoarthritis, right ankle and foot 07/31/2017 [facility] [place] Pain in right finger(s) 08/16/2017 [facility] [place] History of falling 08/16/2017 [facility] [place] Displaced fracture of distal phalanx of right index finger, initial encounter for closed fracture 08/16/2017 [facility] [place] Abdominal aortic aneurysm, without rupture 05/25/2019 [facility] Benign prostatic hyperplasia (disorder) Active Problem 06/08/2019 [facility] Constipation (disorder) Active Problem 06/08/2019 [facility] Hearing loss (finding) Active Problem 06/08/2019 [facility] Hypertensive disorder, systemic arterial (disorder) Active Problem 06/08/2019 [facility] Impaired mobility (finding) Ac tive Problem uses walker [facility] Myocardial infarction (disorder) Resolved Problem Apr 2019 [facility] Paraparesis (disorder) Active Problem 06/08/2019 [facility] Peripheral vascular disease (disorder) Active Problem RLE [facility] Rheumatoid arthritis (disorder) Active Problem [facility] Stented coronary artery (finding) Active Problem x 1 after [place] 04/[address] [facility] [address] Urinary catheter in situ (finding) Active Problem [facility] Bilateral hearing loss, unspecified hearing loss type Active Problem 11/29/2017 [facility] Rheumatoid arthritis Active Problem 11/29/2017 [facility] Primary osteoarthritis involving multiple joints Active Problem 11/29/2017 [facility] Long-term use of high-risk medication Active Problem [facility] ABDOMINAL AORTIC ANEURYSM, WITHOUT RUPTU Active [facility] Medications Medication Details Route Status Patient Instructions Ordering Provider Order Date Source Plavix Notes: (Same As: Plavix) Inactive 05/23/2019 [facility] Allopurinol Notes: (Same as: Z yloprim) Inactive 05/23/2019 [facility] Aspirin 81 MG Enteric Coated Tablet Notes: Do not crush or chew. (Same As: Ecotrin) Inactive 05/23/2019 [facility] clopidogrel 37.5 mg, 0.5 tab, Route: PO, Drug form: TAB, Daily, Dosing Weight 107.273, kg, Start date: 05/23/19 9:00:00 [employer], Duration: 30 day, Stop date: 06/21/19 9:00:00 CDT No Longer Active 05/23/2019 [facility] Hydroxychloroquine Sulfate 200 MG Oral Tablet Notes: (Same as: Plaquenil) Hydroxychloroquine sulfate 200 mg = 155 mg hydroxychloroquine base. If treating malaria, verify dose as salt vs. base per CDC guideline Inactive 05/23/2019 [facility] Sodium Bicarbonate 650 MG Oral Tablet Notes: "Dissolve tablet in a glass of water prior to oral administration. STOMACH WARNING: To avoid serious injury, do not take until tablet is completely dissolved. It is very important not to take this product when overly full from food or drink." Inactive 05/23/2019 [facility] tamsulosin Notes: (Same As: Fl omax) "Do Not Crush" Inactive 05/23/2019 [facility] atorvastatin Notes: (Same As: Lipitor) No Longer Active 05/23/2019 [facility] Acetaminophen 325 MG / Hydrocodone Austen trate 5 MG Oral Tablet [Clifton 5/325] Notes: (Same as: Clifton 325/5) Do not ex ceed 4gm/day of acetaminophen. No Longer Activ e 05/22/2019 [facility] Docusate Sodium 100 MG Oral Capsule Notes: (Same as: Colace) (Do Not Crush) No Longer Active 05/22/2019 [facility] Famotidine 20 MG Oral Tablet N otes: (Same as: Pepcid) No Longer Active 05/22/2019 [facility] ferrous sulfate Notes: Give wi th food. "Do Not Crush" No Longer Active 05/22/2019 [facility] metoprolol tartrate Notes: (Sa me as: Lopressor) No Longer Active 05/22/2019 [facility] Cefazolin Notes: (Same As: Anc ef, Kefzol) MEDICATION WASTE Product Size: 1000 mg Product Wasted: ___ mg No Longer Active 05/22/2019 [facility] Lasix Notes: (Same as: Lasix) MEDICATION WASTE Product Size: 40 mg Product Wasted: ___ mg No Longer Active 05/22/2019 [facility] Hydralazine Notes: (Same as: A presoline) Push over 5 minutes No Longer Active 05/22/2019 [facility] Morphine 2 mg, Route: IVP, ONC E, Dosing Weight 107.273, kg, Start date: 05/22/19 12:20:00 [employer], Stop date: 05/22/19 12:20:00 [employer]CTOR Inactive 05/22/2019 [facility] Sodium Chloride 0.9% (titrate) 250 mL 250 mL, Rate: To prime line and flush remaining blood products., Dosing Weight 107.273, kg, Route: IV, Total Volume: 250, Start Date: 05/22/19 11:53:00 [employer]CTOR, Duration: 1 day, Stop date: 05/23/19 11:52:00 [employer]APE [employer]CTOR, Replace Every: 24 hr, 0 No Longer Active 05/22/2019 [facility] neostigmine (ANES) Route: IV, Drug form: INJ, ONCE, Stop date: 05/22/19 11:33:00 [employer] Inactive 05/22/2019 [facility] protamine (ANES) Route: IV, Dr ug form: INJ, ONCE, Stop date: 05/22/19 11:33:00 [employer]CTOR Inactive 05/22/2019 [facility] glycopyrrolate (ANES) Route: I V, Drug form: INJ, ONCE, Stop date: 05/22/19 10:27:00 [employer] IN[employer]CTOR Inactive 05/22/2019 [facility] phenylephrine (ANES) Route: IV , Drug form: INJ, ONCE, Stop date: 05/22/19 10:27:00 [employer] IN[employer]CTOR Inactive 05/22/2019 [facility] ondansetron (ANES) Route: IV, Drug form: INJ, ONCE, Stop date: 05/22/19 10:26:00 [employer] IN[employer]CTOR Inactive 05/22/2019 [facility] dexamethasone (ANES) Route: IV , Drug form: INJ, ONCE, Stop date: 05/22/19 10:26:00 [employer]APE [employer] IN[employer]CTOR Inactive 05/22/2019 [facility] heparin (ANES) Route: IV, Drug form: INJ, ONCE, Stop date: 05/22/19 10:11:00 [employer]SCAPE [employer] IN[employer]CTOR Inactive 05/22/2019 [facility] lidocaine (ANES) Route: IV, Dr ug form: INJ, ONCE, Stop date: 05/22/19 9:51:00 [employer]APE [employer] IN[employer]CTOR Inactive 05/22/2019 [facility] fentaNYL (ANES) Route: IV, Pranay g form: INJ, ONCE, Stop date: 05/22/19 9:51:00 [employer]SCAPE H[employer]IC[employer] IN[employer]CTOR Inactive 05/22/2019 [facility] propofol (ANES) Route: IV, Pranay g form: INJ, ONCE, Stop date: 05/22/19 9:51:00 [employer]SCAPE [employer] IN[employer]CTOR Inactive 05/22/2019 [facility] rocuronium (ANES) Route: IV, D rug form: INJ, ONCE, Stop date: 05/22/19 9:51:00 [employer]ANDSCAPE [employer] IN[employer]CTOR Inactive 05/22/2019 [facility] ceFAZolin (ANES) Route: IV, Dr ug form: INJ, ONCE, Stop date: 05/22/19 9:46:00 [employer]SCAPE H[employer] IN[employer]CTOR Inactive 05/22/2019 [facility] Lactated Ringers Injection IV (ANES) 1000 mL Route: IV, Total Volume: 1,000, Start date: 05/22/19 9:17:00 [employer]SCAPE [employer] IN[employer]CTOR, Stop date: 05/22/19 10:17:00 LANDSCAPE H[employer]IC[employer] INSTRUCTOR Inactive 05/22/2019 [facility] Sodium Chloride 0.9% IV (ANES) 1000 mL Route: IV, Total Volume: 1,000, Start date: 05/22/19 9:17:00 [employer]SCAPE [employer] IN[employer]CTOR, Stop date: 05/22/19 10:17:00 [employer]ANDSCAPE H[employer] IN[employer]CTOR Inactive 05/22/2019 [facility] Cefazolin 2 gm, Route: IVP, BEVERAGE DISTILLER, Dosing Weight 107.273, kg, (Patients weighing < 120 kg), Start date: 05/22/19 9:00:00 [employer]CTOR, Duration: 1 doses or times, ABX Indication: Surgical Prophylaxis Inactive 05/22/2019 [facility] Acetylcysteine 200 MG/ML Inhalant Solution Notes: TUBE TO PRE-OP STAT TUBE TO PRE-OP STAT TUBE TO PRE-OP STAT No Longer Active 05/22/2019 [facility] sodium bicarbonate 8.4% additive 100 mEq + 1/2 NS 1,000 mL Notes: TUBE TO PRE-OP STAT TUBE TO PRE-OP STAT TUBE TO PRE-OP STAT No Longer Active 05/22/2019 [facility] Hydroxychloroquine Sulfate 200 MG Oral Tablet 200 mg = 1 tab, PO, Daily, # 180 tab, 0 Refill(s) Active 05/20/2019 [facility] allopurinol 100 mg oral tablet 200 mg = 2 tab, PO, Daily, # 90 tab, 1 Refill(s) Active 05/20/2019 [facility] Aspirin 81 MG Enteric Coated Tablet 81 mg = 1 tab, PO, Daily, # 90 tab, 3 Refill(s) Active 05/20/2019 [facility] clopidogrel 75 mg oral tablet 37.5 mg = 0.5 tab, PO, Daily, # 90 tab, 3 Refill(s) Active 05/20/2019 [facility] Famotidine 20 MG Oral Tablet 2 0 mg = 1 tab, PO, BID, # 180 tab, 0 Refill(s) Active 05/20/2019 [facility] Sodium Bicarbonate 650 MG Oral Tablet 1,300 mg = 2 tab, PO, Daily, 0 Refill(s) Active 05/20/2019 [facility] atorvastatin 20 mg oral tablet 20 mg = 1 tab, PO, Bedtime, # 90 tab, 1 Refill(s) Active 05/20/2019 [facility] tamsulosin 0.4 mg oral capsule 0.4 mg = 1 cap, PO, Daily, # 90 cap, 0 Refill(s) Active 05/20/2019 [facility] ferrous sulfate 325 mg oral enteric coated tablet 325 mg = 1 tab, PO, BID, # 90 tab, 0 Refill(s) Active 05/20/2019 [facility] metoprolol tartrate 25 mg oral tablet 12.5 mg = 0.5 tab, PO, BID, # 60 tab, 0 Refill(s) Active 05/20/2019 [facility] Docusate Sodium 100 MG Oral Capsule 100 mg = 1 cap, PO, BID, # 60 cap, 3 Refill(s) Active 05/20/2019 [facility] PredniSONE take 2 tablets by m outh daily Orally Active 5MG Orally bid Funk 04/05/2017 [facility] Leflunomide 1 tablet Orally Active 20 MG Orally Once a day Funk 03/30/2017 [facility] Hydroxychloroquine Sulfate 1 t ablet with food or milk Orally Active 200 MG Orally bid Funk 02/06/2017 [facility] Vitamin D (Ergocalciferol) 1 c apsule Orally Active 77611 UNIT Orally Once a week Funk 01/09/2017 [facility] Vitamin D (Ergocalciferol) 1 c apsule Orally Active 22443 UNIT Orally Once a week Funk 01/09/2017 [facility] Folic Acid 2 tablets Orally Active 1 MG Orally Once a day Funk Patrick [facility] Doxazosin Mesylate 1 tablet Orally Active 4 MG Orally Once a day Funk Riaz Arora [employer] as directed Orally Active Orally Funk Patrick Arora Ferrous Sulfate 1 tablet Orally Active 325 (65 Fe) MG Orally Twice a day Funk Riaz Ar[facility] Pantoprazole Sodium 1 tablet Orally Active 40 MG Orally Once a day Funk Riaz Arora Tamsulosin HCl 1 capsule Orally Active 0.4 MG Orally Once a da y Funk Riaz Arora Vitamin D3 1 capsule Orally Active 1000 UNIT Orally Once a day Funk Riaz Arora Doxazosin Mesylate 1 tablet Orally Active 4 MG Orally Once a day Funk Riaz Arora Pantoprazole Sodium 1 tablet Orally Active 40 MG Orally Once a day Funk Riaz Arora Tamsulosin HCl 1 capsule Orally Active 0.4 MG Orally Once a da y Funk Riaz Arora Folic Acid 2 tablets Orally Active 1 MG Orally Once a day Funk Patrick Arora Enbrel 1 ml Subcutaneous Active 50 MG/ML Subcutaneous o nce a week Funk Riaz Arora PredniSONE take 2 tablets by m outh daily Orally Active 5MG Orally twice a day Funk Riaz Arora Ferrous Sulfate 1 tablet Orally Active 325 (65 Fe) MG Orally Twice a day Funk Riaz Arora [employer] as directed [...] POC Creatinine 1.7 0.5 - 1.4 06/06/2019 [facility] CHEM PANEL eGFR 37 06/06/2019 Result [...] should be multiplied by the estimated BMI. [facility] CHEM PANEL Glucose Lvl 83 70 - 99 05/23/2019 [facility] CHEM PANEL BUN 17 7 - 22 05/23/2019 [facility] CHEM PANEL Creatinine Lvl 1.41 0.50 - 1.40 05/23/2019 [facility] CHEM PANEL Sodium Lvl 139 135 - 145 05/23/2019 [facility] CHEM PANEL Potassium Lvl 4.1 3.5 - 5.1 05/23/2019 [facility] CHEM PANEL Chloride Lvl 104 95 - 109 05/23/2019 [facility] CHEM PANEL CO2 28 24 - 32 05/23/2019 [facility] CHEM PANEL Calcium Lvl 8.0 8.5 - 10.5 05/23/2019 [facility] CHEM PANEL AGAP 11.1 10.0 - 20.0 05/23/2019 [facility] CHEM PANEL eGFR 46 05/23/2019 Result [...] should be multiplied by the estimated BMI. [facility] HEMATOLOGY WBC 5.0 3.7 - 10.4 05/23/2019 [facility] HEMATOLOGY RBC 3.17 4.70 - 6.10 05/23/2019 [facility] HEMATOLOGY Hgb 9.0 14.0 - 18.0 05/23/2019 [facility] HEMATOLOGY Hct 27.8 42.0 - 54.0 05/23/2019 [facility] MCV 87.6 80.0 - 94.0 05/23/2019 [facility] HEMATOLOGY MCH 28.4 27.0 - 31.0 05/23/2019 [facility] MCHC 32.4 32.0 - 36.0 05/23/2019 [facility] HEMATOLOGY RDW 16.2 11.5 - 14.5 05/23/2019 [facility] Platelet 299 133 - 450 05/23/2019 [facility] MPV 7.5 7.4 - 10.4 05/23/2019 [facility] BLOOD BANK RESULTS RBC product Product available 4 (05/22/19 11:53 AM) 05/22/2019 Result Comment: 05/22/2019 1 2:06 [id number]
KLS notified Haylie 05/22/2019 12:00 [facility] CHEM PANEL Glucose Lvl 90 70 - 99 05/22/2019 [facility] CHEM PANEL BUN 15 7 - 22 05/22/2019 [facility] CHEM PANEL Creatinine Lvl 1.40 0.50 - 1.40 05/22/2019 [facility] CHEM PANEL Sodium Lvl 138 135 - 145 05/22/2019 [facility] CHEM PANEL Potassium Lvl 4.2 3.5 - 5.1 05/22/2019 [facility] CHEM PANEL Chloride Lvl 105 95 - 109 05/22/2019 [facility] CHEM PANEL CO2 27 24 - 32 05/22/2019 [facility] CHEM PANEL Calcium Lvl 7.7 8.5 - 10.5 05/22/2019 [facility] CHEM PANEL AGAP 10.2 10.0 - 20.0 05/22/2019 [facility] CHEM PANEL eGFR 47 05/22/2019 Result [...] should be multiplied by the estimated BMI. [facility] CHEM PANEL Magnesium Lvl 1.7 1.8 - 2.4 05/22/2019 [facility] HEMATOLOGY WBC 3.3 3.7 - 10.4 05/22/2019 [facility] RBC 2.51 4.70 - 6.10 05/22/2019 [facility] Hgb 7.0 14.0 - 18.0 05/22/2019 Result Comment: Critical Result(s) [email or web address] Puentes at 05/22/2019 11:49 by ALVARO. Read back OK. [facility] HEMATOLOGY Hct 21.7 42.0 - 54.0 05/22/2019 [facility] MCV 86.5 80.0 - 94.0 05/22/2019 [facility] MCH 27.9 27.0 - 31.0 05/22/2019 [facility] MCHC 32.3 32.0 - 36.0 05/22/2019 [facility] RDW 15.7 11.5 - 14.5 05/22/2019 [facility] Platelet 206 133 - 450 05/22/2019 [facility] MPV 7.4 7.4 - 10.4 05/22/2019 [facility] BLOOD BANK RESULTS ABO/Rh A POS 05/20/2019 [facility] BLOOD BANK RESULTS Antibody Scrn Negative (05/20/19 10:28 AM) 05/20/2019 [facility] CHEM PANEL Glucose Lvl 69 70 - 99 05/20/2019 [facility] CHEM PANEL BUN 19 7 - 22 05/20/2019 [facility] CHEM PANEL Creatinine Lvl 1.55 0.50 - 1.40 05/20/2019 [facility] CHEM PANEL Sodium Lvl 135 135 - 145 05/20/2019 [facility] CHEM PANEL Potassium Lvl 4.2 3.5 - 5.1 05/20/2019 [facility] CHEM PANEL Chloride Lvl 103 95 - 109 05/20/2019 [facility] CHEM PANEL CO2 25 24 - 32 05/20/2019 [facility] CHEM PANEL Calcium Lvl 8.7 8.5 - 10.5 05/20/2019 [facility] CHEM PANEL AGAP 11.2 10.0 - 20.0 05/20/2019 [facility] CHEM PANEL eGFR 41 05/20/2019 Result [...] should be multiplied by the estimated BMI. [facility] HEMATOLOGY WBC 4.9 3.7 - 10.4 05/20/2019 [facility] HEMATOLOGY RBC 3.16 4.70 - 6.10 05/20/2019 [facility] HEMATOLOGY Hgb 8.9 14.0 - 18.0 05/20/2019 [facility] HEMATOLOGY Hct 27.7 42.0 - 54.0 05/20/2019 [facility] HEMATOLOGY MCV 87.9 80.0 - 94.0 05/20/2019 [facility] HEMATOLOGY MCH 28.1 27.0 - 31.0 05/20/2019 [facility] MCHC 32.0 32.0 - 36.0 05/20/2019 [facility] HEMATOLOGY RDW 16.1 11.5 - 14.5 05/20/2019 [facility] HEMATOLOGY Platelet 281 133 - 450 05/20/2019 [facility] HEMATOLOGY MPV 7.8 7.4 - 10.4 05/20/2019 [facility] HEMATOLOGY PT 15.0 12.0 - 14.7 05/20/2019 [facility] HEMATOLOGY INR 1.17 0.85 - 1.17 05/20/2019 [facility] HEMATOLOGY PTT 40.0 22.9 - 35.8 05/20/2019 [facility] HEMATOLOGY Segs 61.0 45.0 - 75.0 05/20/2019 [facility] HEMATOLOGY Lymphocytes 19.3 20.0 - 40.0 05/20/2019 [facility] HEMATOLOGY Monocytes 7.1 2.0 - 12.0 05/20/2019 [facility] HEMATOLOGY Eosinophils 10.2 0.0 - 4.0 05/20/2019 [facility] HEMATOLOGY Basophils 2.4 0.0 - 1.0 05/20/2019 [facility] HEMATOLOGY Neutrophils # 3.0 1.5 - 8.1 05/20/2019 [facility] HEMATOLOGY Lymphocytes # 1.0 1.0 - 5.5 05/20/2019 [facility] HEMATOLOGY Monocytes # 0.4 0.0 - 0.8 05/20/2019 [facility] HEMATOLOGY Eosinophils # 0.5 0.0 - 0.5 05/20/2019 [facility] HEMATOLOGY Basophils # 0.1 0.0 - 0.2 05/20/2019 [facility] SPECIAL CHEMISTRY Hgb A1C 5.5 <=5.6 % 05/20/2019 [facility] URINE AND STOOL UA Turbidity Clear (05/20/19 10:28 AM) Clear 05/20/2019 [facility] URINE AND STOOL UA Spec Grav 1.004 <=1.030 05/20/2019 [facility] URINE AND STOOL UA pH 6.0 5.0 - 8.0 05/20/2019 [facility] URINE AND STOOL UA Protein Negative mg/dL Negative mg/dL 05/20/[address] [facility] [address] URINE AND STOOL UA Glucose Negative mg/dL Negative mg/dL 05/20/[address] [facility] [address] URINE AND STOOL UA Ketones Trace mg/dL Negative mg/dL 05/20/2019 [facility] URINE AND STOOL UA Bili Negative *NA* (05/20/19 10:28 AM) Negative 05/20/2019 [facility] URINE AND STOOL UA Blood Moderate *ABN* (05/20/19 10:28 AM) Negative 05/20/2019 [facility] URINE AND STOOL UA Nitrite Negative (05/20/19 10:28 AM) Negative 05/20/2019 [facility] URINE AND STOOL UA Leuk Est Negative (05/20/19 10:28 AM) Negative 05/20/2019 [facility] URINE AND STOOL UA WBC <1 0 - 5 05/20/2019 [facility] URINE AND STOOL UA RBC 1 0 - 2 05/20/2019 [facility] URINE AND STOOL UA Bacteria Occasional /HPF None Seen /HPF 05/20/2019 [facility] URINE AND STOOL UA Sq Epi None Seen 05/20/2019 [facility] URINE AND STOOL UA Color Ltyellow 05/20/2019 [facility] URINE AND STOOL UA Urobilinogen <=1.0 mg/dL 0.1 - 1.0 05/20/2019 [facility] BLOOD BANK RESULTS RBC product Product available (05/20/19 9:42 AM) 05/20/2019 [facility] Pathology Reports No Data Provided for [...] failure. Alex Goncalves MD On 06/06/2019 15:25:41; [id number] 06/06/2019 [facility] Chest 1 v for Placement [...] calcifications. Manuel Olmstead MD On 05/22/2019 12:33:40; [id number] 05/22/2019 [facility] Chest 2 views DX PROCEDURE INF [...] Jose Luis Carlton MD On 05/20/2019 11:00:35; [id number] 05/20/2019 [facility] Finger 3 views DX Exam: Finger [...] disease without hemodynamically significant stenosis identified. SL: [id number] 09/15/2016 [facility] [place] Ext Lower Venous Doppler [...] Comments Source Systolic (mm Hg) 125 05/23/2019 [facility] Diastolic (mm Hg) 59 05/23/2019 [facility] Systolic (mm Hg) 111 05/23/2019 [facility] Diastolic (mm Hg) 52 05/23/2019 [facility] Respitory Rate 0 05/23/2019 [facility] Systolic (mm Hg) 119 05/23/2019 [facility] Diastolic (mm Hg) 57 05/23/2019 [facility] Respitory Rate 21 05/23/2019 [facility] Respitory Rate 15 05/23/2019 [facility] Height 177.8 cm 05/22/2019 [facility] Weight 107.27 05/22/2019 [facility] BMI Calculated 33.93 05/22/2019 [facility] Heart Rate 58 05/22/2019 [facility] Temperature Oral (F) 97.4 F 05/20/2019 [facility] Heart Rate 55 05/20/2019 [facility] Height 177.8 cm 05/20/2019 [facility] Weight 107.273 05/20/2019 [facility] BMI Calculated 33.93 05/20/2019 [facility] Weight 244 06/05/2017 [facility] Height [...] [facility] [place] [facility] [id number] Guerrero Berman 05/01/2014 05/02/2014 [facility] [place] [facility] [place] [facility] [id number] Guerrero Berman 05/30/2014 05/31/2014 [facility] [place] [facility] [place] [facility] [id number] Guerrero Berman 02/25/2015 02/26/2015 [facility] [place] [facility] [place] [facility] [id number] 08 Eyad Salvady 07/17/2015 07/18/2015 [facility] [place] [facility] [place] [facility] [id number] Calixto Orahood 03/21/2016 03/22/2016 [facility] [place] [facility] [place] [facility] [id number] 10 Calitxo Orahood 08/24/2016 08/25/2016 [facility] [place] [facility] [place] [facility] [id number] Calixto Orahood 09/15/2016 09/16/2016 [facility] [place] [facility] [place] [facility] [id number] Calixto Orahood 04/24/2017 04/25/2017 [facility] [place] [facility] [place] [facility] [id number] Calixto Orahood 08/07/2017 08/08/2017 DOYLE Gagnon [facility] Inpatient [id number] 05/22/2019 05/24/2019 [facility] Outpatient [id number] Theodore Barker 06/06/2019 06/07/2019 [facility] Procedures Procedure Code Date Perfomer Comments Source Cardiac catheterisation [id number] [facility] Hernia repair [id number] [facility] TKR -Total prosthetic replacement of kne e joint using cement [id number] [facility] Assessment and Plan Assessment and Plan [...] May 22, 2019 Surgeon: Theodore Barker MD Burnisher And Bumper: Ze Shipley MD Preoperative diagnosis: Abdominal aortic aneurysm Postoperative diagnosis: Same Procedure: Percutaneous endovascular repair of an infrarenal abdominal aortic aneurysm with the Hershey excluder device. Indication: Asymptomatic infrarenal abdominal aortic aneurysm In detail: The patient was taken the operating room and was given general anesthesia with endotracheal intubation. The abdomen and both groins were prepped and draped in usual sterile manner. Bilateral femoral access was achieved using micropuncture technique and ultrasound guidance and 5 Turkish sheaths were inserted. Patient was systemically heparinized. 2 Proglides were partially deployed at 90 angle s. An 16 Turkish sheath was placed on the right and a 12 Turkish sheath from the left. Abdominal angiogram was performed and the anatomy was noted. The main device [id number] was then advanced from the right side and positioned just distal to the left renal artery and partially deployed. We had difficulty cannulating the gate and the device had to be rotated. The gate was cannulated from the left side. After the device rotated that had migrated distally. The left limb PLC [id number] was then deployed landing just proximal to the left hypogastric artery. The right side was then completely deployed. A right bellybutton extension the PLC [id number] was then deployed. It appears to be about 1 cm short of the hypogastric. A 26 cuff was then deployed landing just distal to the left renal artery. LOGAN [id number]. All areas of the grafts were ballooned [...] of this to Dr. Rey Sandy 05/24/2019 [facility] Plan of Care No Data Provided for This Section Social History Social History Date Source Social History TypeResponse Alcohol Past Smoking Status Former smoker; Ready to change: No; Concerns about tobacco use in household: No; Exposure to Tobacco Smoke None; Cigarette Smoking Last 365 Days No; Reg Smoking Cessation Counseling No entered on: 05/22/19 05/20/2019 [facility] [facility] No data available for this section 08/08/2017 DOYLE Gagnon Family History No Data Provided for This Section Advance Directives No Data Provided for This Section Functional Status No Data Provided for This Section
--- OUTSIDE RECORDS SUMMARY | 2019-08-29 10:25 | XMS REPORT ---
Author Author [facility] t Organization [facility] Address [address] [facility] [place] [address] Phone Unavailable Care Team Providers Care Experimental Flight Test Mechanic Name Role Phone MIGUELITO RICHARD MD [facility] PCP SENTHIL MCNAIR Attphys Unavailable RADHA DELGADO Attphys Unavailable THEODORE BARKER M.D. Attphys Unavailable Theodore Barker Attphys DR JOHNNIE CUMMINGS Attphys Unavailable HAMPEL, NEHEMIA Attphys Unavailable KATIE MOREAU Attphys Unavailable Zander Berger Attphys Eyad Klein Attphys Maulik Berman Attphys RADHA DELGADO Admphys Unavailable Payers Payer Name Policy Type Policy Number Effective Date Expiration Date Griffin brandt [facility] [id number] 2019 00:00:00 [facility] [id number] 2019 00:00:00 [facility] Advance Directives Directive Decision Effective Date Termination Date Comments Sour ce Yes N/A [facility] Problems Condition Name Condition Details Condition Category Status Onset Date Resolution Date Last Treatment Date Treating Clinician Comments Source DX: I71.4=ABDOMINAL AORTIC ANEURYSM, WIT DX: I71.4=ABDOMINAL AORTIC ANEURYSM, WIT Active 05/27/2019 [facility] Diagnosis Active 2019-05-27 00:00:00 2019-06-06 09:30:00 [facility] UNK UNK Active 05/14/2019 [facility] Diagnosis Active 2019-05-14 00:00:00 2019-05-20 08:49:00 [facility] I71.4/ABD AORTIC ANEURYSM W/O RUP I71.4/ABD AORTIC ANEURYSM W/O RUP Active 05/14/2019 [facility] Diagnosis Active 2019-05-14 00:00:00 2019-05-30 08:58:00 [facility] M25.579 - PAIN IN UNSPECIFIED ANKLE AND M25.579 - PAIN IN UNSPECIFIED ANKLE AND Active 02/25/2015 [facility] Diagnosis Active 2015-02-25 00:01:00 2015-02-25 15:01:00 [facility] [place] AAA (abdominal aortic aneurysm) without rupture AAA (a bdominal aortic aneurysm) without rupture Problem Active [facility] Chronic renal impairment, unspecified CKD stage Chroni c renal impairment, unspecified CKD stage Problem Active [facility] 3-vessel CAD 3-vessel CAD Problem Active [facility] History of endovascular stent graft for abdominal aort ic aneurysm History of endovascular stent graft for abdominal aortic aneurysm Problem Active [facility] Abdominal aortic aneurysm (AAA) Abdominal aortic aneurysm (AAA) Pro blem Active [facility] Hyponatremia Hyponatremia Problem Active [facility] Urinary tract infection UTI (urinary tract infection) Problem Active [facility] Retention of urine Urinary retention Problem Active [facility] Weakness Weakness Problem Active [facility] elevation myocardial infarction (STEMI) Problem [facility] Incarcerated left inguinal hernia Problem [facility] Primary osteoarthritis, right ankle and foot Primary osteoarthritis, right ankle and foot 07/31/2017 [facility] [place] [facility] Problem 2017-07-31 17:37:18 [facility] [place] [facility] Pain in right finger(s) Pain in right finger(s) 08/16/2017 [facility] [place] [facility] Problem 2017-08-16 21:00:37 [facility] [place] History of falling Hist ory of falling 08/16/2017 [facility] [place] Problem 2017-08-16 21:00:37 [facility] [place] Displaced fracture of distal phalanx of right index finger, initial encounter for closed fracture Displaced fractu re of distal phalanx of right index finger, initial encounter for closed fracture 08/16/2017 [facility] [place] Problem 2017-08-16 21:00:37 [facility] [place] Abdominal aortic aneurysm, without rupture Abdominal aortic aneurysm, without rupture 05/25/2019 [facility] Problem 2019-05-25 23:25:07 [facility] Benign prostatic hyperplasia (disorder) Benign prostatic hyperplasia (disorder) Active Problem 06/08/2019 [facility] Problem Active 2019-06-08 23:47:33 [facility] Constipation (disorder) Cons tipation (disorder) Active Problem 06/08/2019 [facility] Problem Active 2019-06-08 23:47:3 3 [facility] Hearing loss (finding) Hear ing loss (finding) Active Problem 06/08/2019 [facility] Problem Active 2019-06-08 23:47:3 3 [facility] Hypertensive disorder, systemic arterial (disorder) Hypertensive disorder, systemic arterial (disorder) Active Problem 06/08/2019 [facility] Problem Active 2019-06-08 23:47:33 [facility] Impaired mobility (finding) Im paired mobility (finding) Active Problem 06/08/2019 uses walker [facility] Problem Active 2019-06-08 23:47:33 [facility] Paraparesis (disorder) Para paresis (disorder) Active Problem 06/08/2019 [facility] Problem Active 2019-06-08 23:47:3 3 [facility] Peripheral vascular disease (disorder) Peripheral vascular disease (disorder) Active Problem 06/08/2019 RLE [facility] Problem Active 2019-06-08 23:47:33 [facility] Rheumatoid arthritis (disorder) Rheumatoid arthritis (disorder) Active Problem 06/08/2019 [facility] Problem Active 2019-06-08 23:47:33 [facility] Stented coronary artery (finding) Stented coronary artery (finding) Active Problem 06/08/2019 x 1 after MS 04/2019 [facility] Problem Active 2019-06-08 23:47:33 [facility] Urinary catheter in situ (finding) Urinary catheter in situ (finding) Active Problem 06/08/2019 [facility] Problem Active 2019-06-08 23:47:33 [facility] Bilateral hearing loss, unspecified hearing loss type Bilateral hearing loss, unspecified hearing loss type Active Problem 11/29/2017 [facility] Problem Active 2017-11-29 02:45:48 [facility] Rheumatoid arthritis Rheu matoid arthritis Active Problem 11/29/2017 [facility] Ar[facility] Problem Active 2017-11-29 02:45:48 R[facility] Ar[facility] 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 Active Problem 11/29/2017 [facility] Problem Active 2017-11-29 02:45:48 [facility] Long-term use of high-risk medication Long-term use of high-risk medication Active Problem 11/29/2017 [facility] Problem Active 2017-11-29 02:45:48 R[facility] Ar[facility] ABDOMINAL AORTIC ANEURYSM, WITHOUT RUPTU ABDOMINAL AORTIC ANEURYSM, WITHOUT RUPTU Active [facility] Diagnosis Active 2019-05-30 08:58:00 [facility] Pain in right ankle Pain in right ankle 04/28/2017 07/31/2017 [facility] Problem 2017-04-28 05:40:30 07-31 17:37:18 2017-07-31 17:37:18 [facility] [place] Allergies, Adverse Reactions, Alerts Allergy Name Allergy Type Status Severity Reaction(s) Onset Date Inacti ve Date Treating Clinician Comments Source Hydroxychloroquine Sulfate Hydroxychloroquine Sulfate Active dizziness/nausea 2017-06-05 00:00:00 [facility] Penicillin Penicillin Active Info Not Available 2017-06-05 00:00:0 0 [facility] Social History Social Habit Start Date Stop Date Quantity Comments Source Social History 2017-08-08 04:59:00 2017-08-08 04:59:00 [facility] Sex Assigned At 1935 00:00:00 1935 00:00:00 Male [facility] Smoking Status Start Date Stop Date Source Ex-smoker (finding) [facility] Medications Ordered Medication Name Filled Medication Name Start Date Stop Da te Current Medication? Ordering Clinician Indication Dosage Frequency Signature (SIG) Comments Components Source Cephalexin Monohydrate (Keflex) 500 Mg CAPSULE Cephale gokul Monohydrate (Keflex) 500 Mg CAPSULE 2019-08-25 12:28:00 Yes 500 [facility] Metronidazole (Flagyl) 500 Mg TABLET Metronidazole (Flagyl) 500 Mg TABLET 2019-08-25 12:28:00 Yes 500 [facility] Plavix 2019-05-23 15:50:00 No Notes: (Same As: Plavix) [facility] Allopurinol 2019-05-23 15:00:00 No Notes: ( Same as: Zyloprim) [facility] Aspirin 81 MG Enteric Coated Tablet 2019-05-23 15:00:00 No Notes: Do not crush or chew. (Same As: Ecotrin) [facility] clopidogrel 2019-05-23 15:00:00 No 37.5 mg, 0.5 tab, Route: PO, Drug form: TAB, Daily, Dosing Weight 107.273, kg, Start date: 05/23/19 9:00:00 SR. VENDOR MANAGEMENT ASSOCIATE, Duration: 30 day, Stop date: 06/21/19 9:00:00 CDT [facility] Hydroxychloroquine Sulfate 200 MG Oral Tablet 2019-05-23 15:00:0 0 No Notes: (Same as: Plaquenil) Hydroxychlor oquine sulfate 200 mg = 155 mg hydroxychloroquine base. If treating malaria, verify dose as salt vs. base per CDC guideline [facility] Sodium Bicarbonate 650 MG Oral Tablet 2019-05-23 15:00:00 N o Notes: "Dissolve tablet in a glass of water prior to oral administration. STOMACH WARNING: To avoid serious injury, do not take until tablet is completely dissolved. It is very important not to take this product when overly full from food or drink." [facility] tamsulosin 2019-05-23 15:00:00 No Notes: (Same As: Flomax) "Do Not Crush" [facility] atorvastatin 2019-05-23 03:00:00 No Notes: (Same As: Lipitor) [facility] Acetaminophen 325 MG / Hydrocodone Bitartrate 5 MG Oral Tabl et [Mulga 5/325] 2019-05-22 23:58:00 No Notes: (Same as: Mulga 325/5) Do not exceed 4gm/day of acetaminophen. [facility] Docusate Sodium 100 MG Oral Capsule 2019-05-22 23:00:00 No Notes: (Same as: Colace) (Do Not Crush) [facility] Famotidine 20 MG Oral Tablet 2019-05-22 23:00:00 No Notes: (Same as: Pepcid) [facility] ferrous sulfate 2019-05-22 23:00:00 No Notes: Give with food. "Do Not Crush" [facility] metoprolol tartrate 2019-05-22 23:00:00 No Notes: (Same as: Lopressor) [facility] Cefazolin 2019-05-22 23:00:00 No Notes: (Same As: Ancef, Kefzol) MEDICATION WASTE Product Size: 1000 mg Product Wasted: ___ mg [facility] Lasix 2019-05-22 19:02:00 No Notes: (Same as: Lasix) MEDICATION WASTE Product Size: 40 mg Product Wasted: ___ mg [facility] Hydralazine 2019-05-22 18:54:00 No Notes: (Same as: Apresoline) Push over 5 minutes [facility] Morphine 2019-05-22 18:20:00 No 2 mg, Route: IVP, ONCE, Dosing Weight 107.273, kg, Start date: 05/22/19 12:20:00 SR. VENDOR MANAGEMENT ASSOCIATE, Stop date: 05/22/19 12:20:00 SR. VENDOR MANAGEMENT ASSOCIATE [facility] Sodium Chloride 0.9% (titrate) 250 mL 2019-05-22 17:53:00 N o 250 mL, Rate: To prime line and flush remaining blood products., Dosing Weight 107.273, kg, Route: IV, Total Volume: 250, Start Date: 05/22/19 11:53:00 SR. VENDOR MANAGEMENT ASSOCIATE, Duration: 1 day, Stop date: 05/23/19 11:52:00 SR. VENDOR MANAGEMENT ASSOCIATE, Replace Every: 24 hr, 0 [facility] neostigmine ([facility]) 2019-05-22 17:33:00 No Route: IV, Drug form: INJ, ONCE, Stop date: 05/22/19 11:33:00 SR. VENDOR MANAGEMENT ASSOCIATE [facility] protamine ([facility]) 2019-05-22 17:33:00 No Route: IV, Drug form: INJ, ONCE, Stop date: 05/22/19 11:33:00 SR. VENDOR MANAGEMENT ASSOCIATE [facility] glycopyrrolate ([facility]) 2019-05-22 16:27:00 No Route: IV, Drug form: INJ, ONCE, Stop date: 05/22/19 10:27:00 SR. VENDOR MANAGEMENT ASSOCIATE [facility] phenylephrine (ANES) 2019-05-22 16:27:00 No Route: IV, Drug form: INJ, ONCE, Stop date: 05/22/19 10:27:00 SR. VENDOR MANAGEMENT ASSOCIATE [facility] ondansetron ([facility]) 2019-05-22 16:26:00 No Route: IV, Drug form: INJ, ONCE, Stop date: 05/22/19 10:26:00 SR. VENDOR MANAGEMENT ASSOCIATE [facility] dexamethasone ([facility]) 2019-05-22 16:26:00 No Route: IV, Drug form: INJ, ONCE, Stop date: 05/22/19 10:26:00 SR. VENDOR MANAGEMENT ASSOCIATE [facility] heparin ([facility]) 2019-05-22 16:11:00 No Route: IV, Drug form: INJ, ONCE, Stop date: 05/22/19 10:11:00 SR. VENDOR MANAGEMENT ASSOCIATE [facility] lidocaine ([facility]) 2019-05-22 15:51:00 No Route: IV, Drug form: INJ, ONCE, Stop date: 05/22/19 9:51:00 SR. VENDOR MANAGEMENT ASSOCIATE [facility] fentaNYL (ANES) 2019-05-22 15:51:00 No Route: IV, Drug form: INJ, ONCE, Stop date: 05/22/19 9:51:00 SR. VENDOR MANAGEMENT ASSOCIATE [facility] propofol ([facility]) 2019-05-22 15:51:00 No Route: IV, Drug form: INJ, ONCE, Stop date: 05/22/19 9:51:00 SR. VENDOR MANAGEMENT ASSOCIATE [facility] rocuronium ([facility]) 2019-05-22 15:51:00 No Route: IV, Drug form: INJ, ONCE, Stop date: 05/22/19 9:51:00 SR. VENDOR MANAGEMENT ASSOCIATE [facility] ceFAZolin (ANES) 2019-05-22 15:46:00 No Route: IV, Drug form: INJ, ONCE, Stop date: 05/22/19 9:46:00 SR. VENDOR MANAGEMENT ASSOCIATE [facility] Lactated Ringers Injection IV (ANES) 1000 mL 2019-05-22 15:17:00 No Route: IV, Total Volume: 1,000, Start date: 05/22/19 9:17:00 SR. VENDOR MANAGEMENT ASSOCIATE, Stop date: 05/22/19 10:17:00 SR. VENDOR MANAGEMENT ASSOCIATE [facility] Sodium Chloride 0.9% IV (ANES) 1000 mL 2019-05-22 15:17:00 No Route: IV, Total Volume: 1,000, Start date: 05/22/19 9:17:00 SR. VENDOR MANAGEMENT ASSOCIATE, Stop date: 05/22/19 10:17:00 SR. VENDOR MANAGEMENT ASSOCIATE [facility] Cefazolin 2019-05-22 15:00:00 No 2 gm, Route: IVP, ONCALL, Dosing Weight 107.273, kg, (Patients weighing < 120 kg), Start date: 05/22/19 9:00:00 SR. VENDOR MANAGEMENT ASSOCIATE, Duration: 1 doses or times, ABX Indication: Surgical Prophylaxis [facility] Acetylcysteine 200 MG/ML Inhalant Solution 2019-05-22 12:00:00 No Notes: TUBE TO PRE-OP STAT TUBE TO PRE-OP STAT TUBE TO PRE-OP STAT [facility] sodium bicarbonate 8.4% additive 100 mEq + 1/2 NS 1,000 mL 2019-05-22 12:00:00 No Notes: TUBE TO PRE-OP STAT TUBE TO PRE-OP STAT TUBE TO PRE-OP STAT [facility] Hydroxychloroquine Sulfate 200 MG Oral Tablet 2019-05-20 15:23:0 0 Yes 200 mg = 1 tab, PO, Daily, # 180 tab, 0 Refill(s) [facility] allopurinol 100 mg oral tablet 2019-05-20 15:22:00 Yes 200 mg = 2 tab, PO, Daily, # 90 tab, 1 Refill(s) [facility] Aspirin 81 MG Enteric Coated Tablet 2019-05-20 15:20:00 Yes 81 mg = 1 tab, PO, Daily, # 90 tab, 3 Refill(s) [facility] clopidogrel 75 mg oral tablet 2019-05-20 15:20:00 Yes 37.5 mg = 0.5 tab, PO, Daily, # 90 tab, 3 Refill(s) [facility] Famotidine 20 MG Oral Tablet 2019-05-20 15:18:00 Yes 20 mg = 1 tab, PO, BID, # 180 tab, 0 Refill(s) [facility] Sodium Bicarbonate 650 MG Oral Tablet 2019-05-20 15:16:00 Y es 1,300 mg = 2 tab, PO, Daily, 0 Refill(s) [facility] atorvastatin 20 mg oral tablet 2019-05-20 15:16:00 Yes 20 mg = 1 tab, PO, Bedtime, # 90 tab, 1 Refill(s) [facility] tamsulosin 0.4 mg oral capsule 2019-05-20 15:16:00 Yes 0.4 mg = 1 cap, PO, Daily, # 90 cap, 0 Refill(s) [facility] ferrous sulfate 325 mg oral enteric coated tablet 2019-05-20 15:15:00 Yes 325 mg = 1 tab, PO, BID, # 90 tab, 0 Refill(s) [facility] metoprolol tartrate 25 mg oral tablet 2019-05-20 15:14:00 Y es 12.5 mg = 0.5 tab, PO, BID, # 60 tab, 0 Refill(s) [facility] Docusate Sodium 100 MG Oral Capsule 2019-05-20 15:14:00 Yes 100 mg = 1 cap, PO, BID, # 60 cap, 3 Refill(s) [facility] Allopurinol Allopurinol 2019-05-13 05:00:00 2019-08-21 00:00:00 No 200 [facility] Sodium Bicarbonate Sodium Bicarbonate 2019-05-13 05:00:00 2019-08-09 3 00:00:00 No 1300 [facility] Sodium Chloride Sodium Chloride 2019-05-13 05:00:00 2019-08-21 00:00:00 No 2 [facility] Fosfomycin Tromethamine (Monurol) 3 Gm PACKET Fosfomyc in Tromethamine (Monurol) 3 Gm PACKET 2019-05-09 14:34:00 2019-08-21 00:00:00 No 3 [facility] Atorvastatin Calcium (Lipitor) 20 Mg TABLET Atorvastat in Calcium (Lipitor) 20 Mg TABLET 2019-04-21 02:24:2019-08-21 00:00:00 No 20 [facility] Docusate Sodium (Colace) 100 Mg/10 Ml LIQD Docusate So dium (Colace) 100 Mg/10 Ml LIQD 2019-04-21 02:24:2019-08-21 00:00:00 No 100 [facility] Famotidine Famotidine 2019-04-21 02:24:2019-08-21 00:00:00 No 20 [facility] Metoprolol Tartrate (Lopressor) 25 Mg TAB Metoprolol T artrate (Lopressor) 25 Mg TAB 2019-04-21 02:24:00 2019-08-21 00:00:00 No 12.5 [facility] Prasugrel Hcl (Effient) 10 Mg TABLET Prasugrel Hcl (Effient) 10 Mg TABLET 2019-04-21 02:24:2019-08-21 00:00:00 No 10 [facility] Aspirin (Aspirin Ec) 81 Mg TABLET. Aspirin (Aspirin Ec) 81 Mg TABLET. 2019-04-21 02:24:00 2019-05-13 00:00:00 No 81 [facility] Valsartan (Diovan) 80 Mg TAB Valsartan (Diovan) 80 Mg TAB 04-21 02:24:2019-05-13 00:00:00 No 20 [facility] Doxazosin Mesylate 2017-06-13 03:46:42 Yes Ayo Arora [...] 2 tablets by mouth daily Riaz Arora [employer] 2017-04-01 03:46:35 Yes [...] Lipitor 20 MG Oral Tablet Yes [facility] Flomax 0.4 MG Oral Capsule Flomax 0.4 MG Oral Capsule Yes [facility] Effient 10 MG Oral Tablet Effient 10 MG Oral Tablet Yes [facility] Lopressor TABS Lopressor TABS Yes [facility] Pepcid 20 MG Oral Tablet Pepcid 20 MG Oral Tablet Yes [facility] Allopurinol 100 MG Oral Tablet Allopurinol 100 MG Oral Tablet Yes [facility] Acetaminophen With Codeine (Tylenol With Codeine #3 Ta blet) 1 Each TABLET Acetaminophen With Codeine (Tylenol With Codeine #3 Tablet) 1 Each TABLET Yes 300 [facility] Aspirin (Aspir 81) 81 Mg TABLET. Aspirin (Aspir 81) 81 Mg TABLET. Yes 81 [facility] Clopidogrel Bisulfate (Plavix) 75 Mg TABLET Clopidogre l Bisulfate (Plavix) 75 Mg TABLET Yes 75 [facility] Docusate Sodium Docusate Sodium Yes 100 [facility] Ferrous Sulfate Ferrous Sulfate Yes 325 [facility] Hydroxychloroquine Sulfate (Plaquenil) 200 Mg TAB Hydr oxychloroquine Sulfate (Plaquenil) 200 Mg TAB Yes 200 [facility] Lisinopril Lisinopril Yes 10 [facility] Tamsulosin Hcl (Flomax*) 0.4 Mg CAP Tamsulosin Hcl (Flomax*) 0.4 Mg C AP Yes .4 [facility] Cholecalciferol (Vitamin D3) (Vitamin D3) 1,000 Unit C APSULE Cholecalciferol (Vitamin D3) (Vitamin D3) 1,000 Unit CAPSULE 2019-08-21 00:00:00 No 1000 [facility] Cyanocobalamin (Vitamin B-12) 1,000 Mcg TAB Cyanocobal ramos (Vitamin B-12) 1,000 Mcg TAB 2019-08-21 00:00:00 No 1000 [facility] Tamsulosin Hcl (Flomax*) 0.4 Mg CAP Tamsulosin Hcl (Flomax*) 0.4 Mg CAP 2019-08-21 00:00:00 No .4 [facility] Folic Acid Folic Acid 2019-05-13 00:00:00 No 1 [facility] Tramadol Hcl/Acetaminophen (Ultracet Tablet) 1 Each TA BLET Tramadol Hcl/Acetaminophen (Ultracet Tablet) 1 Each TABLET 2019-05-13 00:00:00 No 1 [facility] Doxazosin Mesylate Doxazosin Mesylate 2019-04-21 00:00:00 No 8 [facility] Levofloxacin (Levaquin) 500 Mg TABLET Levofloxacin (Levaquin) 50 0 Mg TABLET 2019-04-21 00:00:00 No 500 [facility] Nitrofurantoin Macrocrystal (Nitrofurantoin) 100 Mg CA PSULE Nitrofurantoin Macrocrystal (Nitrofurantoin) 100 Mg CAPSULE 2019-04-21 00:00:00 No 100 [facility] Prednisone Prednisone 2019-04-21 00:00:00 No 5 [facility] Etanercept (Enbrel) 50 Mg/1 Ml DISP.SYRIN Etanercept ( Enbrel) 50 Mg/1 Ml DISP.SYRIN 2017-12-25 00:00:00 No [facility] Vital Signs Vital Name Observation Time Observation Value Comments Source Body Temperature 2019-08-25 15:36:00 98.2 [degF] [facility] BMI (Body Mass Index) 2019-08-21 17:21:00 32.9 kg/m2 [facility] Weight 2019-08-21 05:03:00 229 [lb_av] [facility] Weight 2019-06-10 12:56:00 235 [lb_av] [facility] Systolic (mm Hg) 2019-05-23 22:00:00 [facility] Diastolic (mm Hg) 2019-05-23 22:00:00 [facility] Systolic (mm Hg) 2019-05-23 21:00:00 [facility] Diastolic (mm Hg) 2019-05-23 21:00:00 [facility] Respitory Rate 2019-05-23 20:00:00 [facility] Systolic (mm Hg) 2019-05-23 20:00:00 [facility] Diastolic (mm Hg) 2019-05-23 20:00:00 [facility] Respitory Rate 2019-05-23 19:00:00 [facility] Respitory Rate 2019-05-23 18:00:00 [facility] Height 2019-05-22 20:08:00 177.8 cm [facility] Weight 2019-05-22 20:08:00 [facility] BMI Calculated 2019-05-22 20:08:00 [facility] Heart Rate 2019-05-22 14:09:00 [facility] Temperature Oral (F) 2019-05-20 15:49:00 97.4 F [facility] Heart Rate 2019-05-20 15:49:00 [facility] Height 2019-05-20 15:02:00 177.8 cm [facility] Weight 2019-05-20 15:02:00 [facility] BMI Calculated 2019-05-20 15:02:00 [facility] Weight [...] abdomen and pelvis without contrast 2019-08-21 00:00:00 [facility] [[facility]] BASIC METABOLIC PANEL W/EGFR 2019-06-10 00:00:00 [facility] CVRAD - Abdominal Duplex Comp - [id number] 2019-06-05 00:00:00 [facility] CTA Abdomen/Pelvis [id number] 2019-05-24 00:00:[facility] BASIC METABOLIC PANEL W/EGFR 2019-05-13 00:00:00 [facility] X-ray of chest, two views 2019-05-07 00:00:00 CHELSEA ROCK CH, I [facility] Computed tomography angiography of abdom en and pelvis without then with contrast 2019-05-07 00:00:00 CONSTANTINE LR V [facility] CT angiography of chest 2019-05-07 00:00:00 CONSTANTINE LR V [facility] TRANSFUSE NONAUT RED BLOOD CELLS IN PERIPH VEIN, PERC 2019-05-07 00:00:00 [facility] Ultrasound, renal 2019-05-06 00:00:00 MARIPOSA GUILLAUME [facility] Computed tomography of brain without radiopaque contrast 00:00:00 MARTINA SKELTON [facility] Computed tomography of cervical spine without contrast 05-04 00:00:00 MARTINA SKELTON [facility] DILATION OF 1 COR ART WITH DRUG-ELUT INTRA, PERC APPROACH 108 00:00:00 [facility] EXTIRPATION OF MATTER FROM 1 COR ART, PERC APPROACH 2019-04-17 0 0:00:00 [facility] INTRODUCE PLATELET INHIBITOR IN CORONARY ART, PERC 2019-04-17 00 :00:00 [facility] MEASURE OF CARDIAC SAMPL & PRESSURE, L HEART, PERC APPROACH 2019-04-17 00:00:00 [facility] FLUOROSCOPY OF MULT COR ART USING L OSM CONTRAST 2019-04-17 00:0 0:00 [facility] Cardiac catheterisation [facility] Hernia repair [facility] TKR -Total prosthetic replacement of knee joint using cement [facility] Plan of Care Planned Activity Planned Date Details Comments Source Diagnostic Test Pending 2019-06-11 00:00:00 [QLH] BASIC META BOLIC PANEL W/EGFR [code = [QLH] BASIC METABOLIC PANEL W/EGFR] [facility] Goal Patient referral [code = 2735223 ] [facility] Goal Patient referral [code = 2330388 ] [facility] Goal Patient referral [code = 8234336 ] [facility] Goal Patient referral [code = 5513046 ] [facility] Goal Patient referral [code = 7328371 ] [facility] Instructions Post Operative Pain [facility] Encounters Start Date/Time End Date/Time Encounter Type Admission Type Attendi [facility] Care Department Encounter ID Source 2019-05-22 07:15:00 Inpatient MHSE MHSE [id number] [facility] 2019-08-21 06:53:00 2019-08-25 16:07:00 Discharged Inpatient 1 XIOMARA DELGADOVE [facility] [id number] [facility] 2019-06-10 12:30:00 2019-06-10 12:30:00 Appointment; THEODORE BARKER M.D. NAHAS, CESAR, M.D. [facility] Cardiothoracic & Vascular Surgery [facility] [id number] [facility] 2019-06-06 15:22:00 2019-06-07 05:59:00 Outpatient [facility] [id number] [facility] 2019-06-06 09:22:00 2019-06-06 23:59:00 Outpatient [facility] [id number] 2019-06-06 09:22:00 2019-06-06 09:22:00 Outpatient MHSE MHSE [id number] [facility] 2019-06-05 08:00:00 2019-06-05 08:00:00 Appointment; DR JOHNNIE CUMMINGS, DR BARKER [facility] Cardiothoracic & Vascular Surgery [facility] t [id number] [facility] 2019-05-22 13:15:00 2019-05-24 00:20:00 Inpatient [facility] [id number] [facility] 2019-05-22 07:15:00 2019-05-23 18:20:00 Outpatient MHSEH [facility] [id number] 2019-05-22 06:30:00 2019-05-22 06:30:00 Appointment; THEODORE BARKER M.D. NAHAS, CESAR, M.D. [facility] UTP [id number] [facility] 2019-05-13 11:45:00 2019-05-13 11:45:00 Appointment; THEODORE BARKER M.D. NAHAS, CESAR, M.D. [facility] Cardiothoracic & Vascular Surgery [facility] [id number] [facility] 2019-05-04 16:10:00 2019-05-13 07:23:00 Discharged Inpatient 1 [facility] [id number] [facility] 2019-04-17 17:31:00 2019-04-21 10:40:00 Discharged Inpatient 1 [facility] [id number] [facility] 2017-11-28 09:12:00 2017-11-28 09:12:00 Outpatient Ayo Arora MD [place] [id number] Riaz Arora MD 2017-08-07 15:17:00 2017-08-08 04:59:00 Outpt Diag Services [facility] [place] [id number] [facility] [place] 2017-08-07 10:17:00 2017-08-07 23:59:00 Outpatient Holly Berger [facility] [id number] 2017-08-07 10:17:00 2017-08-07 23:59:00 Outpatient Holly Berger [facility] M[facility] [id number] 2017-06-05 10:15:00 2017-06-05 10:15:00 Outpatient Ayo Arora MD [place] [id number] CIARA Arora MD 2017-06-01 15:04:00 2017-06-01 15:04:00 Outpatient Ayo Arora MD [place] [id number] MH Riaz Arora MD 2017-05-11 16:32:00 2017-05-11 16:32:00 Outpatient Ayo Arora MD [place] [id number] Riaz Arora MD 2017-05-11 09:18:00 2017-05-11 09:18:00 Outpatient Ayo SHOEMAKER [id number] Riaz Arora MD 2017-04-24 18:40:00 2017-04-25 05:59:00 Outpt Diag Services [facility] [place] [id number] [facility] [place] 2017-04-24 12:40:00 2017-04-24 23:59:00 Outpatient Holly Berger [facility] M[facility]IP [id number] 2017-03-30 14:45:00 2017-03-30 14:45:00 Outpatient Ayo Arora MD PA [id number] Riaz Arora MD 2017-02-06 15:19:00 2017-02-06 15:19:00 Outpatient Ayo Arora MD PA [id number] Riaz Arora MD 2017-01-09 08:15:00 2017-01-09 08:15:00 Outpatient Ayo SHOEMAKER [id number] Riaz Arora MD 2017-01-05 10:15:00 2017-01-05 10:15:00 Outpatient Ayo Arora MD [place] [id number] Riaz Arora MD 2016-09-15 18:22:00 2016-09-16 04:59:00 Outpt Diag Services [facility] [place] [id number] [facility] [place] 2016-09-15 13:22:00 2016-09-15 23:59:00 Outpatient Holly Berger [facility] M[facility] [id number] 2016-08-24 16:54:00 2016-08-25 04:59:00 Outpt Diag Services [facility] [place] [id number] [facility] [place] 2016-08-24 11:54:00 2016-08-24 23:59:00 Outpatient Holly Berger [facility] M[facility]IP [id number] 2016-03-21 17:59:00 2016-03-22 05:59:00 Outpt Diag Services [facility] [place] [id number] [facility] [place] 2016-03-21 11:59:00 2016-03-21 23:59:00 Outpatient Holly Berger [facility] [id number] 2015-07-17 20:27:00 2015-07-18 04:59:00 Outpt Diag Services [facility] [place] [id number] [facility] [place] 2015-07-17 15:27:00 2015-07-17 23:59:00 Outpatient Geoffrey Kleina [facility] M[facility] [id number] 2015-02-25 20:51:00 2015-02-26 05:59:00 Outpt Diag Services [facility] [place] [id number] [facility] [place] 2015-02-25 14:51:00 2015-02-25 23:59:00 Outpatient BermanCecilio Willingham [facility] M[facility]IP [id number] 2014-05-30 17:43:00 2014-05-31 05:59:00 Outpt Diag Services [facility] [place] [id number] [facility] [place] 2014-05-30 11:43:00 2014-05-30 23:59:00 Outpatient Berman, Guerrero Willingham [facility] [id number] 2014-05-01 18:16:00 2014-05-02 05:59:00 Outpt Diag Services [facility] [place] [id number] [facility] [place] 2014-05-01 12:16:00 2014-05-01 23:59:00 Outpatient Berman, Guerrero Willingham [facility] [id number] Results Test Description Test Time Test Comments Results Result Comments Source CT ABDOMEN/PELVIS WO 2019-08-28 23:42:00 [facility] [address] [address] Patient Name: AG CATALAN MR #: [id number] : 1935 Age/Sex: 84/M Req #: [id number] Adm Physician: Ordered by: SENTHIL MCNAIR DO Report #: [id number] Location: ER Room/Bed: Procedure: [id number] CT/CT ABDOMEN/PELVIS WO Exam Date: 08/28/19 Exam [...] Blood Count (test code = 6690-2) 4.88 [facility] automated count (number/volume)2019-08-24 05:50:00* Test Item Value Reference Range Interpretation Comments Red Blood Count (test code = 789-8) 2.67 [facility] hemoglobin measurement (moles/volume)2019-08-24 05:50:00* Test Item Value Reference Range Interpretation Comments Hemoglobin (test code = 10366-5) 7.8 [facility] CenterAutomated blood hematocrit (volume fraction)2019-08-24 05:50:00* Test Item Value Reference Range Interpretation Comments Hematocrit (test code = 4544-3) 26.5 [facility] CenterAutom[facility] erythrocyte mean corpuscular fxzjch6175-71-43 05:50:00* Test Item Value Reference Range Interpretation Comments Mean Corpuscular Volume (test code = 787-2) 99.3 [facility] CenterAutom[facility] erythrocyte mean corpuscular hemoglobin (mass per erythrocyte)2019-08-24 05:50:00* Test Item Value Reference Range Interpretation Comments Mean Corpuscular Hemoglobin (test code = 785-6) 29.2 [facility] CenterAutom[facility] erythrocyte mean corpuscular hemoglobin concentration measurement (mass/volume)2019-08-24 05:50:00* Test Item Value Reference Range Interpretation Comments Mean Corpuscular Hemoglobin Concent (test code = 786-4) 29.4 [facility] CenterRDW JqcOf-Lrc7135-37-16 05:50:00* Test Item Value Reference Range Interpretation Comments Red Cell Distribution Width (test code = 24011-5) 15.0 [facility] Center[facility] blood platelet count (count/volume)2019-08-24 05:50:00* Test Item Value Reference Range Interpretation Comments Platelet Count (test code = 777-3) 145 [facility] CenterAutom[facility] blood segmented neutrophil count as percentage of total sasmzywljj8121-23-71 05:50:00* Test Item Value Reference Range Interpretation Comments Neutrophils (%) (Auto) (test code = 89809-4) 65.8 [facility] CenterAutomated blood lymphocyte count as percentage ot total llkyhifdjz7451-75-44 05:50:00* Test Item Value Reference Range Interpretation Comments Lymphocytes (%) (Auto) (test code = 736-9) 20.1 [facility] CenterAutom[facility] blood monocyte count as percentage of total egprjasjzi6557-96-79 05:50:00* Test Item Value Reference Range Interpretation Comments Monocytes (%) (Auto) (test code = 5905-5) 9.2 [facility] CenterAutom[facility] blood eosinophil count as percentage of total ihzzgthsve6940-00-30 05:50:00* Test Item Value Reference Range Interpretation Comments Eosinophils (%) (Auto) (test code = 713-8) 3.7 [facility] CenterAutom[facility] blood basophil count as percentage of total mgjbhnaevi4858-67-60 05:50:00* Test Item Value Reference Range Interpretation Comments Basophils (%) (Auto) (test code = 706-2) 1.0 [facility] CenterFluoroscopic procedure less than one hour gcknflxh4138-54-27 05:50:00* Test Item Value Reference Range Interpretation Comments IM GRANULOCYTES % (test code = IM GRANULOCYTES %) 0.2 [facility] CenterAutomated blood neutrophil count 2019-08-24 05:50:00* Test Item Value Reference Range Interpretation Comments Neutrophils # (Auto) (test code = 751-8) 3.2 [facility] Center[facility] lymphocytes count (number/volume) 2019-08-24 05:50:00* Test Item Value Reference Range Interpretation Comments Lymphocytes # (Auto) (test code = 55904-6) 1.0 [facility] monocytes automated count (number/volume)2019-08-24 05:50:00* Test Item Value Reference Range Interpretation Comments Monocytes # (Auto) (test code = 742-7) 0.5 [facility] CenterAutom[facility] blood eosinophil count 2019-08-24 05:50:00* Test Item Value Reference Range Interpretation Comments Eosinophils # (Auto) (test code = 711-2) 0.2 [facility] CenterAutomated blood basophil count (count/volume)2019-08-24 05:50:00* Test Item Value Reference Range Interpretation Comments Basophils # (Auto) (test code = 704-7) 0.1 [facility] CenterFluoroscopic procedure less than one hour wzpehact0567-18-81 05:50:00* Test Item Value Reference Range Interpretation Comments Absolute Immature Granulocyte (auto (rosario t code = Absolute Immature Granulocyte (auto) 0.01 [facility] CenterBlood hypochromia detection by light ujhjytaehj6819-04-24 05:50:00* Test Item Value Reference Range Interpretation Comments Hypochromasia (test code = 728-6) SLIGHT [facility] CenterRBC wtiobbisyk2629-26-75 05:50:00* Test Item Value Reference Range Interpretation Comments Red Cell Morphology Comment (test code = 6742-1) ABNORMAL [facility] or plasma sodium measurement (moles/volume)2019-08-24 05:50:00* Test Item Value Reference Range Interpretation Comments Sodium Level (test code = 2951-2) 138 [facility]um or plasma potassium measurement (moles/volume)2019-08-24 05:50:00* Test Item Value Reference Range Interpretation Comments Potassium Level (test code = 2823-3) 4.7 [facility]um or plasma chloride measurement (moles/volume)2019-08-24 05:50:00* Test Item Value Reference Range Interpretation Comments Chloride Level (test code = 2075-0) 109 [facility] Dent[facility]um or plasma carbon dioxide, total measurement (moles/volume)2019-08-24 05:50:00* Test Item Value Reference Range Interpretation Comments Carbon Dioxide Level (test code = 2028-9) 19 [facility]um or plasma anion xyf9064-02-62 05:50:00* Test Item Value Reference Range Interpretation Comments Anion Gap (test code = 64354-4) 14.7 [facility]um or plasma urea nitrogen measurement (mass/volume)2019-08-24 05:50:00* Test Item Value Reference Range Interpretation Comments Blood Urea Nitrogen (test code = 3094-0) 20 [facility]um or plasma creatinine measurement (mass/volume)2019-08-24 05:50:00* Test Item Value Reference Range Interpretation Comments Creatinine (test code = 2160-0) 1.40 [facility]um or plasma urea nitrogen/creatinine mass edluk4892-66-35 05:50:00* Test Item Value Reference Range Interpretation Comments BUN/Creatinine Ratio (test code = 3097-3) 14 [facility] CenterEstimated glomerular filtration rate (GFR) vdcahoxnytgzg4044-94-62 05:50:00* Test Item Value Reference Range Interpretation Comments Estimat Glomerular Filtration Rate (test code = 371878943) 49 [facility] CenterGlucose jfykmldawok3238-29-91 05:50:00* Test Item Value Reference Range Interpretation Comments Glucose Level (test code = AGM6809) 66 [facility]um or plasma calcium measurement (mass/volume)2019-08-24 05:50:00* Test Item Value Reference Range Interpretation Comments Calcium Level (test code = 85306-7) 8.1 [facility] CenterBlood platelets count by estimate (number/volume)2019-08-22 04:40:00* Test Item Value Reference Range Interpretation Comments Platelet Estimate (test code = 04583-2) ADEQUATE [facility] CenterPlatelet noceqjlwhq9469-32-97 04:40:00* Test Item Value Reference Range Interpretation Comments Platelet Morphology Comment (test code = 25571-6) NORMAL [facility] CenterBlood anisocytosis detection by light ansjumluvb2452-62-81 04:40:00* Test Item Value Reference Range Interpretation Comments Anisocytosis (test code = 702-1) SLIGHT [facility]um or plasma total bilirubin measurement (mass/volume)2019-08-22 04:40:00* Test Item Value Reference Range Interpretation Comments Total Bilirubin (test code = 1975-2) 0.6 [facility] CenterFluoroscopic procedure less than one hour bfdzthzt0050-44-23 04:40:00* Test Item Value Reference Range Interpretation Comments Aspartate Amino Transf (AST/SGOT) (test code = Aspartate Amino Transf (AST/SGOT)) 15 [facility] Dent[facility]um or plasma alanine aminotransferase measurement (enzymatic activity/volume)2019-08-22 04:40:00* Test Item Value Reference Range Interpretation Comments Alanine Aminotransferase (ALT/SGPT) (test code = 1742-6) 13 [facility] Dent[facility]um or plasma protein measurement (mass/volume)2019-08-22 04:40:00* Test Item Value Reference Range Interpretation Comments Total Protein (test code = 2885-2) 6.4 [facility] Dentonerum or plasma albumin measurement (mass/volume)2019-08-22 04:40:00* Test Item Value Reference Range Interpretation Comments Albumin (test code = 1751-7) 2.6 [facility] CenterPlasma globulin measurement (mass/volume) 2019-08-22 04:40:00* Test Item Value Reference Range Interpretation Comments Globulin (test code = 34485-8) 3.8 [facility] Dentonerum or plasma albumin/globulin mass whecb7650-75-58 04:40:00* Test Item Value Reference Range Interpretation Comments Albumin/Globulin Ratio (test code = 1759-0) 0.7 [facility] Dent[facility]um or plasma alkaline phosphatase measurement (enzymatic activity/volume)2019-08-22 04:40:00* Test Item Value Reference Range Interpretation Comments Alkaline Phosphatase (test code = 6768-6) 49 [facility] CenterCT ABDOMEN/PELVIS YE4833-74-69 09:58:00 [facility] [address] [address] Patient Name: AG CATALAN MR #: [id number] : 1935 Age/Sex: 84/M Req #: [id number] Adm Physician: RADHA DELGADO MD Ordered by: SENTHIL MCNAIR DO Report #: [id number] Location: [facility] Room/Bed: [address] [address] Procedure: [id number] CT/CT ABDOMEN /PELVIS WO Exam Date: 08/21/19 [...] Yudith ESTEVEZ on 08/21/19 1006 COPY TO: SETNHIL MCNAIR DO Fluoroscopic procedure less than one hour qatgxibe9785-45-54 07:18:00* Test Item Value Reference Range Interpretation Comments Coronavirus (PCR) (test code = Coronavirus (PCR)) NOT DETECTED [facility] CenterUrine color iqqdjpgnzjbuw3406-85-20 05:15:00* Test Item Value Reference Range Interpretation Comments Urine Color (test code = 5778-6) YELLOW [facility] CenterUrine xshqkhh0384-27-01 05:15:00* Test Item Value Reference Range Interpretation Comments Urine Clarity (test code = 67965-7) CLEAR [facility] Dentonpecific gravity of Urine by Test strip 2019-08-21 05:15:00* Test Item Value Reference Range Interpretation Comments Urine Specific [place] (test code = 5811-5) 1.020 [facility] CenterUrine pH measurement by automated test gtkvx3615-71-80 05:15:00* Test Item Value Reference Range Interpretation Comments Urine pH (test code = 95204-2) 6 [facility] CenterUrine leukocyte esterase detection by odcbfxvq9870-07-44 05:15:00* Test Item Value Reference Range Interpretation Comments Urine Leukocyte Esterase (test code = 5799-2) NEGATIVE [facility] CenterUrine nitrite zqcyexpkb4551-57-93 05:15:00* Test Item Value Reference Range Interpretation Comments Urine Nitrite (test code = 92331-3) NEGATIVE [facility] CenterUrine protein measurement by test strip (mass/volume)2019-08-21 05:15:00* Test Item Value Reference Range Interpretation Comments Urine Protein (test code = 5804-0) TRACE [facility] CenterUrine glucose snyyjwoxn2477-47-04 05:15:00* Test Item Value Reference Range Interpretation Comments Urine Glucose (UA) (test code = 2349-9) NEGATIVE [facility] CenterUrine ketones detection by automated test fuebn4777-91-52 05:15:00* Test Item Value Reference Range Interpretation Comments Urine Ketones (test code = 90147-7) NEGATIVE [facility] CenterUrine urobilinogen measurement by test strip (mass/volume)2019-08-21 05:15:00* Test Item Value Reference Range Interpretation Comments Urine Urobilinogen (test code = 33183-6) 0.2 [facility] CenterUrine total bilirubin measurement (mass/volume)2019-08-21 05:15:00* Test Item Value Reference Range Interpretation Comments Urine Bilirubin (test code = 1978-6) NEGATIVE [facility] CenterUrine erythrocytes ppeehdloj5952-39-52 05:15:00* Test Item Value Reference Range Interpretation Comments Urine Blood (test code = 39967-4) NEGATIVE [facility] CenterAutomated urine sediment leukocyte count by microscopy (number/high power field)2019-08-21 05:15:00* Test Item Value Reference Range Interpretation Comments Urine WBC (test code = 5821-4) 0-5 [facility] CenterErythrocytes detection in urine sediment by light egyirycggv2190-62-86 05:15:00* Test Item Value Reference Range Interpretation Comments Urine RBC (test code = 18119-6) 0-5 [facility] CenterBacteria detection in urine sediment by light jrcuvkyzyr0049-26-70 05:15:00* Test Item Value Reference Range Interpretation Comments Urine Bacteria (test code = 39479-2) RARE [facility] CenterEpithelial cells detection in urine sediment by light uecxsdbvwr7809-46-89 05:15:00* Test Item Value Reference Range Interpretation Comments Urine Epithelial Cells (test code = 11771-0) RARE [facility] Dentonerum or plasma lipase measurement (enzymatic activity/volume)2019-08-21 05:15:00* Test Item Value Reference Range Interpretation Comments Lipase (test code = 3040-3) 12 [facility]] BASIC METABOLIC PANEL W/EGFR 2019-06-12 07:15:01* Test Item Value Reference Range Interpretation Comments Glucose Lvl (test code = 2345-7) 96 mg/dl 70-99 Adult reference range values reflect the clinical guidelinesof the [place] [employer]. Blood Urea Nitrogen (test code [...] AGAP; Below Low Threshold (test code = 71083-1) 8.9 {mEq/l} 10.0-2 0.0 Calcium Level Total; Below Low Threshold (test code = 07555- 6) 8.4 mg/dl 8.5-10.5 eGFR (test code = 76367-4) 37 {ML/MIN/1.7} The eGFR is calculated using [...] eGFR shouldbe multiplied by the estimated BMI. [facility] PVZSE1592-78-80 15:56:001.[address] [place] [address] DZTLQ4055-01-71 15:56:0037[facility] Abdomen/Pelvis 336034427-98-62 09:45:00Radiation Dose CTDIVOL = 0 (mGy): DLP [...] for heartfailure.Alex Goncalves MD On 06/06/2019 15:25:41; OL-[id number] 019--Read by: Alex Goncalves MDDictated Date/time: 06/06/19 15:25Electronical ly Signed by: Alex Goncalves MD 06/06/2014:25FINAL REPO RTUnSteward Health Care SystemCHEM LFOTV5710-99-88 10:55:0083 [facility] CTTBB1421-28-43 10:55:0017 [facility] JVFHL2063-15-69 10:55:001.41MH [facility] WAZXM3727-14-87 10:55:23148OF [facility] AULJN0474-31-17 10:55:004.1M [facility] IYINV6892-44-70 10:55:60784TI [facility]CHE[facility] PANEL 2019-05-23 10:55:0028 [facility] TWKBG7736-57-64 10:55:008.0 [facility] FCKRF8006-45-42 10:55:0011.1M [facility] MBXRU0973-94-32 10:55:0046 LweevcoyuRAKELPSCUU3792-84-36 10:55:005.0 KyaludcbuOIDGPZRAYD2339-54-36 10:55:003.17 ZbwbxauvtIQZCJPGPZD9882-25-46 10:55:009.0 [facility] 2019-05-23 10:55:0027.8 KhlzffzefQTPOOWUABP4440-57-64 10:55:0087.6MH [facility] FIMECZTBYR6993-69-07 10:55:00* Test Item Value Reference Range Interpretation Comments MCH (test code = MCH) 28.4 pg 27.0-31.0 ZphodywaaIMACRBJKOE6329-90-94 10:55:0032.4 MoymnexpkYMZVYKEOAJ7601-20-12 10:55:0016.2M GjwbgdprlAEMAABXTCN6063-96-77 10:55:68658FC [facility]HE[facility]Y 2019-05-23 10:55:007.5[facility] KLQBACI5479-31-40 17:53:00Product available 4(05/22/19 11:53 AM) [facility] TKMTU4758-11-14 17:10:0090 [facility] DKSLZ6248-05-80 17:10:0015 [facility] ERGWH8017-21-51 17:10:001.40 [facility] AZPLH2364-23-86 17:10:97352KU SoutheastCHEM PANEL 2019-05-22 17:10:004.2M [facility] HNOQB4647-64-54 17:10:92771MU [facility] JDFKQ9217-33-43 17:10:0027 [facility] OJAMO5927-24-75 17:10:007.7 [facility] YWUAJ2731-90-90 17:10:0010.2M [facility] WBENX1591-36-20 17:10:0047 [facility] UCCJA3038-00-26 17:10:001.7 [facility]Y 2019-05-22 17:10:003.3M GvxwfypioCJWFZFZEHC1962-38-27 17:10:002.51[facility] SLVLICMGCV8010-79-92 17:10:007.0 DgetpfjznZILMNBVQON6952-31-90 17:10:0021.7 UrvophghgJFPOPYORPO6536-97-34 17:10:0086.5 RrhkagchqXMCHMANHMM8604-29-08 17:10:00* Test Item Value Reference Range Interpretation Comments MCH (test code = MCH) 27.9 pg 27.0-31.0 YambygsolRUEXNCUSCJ5237-94-11 17:10:0032.3M DmwufyjbpWPWAPLPBCX7949-84-83 17:10:0015.7 FswcrzdpmQRAWMQFQMA8180-49-51 17:10:43577XR [facility]HEMATOLOGY 2019-05-22 17:10:007.4[facility] BANK MPNSTXQ0794-93-38 16:28:00Negative (05/20/19 10:28 AM) [facility] DGSDY6838-17-42 16:28:0069 [facility] ZNWPV6674-07-24 16:28:0019 [facility]M ZTBWI4616-88-56 16:28:001.55 [facility]M NIEKO9910-55-28 16:28:02632JO [facility]M WYAFQ6096-87-82 16:28:004.2M [facility] LGXCJ3019-75-55 16:28:63170QE [facility]CHEM PANEL 2019-05-20 16:28:0025 [facility] SGKHK5533-33-55 16:28:008.7 [facility] CHE[facility] IJTOL4826-05-70 16:28:0011.2M [facility]M EUCSA1861-15-74 16:28:0041 RjxkjpqwwATCFMNWBHO5528-69-08 16:28:004.9 ZfhcbceczYQSTFYMZXO4499-51-92 16:28:003.16 ZzphmtffvUYOFFSGJMO8428-14-12 16:28:008.9 SoutheastHEMATOLOGY 2019-05-20 16:28:0027.7 IcmkksjlrCHKJUGWVOC1359-62-05 16:28:0087.9[facility] OEZSPNBOTY2776-59-61 16:28:00* Test Item Value Reference Range Interpretation Comments MCH (test code = MCH) 28.1 pg 27.0-31.0 OdqjacilaLHOUNGRUIV9079-40-75 16:28:0032.0 ZvarvwrkuIIGKVAFBLX4825-17-46 16:28:0016.1M DzririhrxGQZNZVUUGE4216-97-34 16:28:05857TK SoutheastHEMATOLOGY 2019-05-20 16:28:007.8 NumetenbeTWLTVBSWHT0925-76-35 16:28:00* Test Item Value Reference Range Interpretation Comments PT (test code = PT) 15.0 s 12.0-14.7 HbimmclelWAPENQAQPE7368-82-48 16:28:00* Test Item Value Reference Range Interpretation Comments INR (test code = INR) 1.17 1 0.85-1.17 ZltxpqcduORXVIPFTZC8607-14-75 16:28:00* Test Item Value Reference Range Interpretation Comments PTT (test code = PTT) 40.0 s 22.9-35.8 JbuhbvytwXKBVWHBUQE2190-00-79 16:28:0061.0 YvgectqmpUGABAKQMSB7880-99-86 16:28:0019.3M CvgfsuogtVIBFAXZNUK0633-45-28 16:28:007.1M SoutheastHEMATOLOGY 2019-05-20 16:28:0010.2M YvhybgvujNMKJKLXLXK5117-57-06 16:28:002.4 [facility] ZAPENBVNZW7867-10-19 16:28:003.0 UbpwfsjbuHXBTLKVKNI0281-85-83 16:28:001.0 WbfqhevurCULOIRUJSZ7382-38-61 16:28:000.4 VoxwtqxmrOIFZWTHICJ7368-45-67 16:28:000.5 KgtfbrzxbZYLFBVWRRR4710-16-12 16:28:000.1M SoutheastSPECIAL PYEQVSTEI2202-22-32 16:28:005.5 SoutheastURINE AND TSXAW9116-98-10 16:28:00 Clear (05/20/19 10:28 AM) [facility] AND HANVC7830-98-49 16:28:00* Test Item Value Reference Range Interpretation Comments UA Spec Grav (test code = UA Spec Grav) 1.004 1 [facility]URINE AND XWKKH4041-61-55 16:28:00* Test Item Value Reference Range Interpretation Comments UA pH (test code = UA pH) 6.0 1 5.0-8.0 [facility] AND ANICE8246-53-94 16:28:00Negative *NA*(05/20/19 10:28 AM)[facility] AND LPCSD4408-70-61 16:28:00Moderate *ABN*(05/20/19 10:28 AM)[facility] AND LDSOZ1567-16-45 16:28:00Negative (05/20/19 10:28 AM)[facility] AND VVIAR2019-90-56 16:28:00Negative (05/20/19 10:28 AM)[facility] AND QNFYX8517-77-16 16:28:00<1[facility] AND STOOL 2019-05-20 16:28:001[facility] ISSAGFS4958-74-07 15:42:00Product available (05/20/19 9:42 AM)[facility]] BASIC METABOLIC PANEL W/EGFR 2019-05-13 13:50:01* Test Item Value Reference Range Interpretation Comments Glucose Lvl (test code = 2345-7) 88 mg/dl 70-99 Adult reference range values reflect the clinical guidelinesof the [place] [employer]. Blood Urea Nitrogen (test code [...] 24 {mEq/l} 24-32 AGAP (test code = 77087-7) 15.9 {mEq/l} 10.0-20.0 Calcium Level Total (test code = 13466-2) 8.9 mg/dl 8.5-10.5 eGFR (test code = 19460-4) 43 {ML/MIN/1.7} The eGFR is calculated using [...] eGFR shouldbe multiplied by the estimated BMI. [facility] PhysiciansPhosphorus hjdcdgxvkek2243-74-52 07:32:00* Test Item Value Reference Range Interpretation Comments Phosphorus Level (test code = EMC1312) 3.7 [facility] plasma magnesium measurement (mass/volume)2019-05-12 07:32:00* Test Item Value Reference Range Interpretation Comments Magnesium Level (test code = 02108-7) 1.8 [facility] protein measurement (mass/volume) 2019-05-10 05:15:00* Test Item Value Reference Range Interpretation Comments Urine Random Total Protein (test code = 2888-6) < 6.8 [facility] creatinine measurement (mass/volume)2019-05-10 05:15:00* Test Item Value Reference Range Interpretation Comments Urine Creatinine (test code = 2161-8) 57.95 [facility] CenterRandom urine protein/creatinine ratio 2019-05-10 05:15:00* Test Item Value Reference Range Interpretation Comments Urine Protein/Creatinine Ratio (test code = 65727-6) 0.00 [facility] CenterCTA ABD/FJUJCN5384-07-51 09:43:00 [facility] [address] [address] Patient Name: AG CATALAN MR #: [id number] : 1935 Age/Sex: 83/M Req #: [id number] Adm Physician: RADHA DELGADO MD Ordered by: CONSTANTINE LR MD Report #: [id number] Location: MED/SURG2 Room/Bed: 208-1 Procedure: [id number] CT/CTA ABD/PELVIS Exam Date: 05/07/19 Exam Time: [...] 1141 COPY TO: CONSTANTINE LR MD CTA UMOVS4907-42-68 09:43:[address] [address] Patient Name: AG CATALAN MR #: [id number] : 1935 Age/Sex: 83/M Req #: [id number] Adm Physician: RADHA DELGADO MD Ordered by: CONSTANTINE LR MD Report #: [id number] Location: [facility] Room/Bed: [facility] Procedure: [id number] CT/CTA CHEST Exam Date: 05/07/19 Exam Time: [...] follow-up chest CT is optional in 12 [facility] hs. Signed by: Aaliyah Gonzales MD on 05/08/2019 11:41 AM Dictated By: DENNY GONZALES MD 1141 Transcribe d By: KAIT on 05/08/19 1141 COPY TO: CONSTANTINE LR MD CHEST 2 EBICB0628-97-40 14:28:[address] [address] Patient Name: AG CATALAN MR #: [id number] : 1935 Age/Sex: 83/M Req #: [id number] Adm Physician: RADHA DELGADO MD Ordered by: CHELSEA ROCK MD Report #: [id number] Location: MED/SURG2 Room/Bed: [facility] Procedure: [id number] D X/CHEST 2 VIEWS Exam Date: 05/07/19 [...] 2:29 PM Dictated By: AALIYAH GONZALES MD 1420 Transcribed By: KAIT on 05/07/19 1429 COPY TO: CHELSEA ROCK MD RENAL RETROPERITONEAL UPRN0714-46-48 15:55:00 [address] [address] Patient Name: AG CATALAN MR #: [id number] : 1935 Age/Sex: 83/M Req #: [id number] Adm Physician: RADHA DELGADO MD Ordered by: LANIE RICHARD, MARIPOSA RICHARD Report #: [id number] Location: MED/SURG2 Room/Bed: [facility] Procedure: [id number] US/US RENAL RETROPERITONEAL COMP Exam Date: 05/06/19 [...] Uric Acid (test code = 3084-1) 9.1 [facility] CenterBNP Cxr-xDnp2633-50-27 03:47:00* Test Item Value Reference Range Interpretation Comments B-Type Natriuretic Peptide (test code = 53587-4) 507.9 [facility] or plasma creatine kinase measurement (enzymatic activity/volume)2019-05-05 12:45:00* Test Item Value Reference Range Interpretation Comments Creatine Kinase (test code = 2157-6) 111 [facility] or plasma creatine kinase MB measurement (mass/volume)2019-05-05 12:45:00* Test Item Value Reference Range Interpretation Comments Creatine Kinase MB (test code = 14807-4) 1.30 [facility] CenterTroponin I measurement by highly sensitive enzyme yvkqgrzgdhr9365-38-83 12:45:00* Test Item Value Reference Range Interpretation Comments Troponin I (test code = 89886-8) 0.033 [facility] CenterFluoroscopic procedure less than one hour vamuljbx8335-78-47 03:38:00* Test Item Value Reference Range Interpretation Comments Differential Total Cells Counted (test code = Differen tial Total Cells Counted) 100 [facility] blood neutrophils/100 leukocytes 2019-05-05 03:38:00* Test Item Value Reference Range Interpretation Comments Neutrophils % (Manual) (test code = 77348-2) 72 [facility] blood lymphocytes/100 leukocytes 2019-05-05 03:38:00* Test Item Value Reference Range Interpretation Comments Lymphocytes % (Manual) (test code = 737-7) 10 [facility] blood monocytes/100 leukocytes 2019-05-05 03:38:00* Test Item Value Reference Range Interpretation Comments Monocytes % (Manual) (test code = 744-3) 8 [facility] CenterManual blood eosinophil count as percentage of total endyaazbgb1968-97-18 03:38:00* Test Item Value Reference Range Interpretation Comments Eosinophils % (Manual) (test code = 714-6) 10 [facility] or plasma iron measurement (mass/volume)2019-05-05 03:38:00* Test Item Value Reference Range Interpretation Comments Iron Level (test code = 2498-4) 16 [facility] or plasma iron binding capacity measurement (mass/volume)2019-05-05 03:38:00* Test Item Value Reference Range Interpretation Comments Total Iron Binding Capacity (test code = 2500-7) 175 [facility] or plasma iron saturation measurement (mass fraction)2019-05-05 03:38:00* Test Item Value Reference Range Interpretation Comments Percent Iron Saturation (test code = 2502-3) 9 [facility] or plasma transferrin measurement (mass/volume)2019-05-05 03:38:00* Test Item Value Reference Range Interpretation Comments Transferrin (test code = 3034-6) 125 [facility] or plasma ferritin measurement (mass/volume)2019-05-05 03:38:00* Test Item Value Reference Range Interpretation Comments Ferritin (test code = 2276-4) 799.26 [facility] or plasma triglyceride measurement (mass/volume)2019-05-05 03:38:00* Test Item Value Reference Range Interpretation Comments Triglycerides Level (test code = 2571-8) 63 [facility] or plasma cholesterol measurement (mass/volume)2019-05-05 03:38:00* Test Item Value Reference Range Interpretation Comments Cholesterol Level (test code = 2093-3) 99 [facility] or plasma cholesterol in LDL measurement (mass/volume)2019-05-05 03:38:00* Test Item Value Reference Range Interpretation Comments LDL Cholesterol (test code = 2089-1) 60 [facility] or plasma cholesterol in HDL measurement (mass/volume)2019-05-05 03:38:00* Test Item Value Reference Range Interpretation Comments HDL Cholesterol (test code = 2085-9) 26 [facility] or plasma total cholesterol/cholesterol in HDL mass srxgp8879-21-93 03:38:00* Test Item Value Reference Range Interpretation Comments Cholesterol/HDL Ratio (test code = 9830-1) 3.8 [facility] CenterCT CERVICAL SPINE EL6392-54-02 16:13:00 [facility] [address] [address] Patient Name: AG CATALAN MR #: [id number] : 1935 Age/Sex: 83/M Req #: [id number] Adm Physician: Ordered by: MARTINA SKELTON MD Report #: [id number] Location: ER Room/Bed: Procedure: [id number] C T/CT CERVICAL SPINE WO Exam Date: [...] COPY TO: MARTINA SKELTON MD CT BRAIN QV7923-19-81 16:08:[address] [address] Patient Name: AG CATALAN MR #: [id number] : 1935 Age/Sex: 83/M Req #: [id number] Adm Physician: Ordered by: MARTINA SKELTON MD Report #: [id number] Location: ER Room/Bed: Procedure: [id number] C T/CT BRAIN WO Exam Date: Exam [...] MARTINA SKELTON MD CHEST SINGLE (PORTABLE)2019-05-04 14:49:00 [address] [address] Patient Name: AG CATALAN MR #: [id number] : 1935 Age/Sex: 83/M Req #: [id number] Adm Physician: Ordered by: MARTINA SKELTON MD Report #: [id number] Location: ER Room/Bed: Procedure: [id number] D X/CHEST SINGLE (PORTABLE) Exam Date: 05/04/19 [...] COPY TO: MARTINA SKELTON MD Bacterial urine dbntdwn8763-79-59 14:14:00* Test Item Value Reference Range Interpretation Comments Urine Culture (test code = 630-4) ESCHERICHIA COLI-ESBL [facility] CenterProthrombin time (PT) in platelet poor plasma by coagulation qmxyi4101-43-81 13:38:00* Test Item Value Reference Range Interpretation Comments Prothrombin Time (test code = 5902-2) 14.7 [facility] CenterINR in Platelet poor plasma by Coagulation khaxv0498-12-95 13:38:00* Test Item Value Reference Range Interpretation Comments Prothromb Time International Ratio (test code = 6301-6) 1.10 [facility] CenterActivated partial thromboplastin time (aPTT) in platelet poor plasma by coagulation zirmr0118-40-22 13:38:00* Test Item Value Reference Range Interpretation Comments Activated Partial Thromboplast Time (test code = 64876-6) 42.0 [facility] CenterBlood gtyevku0847-61-76 13:38:00* Test Item Value Reference Range Interpretation Comments Blood Culture (test code = 44630092) NO GROWTH AFTER 5 DAYS, FINAL REPORT [facility] CenterInfluenza virus A and B antigen identification by brqluzcjkwijqclevt1122-19-17 18:31:00* Test Item Value Reference Range Interpretation Comments Influenza Virus Types A,B Antigen (test code = 08314-7) NEGATIVE [facility] CenterCHEST SINGLE (PORTABLE)2019-04-18 06:37:[address] [address] Patient Name: AG CATALAN MR #: [id number] : 1935 Age/Sex: 83/M Req #: [id number] Adm Physician: RADHA DELGADO MD Ordered by: GERARD CORTES MD Report #: [id number] Location: ICU Room/Bed: [address] [address] Procedure: [id number] D X/CHEST SINGLE (PORTABLE) Exam Date: Exam [...] GERARD CORTES MD CHEST SINGLE (PORTABLE)2019-04-17 18:31:00 [address] [address] Patient Name: AG CATALAN MR #: [id number] : 1935 Age/Sex: 83/M Req #: [id number] Adm Physician: Ordered by: MARTINA SKELTON MD Report #: [id number] Location: ER Room/Bed: Procedure: [id number] D X/CHEST SINGLE (PORTABLE) Exam Date: 04/17/19 Exam T mundo: 1820 REPORT STATUS: Signed EXAMINATION: CHEST SINGLE (PORTABLE) INDICATION: STEMI 202 [id number] 1820 COMPARISON: 12/25/2017 FINDINGS: AP view T [...] COPY TO: MARTINA SKELTON MD CHEST 2 OJMYX6918-60-04 15:09:00 [address] [address] Patient Name: AG CATALAN MR #: [id number] : 1935 Age/Sex: 82/M Req #: [id number] Adm Physician: Ordered by: NORBERT SAAVEDRA MD Report #: [id number] Location: OR Room/Bed: Procedure: [id number] DX/CHEST 2 VIEWS Exam Date : 12/25/17 [...] TO: VALERIA SAAVEDRA MD CHEST [address] [facility] [address] [address] Patient Name: AG CATALAN MR #: [id number] : 1935 Age/Sex: 82/M Req #: [id number] Adm Physician: Ordered by: KATIE MOREAU MD Report #: [id number] Location: OR Room/Bed: Procedure: [id number] DX/CHEST 2 VIEWS Exam Date: 08/07/17 Exam Time: 1732 REPORT STATUS: Signed PROCEDURE: Frontal and lateral views of the chest. COMPARISON: [facility], DX, CHEST 2 VIEWS, 03/17/2010, 16:30. [...] Moore on 08/07/2017 at 18:14 Dictated By: SUISE PAYTON MD, MD El ectronically Signed By: SUSIE PAYTON MD, MD on 08/07/171813 Transcribed By: Marni MCDANIELS on 08/07/171813 COPY TO: KATIE MOREAU MD
--- NOTE | 2019-08-29 12:52 | Consultation ---
DATE OF CONSULTATION: 08/29/2019 CHIEF COMPLAINT: Rectal bleeding. HISTORY OF ILLNESS: The patient is an 84-year-old male, known to me from recent hospitalizations for strangulated left inguinal hernia approximately 10 days ago. The patient was doing well at home, complained of constipations and was prescribed a milk of magnesia. He then began having bleeding per rectum with diarrhea. He denies vomiting. The patient was re-admitted and was found to have hemoglobin of 5. PAST MEDICAL HISTORY: Positive for coronary artery disease, congestive heart failure, peripheral vascular disease, chronic renal insufficiency, and recent strangulated left inguinal hernia. PAST SURGICAL HISTORY: Positive for recent endovascular abdominal aortic aneurysm repair, recent left strangulated inguinal hernia repair and remote right inguinal hernia repair and knee replacement. ALLERGIES: HE HAS NO DRUG ALLERGIES. SOCIAL HABITS: No smoking or alcohol use. REVIEW OF SYSTEMS: No chest pain. Mild shortness of breath. No cough or fevers. PHYSICAL EXAMINATION: VITAL SIGNS: Stable, afebrile. GENERAL: He is awake, alert, in mild discomfort. HEENT: Sclerae anicteric. NECK: Supple. LUNGS: Clear. HEART: Regular rate and rhythm. ABDOMEN: Soft and nontender. EXTREMITIES: No cyanosis or edema. : Anal exam revealed some liquid dark blood. LABORATORY DATA: White cell count is 4.4, hemoglobin of 5.7 with platelet count 183, and creatinine 1.89. CT of the abdomen showed postop changes with no bowel obstruction. Seroma in the left inguinal region. ASSESSMENT: Gastrointestinal bleeding with history of recent small bowel resection for repair of strangulated left inguinal hernia. PLAN: GI bleeding scan to localize source of bleeding. We will follow the patient. MD BOB [place]/BUSTER /[id number]
[2019-08-29 14:21] LABS: ANISOCYTOSIS SLIGHT; HYPOCHROMASIA SLIGHT; PLATELET ESTIMATE ADEQUATE; PLATELET MORPHOLOGY COMMENT NORMAL; POIKILOCYTOSIS SLIGHT; POLYCHROMASIA FEW; RBC MORPHOLOGY COMMENT NORMAL
--- NOTE | 2019-08-29 15:03 | Consultation ---
DATE OF CONSULTATION: Pulmonary Critical Care Consultation HISTORY OF PRESENT ILLNESS: The patient is an 84-year-old man. He has a history of aortic aneurysm that required a transvenous repair. He also has a history of the acute myocardial infarction in April and that required a stent. He has chronic systolic heart failure with the decreased ejection fraction of 40% to 45%. He was admitted to [facility] on the 20 of August with small bowel obstruction, secondary to an incarcerated hernia. He was seen by Surgery and underwent an operative repair. He now returns complaining of some melenic stool. He does not have fevers. He has no abdominal pain. There is no hematuria. Upon arrival in the ER, he was noted to have a low hemoglobin and has required 3 units of packed red blood cells. He was also seen in consultation by General Surgery. PAST SURGICAL HISTORY: 1. Status post endovascular repair of an aortic aneurysm. 2. Status post total knee replacement bilaterally. 3. Status post peripheral artery stent for acute myocardial infarction in April. PAST MEDICAL HISTORY: 1. Chronic systolic congestive heart failure with a decreased ejection fraction. 2. Chronic renal failure, stage 3. 3. Rheumatoid arthritis. 4. Benign prostatic hypertrophy. SOCIAL HISTORY: The patient is not an active smoker or drinker. ALLERGIES: NO KNOWN DRUG ALLERGIES. FAMILY HISTORY: Family history is noncontributory. REVIEW OF SYSTEMS: There is no history of fever. He is not having any headache or neck pain. He has no vomiting or hematemesis. He does not have any chest pain. He is not having any abdominal pain. He does have melanotic stool and some lower GI bleeding. He has no focal neurological complaints. PHYSICAL EXAMINATION: VITAL SIGNS: Blood pressure 134/102, saturations 100% and the pulse is 58. HEENT: Shows no facial swelling or erythema. CARDIAC: Reveals regular rate and rhythm with normal S1 and S2. LUNGS: Auscultation of lungs reveals decreased breath sounds at the bases. There is no wheezing. ABDOMEN: Soft, nontender. There is no rebound or guarding. EXTREMITIES: Show no leg edema or calf tenderness. There is no cyanosis or clubbing. SKIN: Shows no rashes. NEUROLOGIC: Shows no focal abnormalities. LABORATORY DATA: Hemoglobin is 5.7 and the white blood cell count is 4.49. The platelet count is 183. The BUN to creatinine ratio is 24 to 1.89. Albumin is 2.9. Other electrolytes are within normal limits. The INR is 1.1 and the PTT is 42. Urinalysis is negative. Coronavirus test is negative. RADIOGRAPHIC DATA: 1. CT scan of the abdomen and pelvis shows postsurgical changes in the left inguinal area with a fluid collection in the left lower abdomen, possibly representing seroma or postoperative changes. 2. Status post repair of an infrarenal abdominal aneurysm. 3. Trace pleural effusions and dependent atelectasis. 4. Ileus. IMPRESSION: 1. Anemia, secondary to acute blood loss. 2. Gastrointestinal bleeding. 3. Recurrent urinary tract infections. 4. Chronic renal failure stage 3. 5. Chronic systolic congestive heart failure. 6. Benign prostatic hypertrophy. 7. Rheumatoid arthritis. PLAN: 1. Continue to give packed red blood cells as needed. 2. Monitor coags, platelets and calcium as well. 3. Await further evaluation from Gastroenterology and possible colonoscopy. 4. Continue Protonix. 5. Monitor renal function. Wilner Reed MD [facility]/MODL /[id number]
--- NOTE | 2019-08-29 16:34 | Diagnostic Imaging Report ---
Tagged-RBC GI Bleed Study Clinical information: 84-year-old male with bright red blood per rectum since last evening Discussion: The patient's own red blood cells were labeled with 25 mCi of technetium-99m pertechnetate using the in vitro method (UltraTag). Dynamic images of the abdomen were obtained through 60 minutes. A collection of blood appears in the LUQ at the very beginning of the study. It collects there and only a small amount of the labeled blood travels antegrade in small spurts that appear to cross to the midline. No labeled blood appears in the rectum. Impression: Scan evidence of a gastrointestinal bleed that originates in the LUQ of the abdomen. Blood pools in the site of the bleed. It is not possible to determine if the bleed is in large bowel or small bowel. The collection of blood in the LUQ has the appearance of the splenic flexure or proximal descending colon but as blood spurts across toward the midline, it doesn't collect and so not able to tell if is in small bowel. Also, the absence of labeled blood in the rectum favors small bowel, but bright red blood per rectum favors descending colon. Signed by: Dr. Fidelia Greenfield M.D. on 08/29/2019 4:31 PM
--- NOTE | 2019-08-29 17:21 | NUR ---
recvd call from dr marcy hernandez stating pt needs colonoscopy post gi bleeding scan positive. called to obtain consent. she states she will call daughter. daugher is upset she wasn't notified sooner and thought colosnoscopy was already done. daughter wants to speak with dr hernandez. dr hernandez called and paged.
[2019-08-29 17:56] LABS: BASOPHILS # (AUTO) 0.1 (0.0-0.1); BASOPHILS % 0.8 % (0.0-1.0); EOSINOPHILS # (AUTO) 0.1 (0.0-0.4); EOSINOPHILS % 1.9 % (0.0-6.0); HEMATOCRIT 26.1 % (38.2-49.6); HEMOGLOBIN 7.7 g/dL (14.0-18.0); LYMPHOCYTES # (AUTO) 1.5 (1.0-3.2); LYMPHOCYTES % 23.4 % (18.0-39.1); MEAN CORPUSCULAR HEMOGLOBIN 29.6 pg (28-32); MEAN CORPUSCULAR HGB CONC 29.5 g/dL (31-35); MEAN CORPUSCULAR VOLUME 100.4 fL (81-99); MONOCYTES # (AUTO) 0.6 (0.2-0.8); NEUTROPHILS # (AUTO) 4.1 (2.1-6.9); NEUTROPHILS % 63.3 % (38.7-80.0); PLATELET COUNT 179 x10e3/uL (140-360); RED CELL DISTRIBUTION WIDTH 15.8 % (11.7-14.4)
[2019-08-29 18:17] LABS: CREATINE KINASE MB 1.1 ng/mL (0-5.0)
[2019-08-29] MEDS ORDERED: CEFAZOLIN SOD 1 GM VIAL ONE (18:26)
[2019-08-29] MEDS ORDERED: GLUCAGON FOR INJ 1 MG VIAL ONE (18:26)
[2019-08-29] MEDS ORDERED: ROCURONIUM BROMIDE 10 MG/ML 5ML VIAL IV ONE (18:26)
[2019-08-29] MEDS ORDERED: ETOMIDATE 2 MG/ML 10 ML INJ IV ONE (18:26)
[2019-08-29] MEDS ORDERED: SEVOFLURANE INHAL SOLN 250 ML PEN BTL ONE (18:26)
--- NOTE | 2019-08-29 18:30 | NUR ---
given 3 enemas. appears clear with min clots.
[2019-08-29] MEDS ORDERED: SODIUM CHLORIDE 0.9% 500ML 0 ML ONE (20:43)
[2019-08-29 21:04] LABS: BASOPHILS # (AUTO) 0.1 (0.0-0.1); BASOPHILS % 0.9 % (0.0-1.0); EOSINOPHILS # (AUTO) 0.1 (0.0-0.4); HEMATOCRIT 20.2 % (38.2-49.6); LYMPHOCYTES # (AUTO) 2.3 (1.0-3.2); LYMPHOCYTES % 32.6 % (18.0-39.1); MEAN CORPUSCULAR HGB CONC 30.7 g/dL (31-35); MEAN CORPUSCULAR VOLUME 97.6 fL (81-99); MONOCYTES # (AUTO) 0.5 (0.2-0.8); MONOCYTES % 6.5 % (4.4-11.3); NEUTROPHILS % 57.4 % (38.7-80.0); PLATELET COUNT 162 x10e3/uL (140-360); RED BLOOD COUNT 2.07 x10e6/uL (4.3-5.7); RED CELL DISTRIBUTION WIDTH 15.8 % (11.7-14.4)
[2019-08-29 21:07] LABS: HEMOGLOBIN 6.2 g/dL (14.0-18.0)
[2019-08-29 21:14] LABS: INR 1.21; PROTHROMBIN TIME 16.1 seconds (11.9-14.5)
[2019-08-29 21:15] LABS: PARTIAL THROMBOPLASTIN TIME 34.6 seconds (23.8-35.5)
[2019-08-30] VITALS (16 sets, daily range): BP systolic 105–179; BP diastolic 53–87
[2019-08-30] MEDS ORDERED: SODIUM CHLORIDE 0.9% 250ML 1,000 ML ONE (00:03)
--- NOTE | 2019-08-30 00:40 | Operative Report ---
DATE OF PROCEDURE: 08/29/2019 SURGEON: Lowell To MD PREOPERATIVE DIAGNOSIS: Gastrointestinal bleeding. POSTOPERATIVE DIAGNOSIS: Gastrointestinal bleeding. PROCEDURE PERFORMED: Exploratory laparotomy, over-sewing of the anastomosis. ANESTHESIA: General; Dr. Avendano. INDICATIONS: An 84-year-old male with history of repair of left strangulated inguinal hernia 2 weeks ago with bowel resection. The patient presented with active GI bleeding, seen on bleeding scan. Colonoscopy revealed blood in the colon with large amount of blood tinged fluid in the small bowel, suggesting bleeding from the previous small-bowel anastomosis. The patient's family consented for exploratory laparotomy and possible bowel resection. PROCEDURE FINDINGS: Bleeding at the anastomosis in the small bowel. DESCRIPTION OF PROCEDURE: The patient was brought to the OR intubated. Abdomen was prepped with alcohol and draped in sterile fashion. The midline incision was made, entering the peritoneal cavity through a previously placed mesh. The previous small bowel anastomosis was localized approximately 1.5 m from the ileocecal valve. A transverse incision was made adjacent to the anastomosis and the anastomosis was examined. There was some blood tinged fluid in the lumen with the small bleeders at the anastomosis, which was oversewn with qtqjdo-xi-qqyzh stitch of 3-0 Vicryl. Hemostasis was achieved. We closed the enterotomy with a running 3-0 Vicryl and 3-0 silk Lembert stitches. The abdominal cavity was explored. The small bowel was run from the ileocecal valve in a retrograde fashion. No lesions noted. The small bowel was noted to be quite fluid-filled with evidence of intraluminal blood. The colon was grossly unremarkable with no mass noted. At this point, peritoneal cavity was irrigated, hemostasis was achieved. We closed the midline fascia with a running #0 PDS and skin with jose. The patient transported in a guarded condition, intubated to ICU. Blood loss from procedure was 5 mL, but the patient had a liter of blood loss during colonoscopy and during preparation for the operation. He had received 3 units of blood in the OR along with 1 L of lactated Ringer. Lowell To MD [facility]/MODL /[id number]
--- NOTE | 2019-08-30 00:47 | NUR ---
@2320 Received pt from OR, V.S BP 119/61, HR 66, RR 12,T-97.7F, oxygen 100%. Vent setting at vt600, RR12,peep-5, oxygen 100% pt stable intubated/sedated, ET at 23cm. NGT to Left nare.
--- NOTE | 2019-08-30 01:01 | Operative Report ---
DATE OF PROCEDURE: 08/29/2019 SURGEON: Richard Riojas MD PROCEDURE: Colonoscopy with ileoscopy. ADDITIONAL REFERRING PHYSICIAN: Dr. Lowell To. INDICATIONS FOR COLONOSCOPY: Rectal bleeding. Colonoscopy is being done to document whether bleeding source is colonic versus small bowel. The patient is status post recent small bowel resection for strangulated left inguinal hernia. MEDICATIONS: The patient was done under MAC, please see anesthesiologist's note. PROCEDURE IN DETAIL: With the patient in left lateral decubitus position, a flexible fiberoptic Olympus colonoscope was introduced into the rectum with ease and advanced with some difficulty all the way to the cecum. There was large amount of blood and blood clots in the colon. The ileocecal valve was identified and it was intubated and the scope was advanced into the terminal ileum to approximately 10 cm proximal to the ileocecal valve. Reddish-tinged blood was noted, but no active bleeding site was identified. The scope was then withdrawn back into the colon. It was subsequently withdrawn. The patient tolerated the procedure well. IMPRESSION: 1. Large amount of blood and blood clots in the colon. 2. Reddish-tinged blood noted in the terminal ileum up to approximately 10 cm proximal to the ileocecal valve. 3. Diverticulosis. PLAN: Follow H and H. Discussed with Dr. To. Arteriogram is not an option due to the patient's abnormal renal function. The patient most likely will be explored. Richard Riojas MD [facility] [place]/MODL /[id number] cc: MD Lowell Deutsch MD
[2019-08-30] MEDS: SODIUM CHLORIDE 0.9% 250ML IRRIG IR SCH ×7 (01:27→23:15)
[2019-08-30] MEDS ORDERED: PROPOFOL IV EMULSION 10MG/ML 100 ML IV PRN (02:00)
[2019-08-30] MEDS ORDERED: PROPOFOL IV EMULSION 100 ML IV ONE ×2 (02:22→06:10)
[2019-08-30] MEDS: PROPOFOL IV EMULSION 10MG/ML 50 ML IV PRN ×2 (02:57→07:00)
--- NOTE | 2019-08-30 06:03 | NUR ---
IM- progress note O/N see below ROS: no f/c/s/N/V/D/dizziness/skin rash/back pain/confusion/leg pain v/s; revd PE tired appearing; NGT in place anicteric ns1s2 mod bs soft nd; tender left abdomen; Dressing in mid abdomen Lamb in place no e/t; thickening and yellowing of toenails skin dry n. affect Reduced hearing labs/meds revd A/P 83yoM LGIB- IV PPI; GI eval; hold plavix/ASA Left abdominal seroma- post surgical; sx consulted; Recent Left inguinal hernia surgical repair CKD3 due to HTN- at or near baseline Moderate anemia CAD with recent ACS and stent placed in 04/2019- cardioeval Hypertensive heart ds BPH- flomax RA- plaquenil Onychomycosis of toenails HEaring deficits Prop: scd dispo: f/u bleeding scan and consultations. monitor closely in ICU. 5-22S/sp Ex Lap and oversewing of the anastamosis; Severe Anemia- blood transfusion; f/u labs this am. Was intubated, now extubated; Qamar Olson MD, PhD.
--- NOTE | 2019-08-30 06:11 | Consultation ---
DATE OF CONSULTATION: 08/29/2019 Cardiology Consult Note REASON FOR CONSULT: History of PCI and GI bleeding. CHIEF COMPLAINT: GI bleeding. HISTORY OF PRESENT ILLNESS: The patient is an 84-year-old man, known to our service. He had ST elevation TN in April 2019, status post placement of drug-eluting stents, who presents with bright red blood per rectum and severe acute blood loss anemia and hypotension. Currently, denies any chest pain, shortness of breath, or heart failure symptoms. He was taking his dual antiplatelets prior to admission, currently being held, pending urgent endoscopy. PAST MEDICAL HISTORY: 1. Chronic systolic congestive heart failure. 2. Chronic kidney disease. 3. Rheumatoid arthritis. 4. Coronary artery disease, status post STEMI and PCI on April 17, 2019. PAST SURGICAL HISTORY: 1. Status post aortic aneurysm repair. 2. Knee replacement. SOCIAL HISTORY: Does not smoke, drink, or abuse drugs. FAMILY HISTORY: Noncontributory. REVIEW OF SYSTEMS: As per HPI, otherwise negative. PHYSICAL EXAMINATION: VITAL SIGNS: Blood pressure 97/65, heart rate 85, saturating 100% on nasal cannula. GENERAL: An elderly man in no acute distress. CARDIOVASCULAR: Regular rate and rhythm. No murmurs, rubs, or gallops. LUNGS: Decreased breath sounds bilateral bases. No wheezes, rales, or rhonchi. ABDOMEN: Soft, nontender. No rebound or guarding. NEURO AND PSYCH: Alert and oriented x2. Normal hard of hearing. INPATIENT MEDICATIONS: Reviewed. LABORATORY DATA: Reviewed. Hemoglobin is critically low at 5.7. IMAGING DATA: Reviewed. ASSESSMENT AND PLAN: 1. Acute blood loss anemia. 2. GI bleeding. 3. History of coronary artery disease, status post STEMI and PCI in April 2019. 4. Chronic systolic congestive heart failure. PLAN: Given acute blood loss and critically low hemoglobin, okay to hold dual antiplatelet therapy, pending GI urgent endoscopy. Continue aspirin. Would prefer to resume his Plavix, pending GI evaluation. Thank you for this consult. We will continue to follow. MD MILLI ReadP/RUBYL /[id number]
[2019-08-30] MEDS: CEFAZOLIN SOD 1 GM/NS 50ML 50 ML IV SCH ×3 (07:19→21:20)
--- NOTE | 2019-08-30 07:44 | NUR ---
Notified Dr To of borderline urine output overnight. pt resting VS stable. report given to the oncoming RN
[2019-08-30 08:03] LABS: BASOPHILS # (AUTO) 0.1 (0.0-0.1); BASOPHILS % 0.8 % (0.0-1.0); EOSINOPHILS # (AUTO) 0.1 (0.0-0.4); EOSINOPHILS % 1.8 % (0.0-6.0); HEMATOCRIT 32.7 % (38.2-49.6); HEMOGLOBIN 10.4 g/dL (14.0-18.0); LYMPHOCYTES # (AUTO) 1.2 (1.0-3.2); LYMPHOCYTES % 14.9 % (18.0-39.1); MEAN CORPUSCULAR HEMOGLOBIN 29.9 pg (28-32); MEAN CORPUSCULAR HGB CONC 31.8 g/dL (31-35); MONOCYTES # (AUTO) 0.5 (0.2-0.8); MONOCYTES % 6.4 % (4.4-11.3); NEUTROPHILS % 75.5 % (38.7-80.0); PLATELET COUNT 148 x10e3/uL (140-360); RED BLOOD COUNT 3.48 x10e6/uL (4.3-5.7); RED CELL DISTRIBUTION WIDTH 16.2 % (11.7-14.4)
--- NOTE | 2019-08-30 08:20 | NUR ---
Extubated by respiratory therapist Gaetano Lugo to nasal cannula. Will monitor.
[2019-08-30] MEDS ORDERED: HEPARIN SOD (PORCINE) 1000 UNIT/ML SDV ONE (08:23)
[2019-08-30 08:33] LABS: ALBUMIN 2.3 g/dL (3.5-5.0); ALBUMIN/GLOBULIN RATIO 0.8 (0.8-2.0); ANION GAP 9.6 mmol/L (8-16); CALCIUM 7.3 mg/dL (8.4-10.2); CREATININE, SERUM 1.5 mg/dL (0.72-1.25); POTASSIUM 4.6 mmol/L (3.5-5.1)
[2019-08-30] MEDS: TAMSULOSIN HCL 0.4 MG CAP PO SCH (09:00)
[2019-08-30] MEDS ORDERED: CLOPIDOGREL BISULFATE 75 MG TAB PO SCH (09:00)
--- NOTE | 2019-08-30 09:11 | Progress Note ---
DATE: SUBJECTIVE: The patient had a colonoscopy yesterday with large amount of lower GI bleeding. He subsequently went to the OR. He had exploratory laparotomy. His recent anastomosis was located and oversewn. Bleeding apparently improved. The patient came back to the ICU around 1130 last night on a ventilator. The patient was on PRVC mode of ventilation with sedation of propofol. He is hemodynamically stable. He is urinating. PHYSICAL EXAMINATION: VITAL SIGNS: The blood pressure is 125/55 and saturation is now 100%. He has been placed on a CPAP of 5 with a pressure support of 8. He is breathing about 15-18 times a minute with tidal volumes of 350-400 mL. HEENT: No facial swelling or erythema. There is no oral endotracheal tube in place. There is a nasogastric tube in place. HEART: Cardiac exam reveals regular rate and rhythm with normal S1 and S2. LUNGS: Auscultation of the lungs shows decreased breath sounds at the bases. There is no wheezing. ABDOMEN: Soft, nontender. There is no rebound or guarding. EXTREMITIES: No leg edema or calf tenderness. There is no cyanosis or clubbing. SKIN: No rashes. NEUROLOGICAL: Shows the patient to be still groggy and sedated, but becoming more arousable. IMPRESSION: 1. Anemia secondary to acute blood loss. 2. Redo laparotomy with over-sewing of the anastomosis. 3. Recurrent urinary tract infections. 4. Chronic renal failure stage 3. 5. Benign prostatic hypertrophy. 6. Rheumatoid arthritis. 7. Recent myocardial infarction five months ago that required a stent. 8. Status post intravascular repair of an infrarenal aortic aneurysm. 9. Chronic systolic congestive heart failure. PLAN: 1. Continue CPAP trial and work towards extubation. 2. Repeat CBC, electrolytes, BUN and creatinine this morning. 3. Continue to monitor urine output and renal function. 4. Continue current antibiotics. 5. DVT prophylaxis. 6. Case discussed with Respiratory, Nursing, Internal Medicine and GI. Greater than 35 minutes in direct critical care time. MD ADELINE Virk/BUSTER /[id number]
--- NOTE | 2019-08-30 09:13 | Diagnostic Imaging Report ---
Exam: Chest one view Clinical history: Extubation Comparison: None available Findings: The study is supple optimal secondary to underpenetration. A nasogastric tube is seen (tip overlying the left upper quadrant presumably in the region of the gastric fundus. The cardiac size is enlarged. There is no evidence of pulmonary consolidation, pleural effusion, or pneumothorax. The regional osseous structures demonstrate degenerative changes of bilateral glenohumeral joints, right greater than left. Signed by: Dr. Eber Chaudhry MD on 08/30/2019 9:09 AM
[2019-08-30] MEDS: PANTOPRAZOLE 40 MG 10ML VIAL IV SCH ×2 (09:48→18:24)
[2019-08-30] MEDS: HYDROXYCHLOROQUINE SULFATE 200 MG TAB PO SCH (09:49)
[2019-08-30] MEDS: LISINOPRIL 10 MG TAB PO SCH (09:50)
[2019-08-30 19:22] LABS: HEMATOCRIT 30.8 % (38.2-49.6); HEMOGLOBIN 9.7 g/dL (14.0-18.0)
--- NOTE | 2019-08-30 20:30 | Progress Note ---
DATE: 08/30/2019 Cardiology Progress Note SUBJECTIVE: No chest pain or shortness of breath. OBJECTIVE: VITAL SIGNS: Temperature afebrile, pulse 65, respiratory rate 19, blood pressure 139/56, and saturating 100% on 2 L nasal cannula. GENERAL: An elderly man, in no acute distress. CARDIOVASCULAR: Regular rate and rhythm. No murmurs, rubs, or gallops. LUNGS: Decreased breath sounds at the bases. NEURO AND PSYCH: Sleepy, but arousable, alert, oriented. INPATIENT MEDICATIONS: Reviewed. LABORATORY DATA: Hemoglobin is now 10.4 post transfusion. Creatinine is 1.5. ASSESSMENT: 1. Acute lower gastrointestinal bleeding, status post colonoscopy, laparotomy, and revision of his prior anastomosis. 2. History of coronary artery disease, status post STEMI in April 2019. 3. History of drug-eluting stent in April 2019. 4. Chronic systolic congestive heart failure. PLAN: Continue holding antiplatelets given severe life-threatening bleeding recently. Once bleeding stabilizes, please restart aspirin as soon as possible. Thank you for this consult. We will continue to follow. MD LATESHA Read/BUSTER /[id number]
[2019-08-30] MEDS: HYDROMORPHONE 1MG/1ML INJ IV PRN (23:25)
[2019-08-31] VITALS (26 sets, daily range): BP systolic 119–163; BP diastolic 52–86
[2019-08-31 02:04] LABS: HEMOGLOBIN 9.2 g/dL (14.0-18.0)
[2019-08-31] MEDS: SODIUM CHLORIDE 0.9% 250ML IRRIG IR SCH ×2 (04:03→09:32)
[2019-08-31] MEDS: HYDROMORPHONE 1MG/1ML INJ IV PRN ×3 (04:16→20:21)
[2019-08-31 05:50] LABS: BASOPHILS % 0.5 % (0.0-1.0); EOSINOPHILS # (AUTO) 0.2 (0.0-0.4); EOSINOPHILS % 3.2 % (0.0-6.0); HEMATOCRIT 31.2 % (38.2-49.6); HEMOGLOBIN 9.7 g/dL (14.0-18.0); LYMPHOCYTES % 14.8 % (18.0-39.1); MEAN CORPUSCULAR HEMOGLOBIN 30.3 pg (28-32); MEAN CORPUSCULAR HGB CONC 31.1 g/dL (31-35); MEAN CORPUSCULAR VOLUME 97.5 fL (81-99); MONOCYTES # (AUTO) 0.5 (0.2-0.8); MONOCYTES % 7.1 % (4.4-11.3); NEUTROPHILS # (AUTO) 4.8 (2.1-6.9); NEUTROPHILS % 73.8 % (38.7-80.0); PLATELET COUNT 167 x10e3/uL (140-360); RED CELL DISTRIBUTION WIDTH 15.7 % (11.7-14.4)
[2019-08-31] MEDS: CEFAZOLIN SOD 1 GM/NS 50ML 50 ML IV SCH ×3 (06:02→22:09)
[2019-08-31 06:23] LABS: ALBUMIN 2.4 g/dL (3.5-5.0); ALBUMIN/GLOBULIN RATIO 0.8 (0.8-2.0); ANION GAP 12.6 mmol/L (8-16); CALCIUM 7.9 mg/dL (8.4-10.2); CREATININE, SERUM 1.39 mg/dL (0.72-1.25); POTASSIUM 4.6 mmol/L (3.5-5.1)
[2019-08-31] MEDS: TAMSULOSIN HCL 0.4 MG CAP PO SCH (09:00)
--- NOTE | 2019-08-31 09:30 | NUR ---
Assumed care of patient at this time.
[2019-08-31] MEDS: HYDROXYCHLOROQUINE SULFATE 200 MG TAB PO SCH (09:53)
[2019-08-31] MEDS: PANTOPRAZOLE 40 MG 10ML VIAL IV SCH ×2 (09:53→17:22)
[2019-08-31] MEDS: LISINOPRIL 10 MG TAB PO SCH (09:54)
--- NOTE | 2019-08-31 11:17 | Progress Note ---
DATE: Cardiology Progress Note SUBJECTIVE: Complains of abdominal pain all over. Denies any chest pain or shortness of breath. OBJECTIVE: VITAL SIGNS: Temperature 98.2, pulse 58, respiratory rate 16, blood pressure 127/62, and oxygen saturation 100% on 2 L nasal cannula. GENERAL: Alert and oriented x3. Hard of hearing, resting comfortably in bed. Does not appear to be in any acute distress. NECK: Supple. No JVD noted. LUNGS: Diminished breath sounds anterior lower lobes, otherwise clear to auscultation. CARDIOVASCULAR: Regular rate and rhythm. Normal S1 and S2. No murmurs. No gallops. EXTREMITIES: Lower extremity, trace edema bilaterally. CARDIOVASCULAR MEDICATIONS: Lisinopril 10 mg p.o. daily. LABORATORY DATA: WBC 6.47, hemoglobin 9.7, hematocrit 31.2, and platelets 167. Sodium 147, potassium 4.6, BUN 12, creatinine 1.39, and GFR 49. Telemetry, sinus bradycardia. ASSESSMENT: 1. Acute lower gastrointestinal bleed, status post colonoscopy and laparotomy and revision of prior anastomosis. 2. History of coronary artery disease, status post ST-elevation myocardial infarction in April of 2019 and now status post drug-eluting stent in April of 2019. 3. Chronic systolic heart failure. PLAN: Medical management of the above. Monitor renal function closely. Off ACEs and ARBs at this time due to renal injury noted. Dual anti-platelet on hold given life-threatening GI bleed and recent surgery. Once his bleeding has stabilized and abdominal pain is resolving, we will restart aspirin. Initiate atorvastatin at this time and also beta-john. We will continue to monitor this patient very closely. Maintain on telemetry at all times. Dictated by Hayley Easley NP MD BRIAN GuidoV/BUSTER /[id number]
--- NOTE | 2019-08-31 13:23 | Progress Note ---
DATE: SUBJECTIVE: The patient was extubated yesterday. He still has some abdominal pain, but overall feels better. PHYSICAL EXAMINATION: VITAL SIGNS: The blood pressure is 156/68 and saturation is 100%. HEENT: Shows no facial swelling or erythema. CARDIAC: Reveals regular rate and rhythm with normal S1 and S2. LUNGS: Auscultation of lungs reveals clear breath sounds bilaterally. There is no wheezing. ABDOMEN: Soft. There is some tenderness. There is no rebound or guarding. EXTREMITIES: Shows no leg edema or calf tenderness. There is no cyanosis or clubbing. SKIN: Shows no rashes. NEUROLOGICAL: Shows no focal abnormalities. IMPRESSION: 1. Anemia secondary to chronic blood loss. 2. Status post laparotomy with repair of anastomosis. 3. Chronic renal failure, stage 3. 4. Rheumatoid arthritis. 5. Subacute myocardial infarction 5 months ago. 6. Chronic congestive heart failure. 7. Rheumatoid arthritis. PLAN: 1. The patient is now on nasal cannula. 2. Continue to advance diet as tolerated. 3. Complete antibiotics. 4. Transfer out of ICU. Wilner Reed MD LM/RUBYL /[id number]
[2019-08-31] MEDS: SODIUM CHLORIDE 0.45% 1,000 ML IV SCH (17:22)
--- NOTE | 2019-08-31 17:29 | NUR ---
Pt has experienced one transient event of chest discomfort. Pt stating felt worse when pressed on his sternum. Orders received. EKG and troponin done. Dr's: Wesley Fajardo L Hamer, and Patrice aware. Will monitor.
--- NOTE | 2019-08-31 19:03 | NUR ---
IM- progress note O/N see below ROS: no f/c/s/N/V/D/dizziness/skin rash/back pain/confusion/leg pain v/s; revd PE tired appearing; NGT in place anicteric ns1s2 mod bs soft nd; tender left abdomen; Dressing in mid abdomen Lamb in place no e/t; thickening and yellowing of toenails skin dry n. affect Reduced hearing labs/meds revd A/P 83yoM LGIB- IV PPI; GI eval; hold plavix/ASA Left abdominal seroma- post surgical; sx consulted; Recent Left inguinal hernia surgical repair CKD3 due to HTN- at or near baseline Moderate anemia CAD with recent ACS and stent placed in 04/2019- cardioeval Hypertensive heart ds BPH- flomax RA- plaquenil Onychomycosis of toenails HEaring deficits Prop: scd dispo: f/u bleeding scan and consultations. monitor closely in ICU. 5-22S/sp Ex Lap and oversewing of the anastamosis; Severe Anemia- blood transfusion; f/u labs this am. Was intubated, now extubated; 5-23 cont current care; pt alert; doing well; monitor Hb. some foot pain. Qamar Olson MD, PhD.
[2019-08-31] MEDS: ATORVASTATIN 20 MG TAB PO SCH (20:21)
[2019-09-01] VITALS (16 sets, daily range): BP systolic 133–161; BP diastolic 54–69
[2019-09-01] MEDS: HYDROMORPHONE 1MG/1ML INJ IV PRN ×2 (01:03→06:41)
[2019-09-01] MEDS: SODIUM CHLORIDE 0.45% 1,000 ML IV SCH ×3 (03:00→16:31)
[2019-09-01 03:27] LABS: FERRITIN 1038.88 ng/mL (21.81-274.66)
[2019-09-01] MEDS: CEFAZOLIN SOD 1 GM/NS 50ML 50 ML IV SCH ×3 (05:33→21:09)
[2019-09-01 06:15] LABS: BASOPHILS % 0.4 % (0.0-1.0); EOSINOPHILS # (AUTO) 0.2 (0.0-0.4); HEMATOCRIT 28.6 % (38.2-49.6); HEMOGLOBIN 8.8 g/dL (14.0-18.0); LYMPHOCYTES % 13.9 % (18.0-39.1); MEAN CORPUSCULAR HEMOGLOBIN 30.2 pg (28-32); MEAN CORPUSCULAR HGB CONC 30.8 g/dL (31-35); MEAN CORPUSCULAR VOLUME 98.3 fL (81-99); MONOCYTES # (AUTO) 0.5 (0.2-0.8); NEUTROPHILS # (AUTO) 5.5 (2.1-6.9); PLATELET COUNT 185 x10e3/uL (140-360); RED BLOOD COUNT 2.91 x10e6/uL (4.3-5.7); RED CELL DISTRIBUTION WIDTH 15.2 % (11.7-14.4)
[2019-09-01 06:35] LABS: ANION GAP 11.5 mmol/L (8-16); BLOOD UREA NITROGEN 15 mg/dL (7-26); BUN/CREATININE RATIO 14 (6-25); CALCIUM 7.9 mg/dL (8.4-10.2); CARBON DIOXIDE 21 mmol/L (22-29); CHLORIDE 109 mmol/L (98-107); EST GLOMERULAR FILTRATION RATE > 60 ML/MIN (60-); POTASSIUM 4.5 mmol/L (3.5-5.1); SODIUM 137 mmol/L (136-145)
[2019-09-01 06:48] LABS: GLUCOSE 53 mg/dL (74-118)
[2019-09-01] MEDS: DEXTROSE 5%/0.45% SOD CHL 1,000 ML IV SCH (08:41)
[2019-09-01] MEDS: HYDROXYCHLOROQUINE SULFATE 200 MG TAB PO SCH (08:45)
[2019-09-01] MEDS: LISINOPRIL 10 MG TAB PO SCH (08:45)
[2019-09-01] MEDS: TAMSULOSIN HCL 0.4 MG CAP PO SCH (08:45)
[2019-09-01] MEDS: PANTOPRAZOLE 40 MG 10ML VIAL IV SCH ×2 (08:45→16:31)
--- NOTE | 2019-09-01 11:57 | Progress Note ---
DATE: SUBJECTIVE: The patient has no new complaints today. He is resting comfortably. PHYSICAL EXAMINATION: VITAL SIGNS: The blood pressure is 146/62 and saturation is 100%. The pulse is 56 and respiratory rate is 17. CARDIAC: Reveals regular rate and rhythm with normal S1 and S2. LUNGS: Auscultation of lungs reveals decreased breath sounds at the bases. There is no wheezing. ABDOMEN: reclamation kettle tender from prior surgery. EXTREMITIES: There is no leg edema. LABORATORY DATA: White blood cell count is 7.3 and hemoglobin is 8.8. The platelet count is 185. BUN to creatinine ratio is 15 to 1.1. IMPRESSION: 1. Anemia secondary to acute blood loss. 2. Status post laparotomy with repair of anastomosis. 3. Chronic renal failure, stage 3. 4. Rheumatoid arthritis. 5. Myocardial infarction 5 months ago. PLAN: 1. Continue to wean oxygen. 2. Advance diet as tolerated. 3. Complete antibiotics. 4. Physical therapy. Wilner Reed MD Elif/BUSTER /[id number]
--- NOTE | 2019-09-01 12:00 | NUR ---
Pt is continuing to decline much PO intake. 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 Dr Rehan Riojas is on consult.
--- NOTE | 2019-09-01 12:06 | Progress Note ---
DATE: Cardiology Progress Note SUBJECTIVE: The patient complains of some abdominal pain. Denies any nausea, vomiting, or chest pain. OBJECTIVE: VITAL SIGNS: Temperature 98.1, pulse 56, respiratory rate 17, blood pressure 146/62, and oxygen saturation 100% on 2 L nasal cannula. GENERAL: Alert and oriented x3. Hard of hearing, resting comfortably in bed. NECK: Supple. No JVD noted. LUNGS: Diminished breath sounds anterior lower lobes, otherwise clear to auscultation. CARDIOVASCULAR: Regular rate and rhythm. Bradycardic. Normal S1, S2. No murmurs, no gallops. EXTREMITIES: Lower extremity trace edema bilaterally. ABDOMEN: Soft, tender to palpation. CARDIOVASCULAR MEDICATIONS: Lisinopril 10 mg p.o. daily, atorvastatin 20 mg p.o. HS, aspirin 81 mg p.o. daily. LABORATORY DATA: WBC 7.32, hemoglobin 8.8, hematocrit 28.6, and platelets 185. Sodium 137, potassium 4.5, BUN 15, creatinine 1.10. TELEMETRY: Sinus bradycardia. IMPRESSION: 1. Acute lower gastrointestinal bleed, status post colonoscopy and laparotomy, and revision of prior anastomosis. 2. History of coronary artery disease, status post STEMI in April 2019 and status post drug-eluting stent at the same time. 3. Chronic systolic heart failure. 4. Status post abdominal aortic aneurysm repair in May 2019, by . PLAN: Aspirin added, if okay with Surgeon continue daily. Continue medical management of the above condition. Plavix on hold at this time, given life-threatening GI bleed recently. However, hemoglobin remains to be stable. Continue to monitor hemoglobin very closely. Continue beta-john. Maintain on telemetry at all time. We will continue to follow this patient very closely and consider adding MACK or ARBs depending on renal function. Dictated by Hayley Easley, MASHA MD BRIAN GuidoV/BUSTER /[id number]
--- NOTE | 2019-09-01 19:37 | NUR ---
RECEIVED REPORT FROM PREVIOUS NURSE. CALL LIGHT WITHIN REACH. PATIENT IN BED
[2019-09-01] MEDS: ATORVASTATIN 20 MG TAB PO SCH (21:09)
[2019-09-02] VITALS (9 sets, daily range): BP systolic 117–157; BP diastolic 53–78
[2019-09-02] MEDS: HYDROMORPHONE 1MG/1ML INJ IV PRN ×2 (00:44→20:37)
[2019-09-02] MEDS: CEFAZOLIN SOD 1 GM/NS 50ML 50 ML IV SCH ×3 (05:27→22:00)
[2019-09-02 05:57] LABS: BASOPHILS % 0.6 % (0.0-1.0); EOSINOPHILS # (AUTO) 0.2 (0.0-0.4); EOSINOPHILS % 2.4 % (0.0-6.0); HEMATOCRIT 25.9 % (38.2-49.6); HEMOGLOBIN 8.1 g/dL (14.0-18.0); LYMPHOCYTES # (AUTO) 0.9 (1.0-3.2); LYMPHOCYTES % 12.6 % (18.0-39.1); MEAN CORPUSCULAR HEMOGLOBIN 30.1 pg (28-32); MEAN CORPUSCULAR HGB CONC 31.3 g/dL (31-35); MEAN CORPUSCULAR VOLUME 96.3 fL (81-99); MONOCYTES # (AUTO) 0.5 (0.2-0.8); MONOCYTES % 7.7 % (4.4-11.3); NEUTROPHILS # (AUTO) 5.4 (2.1-6.9); NEUTROPHILS % 76.4 % (38.7-80.0); PLATELET COUNT 172 x10e3/uL (140-360); RED BLOOD COUNT 2.69 x10e6/uL (4.3-5.7); RED CELL DISTRIBUTION WIDTH 14.9 % (11.7-14.4)
[2019-09-02] MEDS: DEXTROSE 5%/0.45% SOD CHL 1,000 ML IV SCH (06:36)
--- NOTE | 2019-09-02 06:37 | NUR ---
CALLED DR. DELGADO ABOUT PATIENT BEING ON TWO IV FLUIDS. HE SAID PATIENT SHOULD ONLY HAVE THE D5 FLUIDS NOT THE OTHER ONE
--- NOTE | 2019-09-02 06:40 | NUR ---
IM- progress note O/N see below ROS: no f/c/s/N/V/D/dizziness/skin rash/back pain/confusion/leg pain v/s; revd PE tired appearing; NGT in place anicteric ns1s2 mod bs soft nd; tender left abdomen; Dressing in mid abdomen Lamb in place no e/t; thickening and yellowing of toenails skin dry n. affect Reduced hearing labs/meds revd A/P 83yoM LGIB- IV PPI; GI eval; hold plavix/ASA Left abdominal seroma- post surgical; sx consulted; Recent Left inguinal hernia surgical repair CKD3 due to HTN- at or near baseline Moderate anemia CAD with recent ACS and stent placed in 04/2019- cardioeval Hypertensive heart ds BPH- flomax RA- plaquenil Onychomycosis of toenails HEaring deficits Prop: scd dispo: f/u bleeding scan and consultations. monitor closely in ICU. 5-22S/sp Ex Lap and oversewing of the anastamosis; Severe Anemia- blood transfusion; f/u labs this am. Was intubated, now extubated; 5-23 cont current care; pt alert; doing well; monitor Hb. some foot pain. 5-24 Hypoglycemic- start D5. cont care; monitor Hb. 5-25 cont care; Qamar Olson MD, PhD.
--- NOTE | 2019-09-02 07:05 | NUR ---
DID ROUNDING ON PATIENT. GAVE REPORT TO ONCOMING NURSE. CALL LIGHT WITHIN REACH. PATIENT IN BED.
[2019-09-02] MEDS: PANTOPRAZOLE 40 MG 10ML VIAL IV SCH ×2 (08:33→17:11)
[2019-09-02] MEDS: TAMSULOSIN HCL 0.4 MG CAP PO SCH (08:33)
[2019-09-02] MEDS: HYDROXYCHLOROQUINE SULFATE 200 MG TAB PO SCH (08:33)
[2019-09-02] MEDS: ASPIRIN 81 MG CHEW TAB PO SCH (08:33)
[2019-09-02] MEDS: LISINOPRIL 10 MG TAB PO SCH (08:34)
--- NOTE | 2019-09-02 10:20 | Progress Note ---
DATE: Cardiology Progress Note SUBJECTIVE: The patient reports abdominal discomfort and also some nausea and inability to move his bowels for the last few days. OBJECTIVE: VITAL SIGNS: Temperature 98.6, pulse 63, respiratory rate 20, blood pressure 151/78, oxygen saturation 100% on 2 L nasal cannula. GENERAL: Alert and oriented x3. Resting comfortably in bed. Hard of hearing. NECK: Supple. No JVD noted. LUNGS: Diminished breath sounds anterior lower lobes, otherwise clear to auscultation. CARDIOVASCULAR: Regular rate and rhythm. Normal S1, S2. No murmurs, no gallops. EXTREMITIES: Trace edema bilaterally. ABDOMEN: Soft and tender to palpation with incision site covered with dressing. CARDIOVASCULAR MEDICATIONS: Aspirin 81 mg p.o. daily, lisinopril 10 mg p.o. daily, and atorvastatin 20 mg p.o. at bedtime. LABORATORY DATA: WBC 7.01, hemoglobin 8.1, hematocrit 25.9, platelets 172, sodium 137, potassium 4.5, BUN 15, and creatinine 1.010. TELEMETRY: Normal sinus rhythm. IMPRESSION: 1. Acute lower gastrointestinal bleed, status post colonoscopy and laparotomy and revision of prior anastomosis. 2. History of coronary artery disease, status post ST-elevation myocardial infarction in April with PCI of a drug-eluting stent at the same time. 3. Chronic systolic heart failure. 4. Status post abdominal aneurysm repair in May 2019. PLAN: Continue aspirin and monitor any evidence of bleeding. Monitor H and H closely. Continue medical therapy of the above condition. Plavix is on hold at this time, given life-threatening GI bleed and also recent surgery. Continue the rest of the above-listed cardiac medications. Renal function noted to be stable and medications adjusted. We will continue to follow this patient very closely. Dictated by Hayley Easlye, MASHA MD TANG Guido/BUSTER /[id number]
--- NOTE | 2019-09-02 12:56 | Progress Note ---
DATE: SUBJECTIVE: The patient was transferred out of the ICU. He feels better, but still has some abdominal pain. PHYSICAL EXAMINATION: VITAL SIGNS: Blood pressure is 153/56, saturation is 100%, and the pulse is 60. HEENT: No facial swelling or erythema. CARDIAC: Reveals regular rate and rhythm with normal S1, S2. LUNGS: Auscultation of lungs reveals clear breath sounds bilaterally. There is no wheezing. ABDOMEN: Soft, nontender. There is no rebound or guarding. EXTREMITIES: Show no leg edema or calf tenderness. There is no cyanosis or clubbing. SKIN: Shows no rashes. NEUROLOGICAL: Shows no focal abnormalities. IMPRESSION: 1. Anemia secondary to acute blood loss. 2. Status post laparotomy with repair of anastomosis. 3. Chronic renal failure, stage 3. 4. Rheumatoid arthritis. 5. Myocardial infarction 5 months ago. PLAN: 1. Continue to advance diet. 2. Complete antibiotics. 3. Out of bed as tolerated. 4. Monitor blood counts. Wilner Reed MD [facility]/RUBYL /[id number]
[2019-09-02] MEDS: LOSARTAN POTASSIUM 25 MG TAB PO SCH (13:29)
--- NOTE | 2019-09-02 16:11 | NUR ---
Nutrition Intervention Note RD Recommendation(s) for Physician: -Advance diet as tolerated to GI soft -Rec Ensure Clear TID while on clear liquid and Ensure Enlive TID if advanced to full liquid to promote protein-calorie intake Plan of Care: RD following, monitoring for tolerance and adequacy, ONS rec Nutrition reason for involvement: NPO/ clear liquid day 4 RD Assessment 09/01 84yo M, who was readmitted for GI bleed with history of recent small bowel resection for repair of strangulated left inguinal hernia. NPO/ clear liquid x 4 days. Visited pt in the room. Pt was hard of hearing. Pt tolerated clear liquid with 100% recorded PO intake. Pt still complained of abdominal pain (on pain meds), had a small bowel movement today. +flatus. Pt denied any nausea or vomiting. Reviewed his last hospitalization to [facility], pt have lost some weight in the last 2 weeks. Will continue to monitor and follow. Principal Problems/Diagnoses: Anemia secondary to acute blood loss, acute lower gastrointestinal bleed, status post colonoscopy and laparotomy and revision of prior anastomosis PMH: RA, BPH, CKD3, peripheral edema, hearing deficits, STEMI 04/2019, hyponatremia, Bradyarrhythmia, urinary retention, ESBL E.coli, Systolc CHF LVEF 40-45%, AAA I/O: +1591ml/2700ml GI: abdomen soft, round, tender Skin: no pressure wound noted Labs: (09/01) Glucose 61 L, Ca 7.9 L Meds: protonix, dextrose, dilaudid Ht: 70in Wt: 215.5lb BMI: 30.9 kg/m2 IBW: 166lb +/- 10% Malnutrition Evaluation (09/02/2019) The patient meets criteria for MODERATE protein-calorie malnutrition. Energy intake: <75% of estimated energy requirements for >7 days Weight loss: >2% in 1week (Acute) Fat loss: no loss identified Muscle loss: no loss identified Supporting Evidence: Fluid accumulation: no accumulation identified Functional Status: no changes Nutrition Prescription (Diet Order): Clear liquid diet Estimated Nutritional Needs: Calories: 1960 - 2450kcal(20-25kcal/kg/d) Weight used : CBW Protein: 98 147g(1.0-1.5g/kg/d) Weight used: CBW Diet Adequacy: Not meeting calorie needs, Not meeting protein needs Tolerance: Tolerating PO Diet Education Needs Assessment: Diet education not indicated, patient on temporary/transition diet. Nutrition Care Level: moderate Nutrition Diagnosis: Inadequate oral intake related to current medical status as evidenced by clear liquid/ NPO x 4 days. Goal: Patient will meet 75-100% of estimated needs by follow up Progress: N/A Interventions: Modified diet, Commercial beverage Monitoring/Evaluation: Total energy intake, Total protein intake, Modified diet, Liquid supplement, Weight change Signed: Nancy Arroyo MS, RD, LD
[2019-09-02] MEDS: ATORVASTATIN 20 MG TAB PO SCH (20:37)
[2019-09-03] VITALS (7 sets, daily range): BP systolic 99–150; BP diastolic 53–76
[2019-09-03] MEDS: CEFAZOLIN SOD 1 GM/NS 50ML 50 ML IV SCH ×3 (05:15→21:18)
[2019-09-03] MEDS: DEXTROSE 5%/0.45% SOD CHL 1,000 ML IV SCH (05:15)
[2019-09-03] MEDS: HYDROMORPHONE 1MG/1ML INJ IV PRN ×2 (05:16→19:39)
[2019-09-03 06:06] LABS: HEMATOCRIT 24.6 % (38.2-49.6); HEMOGLOBIN 7.9 g/dL (14.0-18.0)
[2019-09-03] MEDS: ASPIRIN 81 MG CHEW TAB PO SCH (09:11)
[2019-09-03] MEDS: PANTOPRAZOLE 40 MG 10ML VIAL IV SCH ×2 (09:11→17:15)
[2019-09-03] MEDS: HYDROXYCHLOROQUINE SULFATE 200 MG TAB PO SCH (09:11)
[2019-09-03] MEDS: TAMSULOSIN HCL 0.4 MG CAP PO SCH (09:11)
[2019-09-03] MEDS: LOSARTAN POTASSIUM 25 MG TAB PO SCH (09:12)
[2019-09-03] MEDS: LISINOPRIL 10 MG TAB PO SCH (09:12)
--- NOTE | 2019-09-03 12:20 | Progress Note ---
DATE: Cardiology Progress Note SUBJECTIVE: The patient sleeping comfortably. No events. OBJECTIVE: VITAL SIGNS: Temperature 97.9, heart rate is 57, respirations are 18, blood pressure is 126/53, and oxygen saturation 100% on 2 L nasal cannula. GENERAL: Well-appearing, elderly man, lying comfortably in bed, no apparent distress. CARDIOVASCULAR: He has regular rate and rhythm. LUNGS: Diminished breath sounds in the bases. ABDOMEN: Soft, nontender, and nondistended. EXTREMITIES: Trace edema. TELEMETRY: Monitoring was personally reviewed and interpreted as normal sinus rhythm. LABORATORY DATA: Reviewed. CARDIOVASCULAR MEDICATIONS: Reviewed. IMPRESSION: 1. Acute gastrointestinal bleed. 2. Coronary artery disease, status post percutaneous coronary intervention. 3. Chronic systolic congestive heart failure. 4. Abdominal aortic aneurysm repair. RECOMMENDATIONS: Continue current cardiovascular medications with the exception of discontinuation of lisinopril. He does not need to be on both an MACK inhibitor and an ARB. Plavix is continued to be held given GI bleed. Can start this if okay with GI and Surgery. Otherwise, we will continue to follow along with you. Main Aldana DO BM/MODL /[id number]
--- NOTE | 2019-09-03 12:30 | NUR ---
IM- progress note O/N see below ROS: no f/c/s/N/V/D/dizziness/skin rash/back pain/confusion/leg pain v/s; revd PE tired appearing; NGT in place anicteric ns1s2 mod bs soft nd; tender left abdomen; Dressing in mid abdomen Lamb in place no e/t; thickening and yellowing of toenails skin dry n. affect Reduced hearing labs/meds revd A/P 83yoM LGIB- IV PPI; GI eval; hold plavix/ASA Left abdominal seroma- post surgical; sx consulted; Recent Left inguinal hernia surgical repair CKD3 due to HTN- at or near baseline Moderate anemia CAD with recent ACS and stent placed in 04/2019- cardioeval Hypertensive heart ds BPH- flomax RA- plaquenil Onychomycosis of toenails HEaring deficits Prop: scd dispo: f/u bleeding scan and consultations. monitor closely in ICU. 5-S/sp Ex Lap and oversewing of the anastamosis; Severe Anemia- blood transfusion; f/u labs this am. Was intubated, now extubated; 5- cont current care; pt alert; doing well; monitor Hb. some foot pain. 5-24 Hypoglycemic- start D5. cont care; monitor Hb. 5- cont care; - Hb 7.9; monitor closely; ambulate pt. Qamar Olson MD, PhD.
--- NOTE | 2019-09-03 18:57 | NUR ---
RECEIVED REPORT FROM PREVIOUS NURSE. CALL LIGHT WITHIN REACH. PATIENT IN BED ASLEEP
[2019-09-03] MEDS: ATORVASTATIN 20 MG TAB PO SCH (21:18)
[2019-09-03] MEDS ORDERED: CYANOCOBALAMIN INJ 1,000 MCG/ML VIAL IM SCH (21:50)
--- NOTE | 2019-09-03 23:47 | NUR ---
[facility] PERFORMED
[2019-09-04] VITALS (8 sets, daily range): BP systolic 100–168; BP diastolic 54–79
[2019-09-04] MEDS: IRON SUCROSE 100 MG in SODIUM CHLORIDE 0.9% 100 ML 100 ML IV SCH (04:55)
[2019-09-04] MEDS: CEFAZOLIN SOD 1 GM/NS 50ML 50 ML IV SCH ×2 (06:18→18:00)
--- NOTE | 2019-09-04 06:55 | NUR ---
PT RECEIVED DURING BEDSIDE REPORT. DRSG CD&I TO MIDLINE ABD.
--- NOTE | 2019-09-04 07:25 | NUR ---
GAVE REPORT TO ONCOMING NURSE. CALL LIGHT WITHIN REACH. PATIENT IN BED. ROUNDING DONE.
--- NOTE | 2019-09-04 08:06 | NUR ---
PT WALKING 200FT MIN ASSIST, DONT SEE THAT [facility] ABX IS INDICATED, WONT MEET CRITERIA FOR SNF, LET NURSE AND CM KNOW, WILL SPEAK WITH MD TO LET KNOW.
[2019-09-04] MEDS: TAMSULOSIN HCL 0.4 MG CAP PO SCH (09:00)
[2019-09-04] MEDS: ASPIRIN 81 MG CHEW TAB PO SCH (09:00)
[2019-09-04] MEDS: DEXTROSE 5%/0.45% SOD CHL 1,000 ML IV SCH (09:00)
[2019-09-04] MEDS: HYDROXYCHLOROQUINE SULFATE 200 MG TAB PO SCH (09:00)
[2019-09-04] MEDS: PANTOPRAZOLE 40 MG 10ML VIAL IV SCH ×2 (09:00→20:43)
[2019-09-04] MEDS: LOSARTAN POTASSIUM 25 MG TAB PO SCH (09:00)
--- NOTE | 2019-09-04 10:00 | NUR ---
IV TO RT HAND LEAKING REMOVED. FT HL REMAINS INTACT.
--- NOTE | 2019-09-04 11:32 | NUR ---
IM- progress note O/N see below ROS: no f/c/s/N/V/D/dizziness/skin rash/back pain/confusion/leg pain v/s; revd PE tired appearing; NGT in place anicteric ns1s2 mod bs soft nd; tender left abdomen; Dressing in mid abdomen Lamb in place no e/t; thickening and yellowing of toenails skin dry n. affect Reduced hearing labs/meds revd A/P 83yoM LGIB- IV PPI; GI eval; hold plavix/ASA Left abdominal seroma- post surgical; sx consulted; Recent Left inguinal hernia surgical repair CKD3 due to HTN- at or near baseline Moderate anemia CAD with recent ACS and stent placed in 04/2019- cardioeval Hypertensive heart ds BPH- flomax RA- plaquenil Onychomycosis of toenails HEaring deficits Prop: scd dispo: f/u bleeding scan and consultations. monitor closely in ICU. 5S/sp Ex Lap and oversewing of the anastamosis; Severe Anemia- blood transfusion; f/u labs this am. Was intubated, now extubated; - cont current care; pt alert; doing well; monitor Hb. some foot pain. 08-31 Hypoglycemic- start D5. cont care; monitor Hb. - cont care; 09-02 Hb 7.9; monitor closely; ambulate pt. - d/c home with PT and HH. check H/H now. Qamar Olson MD, PhD.
[2019-09-04 11:52] LABS: HEMATOCRIT 30.7 % (38.2-49.6); HEMOGLOBIN 9.5 g/dL (14.0-18.0)
--- NOTE | 2019-09-04 12:16 | NUR ---
Spoke to pt at bedside regarding home health order. Pt states he has not used home health previously and to use any company in network with his insurance. Choice letter signed for [employer] [facility], [facility] and [facility]. Signed choice letter placed in front of chart. Gave pt copy of choice letter with HH contact information. CM asked pt to call them if he does not hear from them within 24 hrs of discharge. He verbalized understanding. Informed him that referral will be sent to [facility]. IMM letter delivered and discussed with pt. He verbalized understanding, states he's ready to go home when the doctor is ready to dc him. Signed copy placed in chart. Copy to pt. Referral faxed to [facility] at [phone] / . Notified of anticipated dc for today.
--- NOTE | 2019-09-04 13:01 | NUR ---
Received call from [facility]. Stated they received referral and are ready to see pt. Will reach out to family to set up time/date for admit.
--- NOTE | 2019-09-04 14:15 | Progress Note ---
DATE: Cardiology progress note. SUBJECTIVE: The patient is seen, sitting at bedside. Reports mild shortness of breath. No chest pain or palpitations. OBJECTIVE: VITAL SIGNS: Temperature is 98.0, heart rate is 97, respirations are 16, blood pressure is 100/79, oxygen saturation is 100% on 2 L nasal cannula. GENERAL: He is an elderly appearing man, seated at bedside, in no apparent distress. CARDIOVASCULAR: Regular rate and rhythm. LUNGS: Clear to auscultation. ABDOMEN: Soft, nontender, nondistended. EXTREMITIES: No edema. IMAGING: Telemetry monitoring revealed normal sinus rhythm. LABORATORY DATA: Reviewed. CARDIOVASCULAR MEDICATIONS: Reviewed. IMPRESSION: 1. GI bleed. 2. Coronary artery disease status post percutaneous coronary intervention. 3. Chronic systolic congestive heart failure. 4. Abdominal aortic aneurysm repair. RECOMMENDATIONS: Continue current cardiovascular medications. Can titrate losartan for blood pressure control. He remains on aspirin and atorvastatin. Resume clopidogrel, if okay with GI and primary team. Main Aldana DO BM/MODL /[id number]
--- NOTE | 2019-09-04 15:45 | NUR ---
PT AMBULATED WITH PT. WITH WALKER.
--- NOTE | 2019-09-04 18:25 | NUR ---
SPOKE WITH DAUGHTER AND CONCERN ABOUT PT GOING HOME TOMORROW AND STILL OF FULL LIQUID. CALL PLACED TO DR OSORIO.
--- NOTE | 2019-09-04 18:30 | NUR ---
ADVANCE DIET TO GI SOFT AND GOT A BEDSIDE SWALLOW FOR TOMORROW. NO OTHER CHANGES AT THIS TIME
--- NOTE | 2019-09-04 19:20 | NUR ---
RECEIVED REPORT FROM PREVIOUS NURSE. CALL LIGHT WITHIN REACH. PATIENT IN BED. ROUNDING DONE
[2019-09-04] MEDS: CYANOCOBALAMIN INJ 1,000 MCG/ML VIAL IM SCH (20:43)
[2019-09-04] MEDS: ATORVASTATIN 20 MG TAB PO SCH (20:43)
[2019-09-04] MEDS ORDERED: PHYTONADIONE 10 MG/ML AMP SQ ONE (23:00)
[2019-09-05] VITALS (8 sets, daily range): BP systolic 108–148; BP diastolic 60–82
--- NOTE | 2019-09-05 00:20 | NUR ---
[facility] PERFORMED. HOURLY ROUNDING PERFORMED
[2019-09-05] MEDS: CEFAZOLIN SOD 1 GM/NS 50ML 50 ML IV SCH ×3 (01:50→17:36)
[2019-09-05] MEDS: IRON SUCROSE 100 MG in SODIUM CHLORIDE 0.9% 100 ML 100 ML IV SCH (05:12)
[2019-09-05 05:34] LABS: BASOPHILS % 0.6 % (0.0-1.0); EOSINOPHILS # (AUTO) 0.1 (0.0-0.4); EOSINOPHILS % 2.6 % (0.0-6.0); HEMATOCRIT 28.4 % (38.2-49.6); HEMOGLOBIN 8.9 g/dL (14.0-18.0); LYMPHOCYTES # (AUTO) 0.8 (1.0-3.2); LYMPHOCYTES % 14.7 % (18.0-39.1); MEAN CORPUSCULAR HEMOGLOBIN 30.6 pg (28-32); MEAN CORPUSCULAR HGB CONC 31.3 g/dL (31-35); MEAN CORPUSCULAR VOLUME 97.6 fL (81-99); MONOCYTES # (AUTO) 0.5 (0.2-0.8); MONOCYTES % 9.6 % (4.4-11.3); NEUTROPHILS # (AUTO) 3.8 (2.1-6.9); NEUTROPHILS % 71.9 % (38.7-80.0); PLATELET COUNT 212 x10e3/uL (140-360); RED BLOOD COUNT 2.91 x10e6/uL (4.3-5.7); RED CELL DISTRIBUTION WIDTH 14.6 % (11.7-14.4)
[2019-09-05 05:46] LABS: INR 1.12; PROTHROMBIN TIME 15.1 seconds (11.9-14.5)
--- NOTE | 2019-09-05 06:50 | NUR ---
RECEIVED PT ON BEDSIDE ROUNDS. PT RESTING QUIETLY.
--- NOTE | 2019-09-05 07:20 | NUR ---
GAVE REPORT TO ONCOMING NURSE. CALL LIGHT WITHIN REACH. PATIENT IN BED. ROUNDING DONE EVERY HOUR THROUGHOUT THE SHIFT. PATIENT DRAINING YELLOW CLEAR URINE
[2019-09-05] MEDS: PANTOPRAZOLE 40 MG 10ML VIAL IV SCH ×2 (09:00→21:14)
[2019-09-05] MEDS: TAMSULOSIN HCL 0.4 MG CAP PO SCH (09:00)
[2019-09-05] MEDS: HYDROXYCHLOROQUINE SULFATE 200 MG TAB PO SCH (09:00)
[2019-09-05] MEDS: ASPIRIN 81 MG CHEW TAB PO SCH (09:00)
--- NOTE | 2019-09-05 09:00 | NUR ---
DR DELGADO TO SEE TO NEW ORDERS RECEIVED. DR DELGADO AWARE OF BLOODY STOOLS
--- NOTE | 2019-09-05 12:00 | NUR ---
PT AMBULATING WITH PT. ANOTHER BLOODY STOOL NOTED AT THIS TIME.
[2019-09-05 12:38] LABS: HEMATOCRIT 30.6 % (38.2-49.6); HEMOGLOBIN 9.5 g/dL (14.0-18.0)
--- NOTE | 2019-09-05 15:06 | Diagnostic Imaging Report ---
PROCEDURE: X-RAY MODIFIED BARIUM SWALLOW COMPARISON: None. INDICATION: Aspiration Radiation Details: Fluoroscopy time: 1 minute 42 seconds Cumulative dose: 3.5 mGy DISCUSSION: Fluoroscopic examination was performed in conjunction with speech pathology during swallowing a variety of thin and thick liquid consistencies. Provided images demonstrate laryngeal penetration and aspiration. CONCLUSION: Modified barium swallow demonstrating laryngeal penetration and aspiration. Please refer to the speech pathology report for further details. Signed by: Louis Billings MD on 09/05/2019 3:02 PM
--- NOTE | 2019-09-05 16:10 | NUR ---
Nutrition Intervention Note RD Recommendation(s) for Physician: - Continue GI soft diet - Consider Ensure Enlive BID Plan of Care: RD following, monitoring for tolerance and adequacy, ONS rec Nutrition reason for involvement: follow up RD Assessment 09/04: Follow up. Pt discussed during am MDR, continues with GIB. Pt sleeping at time of visit, did not disturb. Diet advanced to GI soft diet yesterday, tolerating well per RN. Noted 75% recent meal intake per chart. Pt with BSE this afternoon after pt reported swallowing difficulties, per RN pt needs a MBSS as recommended by [employer]. Chart reviewed. Will continue to monitor. 09/01 84yo M, who was readmitted for GI bleed with history of recent small bowel resection for repair of strangulated left inguinal hernia. NPO/ clear liquid x 4 days. Visited pt in the room. Pt was hard of hearing. Pt tolerated clear liquid with 100% recorded PO intake. Pt still complained of abdominal pain (on pain meds), had a small bowel movement today. +flatus. Pt denied any nausea or vomiting. Reviewed his last hospitalization to [facility], pt have lost some weight in the last 2 weeks. Will continue to monitor and follow. 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 Energy intake: <75% of estimated energy requirements for >7 days Weight loss: >2% in 1week (Acute) Fat loss: no loss identified Muscle loss: no loss identified Supporting Evidence: Fluid accumulation: no accumulation identified Functional Status: no changes Nutrition Prescription (Diet Order): GI soft diet Estimated Nutritional Needs: Calories: 1960 - 2450kcal(20-25kcal/kg/d) Weight used : CBW Protein: 98 147g(1.0-1.5g/kg/d) Weight used: CBW Diet Adequacy: meeting calorie needs, meeting protein needs- 75% meal intake currently Tolerance: Tolerating PO Diet Education Needs Assessment: Diet education not indicated, patient on temporary/transition diet. Nutrition Care Level: moderate Nutrition Diagnosis: Inadequate oral intake related to current medical status as evidenced by clear liquid/ NPO x 4 days. Goal: Patient will meet 75-100% of estimated needs by follow up Progress: progressing Interventions: Modified diet, Commercial beverage Monitoring/Evaluation: Total energy intake, Total protein intake, Modified diet, Liquid supplement, Weight change Signed: Fanny Macias RD, LD, [facility]
[2019-09-05] MEDS: LOSARTAN POTASSIUM 25 MG TAB PO SCH (16:36)
[2019-09-05] MEDS: DEXTROSE 5%/0.45% SOD CHL 1,000 ML IV SCH (17:35)
--- NOTE | 2019-09-05 19:00 | NUR ---
Resumed care of patient. Patient resting in bed, respirations even and unlabored, no s/s of distress at this time. All safety measures in place. Will continue to monitor.
--- NOTE | 2019-09-05 21:02 | NUR ---
IM- progress note O/N see below ROS: no f/c/s/N/V/D/dizziness/skin rash/back pain/confusion/leg pain v/s; revd PE tired appearing; NGT in place anicteric ns1s2 mod bs soft nd; tender left abdomen; Dressing in mid abdomen Lamb in place no e/t; thickening and yellowing of toenails skin dry n. affect Reduced hearing labs/meds revd A/P 83yoM LGIB- IV PPI; GI eval; hold plavix/ASA Left abdominal seroma- post surgical; sx consulted; Recent Left inguinal hernia surgical repair CKD3 due to HTN- at or near baseline Moderate anemia CAD with recent ACS and stent placed in 04/2019- cardioeval Hypertensive heart ds BPH- flomax RA- plaquenil Onychomycosis of toenails HEaring deficits Prop: scd dispo: f/u bleeding scan and consultations. monitor closely in ICU. 5-S/sp Ex Lap and oversewing of the anastamosis; Severe Anemia- blood transfusion; f/u labs this am. Was intubated, now extubated; 5- cont current care; pt alert; doing well; monitor Hb. some foot pain. 5-24 Hypoglycemic- start D5. cont care; monitor Hb. 5- cont care; - Hb 7.9; monitor closely; ambulate pt. - d/c home with PT and HH. check H/H now. 5- some bloody stool; follow H/H; modified swallow. Qamar Olson MD, PhD.
--- NOTE | 2019-09-05 21:08 | NUR ---
H&H drawn as ordered and sent to lab.
[2019-09-05] MEDS: CYANOCOBALAMIN INJ 1,000 MCG/ML VIAL IM SCH (21:14)
[2019-09-05] MEDS: ATORVASTATIN 20 MG TAB PO SCH (21:14)
[2019-09-05 21:35] LABS: HEMATOCRIT 27.4 % (38.2-49.6); HEMOGLOBIN 8.5 g/dL (14.0-18.0)
--- NOTE | 2019-09-05 22:41 | NUR ---
Dr. Edgar Riojas here to see patient. Received orders to give 20 mg vitamin K IVPB once, and to check CBC in AM.
[2019-09-05] MEDS ORDERED: PHYTONADIONE 10 MG/ML AMP SQ ONE (22:45)
--- NOTE | 2019-09-05 22:58 | NUR ---
Per Dr. Edgar Riojas, he attempted to place call to daughter as requested regarding question about bloody stools, and did not receive an answer.
--- NOTE | 2019-09-05 22:58 | NUR ---
Received orders from Dr. Edgar Riojas to schedule GI bleed scan for patient in the morning.
--- NOTE | 2019-09-05 23:00 | NUR ---
H/H results 8.5/27.4 per lab.
[2019-09-05] MEDS ORDERED: SODIUM CHLORIDE 0.9% 50ML 50 ML ONE (23:14)
[2019-09-06] VITALS (8 sets, daily range): BP systolic 114–147; BP diastolic 52–77
[2019-09-06] MEDS: CEFAZOLIN SOD 1 GM/NS 50ML 50 ML IV SCH ×3 (01:27→17:22)
[2019-09-06] MEDS: IRON SUCROSE 100 MG in SODIUM CHLORIDE 0.9% 100 ML 100 ML IV SCH (04:08)
[2019-09-06 05:59] LABS: BASOPHILS % 0.5 % (0.0-1.0); EOSINOPHILS # (AUTO) 0.2 (0.0-0.4); EOSINOPHILS % 3.5 % (0.0-6.0); HEMATOCRIT 26.9 % (38.2-49.6); HEMOGLOBIN 8.4 g/dL (14.0-18.0); LYMPHOCYTES % 17.9 % (18.0-39.1); MEAN CORPUSCULAR HEMOGLOBIN 30.5 pg (28-32); MEAN CORPUSCULAR HGB CONC 31.2 g/dL (31-35); MEAN CORPUSCULAR VOLUME 97.8 fL (81-99); MONOCYTES # (AUTO) 0.7 (0.2-0.8); MONOCYTES % 11.6 % (4.4-11.3); NEUTROPHILS # (AUTO) 3.7 (2.1-6.9); NEUTROPHILS % 65.8 % (38.7-80.0); PLATELET COUNT 238 x10e3/uL (140-360); RED BLOOD COUNT 2.75 x10e6/uL (4.3-5.7); RED CELL DISTRIBUTION WIDTH 14.8 % (11.7-14.4)
[2019-09-06] MEDS ORDERED: LIPITOR20 MG PO (07:57)
[2019-09-06] MEDS ORDERED: PANTOPRAZOLE SO40 MG PO (07:57)
[2019-09-06] MEDS: HYDROXYCHLOROQUINE SULFATE 200 MG TAB PO SCH (08:45)
[2019-09-06] MEDS: PANTOPRAZOLE 40 MG 10ML VIAL IV SCH ×2 (08:51→21:24)
[2019-09-06] MEDS: ASPIRIN 81 MG CHEW TAB PO SCH (08:51)
[2019-09-06] MEDS: TAMSULOSIN HCL 0.4 MG CAP PO SCH (08:51)
[2019-09-06] MEDS: LOSARTAN POTASSIUM 25 MG TAB PO SCH (09:45)
--- NOTE | 2019-09-06 11:08 | NUR ---
18F ann discontinued as ordered. Tolerated well
--- NOTE | 2019-09-06 13:34 | NUR ---
Patient voided without discomfort
--- NOTE | 2019-09-06 14:00 | NUR ---
patient had small bowel movement with small amount of blood noted. Dr. Edgar Riojas aware.
--- NOTE | 2019-09-06 16:38 | Diagnostic Imaging Report ---
Tagged-RBC GI Bleed Study Clinical information: 84-year-old male with recent left inguinal hernia repair, presented with bloody stools. Last GI bleed study on 08/29/2019 showed limited small bowel bleed. Discussion: The patient's own red blood cells were labeled with 24 mCi of technetium-99m pertechnetate using the in vitro method (UltraTag). Dynamic images of the abdomen were obtained through 60 minutes. Distribution of tracer activity appears physiologic throughout the abdomen. No abnormal accumulation of tracer is seen within the gastrointestinal lumen. Impression: No scan evidence of active gastrointestinal bleeding at this time. Bleed identified in prior RBC-labeled GI bleed study of 08/29/2019 is not seen on today's study. Signed by: Dr. Fidelia Greenfield M.D. on 09/06/2019 4:35 PM
[2019-09-06] MEDS: DEXTROSE 5%/0.45% SOD CHL 1,000 ML IV SCH (17:22)
--- NOTE | 2019-09-06 18:04 | NUR ---
Dr. Beulah Van. aware of GI bleed scan results. No new orders
--- NOTE | 2019-09-06 19:01 | NUR ---
Report given to oncoming nurse of patient's status. Resting in bed. No signs and symptoms of acute distress noted. Side rails upx2, call light within reach, bed alarm on.
[2019-09-06] MEDS: CYANOCOBALAMIN INJ 1,000 MCG/ML VIAL IM SCH (21:24)
[2019-09-06] MEDS: ATORVASTATIN 20 MG TAB PO SCH (21:24)
--- NOTE | 2019-09-06 22:04 | NUR ---
Patient stating he feels like he can't void. Voided 200 ml in urinal, urine clear yellow. Bladder not distended upon palpation. Bladder scan showing no residual urine. Will continue to monitor.
[2019-09-06 23:51] LABS: HEMATOCRIT 27.1 % (38.2-49.6); HEMOGLOBIN 8.6 g/dL (14.0-18.0)
--- NOTE | 2019-09-06 23:58 | NUR ---
Dr. Edgar Riojas here to see patient. No new orders received at this time.
[2019-09-07 00:22] VITALS: BP 131/68
[2019-09-07] MEDS: CEFAZOLIN SOD 1 GM/NS 50ML 50 ML IV SCH ×2 (02:24→09:33)
[2019-09-07 04:00] VITALS: BP 119/52
[2019-09-07] MEDS: IRON SUCROSE 100 MG in SODIUM CHLORIDE 0.9% 100 ML 100 ML IV SCH (04:22)
--- NOTE | 2019-09-07 06:31 | NUR ---
IM- progress note O/N see below ROS: no f/c/s/N/V/D/dizziness/skin rash/back pain/confusion/leg pain v/s; revd PE tired appearing; NGT in place anicteric ns1s2 mod bs soft nd; tender left abdomen; Dressing in mid abdomen Lamb in place no e/t; thickening and yellowing of toenails skin dry n. affect Reduced hearing labs/meds revd A/P 83yoM LGIB- IV PPI; GI eval; hold plavix/ASA Left abdominal seroma- post surgical; sx consulted; Recent Left inguinal hernia surgical repair CKD3 due to HTN- at or near baseline Moderate anemia CAD with recent ACS and stent placed in 04/2019- cardioeval Hypertensive heart ds BPH- flomax RA- plaquenil Onychomycosis of toenails HEaring deficits Prop: scd dispo: f/u bleeding scan and consultations. monitor closely in ICU. 5S/sp Ex Lap and oversewing of the anastamosis; Severe Anemia- blood transfusion; f/u labs this am. Was intubated, now extubated; 08-30 cont current care; pt alert; doing well; monitor Hb. some foot pain. 08-31 Hypoglycemic- start D5. cont care; monitor Hb. 09-01 cont care; 09-02 Hb 7.9; monitor closely; ambulate pt. 09-03 d/c home with PT and HH. check H/H now. 5 some bloody stool; follow H/H; modified swallow. 09-05 reported by nursing that pt's bleeding scan positive; Qamar Olson MD, PhD.
--- NOTE | 2019-09-07 06:33 | NUR ---
D/C summary Principal Dx: LGIB- IV PPI; GI eval; hold plavix/ASA Left abdominal seroma- post surgical; sx consulted; Severe anemia s/p blood transfusion Secondary Dx: Recent Left inguinal hernia surgical repair CKD3 due to HTN- at or near baseline Moderate anemia CAD with recent ACS and stent placed in 04/2019- cardioeval Hypertensive heart ds BPH- flomax RA- plaquenil Onychomycosis of toenails HEaring deficits Prop: scd dispo: f/u bleeding scan and consultations. monitor closely in ICU. 5-S/sp Ex Lap and oversewing of the anastamosis; Severe Anemia- blood transfusion; f/u labs this am. Was intubated, now extubated; 08-30 cont current care; pt alert; doing well; monitor Hb. some foot pain. 08-31 Hypoglycemic- start D5. cont care; monitor Hb. - cont care; 09-02 Hb 7.9; monitor closely; ambulate pt. 09-03 d/c home with PT and HH. check H/H now. 09-04 some bloody stool; follow H/H; modified swallow. 09-05 reported by nursing that pt's bleeding scan positive; 5-d/c home d/c home with PT; Restart aspirin 81 in 5 days; stable f/u pcp 1 week d/c>35mins Qamar Olson MD, PhD.
[2019-09-07 08:00] VITALS: BP 116/72
[2019-09-07] MEDS: DEXTROSE 5%/0.45% SOD CHL 1,000 ML IV SCH (08:00)
[2019-09-07 08:04] VITALS: BP 116/72
--- NOTE | 2019-09-07 08:10 | NUR ---
Received patient lying in bed with eyes open. Respiration even and unlabored without SOB. Call light in reach.
[2019-09-07] MEDS: PANTOPRAZOLE 40 MG 10ML VIAL IV SCH (09:32)
[2019-09-07] MEDS: TAMSULOSIN HCL 0.4 MG CAP PO SCH (09:33)
[2019-09-07] MEDS: LOSARTAN POTASSIUM 25 MG TAB PO SCH (09:33)
[2019-09-07 09:42] LABS: HEMATOCRIT 29.2 % (38.2-49.6)
[2019-09-07 09:52] LABS: INR 1.09; PROTHROMBIN TIME 14.8 seconds (11.9-14.5)
[2019-09-07] MEDS ORDERED: PHYTONADIONE 10 MG/ML AMP SQ NR (10:30)
--- NOTE | 2019-09-07 10:46 | NUR ---
Called and spoke with Carine with [facility] [employer]. Informed her that pt discharge today. She states they will put down on schedule to be seen on Monday. CM to pt's bedside. Printed home health information and gave to pt. CM asked pt to call [employer] if he does not hear from them. He verbalized understanding. IMM letter delivered and explained to pt. He states he's ready to go home. Signed copy placed in chart. Copy given to pt.
[2019-09-07 12:58] VITALS: BP 142/79
--- NOTE | 2019-09-07 15:00 | NUR ---
Discharge education given. Patient and his daughter Shakira are present during the discharge education regarding Dr. Riojas's recommendation to set-up an outpatient colonoscopy in 2-4 weeks. Verbalized understanding. Patient and daughter also told to watch every bowel movement for bleeding in the stool and advised to call or see Dr. Riojas if blood in the stool is noted. Verbalized understanding. 20g PIV to left hand discontinued. Catheter tip intact, no bleeding noted. Transported patient via wheelchair to private vehicle with all personal belongings taken. Home prescription given.
== END 2019-09-07 15:00 | disposition home health service (06) | DRG 330 ==
LOC: ER 21:04 → ERHOLD 08-29 00:32 → ICU 08-29 01:47 → MED/SURG 09-01 13:46
PROVIDERS: ADMIT Internal Medicine; ATTEND Internal Medicine
PROC: 30233K1 Transfusion of Nonautologous Frozen Plasma into Peripheral Vein, Percutaneous Approach (ICD-10-PCS; 2019-08-29)
PROC: 30233N1 Transfusion of Nonautologous Red Blood Cells into Peripheral Vein, Percutaneous Approach (ICD-10-PCS; 2019-08-29)
PROC: 30233R1 Transfusion of Nonautologous Platelets into Peripheral Vein, Percutaneous Approach (ICD-10-PCS; 2019-08-29)
PROC: 0D1 Gastrointestinal System, Bypass (ICD-10-PCS; principal; 2019-08-29 20:00)
PROC: 0DJD8ZZ Inspection of Lower Intestinal Tract, Via Natural or Artificial Opening Endoscopic (ICD-10-PCS; 2019-08-29 20:00)
DX: K91.89 Other postprocedural complications and disorders of digestive system (principal); K92.2 Gastrointestinal hemorrhage, unspecified; D62 Acute posthemorrhagic anemia; I50.22 Chronic systolic (congestive) heart failure; I13.0 Hypertensive heart and chronic kidney disease with heart failure and stage 1 through stage 4 chronic kidney disease, or unspecified chronic kidney disease; K56.7 Ileus, unspecified; L76.34 Postprocedural seroma of skin and subcutaneous tissue following other procedure; N18.3 Chronic kidney disease, stage 3 (moderate); B35.1 Tinea unguium; H91.90 Unspecified hearing loss, unspecified ear; D64.9 Anemia, unspecified; I25.10 Atherosclerotic heart disease of native coronary artery without angina pectoris; Z95.5 Presence of coronary angioplasty implant and graft; N40.0 Benign prostatic hyperplasia without lower urinary tract symptoms; M06.9 Rheumatoid arthritis, unspecified; I25.2 Old myocardial infarction; Z96.653 Presence of artificial knee joint, bilateral
CPT/HCPCS: 36415; 45378; 71045; 74176; 74230; 78278; 80048; 80053; 81001; 82550; 82553; 82607; 82728; 82746; 82948; 83540; 84466; 84484; 85014; 85018; 85025; 85045; 85610; 85730; 86850; 86900; 86920; 87635; 93005; 93306; 94002; 94003; 97139; 99251; 99284; A9512; J0690; J1170; J1610; J1644; J1756; J3420; J3430; J7030; J7040; J7050; P9016; P9017; P9034

== ENCOUNTER 2019-10-10 14:10 | Emergency (ER) | payer MEDICARE, OTHER ==
[~2019-10-10] VITALS: Ht 177.8 cm; Wt 97.5 kg
[~2019-10-10 14:10] MED LIST changes: +PANTOPRAZOLE SO40 MG PO
--- NOTE | 2019-10-10 16:37 | NUR ---
pt left stating he wants to go home and is not willing to wait any longer
--- NOTE | 2019-10-10 19:10 | Emergency Department Note ---
History of Present Illnes History of Present Illness Chief Complaint: Genitourinary History of Present Illness This is a 84 year old male arrives to the ED with complaints of dif ficulty voiding and dysuria for several days. Historian: Patient Arrival Mode: Car Auto Accessories Installer Required: No Onset (how long ago): day(s) Severity: mild Duration (how long): day(s) Timing of current episode: constant Progression: worsening Chronicity: recurrent Exacerbating factors: none Past Medical/Family History Physician Review I have reviewed the patient's past medical and family history. Any updates have been documented here. Past Medical History Recent Fever: No Clinical Suspicion of Infectio: No New/Unexplained Change in Ment: No Past Medical History: Hypertension, [place], CAD Other Medical History: GOUT RA OBESITY PVD Past Surgical History: PCI, Knee Replacement, Hernia Repair Other Surgery: BILATERAL KNEE REPLACEMENT Other Last Tetanus: UNKNOWN Review of Systems Review of Systems Constitutional: Reports no symptoms EENTM: Reports no symptoms Cardiovascular: Reports no symptoms Respiratory: Reports no symptoms Gastrointestinal: Reports no symptoms Genitourinary: Reports as per HPI Musculoskeletal: Reports no symptoms Integumentary: Reports no symptoms Neurological: Reports no symptoms Psychological: Reports no symptoms Endocrine: Reports no symptoms Hematological/Lymphatic: Reports no symptoms Physical Exam Related Data Allergies: Coded Allergies: No Known Allergies (Verified , 08/21/19) Triage Vital Signs Vital Signs Date Time Temp Pulse Resp B/P (MAP) Pulse Ox O2 Delivery O2 Flow Rate FiO2 10/10/19 15:17 97.4 67 18 153/72 99 Room Air Vital signs reviewed: Yes Physical Exam CONSTITUTIONAL Constitutional: Present well-developed, Present well-nourished HENT HENT: Present normocephalic, Present atraumatic, Present oropharynx clear/moist, Present nose normal HENT L/R: Present left ext ear normal, Present right ext ear normal EYES Eyes: Reports PERRL, Reports conjunctivae normal NECK Neck: Present ROM normal PULMONARY Pulmonary: Present effort normal, Present breath sounds normal CARDIOVASCULAR Cardiovascular: Present regular rhythm, Present heart sounds normal, Present capillary refill normal, Present normal rate GASTROINTESTINAL Abdominal: Present soft, Present nontender, Present bowel sounds normal GENITOURINARY Genitourinary: Present exam deferred SKIN Skin: Present warm, Present dry MUSCULOSKELETAL Musculoskeletal: Present ROM normal NEUROLOGICAL Neurological: Present alert, Present oriented x 3, Present no gross motor or sensory deficits PSYCHOLOGICAL Psychological: Present mood/affect normal, Present judgement normal Assessment & Plan Medical Decision Making MDM Agent malaise the ED with complaint dysuria and urinary retention. Patient chose to leave and did not wish to wait to have a Lamb catheter, urinalysis are further workup. Patient states she will rather follow-up with his urologist. Patient came to us steady gait and normal mental status at time of discharge. Assessment & Plan Final Impression: (1) Urinary retention Depart Disposition: HOME, SELF-CARE Last Vital Signs Date Time Temp Pulse Resp B/P (MAP) Pulse Ox O2 Delivery O2 Flow Rate FiO2 10/10/19 15:17 97.4 67 18 153/72 99 Room Air Home Meds Active Scripts Pantoprazole Sodium* (PROTONIX) 40 Mg Tablet.dr, 40 MG PO Q12H, #60 TAB Prov:RADHA DELGADO MD 09/06/19 Atorvastatin Calcium (LIPITOR) 20 Mg Tablet, 20 MG PO HS for 30 Days Prov:RADHA DELGADO MD 09/06/19 Reported Medications Tamsulosin Hcl* (FLOMAX*) 0.4 Mg Cap, 0.4 MG PO DAILY, #30 CAP 08/21/19 Aspirin (ASPIR 81) 81 Mg Tablet.dr, 81 MG PO DAILY 08/21/19 Acetaminophen With Codeine (TYLENOL WITH CODEINE #3 TABLET) 1 Each Tablet, 300 MG PO BID PRN for Mild Pain (1-3) or Fever>100.8, TAB 08/21/19 Hydroxychloroquine Sulfate (PLAQUENIL) 200 Mg Tab, 200 MG PO DAILY, #30 TAB 08/21/19 Docusate Sodium (DOCUSATE SODIUM) 100 Mg Capsule, 100 MG PO BID PRN for CONSTIPATION, CAP 08/21/19 Lisinopril (LISINOPRIL) 10 Mg Tablet, 10 MG PO DAILY, #30 TAB 08/21/19 Ferrous Sulfate (FERROUS SULFATE) 325 Mg Tablet, 325 MG PO BID 08/08/17 SARAN MARTÍNEZ, Oct 10, 2019 19:10
== END 2019-10-10 16:38 | disposition home or self-care (01) ==
LOC: ER 15:22
DX: R33.9 Retention of urine, unspecified (principal); R30.0 Dysuria; I10 Essential (primary) hypertension; I25.10 Atherosclerotic heart disease of native coronary artery without angina pectoris; I25.2 Old myocardial infarction
CPT/HCPCS: 99282

== ENCOUNTER 2023-12-11 07:39 | Emergency (ER) | payer MEDICARE ==
[~2023-12-11] VITALS: Ht 177.8 cm; Wt 97.5 kg
[2023-12-11 07:48] VITALS: TEMP 99.2
[2023-12-11 08:06] LABS: BASOPHILS % 0.3 % (0.0-1.0); EOSINOPHILS # (AUTO) 0.1 (0.0-0.4); EOSINOPHILS % 0.6 % (0.0-6.0); HEMATOCRIT 36.9 % (38.2-49.6); HEMOGLOBIN 11.7 g/dL (14.0-18.0); LYMPHOCYTES # (AUTO) 0.7 (1.0-3.2); LYMPHOCYTES % 7.3 % (18.0-39.1); MEAN CORPUSCULAR HEMOGLOBIN 31.8 pg (28-32); MEAN CORPUSCULAR HGB CONC 31.7 g/dL (31-35); MEAN CORPUSCULAR VOLUME 100.3 fL (81-99); MONOCYTES # (AUTO) 0.7 (0.2-0.8); MONOCYTES % 7.3 % (4.4-11.3); NEUTROPHILS # (AUTO) 7.6 (2.1-6.9); NEUTROPHILS % 84.2 % (38.7-80.0); PLATELET COUNT 120 x10e3/uL (140-360); RED BLOOD COUNT 3.68 x10e6/uL (4.3-5.7); WHITE BLOOD COUNT 9.03 x10e3/uL (4.8-10.8)
[2023-12-11 08:25] LABS: ALBUMIN 2.9 g/dL (3.5-5.0); ALBUMIN/GLOBULIN RATIO 0.6 (0.8-2.0); ANION GAP 17.9 mmol/L (8-16); BILIRUBIN,TOTAL 0.8 mg/dL (0.2-1.2); CREATININE, SERUM 2.44 mg/dL (0.72-1.25); POTASSIUM 3.9 mmol/L (3.5-5.1); TOTAL PROTEIN 7.6 g/dL (6.5-8.1)
[2023-12-11 08:31] LABS: TROPONIN I 0.062 ng/mL (0-0.300)
[2023-12-11 08:57] LABS: INFLUENZAE A&B ANTIGEN (RAPID) NEGATIVE (NEGATIVE); RESPIRATORY SYNC. VIRUS NEGATIVE (NEGATIVE)
[2023-12-11] MEDS: ASPIRIN 81 MG CHEW TAB PO ONE (09:03)
[2023-12-11 10:45] VITALS: PULSE 77; RESP 14
[2023-12-11 11:05] VITALS: BP 133/69; PULSE 77; RESP 14; O2SAT 100
== END 2023-12-11 11:05 | disposition short-term general hospital (02) ==
LOC: ER 07:48
DX: R53.1 Weakness (principal); I63.9 Cerebral infarction, unspecified; I10 Essential (primary) hypertension; I25.10 Atherosclerotic heart disease of native coronary artery without angina pectoris; M06.9 Rheumatoid arthritis, unspecified; I73.9 Peripheral vascular disease, unspecified; E66.9 Obesity, unspecified; Z11.52 Encounter for screening for COVID-19; I25.2 Old myocardial infarction; Z96.653 Presence of artificial knee joint, bilateral
CPT/HCPCS: 36415; 70450; 71045; 72125; 80053; 84484; 85025; 87400; 87420; 93005; 99284; U0002